=== PATIENT | female | born 1940 | race Caucasian/White ===

== ENCOUNTER 2016-04-25 13:53 | Observation (INO) | payer MEDICARE, MEDICAID ==
[~2016-04-25] VITALS: Ht 157.5 cm; Wt 108.6 kg
[~2016-04-25 13:53] MED LIST: ALPR.25T; BIOT1POW3 PO; CALC1CAP21 PO; CHOL20002 PO; CIPR500T4 PO; CYAN100021 PO; CYCL10TA9 PO; DIAZ5TAB49; DULO30CA; ESTROVEN; FLAX100011 PO; FRSM40T; HYDR-1231 PO; HYDR-3714 PO; HYDR-3720 PO; HYDR-3812 PO; HYDR25TA4 PO; HYDR50TA3; KCL10CCR; LIOT25TA3; LNS30CCR; LVT.1T; MAGN400C PO; MAGN500C15 PO; MIRA50TA PO; MULTIVITAMIN; NTR50C PO; OXC5T; OXYC-12 PO; OXYC-272; PANT40TA2 PO; POLY119P PO; POLY17PO6 PO; SLO FE; THYR180T2 PO; THYR65TA5 PO; TRAM50TA2 PO; TRIM100T PO; [UNRECOGNIZED DRUG - MIXTURE]
--- OUTSIDE RECORDS SUMMARY | 2016-04-25 13:59 | XMS REPORT | Continuity of Care Document ---
Author Author [facility] Organization [facility] Address Unknown Phone Unavailable Care Team Providers Care Bronzer Name Role Phone PCP Unavailable Source Comments Some departments are not documenting in the electronic medical record. If you do not see the information that you expected, contact Release of Information in the Health Information Management department at [phone] for further assistance in locating additional records.[facility] Active Allergies and Adverse Reactions Not on File Current Medications Not on file Active Problems Not on file Social History Tobacco Use Types Packs/Day Years Used Date Never Assessed Plan of Care Health Maintenance Due Date Last Done Comments Physical (Comprehensive) 12/21/1946 Exam Pertussis Vaccine 12/21/1950 Tetanus Vaccine 12/21/1956 Breast Cancer Screening 1979 Shingles Vaccine 1999 Osteoporosis Screening 12/21/2004 Prevnar/Pneumovax (#1) 12/21/2004 Influenza Vaccine 11/03/2014 Results from Last 3 Months Not on file
[2016-04-25] MEDS ORDERED: ASPIRIN 81 MG CHEW (CHILDREN'S ASA) PO ONE (14:30)
--- NOTE | 2016-04-25 14:30 | ED Cardiac General ---
History of Present Illness General Chief Complaint: Respiratory Problems Stated Complaint: CHEST PAIN/SOA Source: patient History of Present Illness Time seen by provider: 14:11 Initial Comments PT ARRIVES VIA POV FROM DR. PERSAUD OFFICE PT C/O CHEST HEAVINESS --RATES 10/12--SINCE SUNDAY C/O SHORTNESS OF BREATH SINCE SUNDAY, ESPECIALLY WITH ANY EXERTION HAS HAD SLIGHT COUGH--MOSTLY AT NIGHT AND MOSTLY FROM SINUS DRAINAGE--FOR THE LAST COUPLE OF WEEKS. STATES SALTINE CRACKERS ARE THE ONLY THING THAT HELPS. SO HAS BEEN EATING ALOT OF THOSE THE LAST COUPLE OF WEEKS NO FEVER/SWEATS/CHILLS C/O LEG SWELLING, AND HAS GAINED 7 LBS IN LAST 2 WEEKS NO ORTHOPNEA---PT STATES SHE HAS SLEPT IN A RECLINER FOR YEARS DUE TO CHRONIC BACK PAIN, BUT DOES NOT HAVE DIFFICULTY BREATHING WHEN RECLINING PCP: DR. PERSAUD Allergies and Home Medications Allergies Coded Allergies: NKANo Known Allergies (Verified Allergy, Unknown, 06/10/06) Home Medications Biotin 1 Gm Powder 3,000 MCG PO BID (Reported) Calcium Carbonate/Vitamin D3 1 Each Capsule 2 TAB PO DAILY (Reported) Cholecalciferol (Vitamin D3) 2,000 Unit Capsule 2,000 UNIT PO BID (Reported) Ciprofloxacin HCl 500 Mg Tablet #14 500 MG PO BID Prescribed by: RYLEE MORENO on 05/13/15 1821 Cyanocobalamin 1,000 Mcg/15 Ml Oral.susp 5,000 MCG PO BID (Reported) Cyclobenzaprine Hcl 10 Mg Tablet #10 0.5-1 EACH PO Q8H PRN PRN SPASMS Prescribed by: RYLEE MORENO on 08/01/13 1433 Flaxseed 1,000 Mg Capsule 2,000 MG PO BID (Reported) Hydrochlorothiazide 25 Mg Tablet #90 25 MG PO HS (Reported) Hydrocodone/Acetaminophen 1 Each Tablet #20 1-2 EACH PO Q6H PRN PRN PAIN Prescribed by: LUCY BARR on 06/09/15 2142 Magnesium Oxide 500 Mg Capsule 500 MG PO DAILY (Reported) Nitrofurantoin Macrocrystal 50 Mg Capsule #30 1 CAP PO HS (Reported) Oxycodone Hcl/Acetaminophen 1 Each Tablet #14 1 EACH PO Q4-6H PRN Prescribed by: RYLEE MORENO on 08/09/13 1410 Pantoprazole Sodium 40 Mg Tablet.dr #30 40 MG PO DAILY Prescribed by: NIKOLAI SAAVEDRA on 12/28/14 0834 Polyethylene Glycol 3350 17 Gm Powd.pack 17 GM PO HS (Reported) Thyroid,Pork 65 Mg Tablet 65 MG PO DAILY (Reported) Tramadol HCl 50 Mg Tablet #10 50 MG PO Q6H PRN PRN PAIN Prescribed by: RYLEE MORENO on 05/13/15 1821 Trimethoprim 100 Mg Tablet #30 100 MG PO DAILY (Reported) Review of Systems Constitutional: see HPI weight gain EENTM: See HPI Nose Congestion Respiratory: See HPI Cough Shortness of Air SOA With ExertionDenies Wheezing Cardiovascular: See HPI Chest Pain EdemaDenies Lightheadedness, Denies Palpitations, Denies Syncope Gastrointestinal: No Symptoms Reported Genitourinary: Incontinence (CHRONIC / STABLE) Musculoskeletal: see HPI Skin: no symptoms reported Psychiatric/Neurological: No Symptoms Reported Endocrine: No Symptoms Reported Hematologic/Lymphatic: No Symptoms Reported Past Fpsypxj-Vfidas-Rswelz Hx Patient Social History Alcohol Use: Rarely Uses Recreational Drug Use: No Smoking Status: Never a Smoker Former Smoker/When Quit: Recent Hopitalizations: No Immunizations Up To Date Date of Pneumonia Vaccine: Nov 22, 2014 Date of Influenza Vaccine: Jan 20, 2016 Surgeries HX Surgeries: Yes (STIMULATOR R HIP, CARPAL TUNNEL, TLKR, INTERSTIM R/L HIP FOR INCONTINENCE, ) Surgeries: Appendectomy, Section, Gallbladder, Hysterectomy, Orthopedic, Tonsillectomy Respiratory Hx Respiratory Disorders: No Cardiovascular Hx Cardiac Disorders: Yes Cardiac Disorders: Chronic Edema/Swelling Neurological Hx Neurological Disorders: No 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 System Hx 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 Disorders: No Sexually Transmitted Disease: No HIV/AIDS: No Female 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 Disorders: Denies KITCHEN AIDE History: Menopausal Genitourinary Hx Genitourinary Disorders: Yes (STATES "INTERSTEMS" IN PLACE FOR UTI'S AND INCONTINENCE, HX COLLAGEN IMPLANTS) Genitourinary Disorders: Kidney Stones, UTI-Chronic Gastrointestinal Hx Gastrointestinal Disorders: No Musculoskeletal Hx Musculoskeletal Disorders: Yes (CARPAL TUNNEL SURGERY RIGHT WRIST, FX L1, FX PELVIS, lumbar compression Fx; RIGHT SHOULDER DISLOCATION; HIP REPLACEMENT) Musculoskeletal Disorders: Osteoporosis, Arthritis, Chronic Back Pain, Fractures Endocrine Hx Endocrine Disorders: Yes Endocrine Disorders: Hypothyroidsim HEENT HX ENT Disorders: No Loss of Vision: Denies Hearing Impairment: Denies Cancer Hx Cancer: No Psychosocial Hx Psychiatric Problems: No Integumentary HX Skin/Integumentary Disorder: No Blood Transfusions Hx Blood Disorders: No Family Medical History Significant Family History: Diabetes Family Medial History: Diabetes mellitus 19 FATHER G8 SISTER Physical Exam Vital Signs Vital Sign - Last 12Hours 04/25/16 14:23 Temp 99.1 Pulse 79 Resp 18 B/P 172/65 Pulse Ox 94 Capillary Refill : General Appearance: Obese Other (MILDLY DYSPENIC ON WALKING BACK TO ROOM, BUT QUICKLY RESOLVES AT REST. ABLE TO TALK IN FULL SENTENCES) HEENT: PERRL/EOMI Neck: Full Range of Motion Normal Inspection Non Tender SuppleNo Carotid Bruit , No JVD Respiratory: Normal Breath Sounds No Accessory Muscle Use Cardiovascular: Regular Rate, Rhythm No JVD No Murmur Normal Peripheral Pulses Gastrointestinal: Normal Bowel Sounds No Organomegaly Non Tender Soft Extremity: Normal Capillary Refill Non Tender No Calf Tenderness Pedal Edema ( 2+ BILATERALLY) Neurologic/Psychiatric: Alert Oriented x3 No Motor/Sensory Deficits Normal Mood/Affect cylinder tester II-XII Norm as Tested Skin: Normal Color Warm/Dry Patient Education: Explained Benefits, Explained Risks, Pt. Ack. Understanding Breath Sounds per Auscultation: Clear Heart Sounds per Auscultation: Regular Airway Exam: Mouth opens >2 fingers, Neck Full Range of Motion, Visulation of Uvula Sedation Adminstration Time: 2014 Progress/Results/Core Measures Results/Orders Lab Results Laboratory Tests Test 04/25/16 15:05 Range/Units Activated Partial Thromboplast Time 26 24-35 SEC Alanine Aminotransferase (ALT/SGPT) 16 0-55 U/L Albumin 3.8 3.2-4.5 G/DL Alkaline Phosphatase 83 40-136 U/L Amylase Level 42 25-125 U/L Anion Gap 9 5-14 MMOL/L Aspartate Amino Transf (AST/SGOT) 25 5-34 U/L B-Type Natriuretic Peptide 16.8 <100.0 PG/ML BUN/Creatinine Ratio 22 Basophils # (Auto) 0.0 0.0-0.1 10^3/uL Basophils (%) (Auto) 0 0-10 % Blood Urea Nitrogen 22 H 7-18 MG/DL Calcium Level 9.2 8.5-10.1 MG/DL Carbon Dioxide Level 27 21-32 MMOL/L Chloride Level 103 98-107 MMOL/L Creatine Kinase MB 1.6 <6.6 NG/ML Creatinine 1.00 0.60-1.30 MG/DL Eosinophils # (Auto) 0.3 0.0-0.3 10^3/uL Eosinophils (%) (Auto) 3 0-10 % Estimat Glomerular Filtration Rate 54 Glucose Level 90 70-105 MG/DL Hematocrit 43 35-52 % Hemoglobin 13.9 11.5-16.0 G/DL INR Comment 1.0 0.8-1.4 Lipase 31 8-78 U/L Lymphocytes # (Auto) 2.3 1.0-4.0 X 10^3 Lymphocytes (%) (Auto) 23 12-44 % Magnesium Level 2.4 1.8-2.4 MG/DL Mean Corpuscular Hemoglobin 29 25-34 PG Mean Corpuscular Hemoglobin Concent 33 32-36 G/DL Mean Corpuscular Volume 88 80-99 FL Mean Platelet Volume 9.6 7.4-10.4 FL Monocytes # (Auto) 0.9 0.0-1.0 X 10^3 Monocytes (%) (Auto) 8 0-12 % Neutrophils # (Auto) 6.7 1.8-7.8 X 10^3 Neutrophils (%) (Auto) 66 42-75 % Platelet Count 248 130-400 10^3/uL Potassium Level 5.2 H 3.6-5.0 MMOL/L Prothrombin Time 12.6 12.2-14.7 SEC Red Blood Count 4.86 4.35-5.85 10^6/uL Red Cell Distribution Width 14.1 10.0-14.5 % Sodium Level 139 135-145 MMOL/L TSH [place] Testing 0.35 0.35-4.94 UIU/ML Total Bilirubin 0.4 0.1-1.0 MG/DL Total Creatine Kinase 47 29-168 U/L Total Protein 7.2 6.4-8.2 G/DL Troponin I < 0.30 <0.30 NG/ML White Blood Count 10.2 4.3-11.0 10^3/uL My Orders Orders-DAVID MORALES DO Amylase (04/25/16 14:26) Cbc With Automated Diff (04/25/16 14:26) Comprehensive Metabolic Panel (04/25/16 14:26) Creatine Kinase (04/25/16 14:26) Creatine Kinase Mb (04/25/16 14:26) Lipase (04/25/16 14:26) Partial Thromboplastin Time (04/25/16 14:26) Protime With Inr (04/25/16 14:26) Troponin I (04/25/16 14:26) Chest 1 View, Ap/Pa Only (04/25/16 14:26) O2 (04/25/16 14:26) Ekg Tracing (04/25/16 14:26) Aspirin Chewable Tablet (Baby Aspirin Ch (04/25/16 14:30) Rx-Nitroglycerin Sl Tabs (Rx-Nitrostat S (04/25/16 14:30) BNP (04/25/16 14:26) Monitor-Rhythm Ecg Trace Only (04/25/16 14:26) Magnesium (04/25/16 14:26) Thyroid Analyzer (04/25/16 14:26) Ct Angio Chest W (04/25/16 16:09) Iohexol Injection (Omnipaque 350 Mg/Ml 1 (04/25/16 16:15) Ns (Ivpb) (Sodium Chloride 0.9% Ivpb Bag (04/25/16 16:15) Medications Given in ED Current Medications Medications Dose Ordered Sig/Nancy Route Start Time Stop Time Status Last Admin Dose Admin Aspirin 324 mg ONCE ONCE PO 04/25/16 14:30 04/25/16 14:31 DC 04/25/16 15:47 324 MG Iohexol 150 ml ONCE ONCE IV 04/25/16 16:15 04/25/16 16:34 DC 04/25/16 16:29 145 ML Nitroglycerin 0.4 mg UD PRN SL 04/25/16 14:30 04/25/16 16:06 0.4 MG Sodium Chloride 100 ml ONCE ONCE IV 04/25/16 16:15 04/25/16 16:34 DC 04/25/16 16:29 100 ML Vital Signs/I&O Vital Sign - Last 12Hours 04/25/16 14:23 Temp 99.1 Pulse 79 Resp 18 B/P 172/65 Pulse Ox 94 Progress Note : Progress Note CHEST DISCOMFORT AND SHORTNESS OF BREATH RESOLVED WITH NTG X 2 ECG Initial ECG Impression Time: 14:20 Initial ECG Rate: 75 Initial ECG Rhythm: Normal Sinus Initial ECG Comparisson: Changed (AXIS CHANGE FROM 2009) Diagnostic Imaging Comments CXR--NO ACUTE PROCESS, ATELECTASIS OR SCARRING RIGHT BASE--PER RADIOLOGIST REPORT @ 1524 CT CHEST ANGIO--NO PE OR ACUTE PROCESS, PER RADIOLOGIST REPORT @ 1658 Reviewed: Reviewed by Me Departure Communication Progress Notes 1702--SPOKE WITH DR. EPPERSON, ACCEPTS PT FOR ADMIT. Impression Impression: Primary Impression: Chest pain Additional Impressions: Dyspnea Dyspnea on exertion Leg edema Disposition: ADMITTED INPATIENT Condition: Improved Decision to Admit Reason: Admit from ER (General) Decision to Admit/Date: Apr 25, 2016 Time/Decision to Admit Time: 17:00 Departure-Patient Inst. Referrals: ANDIE PERSAUD MD (PCP/Family) Primary Care Physician DAVID MORALES DO Apr 25, 2016 14:30
--- NOTE | 2016-04-25 15:02 | Diagnostic Imaging Report ---
INDICATION: Chest pain and dyspnea. Upright portable view of the chest is obtained. Comparison is made to study of 04/21/2014. FINDINGS: Overall heart size is at the upper limits of normal. Pulmonary vascularity is unremarkable. There is no evidence of pneumothorax or consolidation. There is probable linear atelectasis or scarring in left lung base. There is rather advanced degenerative change in the shoulder joints. IMPRESSION: Linear atelectasis or scarring in the left lung base. Otherwise, no acute abnormality or adverse change is seen. Dictated by: Dictated on workstation # [id number]
[2016-04-25 15:15] LABS: BASOPHILS % (AUTO) 0 % (0-10); EOSINOPHILS # (AUTO) 0.3 10^3/uL (0.0-0.3); EOSINOPHILS % (AUTO) 3 % (0-10); LYMPHOCYTES # (AUTO) 2.3 X 10^3 (1.0-4.0); LYMPHOCYTES % (AUTO) 23 % (12-44); MEAN CORPUSCULAR HEMOGLOBIN 29 PG (25-34); MEAN CORPUSCULAR HGB CONC 33 G/DL (32-36); MEAN CORPUSCULAR VOLUME 88 FL (80-99); MEAN PLATELET VOLUME 9.6 FL (7.4-10.4); MONOCYTES # (AUTO) 0.9 X 10^3 (0.0-1.0); MONOCYTES % (AUTO) 8 % (0-12); NEUTROPHILS # (AUTO) 6.7 X 10^3 (1.8-7.8); NEUTROPHILS % (AUTO) 66 % (42-75); PLATELET COUNT 248 10^3/uL (130-400); RED BLOOD COUNT 4.86 10^6/uL (4.35-5.85); RED CELL DISTRIBUTION WIDTH 14.1 % (10.0-14.5); WHITE BLOOD COUNT 10.2 10^3/uL (4.3-11.0)
[2016-04-25 15:26] LABS: PROTHROMBIN TIME PATIENT 12.6 SEC (12.2-14.7)
[2016-04-25 15:35] LABS: ALANINE AMINOTRANSFERASE 16 U/L (0-55); ALBUMIN 3.8 G/DL (3.2-4.5); AMYLASE 42 U/L (25-125); ANION GAP 9 MMOL/L (5-14); ASPARTATE AMINO TRANSFERASE 25 U/L (5-34); BILIRUBIN,TOTAL 0.4 MG/DL (0.1-1.0); BLOOD UREA NITROGEN 22 MG/DL (7-18); BUN/CREATININE RATIO 22; CALCIUM 9.2 MG/DL (8.5-10.1); CARBON DIOXIDE 27 MMOL/L (21-32); CHLORIDE 103 MMOL/L (98-107); CREATINE KINASE 47 U/L (29-168); GFR ESTIMATED 54; GLUCOSE 90 MG/DL (70-105); LIPASE 31 U/L (8-78); MAGNESIUM 2.4 MG/DL (1.8-2.4); POTASSIUM 5.2 MMOL/L (3.6-5.0); SODIUM 139 MMOL/L (135-145); TOTAL PROTEIN 7.2 G/DL (6.4-8.2)
[2016-04-25] MEDS: RX-NITROGLYCERIN 0.4 MG TAB BTL 25'S SL PRN ×2 (15:47→16:06)
[2016-04-25 16:02] LABS: TROPONIN I < 0.30 NG/ML (<0.30)
[2016-04-25] MEDS ORDERED: IOHEXOL 350 MG/ML 150 ML (OMNIPAQUE 350) VIAL IV ONE (16:15)
[2016-04-25] MEDS ORDERED: NS 100 ML (IVPB) BAG IV ONE (16:15)
--- NOTE | 2016-04-25 16:55 | Diagnostic Imaging Report ---
PROCEDURE: CT angiography of the chest with contrast. TECHNIQUE: Multiple contiguous axial images were obtained through the chest after uneventful bolus administration of intravenous contrast. Reconstructed CTA MIP acquisitions were also performed. INDICATION: Chest heaviness and shortness of air. COMPARISON: None available. FINDINGS: The contrast bolus timing is suboptimal to evaluate the distal pulmonary arteries. Allowing for this, there is no central pulmonary emboli to the level of the lobar pulmonary arteries. No CT findings of right ventricular strain or pulmonary hypertension. Thoracic aorta is well opacified without dissection and is normal in caliber. No evidence of mediastinal hematoma. Heart is mildly enlarged without pericardial effusion. No supraclavicular or axillary lymphadenopathy. No mediastinal, hilar or juxtaphrenic lymphadenopathy. No pleural effusion or pneumothorax. No endoluminal lesion of the trachea or central bronchi. No pulmonary mass, suspicious nodule or consolidation. There are parapelvic renal cysts in the superior aspect of the left kidney. Remainder of the upper abdomen is grossly normal allowing for the phase of imaging. No concerning osseous lesions. Age-related degenerative changes within the spine. IMPRESSION: 1. No evidence of central pulmonary emboli to level of the proximal segmental arteries. Suboptimal opacification of the pulmonary vessels limits evaluation of the smaller distal pulmonary arteries. 2. No aortic dissection or mediastinal hemorrhage. 3. No acute pulmonary pathology. Dictated by: Dictated on workstation # [id number]
[2016-04-25] MEDS ORDERED: meTOproloL SUCCINATE 50 MG (TOPROL XL) TAB PO SCH (17:15)
[2016-04-25 18:00] VITALS: BP 160/69
[2016-04-25 18:15] VITALS: BP 148/82
[2016-04-25] MEDS ORDERED: CATHETER FLUSH 10 ML SYR IV PRN (18:15)
[2016-04-25] MEDS ORDERED: morphine INJ 4 MG/ML 1 ML (VIAL/SYRINGE) IV PRN (18:15)
[2016-04-25] MEDS ORDERED: NITROGLYCERIN SUBLINGUAL 0.4 MG TAB (NITROSTAT) SL PRN (18:15)
[2016-04-25 18:30] VITALS: BP 143/104
[2016-04-25 19:00] VITALS: BP 168/82
[2016-04-25 19:18] LABS: BILIRUBIN,URINE NEGATIVE (NEGATIVE); KETONES,URINE NEGATIVE (NEGATIVE); LEUKOCYTE ESTERASE ,URINE 2+ (NEGATIVE); NITRITE,URINE NEGATIVE (NEGATIVE); PH,URINE 6 (5-9); PROTEIN,URINE 2+ (NEGATIVE); UROBILINOGEN,URINE NORMAL (NORMAL)
[2016-04-25 19:27] LABS: SQUAMOUS EPITHELIAL CELL,UR 0-2 /HPF
[2016-04-25 20:00] VITALS: BP 156/88
[2016-04-25] MEDS: CATHETER FLUSH 10 ML SYR IV SCH (20:40)
[2016-04-25] MEDS ORDERED: CATHETER FLUSH 10 ML SYR IV SCH (22:00)
[2016-04-26] VITALS: BP 133/78
[2016-04-26 04:00] VITALS: BP 147/74
[2016-04-26 04:14] LABS: BASOPHILS % (AUTO) 0 % (0-10); EOSINOPHILS # (AUTO) 0.4 10^3/uL (0.0-0.3); EOSINOPHILS % (AUTO) 4 % (0-10); LYMPHOCYTES # (AUTO) 2.3 X 10^3 (1.0-4.0); LYMPHOCYTES % (AUTO) 28 % (12-44); MEAN CORPUSCULAR HEMOGLOBIN 29 PG (25-34); MEAN CORPUSCULAR HGB CONC 32 G/DL (32-36); MEAN CORPUSCULAR VOLUME 89 FL (80-99); MEAN PLATELET VOLUME 9.9 FL (7.4-10.4); MONOCYTES # (AUTO) 0.9 X 10^3 (0.0-1.0); MONOCYTES % (AUTO) 11 % (0-12); NEUTROPHILS # (AUTO) 4.7 X 10^3 (1.8-7.8); NEUTROPHILS % (AUTO) 57 % (42-75); PLATELET COUNT 236 10^3/uL (130-400); RED BLOOD COUNT 4.46 10^6/uL (4.35-5.85); RED CELL DISTRIBUTION WIDTH 14.1 % (10.0-14.5); WHITE BLOOD COUNT 8.4 10^3/uL (4.3-11.0)
[2016-04-26 04:46] LABS: ALANINE AMINOTRANSFERASE 12 U/L (0-55); ALBUMIN 3.5 G/DL (3.2-4.5); ANION GAP 10 MMOL/L (5-14); ASPARTATE AMINO TRANSFERASE 14 U/L (5-34); BILIRUBIN,TOTAL 0.5 MG/DL (0.1-1.0); BLOOD UREA NITROGEN 24 MG/DL (7-18); BUN/CREATININE RATIO 28; CALCIUM 8.8 MG/DL (8.5-10.1); CARBON DIOXIDE 26 MMOL/L (21-32); CHLORIDE 103 MMOL/L (98-107); CHOLESTEROL 196 MG/DL (< 200); CREATININE SERUM 0.86 MG/DL (0.60-1.30); DIRECT LDL 138 MG/DL (1-129); GFR ESTIMATED > 60; GLUCOSE 97 MG/DL (70-105); POTASSIUM 4.2 MMOL/L (3.6-5.0); SODIUM 139 MMOL/L (135-145); TRIGLYCERIDES 112 MG/DL (<150); VLDL CHOLESTEROL 22 MG/DL (5-40)
[2016-04-26 04:53] LABS: MYOGLOBIN SERUM 79.1 NG/ML (10.0-92.0)
[2016-04-26] MEDS: CATHETER FLUSH 10 ML SYR IV SCH ×3 (08:17→23:45)
[2016-04-26 08:34] VITALS: BP 159/75
--- NOTE | 2016-04-26 09:27 | Consultation-Cardiology ---
HPI-Cardiology Cardiology Consultation: Date of Consultation 04/26/16 Date of Admission 04-25-16 Attending Physician Jarocho Mcdonald MD Admitting Physician Deuce Lopez MD Consulting Physician Philipp Saunders MD HPI: Chief Complaint: Chest discomfort Ms. Ochoa is a 75 year old female admitted to [facility] from the ED. She states she has had increasing dyspnea with chest heaviness since Sunday with an associated feeling of fullness in her throat. She states the dyspnea is worse with exertion and does improve with rest, but does not completely go away. She reports a low grade fever at home along with productive cough. She reports chronic bilat LE edema for which she takes PRN HCTZ. She feels her chest heaviness and dyspnea have improved, but not completely resolved. She does not report any chest pain, palpitations, syncope or near syncope. Review of Systems-Cardiology Review of Systems Constitutional: As described under HPI Eyes: No blurred vision, No drainage, No pain, No vision change Ears/Nose/Throat: No ear discharge, No ear pain, No nasal drainage, No ulcerations Respiratory: As described under HPI Cardiovascular: As described under HPI Gastrointestinal: No constipation, No diarrhea, No nausea, No vomiting, No stool coloration changes Genitourinary: No dysuria, No discharge, No frequency, No hematuria, No urgency Musculoskeletal: back pain (chronic) Skin: No rash, No skin related problems, No ulcerations Psychiatric/Neurological: No anxiety, No depression, No focal weakness, No seizure, No syncope Hematologic: No bleeding abnormalities OXD-Pbtasx-Gntrmu Hx Patient Social History Alcohol Use: Rarely Uses Recreational Drug Use: No Smoking Status: Never a Smoker Former smoker/When Quit: Recent Foreign Travel: No Recent Infectious Disease Expo: No Physical Abuse Screen: No Sexual Abuse: No Immunizations Up To Date Date of Pneumonia Vaccine: Nov 22, 2014 Date of Influenza Vaccine: Jan 20, 2016 Past Medical History PMH As described under Assessment. Family Medical History Family Medical History: She reports no family h/o CAD. Family History: 19 FATHER Diabetes mellitus G8 SISTER Diabetes mellitus Allergies and Home Medications Allergies Coded Allergies: NKANo Known Allergies (Verified Allergy, Unknown, 06/10/06) Home Medications Ascorbic Acid 1,000 Mg Tablet 1,000 MG PO DAILY (Reported) Biotin 2,500 Mcg Capsule 2,500 MCG PO DAILY (Reported) Calcitonin,[place],Synthetic 3.7 Ml Elizabeth.pump 1 SPRAY NA DAILY (Reported) LAST FILLED 12/09/15 / ALTERNATES NOSTRIL Cholecalciferol (Vitamin D3) 5,000 Unit Capsule 5,000 UNIT PO BID (Reported) Cyanocobalamin (Vitamin B-12) 1,000 Mcg/1 Ml Drops 5,000 MCG PO BID (Reported) Flaxseed Oil 1,000 Mg Capsule 1,000 MG PO BID (Reported) Magnesium Oxide 500 Mg Capsule 500 MG PO DAILY (Reported) Multivitamin 1 Each Tablet 1 TAB PO DAILY (Reported) Oxycodone HCl/Acetaminophen 1 Each Tablet 1 TAB PO Q4H PRN PRN PAIN (Reported) Polyethylene Glycol 3350 17 Gm Powd.pack 17 GM PO HS PRN PRN CONSTIPATION ( Reported) Thyroid,Pork 65 Mg Tablet 97.5 MG PO DAILY (Reported) TAKES 1 & 1/2 OF A (65 MG) TABLET Physical Exam-Cardiology Physical Exam Vital Signs/I&O Vital Sign - Last 12Hours 04/26/16 04/26/16 04/26/16 04/26/16 04:00 04:00 07:00 08:00 Temp 97.8 Pulse 74 50 Resp 18 B/P 147/74 Pulse Ox 97 94 96 O2 Delivery Room Air 04/26/16 04/26/16 04/26/16 04/26/16 08:34 08:38 11:00 11:20 Temp 96.2 Pulse 51 Resp 18 B/P 159/75 Pulse Ox 97 96 98 96 O2 Delivery Room Air O2 Flow Rate 2.00 2.00 04/26/16 04/26/16 04/26/16 11:52 13:00 15:14 Temp 97.8 Pulse 57 75 Resp 18 B/P 149/67 Pulse Ox 98 96 O2 Delivery Room Air O2 Flow Rate 2.00 Intake and Output 04/26/16 00:00 Intake Total 375 ml Output Total 450 ml Balance -75 ml Capillary Refill : Less Than 3 Seconds Constitutional: appears stated ageNo apparent distress, well-developed well- nourished HEENT: PERRLNo discharge, hearing is well preserved oral hygience is goodNo ulceration, No xanthelasmas are seen Neck: No carotid bruit, carotid pulses are 2 + bilaterally Gastrointestinal: No spleenomegaly Extremities: No clubbing, No cyanosis, No significant edema Neurologic/Psychiatric: alert oriented x 3 power is 5/5 both on sides Skin: No rash, No ulcerations Data Review Labs Laboratory Tests 04/25/16 19:10: Urine Bacteria LARGEH, Urine Bilirubin NEGATIVE, Urine Casts NONE, Urine Clarity SLIGHTLY CLOUDY, Urine Color YELLOW, Urine Crystals NONE, Urine Culture Indicated YES, Urine Glucose (UA) NEGATIVE, Urine Ketones NEGATIVE, Urine Leukocyte Esterase 2+H, Urine Mucus NEGATIVE, Urine Nitrite NEGATIVE, Urine Protein 2+H, Urine RBC NONE, Urine RBC (Auto) NEGATIVE, Urine Specific [place] 1.010L, Urine Squamous Epithelial Cells 0-2, Urine Urobilinogen NORMAL, Urine WBC 10-25H, Urine pH 6 04/25/16 21:08: Troponin I < 0.30 04/26/16 03:36: Alanine Aminotransferase (ALT/SGPT) 12, Albumin 3.5, Alkaline Phosphatase 74, Anion Gap 10, Aspartate Amino Transf (AST/SGOT) 14, BUN/Creatinine Ratio 28, Basophils # (Auto) 0.0, Basophils (%) (Auto) 0, Blood Urea Nitrogen 24H, Calcium Level 8.8, Carbon Dioxide Level 26, Chloride Level 103, Cholesterol Level 196, Creatinine 0.86, Eosinophils # (Auto) 0.4H, Eosinophils (%) (Auto) 4 , Estimat Glomerular Filtration Rate > 60, Glucose Level 97, HDL Cholesterol 40 , Hematocrit 40, Hemoglobin 12.8, LDL Cholesterol Direct 138H, Lymphocytes # ( Auto) 2.3, Lymphocytes (%) (Auto) 28, Mean Corpuscular Hemoglobin 29, Mean Corpuscular Hemoglobin Concent 32, Mean Corpuscular Volume 89, Mean Platelet Volume 9.9, Monocytes # (Auto) 0.9, Monocytes (%) (Auto) 11, Myoglobin 79.1, Neutrophils # (Auto) 4.7, Neutrophils (%) (Auto) 57, Platelet Count 236, Potassium Level 4.2, Red Blood Count 4.46, Red Cell Distribution Width 14.1, Sodium Level 139, Total Bilirubin 0.5, Total Protein 6.0L, Triglycerides Level 112, VLDL Cholesterol 22, White Blood Count 8.4 Microbiology 04/25/16 Urine Culture - Preliminary, Resulted Klebsiella Pneumoniae ECG Impression ECG Initial ECG Rhythm: Normal Sinus A/P-Cardiology Assessment/Admission Diagnosis Chest heaviness of undetermined etiology Dyspnea of undetermined etiology UTI - management per medical services Hypothyroidism - replacement tx Chronic back pain with surgeries Bladder stimulator implants Elevated BMI of 43.9 LDL 138 on lab from this admission No evidence of PE per CTA on 04-25-16 Discussion and Recomendations Chest heaviness with associated dyspnea of undetermined etiology. Based on her symptoms and risk factors as listed above we advise further cardiac work up. No evidence of ACS thus far. We advise echocardiogram to evaluate structures. We advise MPI to evaluate for coronary status. We will proceed tomorrow with MPI. Continue current medications. UTI management is per medical services. Further recommendations will be based on her hospital course. We would like to thank the Hospitalist service for this consult. This consult is being scribed by Marielena Elliott APRN on behalf of Dr. Saunders after discussion regarding plan of care. Clinical Quality Measures DVT/VTE Risk/Contraindication: Risk Factor Score Per Nursin RFS Level Per Nursing on Admit: 4+=Very High Physician Assessment Physician Assessment Lungs: good bilat air entry, but diminished at the bases Cor: reg A&R * As documented in our note above * Cardiac work up initiated * Risk factor modification reviewed with the patient * I spoke with her in detail and answered her questions JOCY ELLIOTT Apr 26, 2016 09:26 PHILIPP SAUNDERS MD FACP [facility] Apr 26, 2016 15:32
[2016-04-26] MEDS ORDERED: CYAN100081 PO (09:50)
[2016-04-26] MEDS ORDERED: ASCO10006 PO (09:50)
[2016-04-26] MEDS ORDERED: CHOL5000 PO (09:50)
[2016-04-26] MEDS ORDERED: MULT1TAB69 PO (09:50)
[2016-04-26] MEDS ORDERED: BIOT25007 PO (09:50)
[2016-04-26] MEDS ORDERED: CALC3.8S (09:50)
[2016-04-26] MEDS ORDERED: OXYC-471 PO (09:50)
[2016-04-26] MEDS ORDERED: FLAX100032 PO (09:50)
[2016-04-26] MEDS: ASPIRIN E.C. 325 MG (ECOTRIN) TABLET PO SCH (10:05)
[2016-04-26] MEDS: meTOproloL SUCCINATE 50 MG (TOPROL XL) TAB PO SCH (10:05)
[2016-04-26] MEDS ORDERED: oxyCODONE/APAP 5/325MG (PERCOCET 5) TABLET PO PRN (10:30)
[2016-04-26] MEDS ORDERED: POLYETHYLENE GLYCOL 17 GM (MIRALAX) PACK PO PRN (10:30)
[2016-04-26] MEDS: MULTIVIT W/MINERALS TAB (THERAGRAN M) PO SCH (10:44)
[2016-04-26] MEDS: CALCITONIN NASAL 200 INTLU/AC (FORTICAL) 3.7 ML BTL SCH (10:46)
[2016-04-26] MEDS: RT-ALBUTEROL SULF 2.5 MG/3 ML PRE-MIX VIAL INH SCH ×4 (11:00→22:33)
--- NOTE | 2016-04-26 11:09 | Short Stay Summary-Hospitalist ---
HPI History of Present Illness: HPI/Chief Complaint CC: Chest pain HPI: This is a 75yoWF that presented with chest pain and SOB of unknown source. Pt first noticed SOB last Sunday, and symptoms worsened over the weekend. 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 Pt unable to take Bactrim but has a UTI? I reviewed it and it does not appear to be severe so will await UCx Patient Interview: Pt states that PCP is Dr. Lopez and she sees him every two months. Pt states that she became very SOB on Sunday, and symptoms worsened over the weekend. Pt was having great difficulty breathing, and was sent to hospital by PCP. Pt states that she will be taking a stress test. Pt denies having asthma. Physical exam reveals wheezing. Pt denies smoking. Pt is retired from [employer]. Pt retired in 1995. Pt does not wear O2, but she previously did. Pt has not been receiving breathing treatments. Scribed by Siddharth Martell under the direct supervision of Dr. Rodriguez. 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) Alcohol Use: Rarely Uses Recreational Drug Use: No Smoking Status: Never a Smoker Former smoker/When Quit: Physical Abuse Screen: No Sexual Abuse: No Recent Foreign Travel: No Contact w/other who traveled: No Recent Hopitalizations: No Recent Infectious Disease Expo: No Immunizations Up To Date Date of Pneumonia Vaccine: Nov 22, 2014 Date of Influenza Vaccine: Jan 20, 2016 Seasonal Allergies Seasonal Allergies: No Surgeries HX Surgeries: Yes (STIMULATOR R HIP, CARPAL TUNNEL, TLKR, INTERSTIM R/L HIP FOR INCONTINENCE, ) Surgeries: Appendectomy, Section, Gallbladder, Hysterectomy, Orthopedic, Tonsillectomy Respiratory Hx Respiratory Disorders: Yes (required home O2 yrs ago) Cardiovascular Hx Cardiovascular Disorders: Yes Cardiac Disorders: Chronic Edema/Swelling Neurological Hx Neurological Disorders: No 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 System Hx 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 Disorders: No Sexually Transmitted Disease: No HIV/AIDS: No Female 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 Disorders: Denies Genitourinary Hx Genitourinary Disorders: Yes (STATES "INTERSTEMS" IN PLACE FOR UTI'S AND INCONTINENCE, HX COLLAGEN IMPLANTS) Genitourinary Disorders: Kidney Stones, UTI-Chronic Gastrointestinal Hx Gastrointestinal Disorders: No Musculoskeletal Hx Musculoskeletal Disorders: Yes (CARPAL TUNNEL SURGERY RIGHT WRIST, FX L1, FX PELVIS, lumbar compression Fx; RIGHT SHOULDER DISLOCATION; HIP REPLACEMENT) Musculoskeletal Disorders: Arthritis, Chronic Back Pain, Fractures Endocrine Hx Endocrine Disorders: Yes Endocrine Disorders: Hypothyroidsim HEENT HX ENT Disorders: No Loss of Vision: Denies Hearing Impairment: Denies Cancer Hx Cancer: No Psychosocial Hx Psychiatric Problems: No Integumentary HX Skin/Integumentary Disorder: No Blood Transfusions Hx Blood Disorders: No Family Medical History Significant Family History: Diabetes Family Hx: Diabetes mellitus 19 FATHER G8 SISTER Review of Systems Constitutional: see HPI EENTM: no symptoms reported Respiratory: cough short of breath Cardiovascular: chest pain Gastrointestinal: no symptoms reported Genitourinary: no symptoms reported Musculoskeletal: no symptoms reported Skin: no symptoms reported Psychiatric/Neurological: No Symptoms Reported All Other Systems Reviewed Negative Unless Noted: Yes Physical Exam Physical Exam Vital Signs Vital Sign - Last 12Hours 04/25/16 04/25/16 04/26/16 14:23 18:00 11:00 Temp 99.1 Pulse 79 Resp 18 B/P 172/65 Pulse Ox 94 O2 Delivery Room Air O2 Flow Rate 2.00 Capillary Refill : Less Than 3 Seconds General Appearance: No Apparent Distress WD/WN Eyes: Bilateral Eye Normal Inspection, Bilateral Eye PERRL HEENT: PERRL/EOMI Normal ENT Inspection Pharynx Normal Neck: Full Range of Motion Normal Inspection Non Tender Supple Carotid Bruit Respiratory: Chest Non Tender No Accessory Muscle Use No Respiratory Distress Decreased Breath Sounds Wheezing Cardiovascular: Regular Rate, Rhythm No Edema No Gallop No JVD No Murmur Normal Peripheral Pulses Gastrointestinal: Normal Bowel Sounds No Organomegaly No Pulsatile Mass Non Tender Soft Back: Normal Inspection No CVA Tenderness No Vertebral Tenderness Extremity: Normal Capillary Refill Normal Inspection Normal Range of Motion Non Tender No Calf Tenderness No Pedal Edema Neurologic/Psychiatric: Alert Oriented x3 No Motor/Sensory Deficits Normal Mood/Affect Skin: Normal Color Warm/Dry Lymphatic: No Adenopathy Results Results/Procedures Lab Laboratory Tests 04/25/16 15:05 2/22/17 03:36 Short Stay Diagnosis Discharge Diagnosis-Short Stay Admission Diagnosis Assessment: Chest pain of uncertain etiology Wheezing on exam with history of hypoxia requiring home oxygen several years ago Morbid obesity Hypothyroidism Final Discharge Diagnosis Assessment: Chest pain of uncertain etiology Wheezing on exam with history of hypoxia requiring home oxygen several years ago Morbid obesity Hypothyroidism Slightly abnormal UA Conclusion Plan Plan: Albuterol breathing treatments q4 Advair Home O2 eval Solumedrol EST w/cardiology consultation Awaiting urine culture [facility] Clinical Quality Measures DVT/VTE Risk/Contraindication: Risk Factor Score Per Nursin RFS Level Per Nursing on Admit: 4+=Very High KANDI RODRIGUEZ DO Apr 26, 2016 11:09
[2016-04-26] MEDS: methylPREDNISolone 40 MG/ML (Solu-MEDROL) VIAL IV SCH ×4 (11:14→23:45)
[2016-04-26 11:52] VITALS: BP 149/67
[2016-04-26] MEDS ORDERED: PATIENT MAY USE OWN MEDS, ALL MC SCH (14:30)
[2016-04-26 16:00] VITALS: BP 152/70
[2016-04-26] MEDS: RT-ADVAIR HFA 115/21 MCG PER PUFF IH SCH (18:38)
[2016-04-26 20:00] VITALS: BP 158/85
[2016-04-27] VITALS (8 sets, daily range): BP systolic 121–174; BP diastolic 68–87
[2016-04-27] MEDS: RT-ALBUTEROL SULF 2.5 MG/3 ML PRE-MIX VIAL INH SCH ×4 (02:35→10:45)
[2016-04-27] MEDS: MULTIVIT W/MINERALS TAB (THERAGRAN M) PO SCH (05:09)
[2016-04-27] MEDS: CATHETER FLUSH 10 ML SYR IV SCH ×2 (05:09→12:13)
[2016-04-27] MEDS: THYROID 1 GRAIN (60 - 65 MG) TABLET PO SCH ×2 (05:09→10:40)
[2016-04-27] MEDS: methylPREDNISolone 40 MG/ML (Solu-MEDROL) VIAL IV SCH ×2 (05:09→12:13)
[2016-04-27 05:11] LABS: POTASSIUM 4.3 MMOL/L (3.6-5.0)
[2016-04-27] MEDS ORDERED: THYROID 1 GRAIN (60 - 65 MG) TABLET PO SCH (06:30)
[2016-04-27] MEDS: RT-ADVAIR HFA 115/21 MCG PER PUFF IH SCH (06:54)
[2016-04-27] MEDS: meTOproloL SUCCINATE 50 MG (TOPROL XL) TAB PO SCH (08:00)
[2016-04-27] MEDS: ASPIRIN E.C. 325 MG (ECOTRIN) TABLET PO SCH (08:00)
[2016-04-27] MEDS: CALCITONIN NASAL 200 INTLU/AC (FORTICAL) 3.7 ML BTL SCH (08:20)
[2016-04-27] MEDS ORDERED: REGADENOSON 0.4 MG/5 ML SYR (LEXISCAN) IV ONE ×2 (08:44→09:30)
[2016-04-27] MEDS ORDERED: TRIM/SULFAMETH 160/800 (SEPTRA DS) TAB PO SCH (09:00)
--- NOTE | 2016-04-27 09:44 | ECHOCARDIOGRAPHY REPORT ---
PROCEDURE PHYSICIAN: KATELIN SAUNDERS DATE OF PROCEDURE: 04/26/2016 TWO DIMENSIONAL ECHOCARDIOGRAM REPORT PRIMARY PHYSICIAN: Dr. Lopez OTHER PHYSICIAN: Dr. Saunders REFERRING PHYSICIAN: ORDERING PHYSICIAN: Pratima Elliott APRN ATTENDING PHYSICIAN: Dr. Mcdonald INDICATION FOR THE PROCEDURE: Shortness of breath. MEASUREMENTS DERIVED VALUES LV DIAMETER (LAX) NORMALS NORMALS Diastolic 4.9 (3.6-5.2) Eject. Fract. (60%+/-6%) Systolic (2.3-3.9) Diastolic Vol. % Shortening (0.22-0.42) Systolic Vol. Aortic Root 3 IVS THICKNESS Diastolic 1.3 (0.6-1.1) LVPW THICKNESS Diastolic 1.4 (0.6-1.1) LA DIAMETER Systolic 4.7 (2.1-3.7) DESCRIPTION: Two-dimensional echocardiography shows normal global left ventricular systolic function with an ejection fraction of approximately 70 to 75%. Aortic, mitral and tricuspid valve leaflets show good leaflet excursion. There is moderate concentric left ventricular hypertrophy and mild left atrial enlargement. There is no significant pericardial effusion. Aortic valve appears to be trileaflet. There is mild aortic valve sclerosis. Doppler imaging did not show any significant valvular stenosis. There does not appear to be significant valvular regurgitation. Mitral inflow is consistent with grade 1 diastolic dysfunction of the left ventricle. Inferior vena cava does not appear to be dilated and seems to have normal inspiratory collapse. CONCLUSION: 1. Normal to hyperdynamic left ventricular systolic function with an ejection 70 to 75%. 2. Mild to moderate concentric left ventricular hypertrophy. 3. No significant valvular regurgitation or stenosis. 4. Mild aortic valve sclerosis. 5. Mild diastolic dysfunction of the left ventricle. Job ID: [id number] Dictated Date: 04/26/2016 17:44:35 Flake Cutter Operator Date: 04/27/2016 09:39:00 / ester
--- NOTE | 2016-04-27 10:26 | Progress Note-Cardiology ---
Cardiology SOAP Progress Note Subjective: States she is feeling better today. Feels breathing is better. No c/o CP today. C/O loose cough. Objective: I&O/Vital Signs Vital Sign - Last 12Hours 04/27/16 04/27/16 04/27/16 04/27/16 00:00 00:00 01:00 02:36 Temp 97.7 Pulse 79 68 Resp 18 B/P 121/68 Pulse Ox 97 97 97 O2 Delivery Nasal Cannula O2 Flow Rate 2.00 2.00 2.00 04/27/16 04/27/16 04/27/16 04/27/16 04:00 04:00 06:55 07:00 Temp 97.9 Pulse 80 68 Resp 20 B/P 139/74 Pulse Ox 96 96 94 O2 Delivery Nasal Cannula O2 Flow Rate 2.00 2.00 2.00 04/27/16 04/27/16 04/27/16 04/27/16 09:11 09:15 09:16 09:18 Pulse 78 93 103 92 B/P 174/72 150/79 172/87 Pulse Ox 97 98 96 98 04/27/16 10:45 Pulse Ox 96 Intake and Output 04/27/16 00:00 Intake Total 1250 ml Balance 1250 ml Weight (Pounds): 240 Weight (Ounces): 0.0 Weight (Calculated Kilograms): [id number] Constitutional: appears stated ageNo apparent distress, well-developed well- nourished Respiratory: No accessory muscle use, No respiratory distress, lungs clear to percussion lungs clear to auscultation other (loose cough) Cardiovascular: regular rate-rhythmNo JVD, S1 and S2 Gastrointestional: No tender, soft roundNo spleenomegaly Extremities: No clubbing, No cyanosis, No significant edema Neurologic/Psychiatric: alert oriented x 3 power is 5/5 both on sides Skin: No rash, No ulcerations Results/Procedures: Labs Laboratory Tests 04/27/16 04:26: Anion Gap 12, BUN/Creatinine Ratio 28, Blood Urea Nitrogen 28H, Calcium Level 9.0, Carbon Dioxide Level 23, Chloride Level 103, Creatinine 1.00, Estimat Glomerular Filtration Rate 54, Glucose Level 180H, Hemoglobin A1c 5.5, Potassium Level 4.3, Sodium Level 138 Microbiology 04/25/16 Urine Culture - Preliminary, Resulted Klebsiella Pneumoniae A/P: Assessment: Chest heaviness and exertional shortness of undetermined etiology. No evidence of acute cor syndrome Echo of 04/26/16: Mild to mod conc LVH, LVEF 70-75%, mild AoV sclerosis w/o stenosis, mild diastolic dysfunction of LV MPI of 04/27/16: No cor ischemia or infarction; LVEF 73% UTI - management per Medical Services Hypothyroidism - treated with thyroid replacement therapy Chronic back pain with surgeries Bladder stimulator implants Elevated BMI of approx 44 H/o ZENAIDA, but reports intolerance to CPAP LDL 138 on lab from this admission No evidence of PE per CTA on 04-25-16 Plan: Feeling better today MPI pending BP not well controlled and d/t LVH seen on echocardiogram we will increase her BB to Toprol XL 100mg daily Further recommendations pending aforementioned testing Physician Assessment Physician Assessment Lungs: good bilat air entry Cor: reg A&R * As documented in our note above that I updated at the time of this writing * I discussed with her in detail the results of card w/u * I discussed and advised risk factor modification * Beta-blockers have been added to the regimen to treat bp and she has tolerated it well thus far * Outpatient f/u is advised * I have advised compliance with sleep apnea treatments JOCY SOLORIO UNIONMELT OPERATOR Apr 27, 2016 10:26 KATELIN MCKENZIE MD FACP FAC CCDS Apr 27, 2016 11:30
[2016-04-27] MEDS ORDERED: meTOproloL SUCCINATE 50 MG (TOPROL XL) TAB PO NR (10:45)
[2016-04-27] MEDS ORDERED: METO-274 PO (10:58)
[2016-04-27] MEDS ORDERED: ASPI-586 PO (11:09)
[2016-04-27] MEDS ORDERED: METO-272 PO (11:09)
--- NOTE | 2016-04-27 11:34 | Discharge Summary-Hospitalist ---
Diagnosis/Chief Complaint Date of Admission Apr 25, 2016 at 17:26 Date of Discharge Admission Diagnosis Assessment: Chest pain of uncertain etiology Wheezing on exam with history of hypoxia requiring home oxygen several years ago Morbid obesity Hypothyroidism Discharge Diagnosis Assessment: Chest pain of uncertain etiology negative stress test Wheezing on exam with history of hypoxia requiring home oxygen several years ago consistent with asthma requiring home O2 temporarily Morbid obesity Hypothyroidism likely sleep apnea Plan: Albuterol breathing treatments q4 Advair Home O2 eval Solumedrol EST w/cardiology consultation Awaiting urine culture Home meds Reason Hospital Visit/Course CC: Chest pain HPI: This is a 75yoWF that presented with chest pain and SOB of unknown source. Pt first noticed SOB last Sunday, and symptoms worsened over the weekend. Chart Review: CT angio no evidence of PE clinic lead: Pt will get an echo. Pt unable to take Bactrim but has a UTI? I reviewed it and it does not appear to be severe so will await UCx Patient Interview: Pt states that PCP is Dr. Lopez and she sees him every two months. Pt states that she became very SOB on Sunday, and symptoms worsened over the weekend. Pt was having great difficulty breathing, and was sent to hospital by PCP. Pt states that she will be taking a stress test. Pt denies having asthma. Physical exam reveals wheezing. Pt denies smoking. Pt is retired from [employer]. Pt retired in 1995. Pt does not wear O2, but she previously did. Pt has not been receiving breathing treatments. Scribed by Siddharth Martell under the direct supervision of Dr. Rodriguez. Notes from 04/27/2016: Chart Review: No fever Vitals stable Ucx reveals Klebsiella, will place on antibiotic. Home O2 arranged at 2L and needs sleep study. Pt undergoing stress test today. clinic lead: RN states that pt did well overnight. RN states that pt will not take Bactrim because she believes that it does not work, but is unsure of what she would like instead. RN will contact [facility] to check pt's med hx. Patient Interview: Pt states that she had a stress test this morning, and feels good. Pt states that she has been off the O2 since this morning and has been breathing very well. Pt had a sleep study a number of years ago, and Dr. Rodriguez discusses possibility of repeating sleep test now. Pt states that she had asthmatic bronchitis when she was young. Physical exam reveals slight wheezing. no fever vital signs stable, pleasant, oriented 3 Regular rate and rhythm, wheezing noted in end expiratory phases all mcneil but much improved and good air movement today compared to yesterday No edema Plan: Needs sleep study will follow up with Dr. Giron and PCP Home O2 2L approved, but may not be needed now DC with Symbicort or Advair and Proair Antibiotic for UTI Klebsiella Scribed by Siddharth Martell under the direct supervision of Dr. Rodriguez. Discharge Summary Discharge Physical Examination Allergies: Coded Allergies: NKANo Known Allergies (Verified Allergy, Unknown, 06/10/06) Vitals & I&Os Vital Signs Date Time Temp Pulse Resp B/P Pulse Ox O2 Delivery O2 Flow Rate FiO2 04/27/16 10:45 96 04/27/16 09:18 92 04/27/16 09:16 172/87 04/27/16 06:55 2.00 04/27/16 04:00 97.9 20 Nasal Cannula Hospital Course Labs (last 24 hrs) Laboratory Tests 04/27/16 04:26: Anion Gap 12, BUN/Creatinine Ratio 28, Blood Urea Nitrogen 28H, Calcium Level 9.0, Carbon Dioxide Level 23, Chloride Level 103, Creatinine 1.00, Estimat Glomerular Filtration Rate 54, Glucose Level 180H, Hemoglobin A1c 5.5, Potassium Level 4.3, Sodium Level 138 Microbiology 04/25/16 Urine Culture - Final, Complete Klebsiella Pneumoniae Pending Labs Laboratory Tests 04/27/16 04:26: Anion Gap 12, BUN/Creatinine Ratio 28, Blood Urea Nitrogen 28, Calcium Level 9.0 , Carbon Dioxide Level 23, Chloride Level 103, Creatinine 1.00, Estimat Glomerular Filtration Rate 54, Glucose Level 180, Hemoglobin A1c 5.5, Potassium Level 4.3, Sodium Level 138 Discharge Home Medications: Active Scripts Active Ampicillin Trihydrate 500 Mg Capsule 500 Mg PO TID Proair Hfa (Albuterol Sulfate) 1 Puff Puff 2 Puff IH Q4H PRN 1 PUFF = 90 MCG Prednisone 10 Mg Tab.ds.pk 10 Mg PO DAILY Take 6 tabs(60mg)daily,decrease by 1 tab(10MG)daily. Aspir 81 (Aspirin) 81 Mg Tablet.dr 81 Mg PO DAILY Metoprolol Succinate 50 Mg Tab.er.24h 50 Mg PO 1045 Reported Vitamin C (Ascorbic Acid) 1,000 Mg Tablet 1,000 Mg PO DAILY Multivitamins (Multivitamin) 1 Each Tablet 1 Tab PO DAILY Oxycodone-Acetaminophen 5-325 (Oxycodone HCl/Acetaminophen) 1 Each Tablet 1 Tab PO Q4H PRN Calcitonin-[place] (Calcitonin,[place],Synthetic) 3.7 Ml [place].pump 1 [place] NA DAILY LAST FILLED 12/09/15 / ALTERNATES NOSTRIL Vitamin D3 (Cholecalciferol (Vitamin D3)) 5,000 Unit Capsule 5,000 Unit PO BID Biotin 2,500 Mcg Capsule 2,500 Mcg PO DAILY Vitamin B-12 (Cyanocobalamin (Vitamin B-12)) 1,000 Mcg/1 Ml Drops 5,000 Mcg PO BID Flaxseed (Flaxseed Oil) 1,000 Mg Capsule 1,000 Mg PO BID Miralax (Polyethylene Glycol 3350) 17 Gm Powd.pack 17 Gm PO HS PRN Magnesium (Magnesium Oxide) 500 Mg Capsule 500 Mg PO DAILY Nature-Throid (Thyroid,Pork) 65 Mg Tablet 97.5 Mg PO DAILY TAKES 1 & 1/2 OF A (65 MG) TABLET Instructions to patient/family Please see electonic discharge instructions given to patient. Clinical Quality Measures DVT/VTE Risk/Contraindication: Risk Factor Score Per Nursin RFS Level Per Nursing on Admit: 4+=Very High KANDI RODRIGUEZ DO Apr 27, 2016 11:34
[2016-04-27] MEDS ORDERED: RT-ALBUINH IH (11:54)
[2016-04-27] MEDS ORDERED: PRED10TA22 PO (11:54)
[2016-04-27] MEDS ORDERED: AMPI500C9 PO (11:54)
--- NOTE | 2016-04-27 11:56 | Discharge Instructions ---
Discharge Instructions Discharge Medications New, Converted or Re-Newed RX: Transmitted to Pharmacy Patient Instructions Goal/Follow Up Appt: xochitl close appointment with Dr. Jessica Giron is instructed to evaluate sleep apnea Wear oxygen until visit with Dr. Giron Activity & Diet Discharge Diet: No Restrictions Activity as Tolerated: Yes KANDI RODRIGUEZ DO Apr 27, 2016 11:56
[2016-04-27] MEDS ORDERED: BECL8.7A6 IH (12:18)
--- NOTE | 2016-04-28 07:59 | STRESS TEST ---
PROCEDURE PHYSICIAN: KATELIN SAUNDERS DATE OF PROCEDURE: 04/27/2016 RESTING AND POST REGADENOSON TECHNETIUM 99M TETROFOSMIN SPECT CT IMAGING: ORDERING PHYSICIAN: Pratima Elliott APRN. PRIMARY PHYSICIAN: Dr. Lopez ATTENDING PHYSICIAN: Dr. Mcdonald. OTHER PHYSICIAN: Dr. Saunders. CLINICAL DIAGNOSES: 1. Chest discomfort. 2. Shortness of breath. Baseline images were carried out after injection of 9.9 mCi of technetium 99m tetrofosmin. This was followed by 0.4 mg of regadenoson and 32 mCi of technetium 99m tetrofosmin for stress imaging. The electrocardiogram showed sinus rhythm at baseline and did not change significantly with the regadenoson infusion. She had some headache following regadenoson infusion, which resolved in minutes. Overall, she tolerated the procedure well. Review of images at rest and following stress, does not indicate any significant perfusion defects consistent with myocardial ischemia or infarction. Gated images show normal global left ventricular systolic function with normal regional wall motion. Left ventricular ejection fraction is calculated to be 73%. Left ventricular end-diastolic volume is 76 mL. TID is absent (1.01). CONCLUSIONS: 1. No evidence of any significant myocardial ischemia or infarction on this study. 2. Normal regional wall motion. 3. Normal global left ventricular systolic function with a calculated ejection fraction of 73%. 4. Normal left ventricular cavity size. Job ID: [id number] Dictated Date: 04/27/2016 10:40:34 Print Developer Date: 04/28/2016 07:56:34 / ester
[2016-04-28] MEDS ORDERED: meTOprolol SUCCINATE 100 MG (TOPROL XL) TAB PO SCH (09:00)
== END 2016-04-27 11:55 | disposition home or self-care (01) ==
LOC: EDUNIT# 13:53 → ER 13:54 → ICU 17:26 → UNDOADMOB 17:26 → ICU 18:00 → CSD 04-26 08:04 → ICU 04-27 03:29 → CSD 04-27 03:29 → ICU 04-27 04:45 → 4TH 04-27 04:45 → UNDODISOB 04-27 13:55
PROVIDERS: ADMIT Internal Medicine; ATTEND Internal Medicine
DX: R07.9 Chest pain, unspecified (principal); R06.2 Wheezing; E66.01 Morbid (severe) obesity due to excess calories; E03.9 Hypothyroidism, unspecified; N39.0 Urinary tract infection, site not specified; B96.1 Klebsiella pneumoniae [K. pneumoniae] as the cause of diseases classified elsewhere; Z68.41 Body mass index [BMI] 40.0-44.9, adult
CPT/HCPCS: 36415; 71010; 71275; 78452; 80048; 80053; 80061; 81000; 82150; 82550; 82553; 83036; 83690; 83735; 83874; 83880; 84443; 84484; 85025; 85610; 85730; 87077; 87088; 87186; 93005; 93017; 93041; 93306; 94640; 94760; 94761; 99211; G0378

== ENCOUNTER → 2016-05-17 | Outpatient (CLI) | payer MEDICARE, MEDICAID ==
[~2016-05-17] MED LIST changes: +AMLO5TAB2 PO; +AMPI500C9 PO; +ASCO10006 PO; +ASPI-586 PO; +ASPI-999 PO; +BECL8.7A6 IH; +BIOT25007 PO; +BIOTIN PO; +CALC3.8S; +CHOL5000 PO; +CYAN100081 PO; +CYCL1DRO OU; +DILT30TA PO; +FLAX100032 PO; +METO-272 PO; +METO-274 PO; +MULT1TAB69 PO; +OXYC-471 PO; +POLY255P PO; +PRED10TA22 PO; +RT-ALBUINH IH; +RT-ALBUTEROL SULF 2.5 MG/3 ML PRE-MIX VIAL INH ONE
--- OUTSIDE RECORDS SUMMARY | 2016-05-17 12:21 | XMS REPORT | Continuity of Care Document ---
Author Author [facility] Organization [facility] Address Unknown Phone Unavailable Care Team Providers Care Food General Manager Name Role Phone PCP Unavailable Source Comments Some departments are not documenting in the electronic medical record. If you do not see the information that you expected, contact Release of Information in the Health Information Management department at [phone] for further assistance in locating additional records.[facility] Active Allergies and Adverse Reactions Not on [...]
== END ==
LOC: RT 12:18
PROVIDERS: ATTEND Internal Medicine Critical Care Medicine
DX: R09.02 Hypoxemia (principal); E66.01 Morbid (severe) obesity due to excess calories; F41.9 Anxiety disorder, unspecified
CPT/HCPCS: 94060; 94640; 94726; 94729

== ENCOUNTER 2016-05-20 16:45 | Inpatient (IN) | payer MEDICARE, MEDICAID ==
[~2016-05-20] VITALS: Ht 157.5 cm; Wt 108.9 kg
[~2016-05-20 16:45] MED LIST changes: -AMLO5TAB2 PO; -ASPI-999 PO; -BIOTIN PO; -CYCL1DRO OU; -DILT30TA PO; -POLY255P PO; -RT-ALBUTEROL SULF 2.5 MG/3 ML PRE-MIX VIAL INH ONE
--- OUTSIDE RECORDS SUMMARY | 2016-05-20 16:50 | XMS REPORT | Continuity of Care Document ---
Author Author [facility] Address Unknown Phone Unavailable Care Team Providers Care Car Dealer Name Role Phone PCP Unavailable Source Comments Some departments are not documenting in the electronic medical record. If you do not see the information that you expected, contact Release of Information in the Health Information Management department at [phone] for further assistance in locating additional records.[facility] Active Allergies and Adverse Reactions Not [...]
--- NOTE | 2016-05-20 17:08 | ED General ---
General Stated Complaint: FALL, L LEG PAIN Source of Information: Patient Exam Limitations: No Limitations History of Present Illness Time Seen by Provider: 17:07 Initial Comments To ER via wheelchair with reports of left hip pain 2 days. She states that she fell while sitting at the dinner. Her head slid down the wall but there was no loss of consciousness, no headache, no neck pain, no vomiting or neurologic deficit. Her only anticoagulant is a baby aspirin daily. She denies any chest pain or shortness of breath. She was recently admitted to the hospital about a month ago for chest pain. Primary care is Dr. Persaud. Timing/Duration: 1-2 Days Severity: Moderate Allergies and Home Medications Allergies Coded Allergies: INGRIDANo Known Allergies (Verified Allergy, Unknown, 06/10/06) Home Medications Albuterol Sulfate 1 Puff Puff #1 2 PUFF IH Q4H PRN PRN WHEEZING 1 PUFF = 90 MCG Prescribed by: KANDI RODRIGUEZ on 04/27/16 1154 Ampicillin Trihydrate 500 Mg Capsule #21 500 MG PO TID Prescribed by: KANDI RODRIGUEZ on 04/27/16 1154 Ascorbic Acid 1,000 Mg Tablet 1,000 MG PO DAILY (Reported) Aspirin 81 Mg Tablet.dr #120 81 MG PO DAILY Prescribed by: JOCY SOLORIO on 04/27/16 1109 Beclomethasone Dipropionate 8.7 Gm Aer.w.adap #1 8.7 GM IH BID Prescribed by: KANDI RODRIGUEZ on 04/27/16 1218 Biotin 2,500 Mcg Capsule 2,500 MCG PO DAILY (Reported) Calcitonin,[place],Synthetic 3.7 Ml [place].pump 1 SPRAY NA DAILY (Reported) LAST FILLED 12/09/15 / [facility] Cholecalciferol (Vitamin D3) 5,000 Unit Capsule 5,000 UNIT PO BID (Reported) Cyanocobalamin (Vitamin B-12) 1,000 Mcg/1 Ml Drops 5,000 MCG PO BID (Reported) Flaxseed Oil 1,000 Mg Capsule 1,000 MG PO BID (Reported) Magnesium Oxide 500 Mg Capsule 500 MG PO DAILY (Reported) Metoprolol Succinate 50 Mg Tab.er.24h #30 50 MG PO 1045 Prescribed by: JOCY SOLORIO on 04/27/16 1109 Multivitamin 1 Each Tablet 1 TAB PO DAILY (Reported) Oxycodone HCl/Acetaminophen 1 Each Tablet 1 TAB PO Q4H PRN PRN PAIN (Reported) Polyethylene Glycol 3350 17 Gm Powd.pack 17 GM PO HS PRN PRN CONSTIPATION ( Reported) Prednisone 10 Mg Tab.ds.pk #21 10 MG PO DAILY Take 6 tabs(60mg)daily,decrease by 1 tab(10MG)daily. Prescribed by: KANDI RODRIGUEZ on 04/27/16 1154 Thyroid,Pork 65 Mg Tablet 97.5 MG PO DAILY (Reported) TAKES 1 & 1/2 OF A (65 MG) TABLET Constitutional: see HPI EENTM: see HPI Respiratory: no symptoms reported Cardiovascular: no symptoms reported Genitourinary: no symptoms reported Musculoskeletal: see HPINo back pain, joint painNo joint swelling Skin: no symptoms reported Psychiatric/Neurological: No Symptoms Reported Hematologic/Lymphatic: No Symptoms Reported Immunological/Allergic: no symptoms reported Past Svdrhta-Eqjrmr-Ruwchp Hx Patient Social History Former Smoker/When Quit: Recent Foreign Travel: No Contact w/Someone Who Travel: No Recent Hopitalizations: No Immunizations Up To Date PED Vaccines UTD: No Date of Pneumonia Vaccine: Nov 22, 2014 Date of Influenza Vaccine: Jan 20, 2016 Seasonal Allergies Seasonal Allergies: No Surgeries HX Surgeries: Yes (STIMULATOR R HIP, CARPAL TUNNEL, TLKR, INTERSTIM R/L HIP FOR INCONTINENCE, ) Surgeries: Appendectomy, Section, Gallbladder, Hysterectomy, Orthopedic, Tonsillectomy Respiratory Hx Respiratory Disorders: Yes (required home O2 yrs ago) Cardiovascular Hx Cardiac Disorders: Yes Cardiac Disorders: Chronic Edema/Swelling Neurological Hx Neurological Disorders: No 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 System Hx 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 Disorders: No Sexually Transmitted Disease: No HIV/AIDS: No Female 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 Disorders: 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 Genitourinary Hx Genitourinary Disorders: Yes Genitourinary Disorders: Kidney Stones, UTI-Chronic Gastrointestinal Hx Gastrointestinal Disorders: No Musculoskeletal Hx Musculoskeletal Disorders: Yes Musculoskeletal Disorders: Arthritis, Chronic Back Pain, Fractures Endocrine Hx Endocrine Disorders: Yes Endocrine Disorders: Hypothyroidsim HEENT HX ENT Disorders: No Loss of Vision: Denies Hearing Impairment: Denies Cancer Hx Cancer: No Psychosocial Hx Psychiatric Problems: No Integumentary HX Skin/Integumentary Disorder: No Blood Transfusions Hx Blood Disorders: No Family Medical History Significant Family History: Diabetes Family Medial History: Diabetes mellitus 19 FATHER G8 SISTER Physical Exam Vital Signs Vital Sign - Last 12Hours 05/20/16 16:50 Temp 97.3 Pulse 129 Resp 18 B/P 112/65 Pulse Ox 96 Capillary Refill : General Appearance: No Apparent Distress WD/WN Eyes: Bilateral Eye EOMI, Bilateral Eye Normal Inspection, Bilateral Eye PERRL HEENT: PERRL/EOMI TMs Normal Neck: Full Range of Motion Normal Inspection Respiratory: No Accessory Muscle Use No Respiratory Distress Cardiovascular: Normal Peripheral Pulses Irregularly Irregular Tachycardia (I rate with a low of 115 to a high of 145 atrial fibrillation.) Gastrointestinal: Normal Bowel Sounds Non Tender Soft Extremity: Normal Capillary Refill Other (normal sensation and motor function of the left foot. There is 3+ pitting edema to the lower extremity up to the knee on the left and 2+ to the mid tibia on the right. Family and patient reports that the left leg is chronically swollen more than the right. She was started on Norvasc fairly recently and this may be the cause of her swelling being worse than usual.) Neurologic/Psychiatric: Alert Oriented x3 No Motor/Sensory Deficits Skin: Normal Color Warm/Dry Focused Exam Lactic Acid Level Laboratory Tests Test 05/20/16 17:05 Alanine Aminotransferase (ALT/SGPT) 12U/L (0-55) Albumin 3.8G/DL (3.2-4.5) Alkaline Phosphatase 78U/L (40-136) Anion Gap 10MMOL/L (5-14) Aspartate Amino Transf (AST/SGOT) 18U/L (5-34) B-Type Natriuretic Peptide 13.2PG/ML (<100.0) BUN/Creatinine Ratio 29 Blood Urea Nitrogen 25MG/DL (7-18) H Calcium Level 9.3MG/DL (8.5-10.1) Carbon Dioxide Level 23MMOL/L (21-32) Chloride Level 106MMOL/L (98-107) Creatinine 0.85MG/DL (0.60-1.30) Estimat Glomerular Filtration Rate > 60 Glucose Level 105MG/DL (70-105) Potassium Level 3.7MMOL/L (3.6-5.0) Sodium Level 139MMOL/L (135-145) Total Bilirubin 0.4MG/DL (0.1-1.0) Total Protein 6.6G/DL (6.4-8.2) Troponin I < 0.30NG/ML (<0.30) Patient Education: Explained Benefits, Explained Risks, Pt. Ack. Understanding Breath Sounds per Auscultation: Clear Heart Sounds per Auscultation: Regular Airway Exam: Mouth opens >2 fingers, Neck Full Range of Motion, Visulation of Uvula Sedation Adminstration Time: 2014 Progress/Results/Core Measures Results/Orders Lab Results Laboratory Tests Test 05/20/16 17:05 Range/Units Alanine Aminotransferase (ALT/SGPT) 12 0-55 U/L Albumin 3.8 3.2-4.5 G/DL Alkaline Phosphatase 78 40-136 U/L Anion Gap 10 5-14 MMOL/L Aspartate Amino Transf (AST/SGOT) 18 5-34 U/L B-Type Natriuretic Peptide 13.2 <100.0 PG/ML BUN/Creatinine Ratio 29 Basophils # (Auto) 0.0 0.0-0.1 10^3/uL Basophils (%) (Auto) 0 0-10 % Blood Urea Nitrogen 25 H 7-18 MG/DL Calcium Level 9.3 8.5-10.1 MG/DL Carbon Dioxide Level 23 21-32 MMOL/L Chloride Level 106 98-107 MMOL/L Creatinine 0.85 0.60-1.30 MG/DL Eosinophils # (Auto) 0.4 H 0.0-0.3 10^3/uL Eosinophils (%) (Auto) 4 0-10 % Estimat Glomerular Filtration Rate > 60 Glucose Level 105 70-105 MG/DL Hematocrit 41 35-52 % Hemoglobin 13.5 11.5-16.0 G/DL Lymphocytes # (Auto) 1.6 1.0-4.0 X 10^3 Lymphocytes (%) (Auto) 18 12-44 % Mean Corpuscular Hemoglobin 29 25-34 PG Mean Corpuscular Hemoglobin Concent 33 32-36 G/DL Mean Corpuscular Volume 88 80-99 FL Mean Platelet Volume 10.0 7.4-10.4 FL Monocytes # (Auto) 0.7 0.0-1.0 X 10^3 Monocytes (%) (Auto) 8 0-12 % Neutrophils # (Auto) 6.1 1.8-7.8 X 10^3 Neutrophils (%) (Auto) 70 42-75 % Platelet Count 210 130-400 10^3/uL Potassium Level 3.7 3.6-5.0 MMOL/L Red Blood Count 4.67 4.35-5.85 10^6/uL Red Cell Distribution Width 14.7 H 10.0-14.5 % Sodium Level 139 135-145 MMOL/L Total Bilirubin 0.4 0.1-1.0 MG/DL Total Protein 6.6 6.4-8.2 G/DL Troponin I < 0.30 <0.30 NG/ML White Blood Count 8.7 4.3-11.0 10^3/uL My Orders Orders-VANCE AGUILAR APRN Cbc With Automated Diff (05/20/16 17:02) Comprehensive Metabolic Panel (05/20/16 17:02) Troponin I (05/20/16 17:02) BNP (05/20/16 17:02) Ua Culture If Indicated (05/20/16 17:02) Saline Lock/Iv-Start (05/20/16 17:02) Chest 1 View, Ap/Pa Only (05/20/16 17:02) Ct Extremity Lower Right Wo (05/20/16 17:02) Diltiazem Injection (Cardizem Injection) (05/20/16 17:15) Sodium Chloride (Ad... W/Diltiazem Drip (05/20/16 17:15) Ct Head Wo (05/20/16 17:08) Us Venous Lower Ext Lt (05/20/16 17:10) Hip, Left, 2 Views (05/20/16 18:04) Pelvis (05/20/16 18:04) Medications Given in ED Current Medications Medications Dose Ordered Sig/Nancy Route Start Time Stop Time Status Last Admin Dose Admin Diltiazem HCl 10 mg ONCE ONCE IVP 05/20/16 17:15 05/20/16 17:16 DC 05/20/16 17:35 10 MG Vital Signs/I&O Vital Sign - Last 12Hours 05/20/16 05/20/16 16:50 17:36 Temp 97.3 Pulse 129 124 Resp 18 18 B/P 112/65 135/52 Pulse Ox 96 97 Progress Note : Progress Note 1711-in regards to her previous visit, Dr. Persaud sent her to the emergency room about a month ago for chest pain. She was ultimately admitted and evaluated by Dr. Rodriguez and Dr. Saunders and found to have a negative stress test , there was no documented atrial fibrillation or other arrhythmia and echocardiogram showing: CONCLUSION: 1. Normal to hyperdynamic left ventricular systolic function with an ejection 70 to 75%. 2. Mild to moderate concentric left ventricular hypertrophy. 3. No significant valvular regurgitation or stenosis. 4. Mild aortic valve sclerosis. 5. Mild diastolic dysfunction of the left ventricle. Diagnostic Imaging Diagonstic Imaging: Xray, CT Comments NAME: BECKA ISAAC [facility] REC#: [id number] PT STATUS: REG ER : 1940 PHYSICIAN: VANCE AGUILAR APRN ADMIT DATE: 05/20/16/ER Signed Date of Exam:05/20/16 CT EXTREMITY LOWER RIGHT WO PROCEDURE: CT right lower extremity without contrast. TECHNIQUE: Axially acquired CT was obtained through the right lower extremity without intravenous contrast. Coronal and sagittal reformations were also performed. INDICATION: Left hip pain. Status post fall. COMPARISON: Previous CT abdomen and pelvis from July 17, 2015. FINDINGS: Sequela related to a previous pubic rami fracture are unchanged from the previous examination. There is a left-sided sacral stimulator device demonstrated. There is no diastases of the pubic symphysis or of the left SI joint. The left hip is located. There are moderate left hip osteoarthritic changes. There is a suggestion of some abnormal lucency demonstrated along the base of the femoral neck with findings suspect for a subcapital femoral neck fracture. There is no paraarticular hematoma or fluid collection. There are unchanged calcifications associated with the base of the bladder when compared to the previous exam. No acute intrapelvic abnormality demonstrated. Diverticulosis is noted IMPRESSION: 1. There is subtle lucency demonstrated through the base of the left femoral neck that is suspect for the possibility of a left-sided subcapital fracture. There is no displacement or significant impaction. If the patient is able, an MRI would be useful to confirm acuity. Otherwise, a bone scan may be helpful. 2. There are remote pubic rami fractures which are unchanged from the previous examination. 3. There are some nonspecific calcifications at the base of the urinary bladder, unchanged from previous study. Uncomplicated diverticulosis is noted. Dictated by: Dictated on workstation # [id number] Dict: 05/20/16 1729 Trans: 05/20/161750 [facility] [phone] Interpreted by: ALEISHA BLAIR MD Electronically signed by: ALEISHA BLAIR MD 05/20/161753 Departure Communication Time/Spoke to Admitting Phy: 18:32 Communication I discussed the case with Dr. Contreras. We will admit the patient, he will see and evaluate the patient. Time/Spoke to Consulting Physi: 18:32 Communication/Consulting Discussed the case with Dr. Godoy. She agrees to admit the patient. We will consult orthopedics and cardiology Family Conversation Discussed the case with Dr. Jain who is on-call for cardiology. Patient sees Dr. Saunders in the outpatient setting. We will do Lovenox 1 mg/kg twice a day and continue the Cardizem drip. Impression Impression: Primary Impression: Hip fracture, left Additional Impression: New onset atrial fibrillation Disposition: ADMITTED INPATIENT Condition: Stable Decision to Admit Reason: Admit from ER (General) Decision to Admit/Date: May 20, 2016 Time/Decision to Admit Time: 18:00 Departure-Patient Inst. Referrals: ANDIE PERSAUD MD (PCP/Family) Primary Care Physician VANCE AGUILAR APRN May 20, 2016 17:08
[2016-05-20 17:12] LABS: BASOPHILS % (AUTO) 0 % (0-10); EOSINOPHILS # (AUTO) 0.4 10^3/uL (0.0-0.3); EOSINOPHILS % (AUTO) 4 % (0-10); LYMPHOCYTES # (AUTO) 1.6 X 10^3 (1.0-4.0); LYMPHOCYTES % (AUTO) 18 % (12-44); MEAN CORPUSCULAR HEMOGLOBIN 29 PG (25-34); MEAN CORPUSCULAR HGB CONC 33 G/DL (32-36); MEAN CORPUSCULAR VOLUME 88 FL (80-99); MONOCYTES # (AUTO) 0.7 X 10^3 (0.0-1.0); MONOCYTES % (AUTO) 8 % (0-12); NEUTROPHILS # (AUTO) 6.1 X 10^3 (1.8-7.8); NEUTROPHILS % (AUTO) 70 % (42-75); PLATELET COUNT 210 10^3/uL (130-400); RED BLOOD COUNT 4.67 10^6/uL (4.35-5.85); RED CELL DISTRIBUTION WIDTH 14.7 % (10.0-14.5); WHITE BLOOD COUNT 8.7 10^3/uL (4.3-11.0)
[2016-05-20] MEDS ORDERED: DILTIAZEM DRIP 100 MG in SODIUM CHLORIDE (ADD-VANTAGE) 100 ML IV SCH ×2 (17:15→20:30)
[2016-05-20] MEDS ORDERED: DILTIAZEM 25 MG/5 ML INJ (CARDIZEM) VIAL IVP ONE (17:15)
[2016-05-20 17:31] LABS: ALANINE AMINOTRANSFERASE 12 U/L (0-55); ALBUMIN 3.8 G/DL (3.2-4.5); ANION GAP 10 MMOL/L (5-14); ASPARTATE AMINO TRANSFERASE 18 U/L (5-34); BILIRUBIN,TOTAL 0.4 MG/DL (0.1-1.0); BLOOD UREA NITROGEN 25 MG/DL (7-18); BUN/CREATININE RATIO 29; CALCIUM 9.3 MG/DL (8.5-10.1); CARBON DIOXIDE 23 MMOL/L (21-32); CHLORIDE 106 MMOL/L (98-107); CREATININE SERUM 0.85 MG/DL (0.60-1.30); GFR ESTIMATED > 60; GLUCOSE 105 MG/DL (70-105); POTASSIUM 3.7 MMOL/L (3.6-5.0); SODIUM 139 MMOL/L (135-145); TOTAL PROTEIN 6.6 G/DL (6.4-8.2)
--- NOTE | 2016-05-20 17:36 | Diagnostic Imaging Report ---
PROCEDURE: CT head without contrast. TECHNIQUE: Multiple contiguous axial images were obtained through the brain without the use of intravenous contrast. INDICATION: Fall two days prior. COMPARISON: Prior study from November 21, 2014. FINDINGS: There is advanced global volume loss but this is appropriate for age and not significantly changed from the previous exam. There is no CT demonstration of acute intracranial hemorrhage. There is no evidence of an abnormal extra-axial collection. There is no mass effect or shift. There is no hydrocephalus. The basilar cisterns appear patent. There is no evidence of territorial loss of wier-white differentiation. There appear to be some mild background microvascular changes in the white matter. There is no abnormal hypodensity within the basal ganglia or within the isabel. The mastoids appear clear. Visualized paranasal sinuses demonstrate some slight mucosal thickening in the right sphenoid sinus. No acute calvarial abnormality is demonstrated. IMPRESSION: Global volume loss with mild background microvascular changes. There is no CT evidence of an acute intracranial abnormality. Specifically, there is no evidence of hemorrhage. There is no evidence of a calvarial fracture. Dictated by: Dictated on workstation # [id number]
[2016-05-20 17:37] LABS: TROPONIN I < 0.30 NG/ML (<0.30)
--- NOTE | 2016-05-20 17:51 | Diagnostic Imaging Report ---
PROCEDURE: CT right lower extremity without contrast. TECHNIQUE: Axially acquired CT was obtained through the right lower extremity without intravenous contrast. Coronal and sagittal reformations were also performed. INDICATION: Left hip pain. Status post fall. COMPARISON: Previous CT abdomen and pelvis from July 17, 2015. FINDINGS: Sequela related to a previous pubic rami fracture are unchanged from the previous examination. There is a left-sided sacral stimulator device demonstrated. There is no diastases of the pubic symphysis or of the left SI joint. The left hip is located. There are moderate left hip osteoarthritic changes. There is a suggestion of some abnormal lucency demonstrated along the base of the femoral neck with findings suspect for a subcapital femoral neck fracture. There is no paraarticular hematoma or fluid collection. There are unchanged calcifications associated with the base of the bladder when compared to the previous exam. No acute intrapelvic abnormality demonstrated. Diverticulosis is noted IMPRESSION: 1. There is subtle lucency demonstrated through the base of the left femoral neck that is suspect for the possibility of a left-sided subcapital fracture. There is no displacement or significant impaction. If the patient is able, an MRI would be useful to confirm acuity. Otherwise, a bone scan may be helpful. 2. There are remote pubic rami fractures which are unchanged from the previous examination. 3. There are some nonspecific calcifications at the base of the urinary bladder, unchanged from previous study. Uncomplicated diverticulosis is noted. Dictated by: Dictated on workstation # [id number]
--- NOTE | 2016-05-20 17:57 | Diagnostic Imaging Report ---
EXAMINATION: Portable chest. INDICATION: Status post fall. COMPARISON: CT angiogram from CT angiogram from April 252016. FINDINGS: There appears to be some mild linear atelectasis at the left base. There is no focal consolidation or evidence of an effusion. There is no evidence of a pneumothorax. There is enlargement of the cardiac silhouette but no evidence of failure. There are degenerative features within the shoulders and spine but no acute osseous abnormality evident on this frontal view. IMPRESSION: 1. Minimal left base atelectasis. The lungs otherwise appear clear. No acute cardiopulmonary process evident. 2. Degenerative features within the shoulders and spine. No acute fracture evident. Dictated by: Dictated on workstation # [id number]
--- NOTE | 2016-05-20 18:39 | Diagnostic Imaging Report ---
PROCEDURE: US left lower extremity venous. TECHNIQUE: Multiple real-time grayscale images were obtained over the left lower extremity in various projections. Additional duplex Doppler and color Doppler images were also obtained. INDICATION: Left leg pain. FINDINGS: There is normal compression flow and augmentation from the common femoral vein to the popliteal vein. The visualized calf veins are patent. IMPRESSION: There is no sonographic evidence of left lower extremity deep venous thrombosis. Dictated by: Dictated on workstation # [id number]
--- NOTE | 2016-05-20 19:18 | Diagnostic Imaging Report ---
INDICATION: Fall, left hip pain. FINDINGS: These 2 views of the left hip demonstrate advanced left hip osteoarthritis. There is no dislocation. Prior chronic pelvic rami fractures are demonstrated. The suspected possible femoral neck fracture on previous CT examination is not radiographically apparent. IMPRESSION: 1. Remote pelvic rami fractures. There is no hip dislocation. There are left hip osteoarthritic changes. A lucency in the region of the left femoral neck on CT examination is not radiographically apparent. As before, further assessment could be performed with MRI or bone scan. Dictated by: Dictated on workstation # [id number]
[2016-05-20 19:19] LABS: BILIRUBIN,URINE NEGATIVE (NEGATIVE); KETONES,URINE 2+ (NEGATIVE); LEUKOCYTE ESTERASE ,URINE 3+ (NEGATIVE); NITRITE,URINE POSITIVE (NEGATIVE); PH,URINE 5 (5-9); PROTEIN,URINE 1+ (NEGATIVE); UROBILINOGEN,URINE NORMAL (NORMAL)
--- NOTE | 2016-05-20 19:22 | Diagnostic Imaging Report ---
EXAMINATION: AP pelvis INDICATION: Fall. Left hip pain FINDINGS: There are bilateral osteoarthritic changes demonstrated within the hips. There is no dislocation. There are chronic bilateral pubic rami fractures. There are bilateral sacral Interstim device is present. Previous CT examination demonstrated a questionable subtle lucency in the region of the left femoral neck. This is not radiographically apparent. IMPRESSION: 1. There is no hip dislocation. Bilateral hip osteoarthritic changes are demonstrated. A suspected possible lucency within the left femoral neck on CT examination is not radiographically apparent. There are remote bilateral pubic rami fractures. Dictated by: Dictated on workstation # [id number]
[2016-05-20 19:25] VITALS: BP 134/60
[2016-05-20 19:32] LABS: SQUAMOUS EPITHELIAL CELL,UR 0-2 /HPF; WBC,URINE 50-100 /HPF
[2016-05-20 20:00] VITALS: BP 124/86
[2016-05-20] MEDS ORDERED: HYDROcodone/APAP 5 MG/325 MG (LORTAB) TAB PO PRN ×2 (20:30)
[2016-05-20] MEDS ORDERED: NS IV 1000 ML 1,000 ML ONE (20:34)
[2016-05-20] MEDS: ENOXAPARIN 100 MG/1 ML (LOVENOX) SYR SC SCH (20:39)
[2016-05-20] MEDS: NS IV 1000 ML 1,000 ML IV SCH (20:39)
[2016-05-20] MEDS: DILTIAZEM DRIP 100 MG/NS 100 ML IV SCH ×4 (20:40→23:44)
[2016-05-20] MEDS ORDERED: CATHETER FLUSH 10 ML SYR IV PRN (20:45)
[2016-05-20 21:00] VITALS: BP 96/56
[2016-05-20] MEDS ORDERED: POLYETHYLENE GLYCOL 17 GM (MIRALAX) PACK PO SCH (21:00)
[2016-05-20 22:00] VITALS: BP 105/83
[2016-05-20] MEDS: CATHETER FLUSH 10 ML SYR IV SCH (22:00)
[2016-05-20] MEDS ORDERED: AMLO5TAB2 PO (22:41)
--- NOTE | 2016-05-20 22:43 | Consultation ---
History of Present Illness History of Present Illness Patient Consulted On(delfino/time) 05/20/16 22:37 Date of Admission Patient is a 75 year old female seen with chiefmcomplaint of left hip pain. Patient fell on 05/18/16 at the dining crain of the [facility] striking the wall with the left side of her head. No immediate hip pain. Began noting increased groin pain and started using a cane to ambulate. Woke up today with increrased pain and was transported to the ED by friends where a CT scan revealed a suspected incomplete left femoral neck fracture. Patient was also in atrial fibrillation with a RVR and patient was admitted to ICU where a Cardizem drip was initiated. History of Present Illness Patient seen and examined. Consult dictated Allergies and Home Medications Allergies Coded Allergies: NKANo Known Allergies (Verified Allergy, Unknown, 06/10/06) Home Medications Albuterol Sulfate 1 Puff Puff, 2 PUFF IH Q4H PRN for SHORTNESS OF BREATH, ( Reported) Ascorbic Acid 1,000 Mg Tablet, 1,000 MG PO BID, (Reported) Aspirin 81 Mg Tab.chew, 81 MG PO DAILY, (Reported) Cholecalciferol (Vitamin D3) 5,000 Unit Capsule, 5,000 UNIT PO BID, (Reported) Cyanocobalamin (Vitamin B-12) 1,000 Mcg/1 Ml Drops, 5,000 MCG PO BID, (Reported) Cyclosporine 1 Each Droperette, 1 DROP OU BID, (Reported) Diltiazem HCl 30 Mg Tablet, 30 MG PO TID for 30 Days Prescribed by: KANDI RODRIGUEZ on 05/26/16 1026 Flaxseed Oil 1,000 Mg Capsule, 1,200 MG PO BID, (Reported) Oxycodone HCl/Acetaminophen 1 Each Tablet, 1 TAB PO Q4H PRN for PAIN, (Reported) Polyethylene Glycol 3350 255 Gm Powder, 1 TBS PO DAILY PRN for CONSTIPATION, ( Reported) Thyroid,Pork 65 Mg Tablet, 97.5 MG PO DAILY, (Reported) TAKES 1 & 1/2 OF A (65 MG) TABLET [Biotin 500 IU] , 500 UNITS PO DAILY, (Reported) Past Iwcyanq-Wmmvil-Pszbzx Hx Patient Social History Alcohol Use: Denies Use Recreational Drug Use: No Smoking Status: Never a Smoker Former Smoker/When Quit: Recent Foreign Travel: No Contact w/Someone Who Travel: No Recent Infectious Disease Expo: No Recent Hopitalizations: Yes (CHEST PAIN 04/2016) Physical Abuse Screen: No Sexual Abuse: No Immunizations Up To Date PED Vaccines UTD: No Date of Pneumonia Vaccine: Nov 22, 2014 Date of Influenza Vaccine: Jan 20, 2016 Seasonal Allergies Seasonal Allergies: No Surgeries HX Surgeries: Yes (STIMULATOR R HIP, CARPAL TUNNEL, TLKR, INTERSTIM R/L HIP FOR INCONTINENCE, ) Surgeries: Appendectomy, Section, Gallbladder, Hysterectomy, Orthopedic, Tonsillectomy Respiratory Hx Respiratory Disorders: Yes (required home O2 yrs ago) Cardiovascular Hx Cardiac Disorders: Yes Cardiac Disorders: Chronic Edema/Swelling Neurological Hx Neurological Disorders: No 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 System Hx 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 Disorders: No Sexually Transmitted Disease: No HIV/AIDS: No Female 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 Disorders: 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 Genitourinary Hx Genitourinary Disorders: Yes Genitourinary Disorders: Kidney Stones, UTI-Chronic Gastrointestinal Hx Gastrointestinal Disorders: No Musculoskeletal Hx Musculoskeletal Disorders: Yes Musculoskeletal Disorders: Arthritis, Chronic Back Pain, Fractures Endocrine Hx Endocrine Disorders: Yes Endocrine Disorders: Hypothyroidsim HEENT HX ENT Disorders: No Loss of Vision: Denies Hearing Impairment: Denies Cancer Hx Cancer: No Psychosocial Hx Psychiatric Problems: No Integumentary HX Skin/Integumentary Disorder: No Blood Transfusions Hx Blood Disorders: No Adverse Reaction to a Blood Tr: No Family Medical History Significant Family History: Diabetes Family Medial History: Diabetes mellitus 19 FATHER G8 SISTER Physical Exam-General Problems Physical Exam Vital Signs Vital Sign - Last 12Hours 05/20/16 05/20/16 05/20/16 16:50 19:25 22:00 Temp 97.3 Pulse 129 Resp 18 B/P 112/65 Pulse Ox 96 O2 Delivery Room Air O2 Flow Rate 2.00 Capillary Refill : Less Than 3 SecondsLess Than 3 Seconds General Appearance: no apparent distress Peripheral Pulses: 2+ Dorsalis Pedis (R), 2+ Left Dors-Pedis (L) Extremities: normal range of motion (mild pain with internal and external rotation), normal inspection, no pedal edema, no calf tenderness Neurologic/Psychiatric: oriented x 3 (leg lengths symmetric, no shortening or external rotation of left hip) Assessment/Plan Assessment/Plan Admission Diagnosis/Plan A: left hip pain P: NM bone scan to rule out occult left femoral neck fracture, please see dictated report for full details of consult Clinical Quality Measures DVT/VTE Risk/Contraindication: Risk Factor Score Per Nursin RFS Level Per Nursing on Admit: 4+=Very High MYRA ESPITIA DO May 20, 2016 22:43
[2016-05-20 23:00] VITALS: BP 99/65
[2016-05-20 23:45] VITALS: BP 99/65
[2016-05-21] VITALS (15 sets, daily range): BP systolic 84–150; BP diastolic 45–69
--- NOTE | 2016-05-21 00:18 | CONSULTATION REPORT ---
DATE OF CONSULTATION: 05/20/2016 at 10:45 p.m. REFERRING PHYSICIAN: IMPRESSION: 1. Left hip pain. 2. Status post fall. RECOMMENDATIONS: Bone scan evaluation, left hip to rule out nondisplaced femoral neck fracture. INDICATIONS AND FINDINGS: The patient is a 75-year-old female who is member of the [employer] [facility]. She was in the dining crain, where she was taking decorations off a table when she was walking around a table and does not know whether she slipped or caught her foot on another walker but she fell to the left, striking her left side of her head on a wall and fell to the floor. Her primary concern was pain in her head. She did not notice any immediate hip pain at that time. She was able to walk and ambulate. She began having increased pain. The next day she was using a cane. She sleeps in a lift chair. She states that when she attempted to get out of the chair today and walk, she had a significant increase in pain primarily in the region of the groin of her left hip. She was Rodriguez transported by friends to the emergency room. A CT scan of her pelvis was obtained. There was a suspicious area for a femoral neck fracture. The patient was also noted to be in atrial fibrillation with a rapid ventricular response. She was admitted to the ICU and a Cardizem drip was initiated. Her heart rate has normalized as far as its rate. Orthopedic consultation was requested. On exam, the patient demonstrates no pain with internal/external rotation of the right hip. Her left hip demonstrates mild pain with extreme internal rotation. She is mild pain with hip flexion as well. Her leg lengths are symmetric. She has a well-healed scar over the anterior surface of her left knee from a status post left total knee arthroplasty. No palpable tenderness is noted over the greater trochanter. No palpable tenderness is noted over the groin with deep palpation. She is morbidly obese. The patient's plain film x-rays including an AP pelvic x-ray and a frog-leg lateral, demonstrate no fracture. Moderate degenerative changes of the hips are noted. The patient's CT scan demonstrates some very small incomplete radiolucency over at the base of the femoral neck on the left with no obvious evidence of fracture. She does have inter stimulators both on the right and left. The patient has pain in the region of the groin, this is following a fall. The patient has no obvious evidence of fracture on her plain film x-rays. She has a suspicious area for an incomplete femoral neck fracture on the left. She is not a candidate for an MRI evaluation based on the stimulators that she has in her pelvis. I have recommended the patient undergo a bone scan evaluation of the left hip. I discussed an additional alternative would be for the patient to maintain a touchdown weight-bearing status on crutches and then re-x-ray the hip in a week. She is very adamant that she is hoping to avoid any type of hip surgery. She is very awake and alert and oriented, very clear thinking. She has been nonweightbearing in the past for left ankle fracture although it has been a number of years. She does feel that she would be able to maintain this touchdown weight-bearing status. If she is stabilized and out of the ICU and bone scan is available, then I would prefer to have a bone scan to evaluate the status of the left femoral neck. She does have a history of low back problems. She had an L1 compression fracture. She has had a thoracic surgery performed by Dr. Baltazar Cedillo in [place] and she did improve significantly from that. Any additional testing will be dependent on her cardiac status. Her creatinine level is normal. Thank you for letting me participate in this patient's care. 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
[2016-05-21] MEDS: oxyCODONE/APAP 5/325MG (PERCOCET 5) TABLET PO PRN ×2 (00:21→13:06)
[2016-05-21 04:08] LABS: BASOPHILS % (AUTO) 0 % (0-10); EOSINOPHILS # (AUTO) 0.3 10^3/uL (0.0-0.3); EOSINOPHILS % (AUTO) 5 % (0-10); LYMPHOCYTES # (AUTO) 1.9 X 10^3 (1.0-4.0); LYMPHOCYTES % (AUTO) 28 % (12-44); MEAN CORPUSCULAR HEMOGLOBIN 29 PG (25-34); MEAN CORPUSCULAR HGB CONC 32 G/DL (32-36); MEAN CORPUSCULAR VOLUME 89 FL (80-99); MEAN PLATELET VOLUME 10.3 FL (7.4-10.4); MONOCYTES # (AUTO) 0.6 X 10^3 (0.0-1.0); MONOCYTES % (AUTO) 9 % (0-12); NEUTROPHILS # (AUTO) 3.9 X 10^3 (1.8-7.8); NEUTROPHILS % (AUTO) 58 % (42-75); PLATELET COUNT 208 10^3/uL (130-400); RED BLOOD COUNT 4.17 10^6/uL (4.35-5.85); RED CELL DISTRIBUTION WIDTH 14.7 % (10.0-14.5); WHITE BLOOD COUNT 6.7 10^3/uL (4.3-11.0)
[2016-05-21 04:51] LABS: ANION GAP 8 MMOL/L (5-14); BLOOD UREA NITROGEN 24 MG/DL (7-18); BUN/CREATININE RATIO 30; CALCIUM 8.5 MG/DL (8.5-10.1); CARBON DIOXIDE 24 MMOL/L (21-32); CHLORIDE 110 MMOL/L (98-107); CREATININE SERUM 0.79 MG/DL (0.60-1.30); GFR ESTIMATED > 60; GLUCOSE 93 MG/DL (70-105); MAGNESIUM 1.8 MG/DL (1.8-2.4); POTASSIUM 3.6 MMOL/L (3.6-5.0); SODIUM 142 MMOL/L (135-145)
[2016-05-21] MEDS: KCL 20 MEQ TAB (K-DUR) PO SCH (05:50)
[2016-05-21] MEDS: CATHETER FLUSH 10 ML SYR IV SCH ×3 (05:50→21:23)
[2016-05-21] MEDS ORDERED: MAGNESIUM 1 GM/100 ML IVPB 100 ML IV SCH (06:00)
[2016-05-21] MEDS ORDERED: POTASSIUM CL 10MEQ/50ML IVPB 50 ML IV SCH (06:00)
[2016-05-21] MEDS ORDERED: POLYETHYLENE GLYCOL 17 GM (MIRALAX) PACK PO SCH (09:00)
[2016-05-21] MEDS: ENOXAPARIN 100 MG/1 ML (LOVENOX) SYR SC SCH (09:22)
[2016-05-21] MEDS: NS IV 1000 ML 1,000 ML IV SCH (09:37)
--- NOTE | 2016-05-21 09:41 | Consultation-Cardiology ---
HPI-Cardiology Cardiology Consultation Date of Consultation 05/21/16 Date of Admission Indication: atrial fibrillation HPI 75-year-old lady with history of hypertension, was hospitalized last month for chest pain and shortness of breath, underwent stress test which was reported to be negative. Had some difficulties with her blood pressure, intolerant to beta blockers. Started on amlodipine and was feeling well. While she was helping with dinner, she sustained a fall and hit her head, noted that for the next few days continued to have significant pain in her left hip. Came into the emergency room and noted to be in atrial fibrillation, there is suspicion of having nondisplaced fracture, so further workup has been negative but she has significant pain in her left hip. She denied any chest pain, denied any syncope , no palpitation. No other symptoms. She was admitted and started on Lovenox and converted to sinus rhythm spontaneously overnight. Home Medications & Allergies Allergies: Coded Allergies: NKANo Known Allergies (Verified Allergy, Unknown, 06/10/06) Home Medication List Reviewed: Yes FMD-Txgihd-Zizxym Hx Patient Social History Alcohol Use: Denies Use Recreational Drug Use: No Smoking Status: Never a Smoker Former smoker/When Quit: Recent Foreign Travel: No Recent Infectious Disease Expo: No Recent Hopitalizations: Yes (CHEST PAIN 04/2016) Physical Abuse Screen: No Sexual Abuse: No Immunizations Up To Date Date of Pneumonia Vaccine: Nov 22, 2014 Date of Influenza Vaccine: Jan 20, 2016 Past Medical History past medical history as discussed below Family Medical History Significant Family History: Diabetes Family History: Diabetes mellitus 19 FATHER G8 SISTER Constitutional: no symptoms reported see HPI EENTM: no symptoms reported see HPI Respiratory: no symptoms reported see HPI Cardiovascular: see HPINo chest pain, No edema, No Hx of Intervention, No palpitations, No syncope, No vascular heart diseas, No other Gastrointestinal: no symptoms reported see HPI Genitourinary: see HPI decreased output Musculoskeletal: see HPI joint pain other (left hip pain) Skin: see HPI Psychiatric/Neurological: No Symptoms Reported See HPI Reviewed Test Results Reviewed Test Results Lab Laboratory Tests Test 05/20/16 17:05 05/20/16 19:03 05/21/16 03:25 Range/Units Alanine Aminotransferase (ALT/SGPT) 12 0-55 U/L Albumin 3.8 3.2-4.5 G/DL Alkaline Phosphatase 78 40-136 U/L Anion Gap 10 8 5-14 MMOL/L Aspartate Amino Transf (AST/SGOT) 18 5-34 U/L B-Type Natriuretic Peptide 13.2 <100.0 PG/ML BUN/Creatinine Ratio 29 30 Basophils # (Auto) 0.0 0.0 0.0-0.1 10^3/uL Basophils (%) (Auto) 0 0 0-10 % Blood Urea Nitrogen 25 H 24 H 7-18 MG/DL Calcium Level 9.3 8.5 8.5-10.1 MG/DL Carbon Dioxide Level 23 24 21-32 MMOL/L Chloride Level 106 110 H 98-107 MMOL/L Creatinine 0.85 0.79 0.60-1.30 MG/DL Eosinophils # (Auto) 0.4 H 0.3 0.0-0.3 10^3/uL Eosinophils (%) (Auto) 4 5 0-10 % Estimat Glomerular Filtration Rate > 60 > 60 Glucose Level 105 93 70-105 MG/DL Hematocrit 41 37 35-52 % Hemoglobin 13.5 12.0 11.5-16.0 G/DL Lymphocytes # (Auto) 1.6 1.9 1.0-4.0 X 10^3 Lymphocytes (%) (Auto) 18 28 12-44 % Mean Corpuscular Hemoglobin 29 29 25-34 PG Mean Corpuscular Hemoglobin Concent 33 32 32-36 G/DL Mean Corpuscular Volume 88 89 80-99 FL Mean Platelet Volume 10.0 10.3 7.4-10.4 FL Monocytes # (Auto) 0.7 0.6 0.0-1.0 X 10^3 Monocytes (%) (Auto) 8 9 0-12 % Neutrophils # (Auto) 6.1 3.9 1.8-7.8 X 10^3 Neutrophils (%) (Auto) 70 58 42-75 % Platelet Count 210 208 130-400 10^3/uL Potassium Level 3.7 3.6 3.6-5.0 MMOL/L Red Blood Count 4.67 4.17 L 4.35-5.85 10^6/uL Red Cell Distribution Width 14.7 H 14.7 H 10.0-14.5 % Sodium Level 139 142 135-145 MMOL/L Total Bilirubin 0.4 0.1-1.0 MG/DL Total Protein 6.6 6.4-8.2 G/DL Troponin I < 0.30 <0.30 NG/ML White Blood Count 8.7 6.7 4.3-11.0 10^3/uL Urine Bacteria MODERATE H /HPF Urine Bilirubin NEGATIVE NEGATIVE Urine Casts NONE /LPF Urine Clarity CLEAR Urine Color YELLOW Urine Crystals NONE /LPF Urine Culture Indicated YES Urine Glucose (UA) NEGATIVE NEGATIVE Urine Ketones 2+ H NEGATIVE Urine Leukocyte Esterase 3+ H NEGATIVE Urine Mucus NEGATIVE /LPF Urine Nitrite POSITIVE H NEGATIVE Urine Protein 1+ H NEGATIVE Urine RBC NONE /HPF Urine RBC (Auto) NEGATIVE NEGATIVE Urine Specific [place] 1.020 1.016-1.022 Urine Squamous Epithelial Cells 0-2 /HPF Urine Urobilinogen NORMAL NORMAL MG/DL Urine WBC 50-100 H /HPF Urine pH 5 5-9 Magnesium Level 1.8 1.8-2.4 MG/DL Phosphorus Level 3.0 2.3-4.7 MG/DL Physical Exam Vital Signs Vital Sign - Last 12Hours 05/20/16 05/20/16 05/20/16 16:50 19:25 22:00 Temp 97.3 Pulse 129 Resp 18 B/P 112/65 Pulse Ox 96 O2 Delivery Room Air O2 Flow Rate 2.00 Capillary Refill : Less Than 3 SecondsLess Than 3 Seconds General Appearance: No Apparent Distress WD/WN Mild Distress Eyes: Bilateral Eye EOMI, Bilateral Eye Normal Inspection, Bilateral Eye PERRL HEENT: PERRL/EOMI TMs Normal Normal ENT Inspection Pharynx Normal Neck: Full Range of Motion Normal Inspection Non Tender Supple Carotid Bruit Respiratory: Chest Non Tender Lungs Clear Normal Breath Sounds No Accessory Muscle Use No Respiratory Distress Cardiovascular: Regular Rate, Rhythm No Edema No Gallop No JVD Normal Peripheral Pulses Systolic Murmur Gastrointestinal: Normal Bowel Sounds No Organomegaly No Pulsatile Mass Non Tender Soft Back: Normal Inspection Extremity: Normal Capillary Refill Normal Inspection Non Tender No Calf Tenderness No Pedal Edema Other (left hip pain) Neurologic/Psychiatric: Alert Oriented x3 No Motor/Sensory Deficits Normal Mood/Affect Skin: Normal Color Warm/Dry Lymphatic: No Adenopathy A/P-Cardiology Admission Diagnosis Paroxysmal atrial fibrillation Hip pain Hypertension Hypothyroidism Assessment/Plan Paroxysmal atrial fibrillation noted incidentally on arrival to the emergency room for evaluation for her hip pain, converted spontaneously to sinus rhythm, probably secondary to the pain. I will continue monitoring at this time. No need to initiate any antiarrhythmic medication, has been intolerant to beta blockers previously. Has history of hypothyroidism, I will evaluate TSH level. Left sided hip pain, so far workup is negative, seen by Dr. Contreras and scheduled to have bone scan. Hypertension, intolerant to beta blockers, started on amlodipine 4 days ago and tolerated it well Echo of 04/26/16: Mild to mod conc LVH, LVEF 70-75%, mild AoV sclerosis w/o stenosis, mild diastolic dysfunction of LV MPI of 04/27/16: No cor ischemia or infarction; LVEF 73% Hypothyroidism, followed and managed by primary care physician Chronic back pain with surgeries Bladder stimulator implants Elevated BMI of approx 44 H/o ZENAIDA, but reports intolerance to CPAP Clinical Quality Measures DVT/VTE Risk/Contraindication: Risk Factor Score Per Nursin RFS Level Per Nursing on Admit: 4+=Very High BENJAMIN DELCID MD May 21, 2016 09:41
[2016-05-21] MEDS ORDERED: oxyCODONE/APAP 5/325MG (PERCOCET 5) TABLET PO PRN (09:45)
[2016-05-21] MEDS ORDERED: RT-ALBUTEROL HFA (VENTOLIN) PER PUFF IH PRN (09:45)
[2016-05-21] MEDS ORDERED: POLYETHYLENE GLYCOL 17 GM (MIRALAX) PACK PO PRN (09:45)
--- NOTE | 2016-05-21 09:48 | History & Physical-Hospitalist ---
HPI History of Present Illness: HPI/Chief Complaint this is a 75-year-old white female who resides at [facility]. She had tripped up proximally 2 days ago hitting her head and landing on the ground. She had some left hip discomfort in the groin but was able to get up and ambulate. She had no loss of consciousness. No head injury. The pain in the left groin has become worse and worse with ambulation and she presented to the emergency room with similar complaints. CT shows possible lucency in the femoral neck. Dr. Contreras has requested a bone scan for further evaluation since the diagnosis is in some doubt. an MRI was was considered but she has to enter stems placed for urinary incontinence and is unable to have an MRI. Only the patient has pain with any movement of the left hip. Upon presentation to the emergency room it was also found that she was in new onset atrial fibrillation which she has never had before. She was placed on a Cardizem drip and then this morning is in sinus rhythm and undergoing evaluation by Dr. Astorga. Source: patient Exam Limitations: no limitations Date Seen 05/21/16 Attending Physician Taina Godoy MD PCP Deuce Lopez MD Referring Physician Date of Admission May 20, 2016 at 18:05 Home Medications & Allergies Home Medications Reviewed patient Home Medication Reconciliation Form Allergies Coded Allergies: NKANo Known Allergies (Verified Allergy, Unknown, 06/10/06) Past Ojrptsn-Ikvedk-Dmdinp Hx Patient Social History Marrital Status: single, Alcohol Use: Denies Use Recreational Drug Use: No Smoking Status: Never a Smoker Former smoker/When Quit: Physical Abuse Screen: No Sexual Abuse: No Recent Foreign Travel: No Contact w/other who traveled: No Recent Hopitalizations: Yes (CHEST PAIN 04/2016) Recent Infectious Disease Expo: No Immunizations Up To Date Date of Pneumonia Vaccine: Nov 22, 2014 Date of Influenza Vaccine: Jan 20, 2016 Seasonal Allergies Seasonal Allergies: No Surgeries HX Surgeries: Yes (STIMULATOR R HIP, CARPAL TUNNEL, TLKR, INTERSTIM R/L HIP FOR INCONTINENCE, ) Surgeries: Appendectomy, Section, Gallbladder, Hysterectomy, Orthopedic, Tonsillectomy Respiratory Hx Respiratory Disorders: Yes (required home O2 yrs ago) Cardiovascular Hx Cardiovascular Disorders: Yes Cardiac Disorders: Chronic Edema/Swelling Neurological Hx Neurological Disorders: No 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 System Hx 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 Disorders: No Sexually Transmitted Disease: No HIV/AIDS: No Female 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 Disorders: Denies Genitourinary Hx Genitourinary Disorders: Yes Genitourinary Disorders: Kidney Stones, UTI-Chronic Gastrointestinal Hx Gastrointestinal Disorders: No Musculoskeletal Hx Musculoskeletal Disorders: Yes Musculoskeletal Disorders: Arthritis, Chronic Back Pain, Fractures Endocrine Hx Endocrine Disorders: Yes Endocrine Disorders: Hypothyroidsim HEENT HX ENT Disorders: No Loss of Vision: Denies Hearing Impairment: Denies Cancer Hx Cancer: No Psychosocial Hx Psychiatric Problems: No Integumentary HX Skin/Integumentary Disorder: No Blood Transfusions Hx Blood Disorders: No Adverse Reaction to a Blood Tr: No Family Medical History Significant Family History: Diabetes Family Hx: Diabetes mellitus 19 FATHER G8 SISTER Review of Systems Constitutional: see HPI EENTM: no symptoms reported Respiratory: no symptoms reported Cardiovascular: palpitations (just with the A. fib) Gastrointestinal: no symptoms reported Genitourinary: incontinence Musculoskeletal: joint pain (left groin) Skin: no symptoms reported Psychiatric/Neurological: No Symptoms Reported Physical Exam Physical Exam Vital Signs Vital Sign - Last 12Hours 05/20/16 05/20/16 05/20/16 16:50 19:25 22:00 Temp 97.3 Pulse 129 Resp 18 B/P 112/65 Pulse Ox 96 O2 Delivery Room Air O2 Flow Rate 2.00 Capillary Refill : Less Than 3 SecondsLess Than 3 Seconds General Appearance: WD/WN HEENT: Normal ENT Inspection Neck: Non Tender Supple Respiratory: Lungs Clear Normal Breath Sounds No Accessory Muscle Use No Respiratory Distress Cardiovascular: Regular Rate, Rhythm No Gallop No Murmur Normal Peripheral Pulses Gastrointestinal: Normal Bowel Sounds No Organomegaly Non Tender Soft Rectal: Deferred Extremity: No Calf Tenderness Other (pain with movement of the left leg) Neurologic/Psychiatric: Alert Oriented x3 Normal Mood/Affect Skin: Normal Color Lymphatic: No Adenopathy Results Results/Procedures Lab Laboratory Tests 05/20/16 17:05 05/21/16 03:25 Assessment/Plan Admission Diagnosis 1. new-onset A. fib with RVR 2. Possible left low femoral neck fracture 3. Osteoporosis 4. Chronic urinary incontinence with InterStim's placed 5. hypothyroidism 6. history of constipation 7. history of hypertension Patient currently is in sinus rhythm she'll be transferred to the floor on telemetry on by mouth Cardizem instead of amlodipine. bone scan has been ordered and will be obtained for further evaluation of the left hip. PT will be consult said to help train in just partial weightbearing as instructed by Dr. Contreras. Dr. Jain to follow the A. fib. Clinical Quality Measures DVT/VTE Risk/Contraindication: Risk Factor Score Per Nursin RFS Level Per Nursing on Admit: 4+=Very High TAINA GODOY MD May 21, 2016 09:48
--- NOTE | 2016-05-21 09:50 | Diagnostic Imaging Report ---
EXAM: Portable erect AP chest at 4:15. INDICATION: Dyspnea, shortness of breath. FINDINGS: The cardiomegaly noted on the prior exam of 05/20/2016 is again evident and no different. The prior study did note minimal left base atelectasis. This finding is essentially no different, as well. The left upper lung and right lung remain clear. The mediastinum is not widened. The osseous structures are intact. IMPRESSION: Stable chest. There has been no adverse change since the prior study. Dictated by: Dictated on workstation # [id number]
[2016-05-21] MEDS ORDERED: RT-ALBUTEROL SULF 2.5 MG/3 ML PRE-MIX VIAL INH PRN (10:00)
[2016-05-21] MEDS: cefTRIAXone INJECTION 1,000 MG in NS (IVPB) 50 ML IV SCH (10:36)
[2016-05-21] MEDS ORDERED: DILTIAZEM SR 90 MG (CARDIZEM LA) PO SCH (10:36)
[2016-05-21] MEDS ORDERED: DILTIAZEM 60 MG (CARDIZEM) TAB ONE (21:22)
[2016-05-21] MEDS ORDERED: DILTIAZEM 30 MG (CARDIZEM) TAB ONE (21:22)
[2016-05-21] MEDS: DILTIAZEM 60 MG (CARDIZEM) TAB PO SCH (22:28)
[2016-05-22] VITALS: BP 121/56
[2016-05-22] MEDS: NS IV 1000 ML 1,000 ML IV SCH ×2 (00:01→13:35)
[2016-05-22] MEDS: oxyCODONE/APAP 5/325MG (PERCOCET 5) TABLET PO PRN ×3 (00:26→16:45)
[2016-05-22 04:00] VITALS: BP 119/60
[2016-05-22 04:40] LABS: MEAN PLATELET VOLUME 10.1 FL (7.4-10.4); RED BLOOD COUNT 3.96 10^6/uL (4.35-5.85); RED CELL DISTRIBUTION WIDTH 14.8 % (10.0-14.5); WHITE BLOOD COUNT 6.8 10^3/uL (4.3-11.0)
[2016-05-22] MEDS: KCL 20 MEQ TAB (K-DUR) PO SCH (05:02)
[2016-05-22] MEDS: CATHETER FLUSH 10 ML SYR IV SCH ×3 (05:02→22:00)
[2016-05-22 05:06] LABS: ALANINE AMINOTRANSFERASE 8 U/L (0-55); ALBUMIN 2.9 G/DL (3.2-4.5); ANION GAP 7 MMOL/L (5-14); ASPARTATE AMINO TRANSFERASE 11 U/L (5-34); BILIRUBIN,TOTAL 0.3 MG/DL (0.1-1.0); BLOOD UREA NITROGEN 21 MG/DL (7-18); BUN/CREATININE RATIO 25; CARBON DIOXIDE 25 MMOL/L (21-32); CHLORIDE 110 MMOL/L (98-107); CREATININE SERUM 0.83 MG/DL (0.60-1.30); GFR ESTIMATED > 60; GLUCOSE 99 MG/DL (70-105); MAGNESIUM 1.6 MG/DL (1.8-2.4); POTASSIUM 4.2 MMOL/L (3.6-5.0); SODIUM 142 MMOL/L (135-145); TOTAL PROTEIN 5.1 G/DL (6.4-8.2)
[2016-05-22 05:26] LABS: THYROID STIMULATING HORMONE 0.54 UIU/ML (0.35-4.94)
[2016-05-22 08:00] VITALS: BP 112/96
[2016-05-22] MEDS: cefTRIAXone INJECTION 1,000 MG in NS (IVPB) 50 ML IV SCH (08:58)
[2016-05-22] MEDS ORDERED: CALCITONIN NASAL 200 INTLU/AC (FORTICAL) 3.7 ML BTL SCH (09:00)
--- NOTE | 2016-05-22 09:18 | Cardiology Progress Note ---
Subjective Subjective/Events-last exam Patient in bed. No new complaints. Continues to complain of hip pain. Denies any CP or dyspnea. Review of Systems General: No Night Sweats, No Fatigue, No Malaise HEENT: No Visual Changes, No Dysphasia Pulmonary: No Dyspnea, No Cough Cardiovascular: No: Chest Pain, Palpitations Gastrointestinal: No: Abdominal Pain, Nausea, Vomiting Genitourinary: No Dysuria, No Frequency Musculoskeletal: No: back pain, neck pain Neurological: No: Change in speech, Confusion, Numbness, Weakness Objective-Cardiology Exam Last Set of Vital Signs Vital Signs 05/22/16 08:00 Temp 96.0 Pulse 54 Resp 16 B/P 112/96 Pulse Ox 96 O2 Delivery Nasal Cannula O2 Flow Rate 2.00 Capillary Refill : Less Than 3 SecondsLess Than 3 Seconds I&O Intake and Output 05/22/16 00:00 Intake Total 3760 ml Output Total 1255 ml Balance 2505 ml Intake Oral 1710 ml IV Total 2050 ml Output Urine Total 1255 ml General: Alert, Oriented X3 HEENT: Atraumatic, PERRLA Neck: Supple, No JVD Lungs: Clear to Auscultation Heart: Regular Rate, Normal S1, Normal S2 Abdomen: Normal Bowel Sounds, Soft Skin: No Rashes, No Significant Lesion Neuro: Normal Speech, Cranial Nerves 3-12 NL Psych/Mental Status: Mental Status NL, Mood NL Results Lab Laboratory Tests 05/22/16 04:25 A/P-Cardiology Admission Diagnosis Paroxysmal atrial fibrillation Hip pain Hypertension Hypothyroidism Assessment/Plan Paroxysmal atrial fibrillation noted incidentally on arrival to the emergency room for evaluation for her hip pain, converted spontaneously to sinus rhythm, probably secondary to the pain. I will continue monitoring at this time. No need to initiate any antiarrhythmic medication, has been intolerant to beta blockers previously. TSH WNL. Continue PO Cardizem.\ Left sided hip pain, so far workup is negative, seen by Dr. Contreras and scheduled to have bone scan. Hypertension, intolerant to beta blockers, continue to monitor BP/HR. Echo of 04/26/16: Mild to mod conc LVH, LVEF 70-75%, mild AoV sclerosis w/o stenosis, mild diastolic dysfunction of LV MPI of 04/27/16: No cor ischemia or infarction; LVEF 73% Hypothyroidism, followed and managed by primary care physician Chronic back pain with surgeries Bladder stimulator implants Elevated BMI of approx 44 H/o ZENAIDA, but reports intolerance to CPAP Clinical Quality Measures DVT/VTE Risk/Contraindication: Risk Factor Score Per Nursin RFS Level Per Nursing on Admit: 4+=Very High CYNTHIA TAVAREZ May 22, 2016 09:18
[2016-05-22] MEDS: CALCITONIN NASAL 200 INTLU/AC (FORTICAL) 3.7 ML BTL SCH (09:31)
[2016-05-22] MEDS: DILTIAZEM 60 MG (CARDIZEM) TAB PO SCH (09:38)
[2016-05-22] MEDS: ENOXAPARIN 40 MG/0.4 ML (LOVENOX) SYR SQ SCH ×2 (10:31→16:45)
[2016-05-22] MEDS: ASPIRIN E.C. 81 MG (ECOTRIN) TAB PO SCH (10:31)
[2016-05-22] MEDS ORDERED: RT-ALBUINH IH (11:04)
[2016-05-22] MEDS ORDERED: POLY255P PO (11:04)
[2016-05-22] MEDS ORDERED: BIOTIN PO (11:04)
[2016-05-22] MEDS ORDERED: CYCL1DRO OU (11:04)
[2016-05-22] MEDS ORDERED: ASPI-999 PO (11:04)
--- NOTE | 2016-05-22 11:29 | Cardiology Progress Note ---
Subjective Subjective/Events-last exam patient is laying down in bed, feeling better, still having pain in her hip Review of Systems General: No Chills, No Night Sweats, No Fatigue, No Malaise, No Appetite, No Other HEENT: No Head Aches, No Visual Changes, No Eye Pain, No Ear Pain, No Dysphasia , No Sinus Congestion, No Post Nasal Drip, No Sore Throat, No Other Pulmonary: No Dyspnea, No Cough, No Pleuritic Chest Pain, No Other Cardiovascular: No: Chest Pain, Edema, Lt Headedness, Orthopnea, Other, Palpitations, Paroxysmal Noc. Dyspnea Objective-Cardiology Exam Last Set of Vital Signs Vital Signs 05/22/16 08:00 Temp 96.0 Pulse 54 Resp 16 B/P 112/96 Pulse Ox 96 O2 Delivery Nasal Cannula O2 Flow Rate 2.00 Capillary Refill : Less Than 3 SecondsLess Than 3 Seconds I&O Intake and Output 05/22/16 00:00 Intake Total 3760 ml Output Total 1255 ml Balance 2505 ml Intake Oral 1710 ml IV Total 2050 ml Output Urine Total 1255 ml General: Alert, Oriented X3 HEENT: Atraumatic, PERRLA Neck: Supple, No JVD Lungs: Clear to Auscultation Heart: Regular Rate, Normal S1, Normal S2 Abdomen: Normal Bowel Sounds, Soft Skin: No Rashes, No Significant Lesion Neuro: Normal Speech, Cranial Nerves 3-12 NL Psych/Mental Status: Mental Status NL, Mood NL Results Lab Laboratory Tests 05/22/16 04:25 A/P-Cardiology Admission Diagnosis Paroxysmal atrial fibrillation Hip pain Hypertension Hypothyroidism Assessment/Plan Paroxysmal atrial fibrillation noted incidentally on arrival to the emergency room for evaluation for her hip pain, converted spontaneously to sinus rhythm, probably secondary to the pain. No need to initiate any antiarrhythmic medication, has been intolerant to beta blockers previously. TSH WNL. change Cardizem from 60 mg twice a day into 30 mg 3 times a day and monitor heart rate Left sided hip pain, so far workup is negative, seen by Dr. Contreras and scheduled to have bone scan. Hypertension, intolerant to beta blockers, continue to monitor BP/HR. Echo of 04/26/16: Mild to mod conc LVH, LVEF 70-75%, mild AoV sclerosis w/o stenosis, mild diastolic dysfunction of LV MPI of 04/27/16: No cor ischemia or infarction; LVEF 73% Hypothyroidism, followed and managed by primary care physician Chronic back pain with surgeries Bladder stimulator implants Elevated BMI of approx 44 H/o ZENAIDA, but reports intolerance to CPAP Clinical Quality Measures DVT/VTE Risk/Contraindication: Risk Factor Score Per Nursin RFS Level Per Nursing on Admit: 4+=Very High BENJAMIN DELCID MD May 22, 2016 11:29
[2016-05-22 12:00] VITALS: BP 138/74
[2016-05-22] MEDS: DILTIAZEM 30 MG (CARDIZEM) TAB PO SCH ×2 (13:35→20:17)
--- NOTE | 2016-05-22 14:50 | Progress Note-Hospitalist ---
Standard Progress Note Progress Notes/Assess & Plan Date Seen 05/22/16 Diagnosis 1. new-onset A. fib with RVR 2. Possible left low femoral neck fracture 3. Osteoporosis 4. Chronic urinary incontinence with InterStim's placed 5. hypothyroidism 6. history of constipation 7. history of hypertension Patient currently is in sinus rhythm she'll be transferred to the floor on telemetry on by mouth Cardizem instead of amlodipine. bone scan has been ordered and will be obtained for further evaluation of the left hip. PT will be consult said to help train in just partial weightbearing as instructed by Dr. Contreras. Dr. Jain to follow the A. fib. Assess & Plan/Chief Complaint The patient is a 75-year-old white female who was admitted after having suffered a fall several days before presentation. She had had continued hip pain although walking and finally came to the emergency room. X-rays says suggested the possibility of a nondisplaced fracture. In addition she was noted to be in atrial fibrillation with a rapid movements particular response. This has been controlled. Dr. Contreras has been consulting in orthopedics and is not convinced that there is a fracture. She is undergoing a 3 states bone scan today which will be completed in the late afternoon. Physical exam: The patient is alert and charming. She is comfortable at rest. Lungs are clear to auscultation. CV is irregular. Abdomen is soft. Impression: Atrial fibrillation with RVR now controlled. 2 continued hip pain on the left post fall, rule out non-displaced fracture Labs Laboratory Tests 05/20/16 17:05 05/21/16 03:25 05/22/16 04:25 DARREN EPPERSON MD May 22, 2016 14:49
[2016-05-22 15:45] VITALS: BP 147/71
[2016-05-22] MEDS ORDERED: ENOXAPARIN 40 MG/0.4 ML (LOVENOX) SYR SC SCH (16:30)
--- NOTE | 2016-05-22 16:32 | Progress Note-Standard ---
Standard Progress Note Progress Notes/Assess & Plan Progress/Assessment & Plan was asked to follow up patient by Dr. Contreras, revuew of bone scan does not show any evidence of femoral neck fx, the xrays and CT also were negative for fracture. No indication for surgery at this time. Patient should continue walker with weight bearing as tolerated and follow up with Dr. Contreras as an OP as needed. EMILIA BECERRIL DO May 22, 2016 16:32
--- NOTE | 2016-05-22 16:48 | Diagnostic Imaging Report ---
EXAMINATION: Three-phase bone scan. INDICATION: Left hip and left knee pain. TECHNIQUE: After the intravenous administration of 27 mCi of technetium 99m MDP, imaging over the pelvis in the flow phase, blood pool, and delayed phases was obtained. FINDINGS: There is symmetric flow over the hip joints. The blood pool images demonstrate no significant asymmetry in the soft tissue uptake. The delayed phase images demonstrate no significant increased radiotracer uptake in the hip joints. In the right knee, particularly on the right side and specifically in the patellofemoral and medial compartments, moderate increased activity is seen. There is mild increased activity in the left knee with central areas of photopenia correlate with knee placement. The level of activity around the prosthesis is within normal limits. IMPRESSION: There are moderate areas of increased uptake around the right knee, particularly in the patellofemoral and medial compartments, likely secondary to osteoarthritis. Correlate with radiographs and clinical exam. Dictated by: Dictated on workstation # [id number]
[2016-05-22 19:55] VITALS: BP 153/69
[2016-05-23] MEDS: NS IV 1000 ML 1,000 ML IV SCH ×2 (02:05→03:29)
[2016-05-23 04:00] VITALS: BP 148/74
[2016-05-23] MEDS: oxyCODONE/APAP 5/325MG (PERCOCET 5) TABLET PO PRN ×2 (05:33→13:17)
[2016-05-23] MEDS: KCL 20 MEQ TAB (K-DUR) PO SCH (06:00)
[2016-05-23] MEDS: CATHETER FLUSH 10 ML SYR IV SCH ×3 (06:00→22:40)
[2016-05-23 08:00] VITALS: BP 124/70
[2016-05-23] MEDS: cefTRIAXone INJECTION 1,000 MG in NS (IVPB) 50 ML IV SCH (09:03)
[2016-05-23] MEDS: CALCITONIN NASAL 200 INTLU/AC (FORTICAL) 3.7 ML BTL SCH (09:03)
[2016-05-23] MEDS: DILTIAZEM 30 MG (CARDIZEM) TAB PO SCH ×3 (09:03→20:02)
[2016-05-23] MEDS: ASPIRIN E.C. 81 MG (ECOTRIN) TAB PO SCH (09:35)
--- NOTE | 2016-05-23 10:39 | Cardiology Progress Note ---
Subjective Subjective/Events-last exam Patient in bed. Continues to complain of hip pain. Denies any CP or dyspnea. Review of Systems General: No Night Sweats, No Fatigue, No Malaise HEENT: No Visual Changes, No Dysphasia, No Sore Throat Pulmonary: No Dyspnea, No Cough Cardiovascular: No: Chest Pain, Edema, Palpitations, Paroxysmal Noc. Dyspnea Gastrointestinal: No: Abdominal Pain, Nausea, Vomiting Genitourinary: No Dysuria, No Frequency Musculoskeletal: : leg painNo: back pain, neck pain Neurological: No: Change in speech, Confusion, Numbness, Weakness Objective-Cardiology Exam Last Set of Vital Signs Vital Signs 05/23/16 05/23/16 06:57 08:00 Temp 96.8 Pulse 61 Resp 20 B/P 124/70 Pulse Ox 96 O2 Delivery Room Air O2 Flow Rate 2.00 Capillary Refill : Less Than 3 SecondsLess Than 3 Seconds I&O Intake and Output 05/23/16 00:00 Intake Total 1550 ml Output Total 2975 ml Balance -1425 ml Intake Oral 1550 ml Output Urine Total 2975 ml # Bowel Movements 1 General: Alert, Oriented X3 HEENT: Atraumatic, PERRLA Neck: Supple, No JVD Lungs: Clear to Auscultation Heart: Regular Rate, Normal S1, Normal S2 Abdomen: Normal Bowel Sounds, Soft Skin: No Rashes, No Significant Lesion Neuro: Normal Speech, Cranial Nerves 3-12 NL Psych/Mental Status: Mental Status NL, Mood NL A/P-Cardiology Admission Diagnosis Paroxysmal atrial fibrillation Hip pain Hypertension Hypothyroidism Assessment/Plan Paroxysmal atrial fibrillation noted incidentally on arrival to the emergency room for evaluation for her hip pain, converted spontaneously to sinus rhythm, probably secondary to the pain. No need to initiate any antiarrhythmic medication, has been intolerant to beta blockers previously. TSH WNL. Maintained on PO Cardizem. Telemetry reveals SR. Continue to monitor. Left sided hip pain, so far workup including bone scan done yesterday is negative, seen by Dr. Contreras and scheduled to have bone scan. Hypertension, intolerant to beta blockers, continue to monitor BP/HR. Echo of 04/26/16: Mild to mod conc LVH, LVEF 70-75%, mild AoV sclerosis w/o stenosis, mild diastolic dysfunction of LV MPI of 04/27/16: No cor ischemia or infarction; LVEF 73% Hypothyroidism, followed and managed by primary care physician Chronic back pain with surgeries Bladder stimulator implants Elevated BMI of approx 44 H/o ZENAIDA, but reports intolerance to CPAP Clinical Quality Measures DVT/VTE Risk/Contraindication: Risk Factor Score Per Nursin RFS Level Per Nursing on Admit: 4+=Very High CYNTHIA TAVAREZ May 23, 2016 10:39
[2016-05-23 12:00] VITALS: BP 165/73
--- NOTE | 2016-05-23 13:13 | Progress Note-Hospitalist ---
Standard Progress Note Progress Notes/Assess & Plan Date Seen 05/23/16 Diagnosis 1. new-onset A. fib with RVR 2. Possible left low femoral neck fracture 3. Osteoporosis 4. Chronic urinary incontinence with InterStim's placed 5. hypothyroidism 6. history of constipation 7. history of hypertension Patient currently is in sinus rhythm she'll be transferred to the floor on telemetry on by mouth Cardizem instead of amlodipine. bone scan has been ordered and will be obtained for further evaluation of the left hip. PT will be consult said to help train in just partial weightbearing as instructed by Dr. Contreras. Dr. Jain to follow the A. fib. Assess & Plan/Chief Complaint The 3-phase bone scan yesterday was negative for fracture in the left hip. Accordingly we will proceed with the mobilization. She reports that the level of pain when standing or transferring is less but still significant. She has been able to use the commode. Presently she has a Cobos catheter in which will be discontinued. 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 She will be taken off her IV Rocephin and placed on Omnicef. Physical exam: Lungs are clear to auscultation. CV is slightly irregular. Abdomen is obese. Extremities showed no pedal edema. Impression: Deep bone bruise left hip Plan: Mobilization with PT and OT Labs Laboratory Tests 05/22/16 04:25 DARREN EPPERSON MD May 23, 2016 13:13
--- NOTE | 2016-05-23 13:44 | Physical Therapy Ortho Eval ---
PT Orthopedic Evaluation Type of Surgery Pt did not have surgery, but admitting post fall with complaints of left hip pain. Diagnostic imaging found no hip fracture. Prior Level of Function Current Living Status: Alone Locomotion (Upon Admit): Independent Subjective Subjective Pt reports she fell at home and has had left hip pain since then. Pt reports she has not been up (to speak of) since admisssion. report she feels weak and shakey with ambulation. Reports she would be fearful to be home alone tonight. Entry Into Home: Elevator Other Obstacles: Pt resides at [facility]. Motor Control Motor Control: Motor Control WNL ROM ROM: WFL Strength Strength: WFL Transfer Pt was able to get out of bed with light min assist to lift torso. Pt able to stand with SBA. Gait Gait Assistive Device: FWW Weight Bearing Restriction: Weight Bearing/Tolerated Summary/Comments Pt ambulated x 125 ft with fWW with SBA; slow gait and slight antalgia noted. No noted LOB and safe gait pattern. Assessment/Goals Goals are for patient to be mod indep with gait and transfers. Also instructed her goal is to ambulate to/from the bathroom the rest of the day instead of using the commode to promote functional mobility and strength. Plan Treatment Plan: Bed Mobility, Functional Activity Tolerated, Functional Strength, Gait Plan to see patient tomorrow and assess mobility and if moving well will plan dc from PT. Pt is safe with mobility, just apprehensive about it since she has not been up for a few days. Feel that after being up today and walking to from the bathroom the rest of the day, she will feel stronger and better tomorrow. Recommend [facility] PT to follow. Treatment Duration: 2-3 days Visits Per Week: 5 Time Time In: 1315 Time Out: 1344 Total Billed Treatment Time: 29 Billed Treatment Time visit EVL 15 gt 14 ANANTH PRINGLE PT May 23, 2016 13:44
--- NOTE | 2016-05-23 14:37 | Occupational Therapy Eval ---
OT Evaluation-General/PLF Medical Diagnosis Admission Date May 20, 2016 at 18:05 Medical Diagnosis: possible L fem neck fx, a fib Onset Date: May 20, 2016 Therapy Diagnosis Therapy Diagnosis: decreased self care, weakness Height/Weight Height (Feet): 5 Height (Inches): 2.00 Weight (Pounds): 240 Weight (Ounces): 1.0 Precautions Precautions/Isolations: Standard Precautions Safety Interventions: None Weight Bear Status Weight Bearing Restriction: Weight Bearing/Tolerated Medical History Pertinent Medical History: Atrial Fib, Arthritis, Hypothroidism Additional Medical History Stimulator R hip, bladder stimulator, carpal tunnel surgery, L TKR, home O2 use , kidney stones, chronic UTI, chronic back pain, chronic edema, osteoporosis Current History Pt fell at apt at [facility] and was thought to have L femoral neck fx. She did not have a fx and is able to be up walking with WBAT in her room. She is concerned about going home and being safe. Reviewed History: Yes Social History Home: Apartment ([facility]) Current Living Status: Alone Entry Into Home: Elevator Other Obstacles: Pt resides at [facility]. ADL-Prior Level of Function ADL PLOF Comments Pt reported she is able to manage all of her basic ADLs and still drives. 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 She still drives. DME/Equipment: Tub/Shower Drive Self: Yes OT Current Status Subjective Pt seen in room, up on toilet, agreeable to OT. Pt reported she was just given pain meds Appearance Alert, cooperative Mental Status/Objective Attachments: Saline Lock (covered) Current Glasses/Contacts: Yes Hearing Aids: No Dentures/Partials: No Hand Dominance: Right Upper Extremity ROM Grossly WFL bilat Upper Extremity Strength Grossly WFL bilat ADL-Treatment Functional [place] Measure 0=Not Assessed/NA 4=Minimal Assistance 1=Total Assistance 5=Supervision or Setup 2=Maximal Assistance 6=Modified [place] 3=Moderate Assistance 7=Complete IndependenceIRFPAI Quality Coding Scale 6 Independent with activity with or without an assistive device 5 Patient requires set up or clean up by helper. Patient completes activity by themselves 4 Supervision or touching assist (CGA). [place] provide cues , steadying assist 3 The helper provides less than half the effort to complete the activity 2 The helper provides more than half the effort to complete the activity 1 Dependent. The helper does all the effort to complete an activity 7 Patient refused to complete or attempt activity 9 The patient did not perform the activity before the current illness or injury 88 Not attempted due to Medical conditions or safety concerns Grooming (FIM): 6 (Stood at sink with FWW to brush teeth. Washed face and hands in shower. Pt education to keep walker in front of her rather that putting it off to the side) Bathing (FIM): 5 (Setup with towels. pt washed and dried all parts, turned water off and retrieved towel from bar. Shower bench, grab bars, hand held shower) Upper Body Dressing (FIM): 5 (setup) Lower Body Dressing (FIM): 5 (setup for gown and underwear, slipper socks. Dressed on toilet. Stood with FWW, grab bar) Toileting (FIM): 6 (Mod I, managing hygiene and clothing. grab bar, FWW) Transfers (B, C, W/C) (FIM): 6 (FWW) Toilet/Commode Transfer (FIM): 6 (Mod I, tall toilet, FWW, grab bar) Shower Transfer (FIM): 6 (Shower bench, grab bars, FWW) After ADLs, pt was much more confident in her abilities to manage her own care tomorrow. Information shared with SW. 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 2=Patient will verbalize/demonstrate understanding of assistive devices/ modifications for ADL. 3=Patient will improve strength/tolerance for activity to enable patient to perform ADL's. OT Education/Plan Problem List/Assessment Assessment: Decreased Safety Aware, Dependent Transfers, Impaired Funct Balance , Impaired Self-Care Skills Pt would benefit from skilled OT to increase her independence in basic self care to allow her to safely return to her home. Discharge Recommendations Plan/Recommendations: Continue POC Therapy D/C Recommendations: Occupational Therapy Home Care Barriers to Progress confidence Target Placement home Treatment Plan/Plan of Care Treatment,Training & Education: Yes Patient would benefit from OT for education, treatment and training to promote independence in ADL's, mobility, safety and/or upper extremity function for ADL' s. Plan of Care: ADL Retraining, Functional Mobility Treatment Duration: May 24, 2016 # of days/week 2 Visits Per Week: 2 Agreement: Yes Rehab Potential: Good Time/GCodes Start Time: 14:15 Stop Time: 15:00 Total Time Billed (hr/min): 45 Billed Treatment Time visit, eval moderate intensity 15 minutes, ADL 30 minutes JACOB SOTO OT May 23, 2016 14:37
[2016-05-23] MEDS ORDERED: PATIENT MAY USE OWN MED,SINGLE MED PO SCH (14:45)
[2016-05-23 15:50] VITALS: BP 162/73
--- NOTE | 2016-05-23 17:25 | Cardiology Progress Note ---
Subjective Subjective/Events-last exam patient is sitting up in a chair, feeling better, denied any chest pain. No palpitation. Groin is feeling better. Review of Systems General: No Chills, No Night Sweats, No Fatigue, No Malaise, No Appetite, No Other HEENT: No Head Aches, No Visual Changes, No Eye Pain, No Ear Pain, No Dysphasia , No Sinus Congestion, No Post Nasal Drip, No Sore Throat, No Other Pulmonary: No Dyspnea, No Cough, No Pleuritic Chest Pain, No Other Cardiovascular: No: Chest Pain, Edema, Lt Headedness, Orthopnea, Other, Palpitations, Paroxysmal Noc. Dyspnea Objective-Cardiology Exam Last Set of Vital Signs Vital Signs 05/23/16 05/23/16 06:57 12:00 Temp 96.6 Pulse 59 Resp 20 B/P 165/73 Pulse Ox 97 O2 Delivery Room Air O2 Flow Rate 2.00 Capillary Refill : Less Than 3 SecondsLess Than 3 Seconds I&O Intake and Output 05/22/16 23:59 Intake Total 2550 ml Output Total 2975 ml Balance -425 ml Intake Oral 1550 ml IV Total 1000 ml Output Urine Total 2975 ml # Bowel Movements 1 General: Alert, Oriented X3 HEENT: Atraumatic, PERRLA Neck: Supple, No JVD Lungs: Clear to Auscultation Heart: Regular Rate, Normal S1, Normal S2 Abdomen: Normal Bowel Sounds, Soft Skin: No Rashes, No Significant Lesion Neuro: Normal Speech, Cranial Nerves 3-12 NL Psych/Mental Status: Mental Status NL, Mood NL A/P-Cardiology Admission Diagnosis Paroxysmal atrial fibrillation Hip pain Hypertension Hypothyroidism Assessment/Plan Paroxysmal atrial fibrillation noted incidentally on arrival to the emergency room for evaluation for her hip pain, converted spontaneously to sinus rhythm, probably secondary to the pain. No need to initiate any antiarrhythmic medication, has been intolerant to beta blockers previously. TSH WNL. Maintained on PO Cardizem. Telemetry reveals SR. no changes are recommended, I will sign off at this time. Please reconsult if needed. Left sided hip pain, so far workup including bone scan done yesterday is negative, seen by Dr. Contreras and scheduled to have bone scan. Hypertension, intolerant to beta blockers, continue to monitor BP/HR. Echo of 04/26/16: Mild to mod conc LVH, LVEF 70-75%, mild AoV sclerosis w/o stenosis, mild diastolic dysfunction of LV MPI of 04/27/16: No cor ischemia or infarction; LVEF 73% Hypothyroidism, followed and managed by primary care physician Chronic back pain with surgeries Bladder stimulator implants Elevated BMI of approx 44 H/o ZENAIDA, but reports intolerance to CPAP Clinical Quality Measures DVT/VTE Risk/Contraindication: Risk Factor Score Per Nursin RFS Level Per Nursing on Admit: 4+=Very High BENJAMIN DELCID MD May 23, 2016 17:25
[2016-05-23 19:45] VITALS: BP 140/69
[2016-05-23] MEDS: CEFDINIR 300 MG (OMNICEF) CAP PO SCH (20:02)
[2016-05-24] VITALS: BP 115/73
[2016-05-24] MEDS: oxyCODONE/APAP 5/325MG (PERCOCET 5) TABLET PO PRN (02:50)
[2016-05-24] MEDS: KCL 20 MEQ TAB (K-DUR) PO SCH (06:00)
[2016-05-24] MEDS: CATHETER FLUSH 10 ML SYR IV SCH (06:34)
[2016-05-24 08:00] VITALS: BP 170/79
[2016-05-24] MEDS: CEFDINIR 300 MG (OMNICEF) CAP PO SCH (08:39)
[2016-05-24] MEDS: ASPIRIN E.C. 81 MG (ECOTRIN) TAB PO SCH (08:39)
[2016-05-24] MEDS: DILTIAZEM 30 MG (CARDIZEM) TAB PO SCH (08:39)
[2016-05-24] MEDS: CALCITONIN NASAL 200 INTLU/AC (FORTICAL) 3.7 ML BTL SCH (08:40)
[2016-05-24] MEDS: ENOXAPARIN 40 MG/0.4 ML (LOVENOX) SYR SQ SCH (08:40)
[2016-05-24] MEDS ORDERED: NATURE THROID 65 MG PO SCH (09:00)
--- NOTE | 2016-05-24 09:16 | Physical Therapy Daily Note ---
PT Daily Note-Current Subjective Agreeable to PT. Reports she is trying not to take pain meds. Reports she gets up every 2 hours at night and is concerned about doing that at home safely. Pain Numeric Pain Scale: 5-Moderate Pain (3/10 at start of treatment; increased with activity) Location: Left Location Body Site: Hip (/groin) Comment: "pulling"; aching with activity; increases with gait Mental Status Patient Orientation: Person, Place, Time, Situation Transfers Functional [place] Measure 0=Not Assessed/NA 4=Minimal Assistance 1=Total Assistance 5=Supervision or Setup 2=Maximal Assistance 6=Modified [place] 3=Moderate Assistance 7=Complete IndependenceIRFPAI Quality Coding Scale 6 Independent with activity with or without an assistive device 5 Patient requires set up or clean up by helper. Patient completes activity by themselves 4 Supervision or touching assist (CGA). [place] provide cues , steadying assist 3 The helper provides less than half the effort to complete the activity 2 The helper provides more than half the effort to complete the activity 1 Dependent. The helper does all the effort to complete an activity 7 Patient refused to complete or attempt activity 9 The patient did not perform the activity before the current illness or injury 88 Not attempted due to Medical conditions or safety concerns Transfers (B, C, W/C) (FIM): 5 Sit to/from Stand: 5 Pt able to transfer sit to from stand with SBA using arms to push up from the chair. Transfer is slow and slightly antalgic initially. Weight Bearing Weight Bearing Restriction: Weight Bearing/Tolerated Location Restriction: L LE Gait Training Gait (FIM): 5 Distance (FIM): 3=150 ft Gait Assistive Device: FWW Gait x 150 ft with FWW with SBA; antalgic initially but decreases some; however , increased pain with activity and pt relying heavily on UE's to put weight through the walker. Gait is difficult for her due to increased pain with activity. Pt with heavy reliance on FWW. Assessment Current Status: Good Progress Pt mobilizing with SBA; pt did walk last night with staff and family. Primary concern is being home alone and being able to manage without assist due to the fact that pain increases with activity. Pt also notes she gets up every 2 hours at night to urinate and this is of concern for safety of ambulating to/ from the restroom at night alone. Fall risk noted due to pain increase with activity paired with increased risk of falling at night. Pt would benefit from continued short term therapy to work on functional mobility and strength to improve safety at home and decrease risk of falling. Also recommend [facility] PT upon discharge from hospital. PT Plan Problem List Problem List: Activity Tolerance, Functional Strength Treatment/Plan Treatment Plan: Continue Plan of Care Treatment Plan: Functional Activity Rohan, Functional Strength, Gait, Safety, Therapeutic Exercise, Transfers Treatment Duration: May 27, 2016 # of days/week 5-6 Visits Per Week: 5 Pt/Family Agrees w/Plan: Yes Safety Risks/Education Patient Education: Transfer Techniques, Safety Issues Teaching Recipient: Patient Teaching Methods: Demonstration, Discussion Response to Teaching: Verbalize Understanding discussed safety with transfers and safety at home. Time/GCodes Time In: 815 Time Out: 840 Total Billed Treatment Time: 25 Total Billed Treatment visit GT 25 ANANTH PRINGLE PT May 24, 2016 09:16
--- NOTE | 2016-05-24 11:16 | Discharge Summary-Hospitalist ---
Diagnosis/Chief Complaint Date of Admission May 20, 2016 at 18:05 Date of Discharge Admission Diagnosis 1. new-onset A. fib with RVR 2. Possible left low femoral neck fracture 3. Osteoporosis 4. Chronic urinary incontinence with InterStim's placed 5. hypothyroidism 6. history of constipation 7. history of hypertension Patient currently is in sinus rhythm she'll be transferred to the floor on telemetry on by mouth Cardizem instead of amlodipine. bone scan has been ordered and will be obtained for further evaluation of the left hip. PT will be consult said to help train in just partial weightbearing as instructed by Dr. Contreras. Dr. Jain to follow the A. fib. Discharge Diagnosis 1. new-onset A. fib with RVR 2. Possible left low femoral neck fracture now disproved only joint bruising 3. Osteoporosis 4. Chronic urinary incontinence with InterStim's placed 5. hypothyroidism 6. history of constipation 7. history of hypertension Reason Hospital Visit/Course this is a 75-year-old white female who resides at [facility]. She had tripped up proximally 2 days ago hitting her head and landing on the ground. She had some left hip discomfort in the groin but was able to get up and ambulate. She had no loss of consciousness. No head injury. The pain in the left groin has become worse and worse with ambulation and she presented to the emergency room with similar complaints. CT shows possible lucency in the femoral neck. Dr. Contreras has requested a bone scan for further evaluation since the diagnosis is in some doubt. an MRI was was considered but she has to enter stems placed for urinary incontinence and is unable to have an MRI. Only the patient has pain with any movement of the left hip. Upon presentation to the emergency room it was also found that she was in new onset atrial fibrillation which she has never had before. She was placed on a Cardizem drip and then this morning is in sinus rhythm and undergoing evaluation by Dr. Astorga. 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 Pt lives alone at home. Pt a candidate for rehab or swingbed, but pt also stable for DC. Patient Interview: Pt states that she remembers Dr. Rodriguez from previous hospitalization 2 months ago. Physical exam stable. Pt states that she has incontinence and has difficulty getting to the bathroom. Pt states that she has been taking Miralax and prune juice and had a BM this morning. Pt feels that her legs are swollen. No fever, vital signs stable, pleasant, chronically ill Regular rate and rhythm, clear to auscultation bilaterally No edema Plan: Swingbed Scribed by Siddharth Martell under the direct supervision of Dr. Rodriguez. Hospital course: Patient was admitted after a fall with presumed hip fracture but upon further workup and imaging studies that was disproved and she was started on physical therapy. Due to the overall debility and slow recovery she was placed on swing bed for further recovery of pain management and physical therapy and will plan on discharge back to her nights of [facility] on Sunday. Discharge Summary Discharge Physical Examination Allergies: Coded Allergies: NKANo Known Allergies (Verified Allergy, Unknown, 06/10/06) Vitals & I&Os Vital Signs Date Time Temp Pulse Resp B/P (MAP) Pulse Ox O2 Delivery O2 Flow Rate FiO2 05/24/16 08:00 96.8 65 20 170/79 98 Room Air 05/23/16 06:57 2.00 Hospital Course Labs (last 24 hrs) Microbiology 05/20/16 MRSA Screen - Final, Complete MRSA not isolated 05/20/16 Urine Culture - Final, Complete Discharge Home Medications: Active Scripts Active Reported Proair Hfa (Albuterol Sulfate) 1 Puff Puff 2 Puff IH Q4H PRN Restasis (Cyclosporine) 1 Each Droperette 1 Drop OU BID Aspirin 81 Mg Tab.chew 81 Mg PO DAILY Polyethylene Glycol 3350 255 Gm Powder 1 Tbs PO DAILY PRN [Biotin 500 IU] 500 Units PO DAILY Amlodipine Besylate 5 Mg Tablet 5 Mg PO DAILY Vitamin C (Ascorbic Acid) 1,000 Mg Tablet 1,000 Mg PO BID Oxycodone-Acetaminophen 5-325 (Oxycodone HCl/Acetaminophen) 1 Each Tablet 1 Tab PO Q4H PRN Vitamin D3 (Cholecalciferol (Vitamin D3)) 5,000 Unit Capsule 5,000 Unit PO BID Vitamin B-12 (Cyanocobalamin (Vitamin B-12)) 1,000 Mcg/1 Ml Drops 5,000 Mcg PO BID Flaxseed (Flaxseed Oil) 1,000 Mg Capsule 1,200 Mg PO BID Nature-Throid (Thyroid,Pork) 65 Mg Tablet 97.5 Mg PO DAILY TAKES 1 & 1/2 OF A (65 MG) TABLET Instructions to patient/family Please see electonic discharge instructions given to patient. Clinical Quality Measures DVT/VTE Risk/Contraindication: Risk Factor Score Per Nursin RFS Level Per Nursing on Admit: 4+=Very High KANDI RODRIGUEZ DO May 24, 2016 11:16
--- NOTE | 2016-05-24 13:34 | Occupational Ther Daily Note ---
OT Current Status-Daily Note Subjective Pt sitting in chair, agrees to treatment. Pt reports 3/10 pain in left hip Mental Status/Objective Functional [place] Measure 0=Not Assessed/NA 4=Minimal Assistance 1=Total Assistance 5=Supervision or Setup 2=Maximal Assistance 6=Modified [place] 3=Moderate Assistance 7=Complete [place] ADL-Treatment Pt requests shower this morning. Pt sit to stand from chair with modified independence. Gait to restroom with FWW, no LOB noted. Toilet transfer completed with modified independence using grab bar. Pt able to complete toileting hygiene and manage clothing with modified independence. [place]off clothing without assistance. Transfer to walk in shower with modified independence using grab bar for balance. Pt able to turn water on/off, bathe/dry all areas, and retrieve towel with modified independence. Pt stood with good balance while washing buttocks and prem area. Pt donned pullover gowns with modified independence. Don underwear and slip on shoes with modified independence. Pt stood at sink to comb hair with modified independence. Transfer to chair with modified independence using FWW. Pt does not have any LOB during session. Pt states she has a SKIL worker at home who assists with laundry and cleaning. Pt sitting in chair with needs met after session. Grooming (FIM): 6 Bathing (FIM): 6 Upper Body (FIM): 6 Lower Body Dressing (FIM): 6 Toileting (FIM): 6 Toilet/Commode Transfer (FIM): 6 Shower Transfer(FIM): 6 OT Short Term Goals Short Term Goals 1=Demonstrate adherence to instructed precautions during ADL tasks. 2=Patient will verbalize/demonstrate understanding of assistive devices/ modifications for ADL. 3=Patient will improve strength/tolerance for activity to enable patient to perform ADL's. OT Trail Maintenance Worker Goals [facility] Goals Time Frame: May 24, 2016 Bathing(FIM): 6 Upper Body Dressing(FIM): 6 Lower Body Dressing(FIM): 6 1=Demonstrate adherence to instructed precautions during ADL tasks. 2=Patient will verbalize/demonstrate understanding of assistive devices/ modifications for ADL. 3=Patient will improve strength/tolerance for activity to enable patient to perform ADL's. OT Education/Plan Problem List/Assessment Pt would benefit from skilled OT to increase her independence in basic self care to allow her to safely return to her home. Discharge Recommendations Plan/Recommendations: Continue POC Treatment Plan/Plan of Care Patient would benefit from OT for education, treatment and training to promote independence in ADL's, mobility, safety and/or upper extremity function for ADL' s. Plan of Care: ADL Retraining, Functional Mobility Treatment Duration: May 24, 2016 Visits Per Week: 2 Agreement: Yes Rehab Potential: Good Time/GCodes Start Time: 10:45 Stop Time: 11:25 Total Time Billed (hr/min): 40 Billed Treatment Time 1 visit, ADLx3(40minutes) SKINNY JACOBS OT May 24, 2016 13:34
== END 2016-05-24 12:00 | disposition swing bed (61) | DRG 605 ==
LOC: DELPENDDIS → EDUNIT# 16:45 → ER 16:46 → ICU 18:05 → 4TH 05-21 13:45
PROVIDERS: ADMIT Internal Medicine; ATTEND Internal Medicine
DX: S70.02XA Contusion of left hip, initial encounter (principal); I48.0 Paroxysmal atrial fibrillation; M81.0 Age-related osteoporosis without current pathological fracture; N39.0 Urinary tract infection, site not specified; B96.89 Other specified bacterial agents as the cause of diseases classified elsewhere; R32 Unspecified urinary incontinence; I10 Essential (primary) hypertension; E03.9 Hypothyroidism, unspecified; G47.33 Obstructive sleep apnea (adult) (pediatric); M54.9 Dorsalgia, unspecified; M19.91 Primary osteoarthritis, unspecified site; Z96.652 Presence of left artificial knee joint; W01.190A Fall on same level from slipping, tripping and stumbling with subsequent striking against furniture, initial encounter; Y92.29 Other specified public building as the place of occurrence of the external cause
CPT/HCPCS: 36415; 51702; 70450; 71010; 72170; 73502; 73700; 78315; 80048; 80053; 81000; 83735; 83880; 84100; 84443; 84484; 85025; 85027; 87081; 87088; 93005; 94060; 94640; 94726; 94729; 94760; 96365

== ENCOUNTER 2016-05-24 11:27 | Inpatient (IN) | payer MEDICARE, MEDICAID ==
[~2016-05-24] VITALS: Ht 157.5 cm; Wt 108.9 kg
[~2016-05-24 11:27] MED LIST changes: +AMLO5TAB2 PO; +ASPI-999 PO; +BIOTIN PO; +CYCL1DRO OU; +POLY255P PO
[2016-05-24] MEDS ORDERED: RT-ALBUTEROL SULF 2.5 MG/3 ML PRE-MIX VIAL INH PRN (12:15)
[2016-05-24] MEDS ORDERED: CATHETER FLUSH 10 ML SYR IV PRN (12:15)
[2016-05-24] MEDS ORDERED: POLYETHYLENE GLYCOL 17 GM (MIRALAX) PACK PO PRN (12:15)
[2016-05-24] MEDS ORDERED: PATIENT MAY USE OWN MED,SINGLE MED PO SCH (12:15)
[2016-05-24] MEDS: oxyCODONE/APAP 5/325MG (PERCOCET 5) TABLET PO PRN ×2 (13:07→22:52)
[2016-05-24] MEDS: DILTIAZEM 30 MG (CARDIZEM) TAB PO SCH ×2 (13:07→20:19)
[2016-05-24] MEDS: CATHETER FLUSH 10 ML SYR IV SCH ×2 (13:07→20:21)
--- NOTE | 2016-05-24 14:27 | Physical Therapy Evaluation ---
PT Evaluation-General Medical Diagnosis Admission Date May 24, 2016 at 12:08 Medical Diagnosis: fall; rib fx Onset Date: May 20, 2016 Therapy Diagnosis Therapy Diagnosis: weakness; abn gait Height/Weight Height (Feet): 5 Height (Inches): 2.00 Weight (Pounds): 240 Weight (Ounces): 1.0 Precautions Precautions/Isolations: Standard Precautions Weight Bear Status Weight Bearing Restriction: Weight Bearing/Tolerated Location Restriction: L LE Referral Physician: Tamara Reason for Referral: Evaluation/Treatment Medical History Pertinent Medical History: Atrial Fib, Arthritis, HTN, Hypothroidism Current History Pt fell at home on 05/20/16 and has had left hip pain and sustained left rib fx; left hip not fractured. Reviewed History: Yes Social History Home: Apartment Current Living Status: Alone Entry Into Home: Elevator Prior/Core FIM Prior Level of Function Functional [place] Measure 0=Not Assessed/NA 4=Minimal Assistance 1=Total Assistance 5=Supervision or Setup 2=Maximal Assistance 6=Modified [place] 3=Moderate Assistance 7=Complete [place] Bed Mobility: 7 Transfers (B,C,W/C) (FIM): 7 Gait: 7 Pt was indep in her apartment and even assisted her neighbor with meals. PT Evaluation-Current Subjective Reports she feels better but still has concerns about safety with ambulation. Happy to stay a few more days to get stronger and be safer in her apartment. Pain Numeric Pain Scale: 6 Location: Left Location Body Site: Hip Pain Description: Ache Pt/Family Goals Her goals are to return home and be mod indep with mobility and feel safe with functional transfers--especially at night. Objective Patient Orientation: Person, Place, Time, Situation Problem Solving: Good ROM/Strength ROM Lower Extremities WFL Strenght Lower Extremities Right LE grossly 4/5; left LE grossly 4-/5--mainly due to pain with resisted movement Integumentary/Posture Integumentary intact Bowel Incontinence: No Bladder Incontinence: Yes (stress) Posture normal and symmetrical Neuromuscular (Tone, Coordination, Reflexes) no noted functional deficit Sensory Vision: Functional Hearing: Functional Hand Dominance: Right Sensation Right Lower Extremit: Intact Sensation Left Lower Extremity: Intact Transfers Functional [place] Measure 0=Not Assessed/NA 4=Minimal Assistance 1=Total Assistance 5=Supervision or Setup 2=Maximal Assistance 6=Modified [place] 3=Moderate Assistance 7=Complete [place] Transfers (B, C, W/C) (FIM): 4 Supine to/from Sit: 4 (assist to lift left leg into bed. ) Sit to/from Stand: 5 Sit to Lying (QC): 4 Lying to Sitting/Side of Bed(Q: 5 Sit to Stand (QC): 5 Chair/Hxa-pb-Xkdmh Xfer(QC): 5 Gait Does the Patient Walk?: Yes Mode of Locomotion: Walk Anticipated Mode of Locomotion: Walk Gait (FIM): 5 (SBa for safety and due to leg pain ) Distance (FIM): 3=150 ft Walk 50 ft with 2 Turns(QC): 5 Walk 150 ft (QC): 5 Gait Assistive Device: FWW Comments/Gait Description Slow gait but steady; skilled cues for posture and how to protect her left hip when painful Balance Sitting Static: Normal Sitting Dynamic: Normal Standing Static: Good Standing Dynamic: Good Treatment Functional transfers in/out of bed; toilet transfer and functional gait training. Assessment/Needs Post fall at home with residual left hip pain that causes safety concerns with functional gait and balance. Specificaly, concern regarding up frequently at night to urinate. Pt will sig benefit from skilled PT services to work on functional strength and safety with mobiltiy to enhance her safety and success at home with caring for herself. Rehab Potential: Good PT Short Term Goals Short Term Goals Time Frame: May 26, 2016 Transfers (B,C,W/C) (FIM): 5 PT Fdc Goals Hose Builder Goals PT Fdc Goals Time Frame: May 31, 2016 Transfers (B,C,W/C) (FIM): 6 Sit to Lying (QC): 6 Lying-Sitting on Side/Bed(QC): 6 Sit to Stand (QC): 6 Chair/Ldf-ag-Lqhjs Xfer(QC): 6 Does the Patient Walk: Yes Gait (FIM): 6 Gait distance (FIM): 3=150 ft Walk 50ft with 2 Turns (QC): 6 Walk 150 ft (QC): 6 Gait Level of Assist: 6 Gait Assistive Device: FWW Does the Pt use WC or Scooter?: No PT Plan Problem List Problem List: Activity Tolerance, Functional Strength, Safety, Gait, Transfer, Bed Mobility Treatment/Plan Treatment Plan: Continue Plan of Care Treatment Plan: Bed Mobility, Education, Functional Activity Rohan, Functional Strength, Gait, Safety, Therapeutic Exercise, Transfers Treatment Duration: May 31, 2016 # of days/week 5-6 Visits Per Week: 5-6 Pt/Family Agrees w/Plan: Yes Safety Risks/Education Patient Education: Transfer Techniques, Safety Issues Teaching Recipient: Patient Teaching Methods: Demonstration, Discussion Response to Teaching: Return Demonstration Time/GCodes Time In: 1356 Time Out: 1425 Total Billed Treatment Time: 29 Total Billed Treatment visit EVL 14 FA 15 ANANTH PRINGLE PT May 24, 2016 14:27
--- NOTE | 2016-05-24 14:44 | Occupational Therapy Eval ---
OT Evaluation-General/PLF Medical Diagnosis Admission Date May 24, 2016 at 12:08 Medical Diagnosis: fall; rib fx Onset Date: May 20, 2016 Therapy Diagnosis Therapy Diagnosis: decreased self care skills Height/Weight Height (Feet): 5 Height (Inches): 2.00 Weight (Pounds): 240 Weight (Ounces): 1.0 Precautions Precautions/Isolations: Standard Precautions Weight Bear Status Weight Bearing Restriction: Weight Bearing/Tolerated Location Restriction: L LE Referral Physician: Tamara Medical History Pertinent Medical History: Atrial Fib, Arthritis, HTN, Hypothroidism Additional Medical History bladder stimulator, carpal tunnel surgery, left TKR, kidney stones, chronic UTI , chronic back pain, chronic edema, osteoporosis, Social History Home: Apartment ([facility]) Current Living Status: Alone Entry Into Home: Elevator ADL-Prior Level of Function ADL PLOF Comments Pt reports being independent with basic self care and mobility. Has SKIL worker who does laundry and cleaning. DME/Equipment: Bath Chair, Grab Bars, Tub/Shower, Toilet/[address] Self: Yes OT Current Status Subjective Pt sitting in chair, agrees to evaluation. Pt reports 3/10 hip pain Mental Status/Objective Patient Orientation: Person, Place, Time, Situation Current Glasses/Contacts: Yes Hearing Aids: No Dentures/Partials: No Hand Dominance: Right Upper Extremity ROM Grossly WFL Upper Extremity Coordination Intact Upper Extremity Strength Grossly WFL ADL-Treatment ADL-Current Pt completed shower, dressing, grooming, toileting, and toilet transfer this morning while on acute care. Pt was able to complete all tasks with modified independence. Pt donned socks without assistance while seated in chair. Pt sit to stand with modified independence. Functional [place] Measure 0=Not Assessed/NA 4=Minimal Assistance 1=Total Assistance 5=Supervision or Setup 2=Maximal Assistance 6=Modified [place] 3=Moderate Assistance 7=Complete IndependenceIRFPAI Quality Coding Scale 6 Independent with activity with or without an assistive device 5 Patient requires set up or clean up by helper. Patient completes activity by themselves 4 Supervision or touching assist (CGA). [place] provide cues , steadying assist 3 The helper provides less than half the effort to complete the activity 2 The helper provides more than half the effort to complete the activity 1 Dependent. The helper does all the effort to complete an activity 7 Patient refused to complete or attempt activity 9 The patient did not perform the activity before the current illness or injury 88 Not attempted due to Medical conditions or safety concerns Eating (FIM): 6 ( per pt report no assist with feeding) Eating (QC): 6 Grooming (FIM): 6 Oral Hygiene (QC): 6 Bathing (FIM): 6 Upper Body Dressing (FIM): 6 Lower Body Dressing (FIM): 6 Toileting (FIM): 6 Toilet/Commode Transfer (FIM): 6 Shower Transfer (FIM): 6 Education OT Patient Education: Rehab process Teaching Recipient: Patient Teaching Methods: Discussion Response to Teaching: Verbalize Understanding OT Short Term Goals Short Term Goals Transfers (B,C,W/C) (FIM): 5 1=Demonstrate adherence to instructed precautions during ADL tasks. 2=Patient will verbalize/demonstrate understanding of assistive devices/ modifications for ADL. 3=Patient will improve strength/tolerance for activity to enable patient to perform ADL's. OT Operator Prefinish Goals Custodial Goals Time Frame: May 31, 2016 Eating (QC): 6 (MET) Oral Hygiene (QC): 6 (MET) Toileting Hygiene (QC): 6 (MET) Toilet/Commode Transfer (QC): 6 (MET) Pt will complete simple kitchen task with modified independence. 1=Demonstrate adherence to instructed precautions during ADL tasks. 2=Patient will verbalize/demonstrate understanding of assistive devices/ modifications for ADL. 3=Patient will improve strength/tolerance for activity to enable patient to perform ADL's. OT Education/Plan Problem List/Assessment Assessment: Impaired Self-Care Skills Pt is currently able to complete basic self care with modified independence. Pt has assist with laundry and cleaning at home. Pt to benefit from skilled OT intervention to ensure ability to safely perform simple kitchen task for safe discharge to home. Discharge Recommendations Plan/Recommendations: Continue POC Treatment Plan/Plan of Care Treatment,Training & Education: Yes Patient would benefit from OT for education, treatment and training to promote independence in ADL's, mobility, safety and/or upper extremity function for ADL' s. Plan of Care: ADL Retraining Treatment Duration: May 31, 2016 # of days/week 5 Visits Per Week: 5 Agreement: Yes Rehab Potential: Good Time/GCodes Start Time: 14:25 Stop Time: 14:40 Total Time Billed (hr/min): 15 Billed Treatment Time 1 visit, EVM(15minutes) SKINNY JACOBS OT May 24, 2016 14:44
[2016-05-24 18:10] VITALS: BP 117/70
[2016-05-24 19:35] VITALS: BP 146/62
[2016-05-24] MEDS: CEFDINIR 300 MG (OMNICEF) CAP PO SCH (20:20)
[2016-05-24 23:27] VITALS: BP 113/62
[2016-05-25] MEDS: CATHETER FLUSH 10 ML SYR IV SCH ×3 (05:35→19:48)
[2016-05-25] MEDS: NATURE THROID 65 MG PO SCH (05:35)
[2016-05-25] MEDS: oxyCODONE/APAP 5/325MG (PERCOCET 5) TABLET PO PRN ×2 (05:35→22:36)
[2016-05-25 08:00] VITALS: BP 169/79
[2016-05-25] MEDS: ENOXAPARIN 40 MG/0.4 ML (LOVENOX) SYR SQ SCH (09:12)
[2016-05-25] MEDS: CEFDINIR 300 MG (OMNICEF) CAP PO SCH ×2 (09:13→19:48)
[2016-05-25] MEDS: DILTIAZEM 30 MG (CARDIZEM) TAB PO SCH ×3 (09:13→19:48)
[2016-05-25] MEDS: CALCITONIN NASAL 200 INTLU/AC (FORTICAL) 3.7 ML BTL SCH (09:13)
[2016-05-25] MEDS: ASPIRIN E.C. 81 MG (ECOTRIN) TAB PO SCH (09:13)
--- NOTE | 2016-05-25 10:38 | Progress Note-Hospitalist ---
Progress Note Progress Notes/Assess & Plan Date Seen 05/25/16 Diagonsis/Assessment & Plan Chart Review: No fever Vitals stable BP slightly elevated Patient Interview: Pt states that she worked with PT and feels better. Pt states that she is having BMs regularly. Physical exam stable. Pt states that she would like to DC tomorrow. No fever, vital signs stable, pleasant, oriented 3, sitting in chair Regular rate and rhythm, clear to auscultation bilaterally Subtle edema in lower extremities Assessment: Left hip pain after fall but fracture ruled out Overall debility with slow recovery Status post constipation now resolved after MiraLAX Plan: PT Likely DC tomorrow Scribed by Siddharth Martell under the direct supervision of Dr. Kee. KANDI KEE DO May 25, 2016 10:38
--- NOTE | 2016-05-25 10:48 | Physical Therapy Daily Note ---
PT Daily Note-Current Subjective Pain rated 3/10 (L) hip upon arrival. Pt agreeable. Pt denies pain during nu- step exercise stating "It doesn't hurt at all." Transfers Functional [place] Measure 0=Not Assessed/NA 4=Minimal Assistance 1=Total Assistance 5=Supervision or Setup 2=Maximal Assistance 6=Modified [place] 3=Moderate Assistance 7=Complete IndependenceIRFPAI Quality Coding Scale 6 Independent with activity with or without an assistive device 5 Patient requires set up or clean up by helper. Patient completes activity by themselves 4 Supervision or touching assist (CGA). [place] provide cues , steadying assist 3 The helper provides less than half the effort to complete the activity 2 The helper provides more than half the effort to complete the activity 1 Dependent. The helper does all the effort to complete an activity 7 Patient refused to complete or attempt activity 9 The patient did not perform the activity before the current illness or injury 88 Not attempted due to Medical conditions or safety concerns Gait Training Gait Assistive Device: FWW Pt amb with FWW x 225ft from room to elevator to the 2nd floor gym, CGA. Pt taken back to her room via w/c. Exercises NuStep Minutes: 10 NuStep Workload: 1 Assessment Current Status: Good Progress Pt nohemy very well. Pt reporting decreased pain today and reports she feels she is doing better functionally. PT Short Term Goals Short Term Goals Time Frame: May 26, 2016 Transfers (B,C,W/C) (FIM): 5 PT Manager Web Application Goals Manager Web Application Goals PT Manager Web Application Goals Time Frame: May 31, 2016 Transfers (B,C,W/C) (FIM): 6 Sit to Lying (QC): 6 Lying-Sitting on Side/Bed(QC): 6 Sit to Stand (QC): 6 Chair/Kbt-pe-Fokzr Xfer(QC): 6 Does the Patient Walk: Yes Gait (FIM): 6 Gait distance (FIM): 3=150 ft Walk 50ft with 2 Turns (QC): 6 Walk 150 ft (QC): 6 Gait Level of Assist: 6 Gait Assistive Device: FWW Does the Pt use WC or Scooter?: No PT Plan Treatment/Plan Treatment Plan: Continue Plan of Care Treatment Plan: Bed Mobility, Education, Functional Activity Rohan, Functional Strength, Gait, Safety, Therapeutic Exercise, Transfers Treatment Duration: May 31, 2016 Visits Per Week: 5-6 Time/GCodes Time In: 830 Time Out: 915 Total Billed Treatment Time: 45 Total Billed Treatment 1, gait x 30min, Ther ex x 15min GABRIELLA OCASIO CPTA May 25, 2016 10:48
--- NOTE | 2016-05-25 11:39 | Discharge Inst-Home Health ---
Discharge Inst-to Home Health Patient Instructions Patient Instructions/FollowUp: Dr Lopez in 2 weeks Patient Problems: Hip pain due to fall Goal: return to independent activities [place] DISCHARGE ORDERS Allergies: Coded Allergies: NKANo Known Allergies (Verified Allergy, Unknown, 06/10/06) Height (Feet): 5 Height (Inches): 2.00 Weight (Pounds): 240 Weight (Ounces): 1.0 Home Health Need/Face to Face Reason Pt Homebound severe hip pain limiting ambulation I Have Seen Pt [id number]: Yes Date of Face to Face: May 26, 2016 Discharged To: Home Diagnosis/Conditions HH Order: med administration Physical therapy Consult/Follow Up/New Order *I certify that based on my findings, the following services are medically necessary Home Health Services: Services: Nursing Services, Manager Diabetes-Evaluate & Treat, Physical Therapy-Evaluate & Treat My clinical findings support the need for the above services; see Diagnosis. Dicharge Diet: No Restrictions Daily Activity as Tolerated: Yes Discharge Medications: New, Converted, or Re-newed RX: Other I certify that this patient is under my care and that I, a nurse practitioner or a physician; a physician office assistant working with me, had a face to face encounter that - meets the physician face to face encounter requirements with this patient as dated. KANDI RODRIGUEZ DO May 25, 2016 11:39
--- NOTE | 2016-05-25 14:07 | Occupational Ther Daily Note ---
OT Current Status-Daily Note Subjective Pt sitting in chair, agrees to treatment. Pt states she has less pain today, but does not rate. Mental Status/Objective Functional [place] Measure 0=Not Assessed/NA 4=Minimal Assistance 1=Total Assistance 5=Supervision or Setup 2=Maximal Assistance 6=Modified [place] 3=Moderate Assistance 7=Complete [place] ADL-Treatment Pt sit to stand with modified independence. Pt performed gait to OT kitchen with FWW, no LOB noted. Seated rest break once she reached the kitchen. Pt retrieved feldman and spatula from cabinet using FWW for balance. Pt stood at counter to prepare grilled cheese sandwich. Pt able to manage stove controls and safely cook sandwich. Pt stood with good balance and did not require any seated rest breaks during activity. Pt demonstrated ability to safely prepare and cook sandwich, including turning stove top off. Pt stopped at restroom on way back to room. Able to complete toilet transfer and toileting with modified independence. Stood at sink to wash hands without assistance. Pt returned to room, transferred to chair with modified independence. Sitting in chair with needs met after session. Pt states plan is to d/c home tomorrow. Pt states her SKIL worker will be there to assist tomorrow if needed. Will follow up tomorrow as needed for any questions/concerns. Functional [place] Measure 0=Not Assessed/NA 4=Minimal Assistance 1=Total Assistance 5=Supervision or Setup 2=Maximal Assistance 6=Modified [place] 3=Moderate Assistance 7=Complete IndependenceIRFPAI Quality Coding Scale 6 Independent with activity with or without an assistive device 5 Patient requires set up or clean up by helper. Patient completes activity by themselves 4 Supervision or touching assist (CGA). [place] provide cues , steadying assist 3 The helper provides less than half the effort to complete the activity 2 The helper provides more than half the effort to complete the activity 1 Dependent. The helper does all the effort to complete an activity 7 Patient refused to complete or attempt activity 9 The patient did not perform the activity before the current illness or injury 88 Not attempted due to Medical conditions or safety concerns Toileting (FIM): 6 Toileting Hygiene (QC): 6 Toilet/Commode Transfer (FIM): 6 Toilet Transfer (QC): 6 OT Short Term Goals Short Term Goals Transfers (B,C,W/C) (FIM): 5 1=Demonstrate adherence to instructed precautions during ADL tasks. 2=Patient will verbalize/demonstrate understanding of assistive devices/ modifications for ADL. 3=Patient will improve strength/tolerance for activity to enable patient to perform ADL's. OT Non Garment Sewing Machine Operator Goals Non Garment Sewing Machine Operator Goals Time Frame: May 31, 2016 Eating (QC): 6 (MET) Oral Hygiene (QC): 6 (MET) Toileting Hygiene (QC): 6 (MET) Toilet/Commode Transfer (QC): 6 (MET) Pt will complete simple kitchen task with modified independence. 1=Demonstrate adherence to instructed precautions during ADL tasks. 2=Patient will verbalize/demonstrate understanding of assistive devices/ modifications for ADL. 3=Patient will improve strength/tolerance for activity to enable patient to perform ADL's. OT Education/Plan Problem List/Assessment Pt is currently able to complete basic self care with modified independence. Pt has assist with laundry and cleaning at home. Pt to benefit from skilled OT intervention to ensure ability to safely perform simple kitchen task for safe discharge to home. Discharge Recommendations Plan/Recommendations: Continue POC Treatment Plan/Plan of Care Patient would benefit from OT for education, treatment and training to promote independence in ADL's, mobility, safety and/or upper extremity function for ADL' s. Plan of Care: ADL Retraining Treatment Duration: May 31, 2016 Visits Per Week: 5 Agreement: Yes Rehab Potential: Good Time/GCodes Start Time: 11:25 Stop Time: 12:00 Total Time Billed (hr/min): 35 Billed Treatment Time 1 visit, ADLx2(35minutes) SKINNY JACOBS OT May 25, 2016 14:07
[2016-05-25 20:00] VITALS: BP 159/68
[2016-05-26] MEDS: CATHETER FLUSH 10 ML SYR IV SCH ×2 (05:45→14:00)
[2016-05-26] MEDS: NATURE THROID 65 MG PO SCH (05:45)
[2016-05-26 08:00] VITALS: BP 173/84
[2016-05-26] MEDS: CALCITONIN NASAL 200 INTLU/AC (FORTICAL) 3.7 ML BTL SCH (08:27)
[2016-05-26] MEDS: DILTIAZEM 30 MG (CARDIZEM) TAB PO SCH ×2 (08:27→13:09)
[2016-05-26] MEDS: ENOXAPARIN 40 MG/0.4 ML (LOVENOX) SYR SQ SCH (08:27)
[2016-05-26] MEDS: ASPIRIN E.C. 81 MG (ECOTRIN) TAB PO SCH (08:27)
[2016-05-26] MEDS: oxyCODONE/APAP 5/325MG (PERCOCET 5) TABLET PO PRN (08:31)
--- NOTE | 2016-05-26 10:23 | Discharge Summary-Hospitalist ---
Diagnosis/Chief Complaint Date of Admission May 24, 2016 at 12:08 Date of Discharge Discharge Diagnosis Assessment: Left hip pain after fall but fracture ruled out Overall debility with slow recovery Status post constipation now resolved after MiraLAX HTN Chart Review: No fever Vitals stable BP slightly elevated Patient Interview: Pt states that she worked with PT and feels better. Pt states that she is having BMs regularly. Physical exam stable. Pt states that she would like to DC tomorrow. No fever, vital signs stable, pleasant, oriented 3, sitting in chair Regular rate and rhythm, clear to auscultation bilaterally Subtle edema in lower extremities Assessment: Left hip pain after fall but fracture ruled out Overall debility with slow recovery Status post constipation now resolved after MiraLAX Plan: PT Likely DC tomorrow Scribed by Siddharth Martell under the direct supervision of Dr. Kee. Reason Hospital Visit/Course Notes from 05/26/2016: Patient Interview: Pt states that she is doing well and feels ready for DC. Pt states that she has a supply of pain medicine at home. Physical exam stable. Pt asks about BP meds. Pt uses [facility]. No fever, vital signs stable, pleasant Regular rate and rhythm, clear to auscultation bilaterally No edema noted Plan: Pt stable for DC Review BP meds Scribed by Siddharth Martell under the direct supervision of Dr. Kee. Hospital course: Patient had an uneventful hospital course she progressed with physical therapy and the pain of her hip was much improved and she felt good enough to go home. Home health then walker orders were placed and she had plenty of pain medication from Dr. Lopez so she was discharged in improved condition. Discharge Summary Discharge Physical Examination Allergies: Coded Allergies: NKANo Known Allergies (Verified Allergy, Unknown, 06/10/06) Vitals & I&Os Vital Signs Date Time Temp Pulse Resp B/P (MAP) Pulse Ox O2 Delivery O2 Flow Rate FiO2 05/26/16 08:00 96.2 62 20 173/84 97 Room Air Discharge Home Medications: Active Scripts Active Diltiazem HCl 30 Mg Tablet 30 Mg PO TID 30 Days Reported Proair Hfa (Albuterol Sulfate) 1 Puff Puff 2 Puff IH Q4H PRN Restasis (Cyclosporine) 1 Each Droperette 1 Drop OU BID Aspirin 81 Mg Tab.chew 81 Mg PO DAILY Polyethylene Glycol 3350 255 Gm Powder 1 Tbs PO DAILY PRN [Biotin 500 IU] 500 Units PO DAILY Amlodipine Besylate 5 Mg Tablet 5 Mg PO DAILY Vitamin C (Ascorbic Acid) 1,000 Mg Tablet 1,000 Mg PO BID Oxycodone-Acetaminophen 5-325 (Oxycodone HCl/Acetaminophen) 1 Each Tablet 1 Tab PO Q4H PRN Vitamin D3 (Cholecalciferol (Vitamin D3)) 5,000 Unit Capsule 5,000 Unit PO BID Vitamin B-12 (Cyanocobalamin (Vitamin B-12)) 1,000 Mcg/1 Ml Drops 5,000 Mcg PO BID Flaxseed (Flaxseed Oil) 1,000 Mg Capsule 1,200 Mg PO BID Nature-Throid (Thyroid,Pork) 65 Mg Tablet 97.5 Mg PO DAILY TAKES 1 & 1/2 OF A (65 MG) TABLET Instructions to patient/family Please see electonic discharge instructions given to patient. KANDI KEE DO May 26, 2016 10:23
[2016-05-26] MEDS ORDERED: DILT30TA PO (10:26)
--- NOTE | 2016-05-26 10:54 | Therapy Team Discharge Summary ---
Therapy Discharge Summary Discharge Recommendations Date of Discharge Occupational Therapy Pt admitted to [facility] following acute hospitalization for fall and left hip pain. On admission pt was able to complete basic ADLs with modified independence. Skilled OT intervention focused on safe IADL completion. Pt demonstrated ability to complete simple kitchen task with modified independence. Pt has assist for cleaning and laundry. Pt met OT LTG. Plan is for pt to d/c home today. D/C [facility] OT at this time. PT Mcfp Goals Mcfp Goals PT Mcfp Goals Time Frame: May 31, 2016 Transfers (B,C,W/C) (FIM): 6 Sit to Lying (QC): 6 Lying-Sitting on Side/Bed(QC): 6 Sit to Stand (QC): 6 Chair/Roo-au-Ozxyt Xfer(QC): 6 Does the Patient Walk: Yes Gait (FIM): 6 Gait distance (FIM): 3=150 ft Walk 50ft with 2 Turns (QC): 6 Walk 150 ft (QC): 6 Gait Level of Assist: 6 Gait Assistive Device: FWW Does the Pt use WC or Scooter?: No OT Delivery Driver/Customer Service Goals Mcfp Goals Time Frame: May 31, 2016 Eating (QC): 6 (MET) Oral Hygiene (QC): 6 (MET) Toileting Hygiene (QC): 6 (MET) Toilet/Commode Transfer (QC): 6 (MET) Pt will complete simple kitchen task with modified independence. (MET) 1=Demonstrate adherence to instructed precautions during ADL tasks. 2=Patient will verbalize/demonstrate understanding of assistive devices/ modifications for ADL. 3=Patient will improve strength/tolerance for activity to enable patient to perform ADL's. SKINNY JACOBS OT May 26, 2016 10:54
--- OUTSIDE RECORDS SUMMARY | 2016-05-28 05:00 | XMS REPORT | Continuity of Care Document ---
Author Author [facility] Organization [facility] Address Unknown Phone Unavailable Care Team Providers Care Paleologist Name Role Phone PCP Unavailable Source Comments Some departments are not documenting in the electronic medical record. If you do not see the information that you expected, contact Release of Information in the Health Information Management department at [phone] for further assistance in locating additional records.[facility] Active Allergies and Adverse Reactions Not on File Current Medications Not on file Active Problems Not on file Social History Tobacco Use Types Packs/Day Years Used Date Never Assessed Plan of Care Health Maintenance Due Date Last Done Comments Physical (Comprehensive) 12/21/1947 Exam Pertussis Vaccine 12/21/1950 Tetanus Vaccine 12/21/1956 Shingles Vaccine 1999 Osteoporosis Screening 12/21/2004 Prevnar/Pneumovax (#1) 12/21/2004 Influenza Vaccine 11/03/2016 Results from Last 3 Months Not on file
--- OUTSIDE RECORDS SUMMARY | 2016-05-28 05:01 | XMS REPORT | Continuity of Care Document ---
Author Author [facility] Address Unknown Phone Unavailable Allergies Active Description Code Type Severity Reaction Onset Reported/Identified Relationship to Patient Clinical Status Yes NKANo Known Allergies NKA Miscellaneous Allergy Unknown N/ A 06/10/2006 Medications Problems Date Dx Coded Attending Type Code Diagnosis Diagnosed By 10/29/2012 ANDIE PERSAUD MD Ot 327.23 OBSTRUCTIVE SLEEP APNEA (ADULT) ( PEDIATR 10/29/2012 ANDIE PERSAUD MD Ot 327.51 PERIODIC LIMB MOVEMENT DISORDER 07/01/2013 VJ CRENSHAW MD Ot 723.1 CERVICALGIA 07/01/2013 VJ CRENSHAW MD Ot 924.01 CONTUSION OF HIP 07/01/2013 VJ CRENSHAW MD Ot 959.01 HEAD INJURY, NOS 07/01/2013 VJ CRENSHAW MD Ot E000.8 OTHER EXTERNAL CAUSE STATUS 07/01/2013 VJ CRENSHAW MD Ot E849.0 ACCIDENT IN HOME 07/01/2013 VJ CRENSHAW MD Ot E885.9 FALL FROM SLIPPING, TRIPPING, OR STUMBLI 08/01/2013 RYLEE AMOS Ot 244.9 HYPOTHYROIDISM NOS 08/01/2013 RYLEE AMOS Ot 338.29 OTHER CHRONIC PAIN 08/01/2013 RYLEE AMOS Ot 716.90 ARTHROPATHY NOS-UNSPEC 08/01/2013 RYLEE AMOS Ot 724.5 BACKACHE NOS 08/01/2013 RYLEE AMOS Ot 848.8 SPRAIN NEC 08/01/2013 RYLEE AMOS Ot 848.9 SPRAIN NOS 08/01/2013 RYLEE AMOS Ot 922.32 BUTTOCK CONTUSION 08/01/2013 RYLEE AMOS Ot E888.9 FALL NOS 08/01/2013 RYLEE AMOS Ot V45.82 PERCUTANEOUS TRANSLUM CORON ANGIOPLASTY 08/09/2013 RYLEE AMOS Ot 244.9 HYPOTHYROIDISM NOS 08/09/2013 RYLEE AMOS Ot 338.29 OTHER CHRONIC PAIN 08/09/2013 RYLEE AMOS Ot 564.00 UNSPEC CONSTIPATION 08/09/2013 RYLEE AMOS Ot 716.90 ARTHROPATHY NOS-UNSPEC 08/09/2013 RYLEE AMOS Ot 724.5 BACKACHE NOS 08/09/2013 RYLEE AMOS Ot E937.9 ADV EFF SEDAT/HYPNOT NOS 08/09/2013 RYLEE AMOS Ot V15.88 HISTORY OF FALL 08/09/2013 RYLEE AMOS Ot V45.82 PERCUTANEOUS TRANSLUM CORON ANGIOPLASTY 02/17/2014 NOEMY SINGH, DONNA Riggs Ot 733.13 04/21/2014 REY SINGH, JOSE Varghese Ot 807.01 FRACTURE ONE RIB-CLOSED 04/21/2014 REY SINGH, JOSE Varghese Ot 959.11 OTH INJURY OF CHEST WALL 04/21/2014 REY SINGH, JOSE Varghese Ot E000.8 OTHER EXTERNAL CAUSE STATUS 04/21/2014 JOSE LE MD Ot E849.0 ACCIDENT IN HOME 04/21/2014 JOSE LE MD Ot E888.1 FALL STRIKING OBJECT NEC 09/02/2014 HUNG SINGH, ANDIE R Ot 724.5 09/02/2014 HUNG SINGH, ANDIE R Ot 780.79 09/02/2014 HUNG SINGH, ANDIE R Ot V15.88 09/02/2014 HUNG SINGH, ANDIE R Ot V57.1 09/02/2014 HUNG SINGH, ANDIE R Ot 724.5 09/02/2014 HUNG SINGH, ANDIE R Ot 780.79 09/02/2014 HUNG SINGH, ANDIE R Ot V15.88 09/02/2014 HUNG SINGH, ANDIE R Ot V57.1 09/02/2014 HUNG SINGH, ANDIE R Ot 724.5 09/02/2014 HUNG SINGH, ANDIE R Ot 780.79 09/02/2014 HUNG SINGH, ANDIE R Ot V15.88 09/02/2014 HUNG SINGH, ANDIE R Ot V57.1 09/10/2014 HUNG SINGH, ANDIE R Ot 724.5 09/10/2014 HUNG SINGH, ANDIE R Ot 780.79 09/10/2014 HUNG SINGH, ANDIE R Ot V15.88 09/10/2014 HUNG SINGH, ANDIE R Ot V57.1 09/25/2014 HUNG SINGH, ANDIE R Ot 724.5 09/25/2014 HUNG SINGH, ANDIE R Ot 780.79 09/25/2014 HUNG SINGH, ANDIE R Ot V15.88 09/25/2014 HUNG SINGH, ANDIE R Ot V57.1 10/02/2014 HUNG SINGH, ANDIE R Ot 724.5 10/02/2014 HUNG SINGH, ANDIE R Ot 780.79 10/02/2014 HUNG SINGH, ANDIE R Ot V15.88 10/02/2014 HUNG SINGH, ANDIE R Ot V57.1 10/05/2014 HUNG SINGH, ANDIE R Ot 724.5 10/05/2014 HUNG SINGH, ANDIE R Ot 780.79 10/05/2014 HUNG SINGH, ANDIE R Ot V15.88 10/05/2014 HUNG SINGH, ANDIE R Ot V57.1 10/05/2014 HUNG SINGH, ANDIE R Ot 724.5 10/05/2014 HUNG SINGH, ANDIE R Ot 780.79 10/05/2014 HUNG SINGH, ANDIE R Ot V15.88 10/05/2014 HUNG SINGH, ANDIE R Ot V57.1 10/05/2014 HUNG SINGH, ANDIE R Ot 724.5 10/05/2014 HUNG SINGH, ANDIE R Ot 780.79 10/05/2014 HUNG SINGH, ANDIE R Ot V15.88 10/05/2014 HUNG SINGH, ANDIE R Ot V57.1 10/12/2014 HUNG SINGH, ANDIE R Ot 724.5 BACKACHE NOS 10/12/2014 HUNG SINGH, ANDIE R Ot 780.79 OTH MALAISE FATIGUE 10/12/2014 HUNG SINGH, ANDIE R Ot V15.88 HISTORY OF FALL 10/12/2014 HUNG SINGH, ANDIE R Ot V57.1 PHYSICAL THERAPY NEC 11/12/2014 HUNG SINGH, ANDIE R Ot V76.12 11/12/2014 HUNG SINGH, ANDIE Velasquez Ot V76.12 11/22/2014 KALEN ISNGH, MYRA Hoang Ot 244.9 HYPOTHYROIDISM NOS 11/22/2014 KALEN SINGH, MYRA Hoang Ot 721.2 THORACIC SPONDYLOSIS 11/22/2014 KALEN SINGH, MYRA Hoang Ot 721.3 LUMBOSACRAL SPONDYLOSIS 11/22/2014 KALEN SINGH, MYRA Hoang Ot 920 CONTUSION FACE/SCALP/NCK 11/22/2014 KALEN SINGH, MYRA Hoang Ot 923.00 CONTUSION SHOULDER REG 11/22/2014 MYRA HIGUERA MD Ot E000.8 OTHER EXTERNAL CAUSE STATUS 11/22/2014 KALEN SINGH, MYRA Hoang Ot E015.2 ACTIVITIES INVOLVING COOKING AND BAKING 11/22/2014 MYRA HIGUERA MD Ot E849.0 ACCIDENT IN HOME 11/22/2014 MYRA HIGUERA MD Ot E885.9 FALL FROM SLIPPING, TRIPPING, OR STUMBLI 11/22/2014 MYRA HIGUERA MD Ot V03.82 PROPHYLACTIC VACC AGAINST STREPTOCOCCUS 11/22/2014 MYRA HIGUERA MD Ot V04.81 ND FOR PROPHYLACTIC VACCIN AND INOCULATI 12/02/2014 HUNG SINGH, ANDIE Velasquez Ot V76.12 12/18/2014 ANDIE PERSAUD MD Ot V76.12 12/18/2014 NOEMY SINGH, DONNA Riggs Ot 733.13 12/18/2014 ANDIE PERSAUD MD Ot V76.12 12/18/2014 ANDIE PERSAUD MD Ot V76.12 12/28/2014 QUENTIN SINGH, NIKOLAI Garcia Ot E03.9 HYPOTHYROIDISM, UNSPECIFIED 12/28/2014 QUENTIN SINGH, NIKOLAI Garcia Ot R13.19 OTHER DYSPHAGIA 01/07/2015 ANDIE PERSAUD MD Ot M54.9 01/12/2015 ANDIE PERSAUD MD Ot M54.9 05/13/2015 RYLEE AMOS Ot K57.90 DVRTCLOS OF INTEST, PART UNSP, W/O PERF 05/13/2015 RYLEE AMOS Ot M54.5 LOW BACK PAIN 05/13/2015 RYLEE AMOS Ot N28.1 CYST OF KIDNEY, ACQUIRED 05/13/2015 TIFFANIE PA, RYLEE L Ot R35.0 FREQUENCY OF MICTURITION 05/13/2015 TIFFANIE WILSON, RYLEE Jasso Ot Z87.440 PERSONAL HISTORY OF URINARY (TRACT) INFE 05/14/2015 TIFFANIE WILSON, RYLEE Jasso Ot K57.90 05/14/2015 TIFFANIE WILSON, RYLEE Jasso Ot M54.5 05/14/2015 TIFFANIE WILSON, RYLEE Jasso Ot N28.1 05/14/2015 TIFFANIE WILSON, RYLEE Jasso Ot R35.0 05/14/2015 TIFFANIE WILSON, RYLEE Jasso Ot Z87.440 06/09/2015 HUNG SINGH, ANDIE Velasquez Ot V76.12 06/09/2015 NOEMY SINGH, DONNA Riggs Ot 733.13 06/09/2015 HUNG SINGH, ANDIE Velasquez Ot V76.12 06/09/2015 HUNG SINGH, ANDIE Velasquez Ot V76.12 06/09/2015 HUNG SINGH, ANDIE R Ot M54.9 06/09/2015 QUENTIN SINGH, NIKOLAI Garcia Ot Z01.818 06/09/2015 CORTNEY SINGH, LUCY Rgigs Ot S43.011A ANTERIOR SUBLUXATION OF RIGHT HUMERUS, I 06/09/2015 CORTNEY SINGH, LUCY Riggs Ot S80.211A ABRASION, RIGHT KNEE, INITIAL ENCOUNTER 06/09/2015 CORTNEY SINGH, LUCY Riggs Ot W01.0XXA FALL SAME LEV FROM SLIP/TRIP W/O STRIKE 06/09/2015 LUCY BARR MD Ot Y92.[address] [facility] [address] IN [facility] NON-INST[facility] ( PRIVATE 06/09/2015 LUCY BARR MD Ot Y99.8 OTHER EXTERNAL CAUSE STATUS 07/15/2015 MYRA ESPITIA DO Ot S43.011D ANTERIOR SUBLUXATION OF RIGHT HUMERUS , S 07/15/2015 MYRA ESPITIA DO Ot W01.0XXD FALL SAME LEV FROM SLIP/TRIP W/O STRIKE 07/15/2015 MYRA ESPITIA DO Ot Y99.8 OTHER EXTERNAL CAUSE STATUS 07/17/2015 ILEANA SINGH, NELLY Hoang Ot M54.5 LOW BACK PAIN 07/17/2015 ILEANA SINGH, NELLY Hoang Ot N20.0 CALCULUS OF KIDNEY 07/29/2015 MYRA ESPITIA DO Ot S43.011D ANTERIOR SUBLUXATION OF RIGHT HUMERUS , S 07/29/2015 NUPUR DO, MYRA F Ot W01.0XXD FALL SAME LEV FROM SLIP/TRIP W/O STRIKE 07/29/2015 NUPUR DO, MYRA F Ot Y99.8 OTHER EXTERNAL CAUSE STATUS 08/13/2015 ILEANA SINGH, NELLY S Ot M54.5 LOW BACK PAIN 08/13/2015 ILEANA SINGH, NELLY S Ot N20.0 CALCULUS OF KIDNEY 08/14/2015 ILEANA SINGH, NELLY S Ot M54.5 LOW BACK PAIN 08/14/2015 ILEANA SINGH, NELLY S Ot N20.0 CALCULUS OF KIDNEY 08/26/2015 NUPUR DO, MYRA F Ot S43.011D ANTERIOR SUBLUXATION OF RIGHT HUMERUS , S 08/26/2015 NUPUR DO, MYRA F Ot W01.0XXD FALL SAME LEV FROM SLIP/TRIP W/O STRIKE 08/26/2015 NUPUR DO, MYRA F Ot Y99.8 OTHER EXTERNAL CAUSE STATUS 08/31/2015 NUPUR DO, MYRA F Ot S43.011D ANTERIOR SUBLUXATION OF RIGHT HUMERUS , S 08/31/2015 NUPUR DO, MYRA F Ot W01.0XXD FALL SAME LEV FROM SLIP/TRIP W/O STRIKE 08/31/2015 NUPUR DO, MYRA F Ot Y99.8 OTHER EXTERNAL CAUSE STATUS 08/31/2015 NUPUR DO, MYRA F Ot S43.011D ANTERIOR SUBLUXATION OF RIGHT HUMERUS , S 08/31/2015 NUPUR DO, MYRA F Ot W01.0XXD FALL SAME LEV FROM SLIP/TRIP W/O STRIKE 08/31/2015 NUPUR DO, MYRA F Ot Y99.8 OTHER EXTERNAL CAUSE STATUS 09/02/2015 NUPUR DO, MYRA F Ot S43.011D ANTERIOR SUBLUXATION OF RIGHT HUMERUS , S 09/02/2015 NUPUR DO, MYRA F Ot W01.0XXD FALL SAME LEV FROM SLIP/TRIP W/O STRIKE 09/02/2015 NUPUR DO, MYRA F Ot Y99.8 OTHER EXTERNAL CAUSE STATUS 09/24/2015 HUNG SINGH, ANDIE Velasquez Ot M85.89 OT DISRD OF BONE DENSITY AND STRUCTURE , 09/24/2015 HUNG SINGH, ANDIE Velasquez Ot Z13.820 ENCOUNTER FOR SCREENING FOR OSTEOPOROSIS 10/22/2015 ANDIE PERSAUD MD, Ot M85.89 OT DISRD OF BONE DENSITY AND STRUCTURE , 10/22/2015 ANDIE PERSAUD MD Ot Z13.820 ENCOUNTER FOR SCREENING FOR OSTEOPOROSIS 04/27/2016 DARREN EPPERSON MD Ot B96.1 KLEBSIELLA PNEUMONIAE THE CAUSE OF DI 04/27/2016 DARREN EPPERSON MD Ot E03.9 HYPOTHYROIDISM, UNSPECIFIED 04/27/2016 DARREN EPPERSON MD Ot E66.01 MORBID (SEVERE) OBESITY DUE TO EXCESS CA 04/27/2016 DARREN EPPERSON MD Ot N39.0 URINARY TRACT INFECTION, SITE NOT SPECIF 04/27/2016 DARREN EPPERSON MD Ot R06.2 WHEEZING 04/27/2016 DARREN EPPERSON MD Ot R07.9 CHEST PAIN, UNSPECIFIED 04/27/2016 DARREN EPPERSON MD Ot Z68.41 BODY MASS INDEX (BMI) 40.0-44.9, ADULT 04/27/2016 ANDIE PERSAUD MD Ot V76.12 OTH SCREEN MAMMO-MALIGN NEOPLASM OF JUSTIN 04/27/2016 DONNA SALGUERO MD Ot 733.13 PATHOLOGIC FRACTURE, VERTEBRAE 04/27/2016 ANDIE PERSAUD MD Ot V76.12 OTH SCREEN MAMMO-MALIGN NEOPLASM OF JUSTIN 04/27/2016 ANDIE PERSAUD MD Ot V76.12 OTH SCREEN MAMMO-MALIGN NEOPLASM OF JUSTIN 04/27/2016 ANDIE PERSAUD MD Ot M54.9 DORSALGIA, UNSPECIFIED 04/27/2016 QUENTIN SINGH, NIKOLAI Garcia Ot Z01.818 ENCOUNTER FOR OTHER PREPROCEDURAL EXAMIN 04/27/2016 ANDIE PERSAUD MD Ot M85.89 OT DISRD OF BONE DENSITY AND STRUCTURE , 04/27/2016 ANDIE PERSAUD MD Ot Z13.820 ENCOUNTER FOR SCREENING FOR OSTEOPOROSIS 05/02/2016 ANDIE PERSAUD MD Ot V76.12 OTH SCREEN MAMMO-MALIGN NEOPLASM OF JUSTIN 05/02/2016 DONNA SALGUERO MD Ot 733.13 PATHOLOGIC FRACTURE, VERTEBRAE 05/02/2016 ANDIE PERSAUD MD Ot V76.12 OTH SCREEN MAMMO-MALIGN NEOPLASM OF JUSTIN 05/02/2016 ANDIE PERSAUD MD Ot V76.12 OTH SCREEN MAMMO-MALIGN NEOPLASM OF JUSTIN 05/02/2016 ANDIE PERSAUD MD Ot M54.9 DORSALGIA, UNSPECIFIED 05/02/2016 QUENTIN SINGH, NIKOLAI Garcia Ot Z01.818 ENCOUNTER FOR OTHER PREPROCEDURAL EXAMIN 05/02/2016 ANDIE PERSAUD MD Ot M85.89 OTH DISRD OF BONE DENSITY AND STRUCTURE , 05/02/2016 ANDIE PERSAUD MD, Ot Z13.820 ENCOUNTER FOR SCREENING FOR OSTEOPOROSIS 05/18/2016 DONALDO GALEANO DO, Ot E66.01 MORBID (SEVERE) OBESITY DUE TO EXCESS CA 05/18/2016 DONALDO GALEANO DO, Ot F41.9 ANXIETY DISORDER, UNSPECIFIED 05/18/2016 DONALDO GALEANO DO, Ot R09.02 HYPOXEMIA Procedures Results Test Result Range Complete blood count (CBC) with automated white blood cell (WBC) differential - 04/25/16 15:05 Blood leukocytes automated count (number/volume) 10.2 10*3/ uL 4.3-11.0 Blood erythrocytes automated count (number/volume) 4.86 10*6 /uL 4.35-5.85 Venous blood hemoglobin measurement (mass/volume) 13.9 g/dL 11.5-16.0 Blood hematocrit (volume fraction) 43 % 35-52 Automated erythrocyte mean corpuscular volume 88 [foz_us] 80-99 Automated erythrocyte mean corpuscular hemoglobin (mass per erythrocyte) 29 pg 25-34 Automated erythrocyte mean corpuscular hemoglobin concentration measurement ( mass/volume) 33 g/dL 32-36 Automated erythrocyte distribution width ratio 14.1 % 10.0-14.5 Automated blood platelet count (count/volume) 248 10*3/uL 130-400 Automated blood platelet mean volume measurement 9.6 [foz_us ] 7.4-10.4 Automated blood neutrophils/100 leukocytes 66 % 42-75 Automated blood lymphocytes/100 leukocytes 23 % 12-44 Blood monocytes/100 leukocytes 8 % 0-12 Automated blood eosinophils/100 leukocytes 3 % 0-10 Automated blood basophils/100 leukocytes 0 % 0-10 Blood neutrophils automated count (number/volume) 6.7 10*3 1.8-7.8 Blood lymphocytes automated count (number/volume) 2.3 10*3 1.0-4.0 Blood monocytes automated count (number/volume) 0.9 10*3 0.0-1.0 Automated eosinophil count 0.3 10*3/uL 0.0-0.3 Automated blood basophil count (count/volume) 0.0 10*3/uL 0.0-0.1 PT panel in platelet poor plasma by coagulation assay - 04/25/16 15:05 Prothrombin time (PT) in platelet poor plasma by coagulation assay 12.6 s 12.2-14.7 INR in platelet poor plasma or blood by coagulation assay 1.0 0.8-1.4 Activated partial thromboplastin time (aPTT) in platelet poor plasma bycoagulation assay - 04/25/16 15:05 Activated partial thromboplastin time (aPTT) in platelet poor plasma bycoagulation assay 26 s 24-35 Comprehensive metabolic panel - 04/25/16 15:05 Serum or plasma sodium measurement (moles/volume) 139 mmol/ L 135-145 Serum or plasma potassium measurement (moles/volume) 5.2 mmol/L 3.6-5.0 Serum or plasma chloride measurement (moles/volume) 103 mmol /L 98-107 Carbon dioxide 27 mmol/L 21-32 Serum or plasma anion gap determination (moles/volume) 9 mmol/L 5-14 Serum or plasma urea nitrogen measurement (mass/volume) 22 mg/dL 7-18 Serum or plasma creatinine measurement (mass/volume) 1.00 mg /dL 0.60-1.30 Serum or plasma urea nitrogen/creatinine mass ratio 22 NRG Serum or plasma creatinine measurement with calculation of estimated glomerular filtration rate 54 NRG Serum or plasma glucose measurement (mass/volume) 90 mg/dL 70-105 Serum or plasma calcium measurement (mass/volume) 9.2 mg/dL 8.5-10.1 Serum or plasma total bilirubin measurement (mass/volume) 0.4 mg/dL 0.1-1.0 Serum or plasma alkaline phosphatase measurement (enzymatic activity/volume) 83 U/L 40-136 Serum or plasma aspartate aminotransferase measurement (enzymatic activity/ volume) 25 U/L 5-34 Serum or plasma alanine aminotransferase measurement (enzymatic activity/volume ) 16 U/L 0-55 Serum or plasma protein measurement (mass/volume) 7.2 g/dL 6.4-8.2 Serum or plasma albumin measurement (mass/volume) 3.8 g/dL 3.2-4.5 Magnesium - 04/25/16 15:05 Magnesium 2.4 mg/dL 1.8-2.4 Serum or plasma creatine kinase measurement (enzymatic activity/volume) - 04/25 15:05 Serum or plasma creatine kinase measurement (enzymatic activity/volume) 47 U/L 29-168 Serum or plasma creatine kinase MB measurement (enzymatic activity/volume) - 15:05 Serum or plasma creatine kinase MB measurement (enzymatic activity/volume) 1.6 ng/mL <6.6 Serum or plasma troponin i.cardiac measurement (mass/volume) - 04/25/16 15:05 Serum or plasma troponin i.cardiac measurement (mass/volume) < ng/mL <0.30 Serum or plasma lithium measurement (moles/volume) - 04/25/16 15:05 BNP level 16.8 pg/mL <100.0 Serum or plasma amylase measurement (enzymatic activity/volume) - 04/25/16 15: 05 Serum or plasma amylase measurement (enzymatic activity/volume) 42 U/L 25-125 Lipase - 04/25/16 15:05 Lipase 31 U/L 8-78 Serum or plasma thyrotropin measurement by detection limit <=0.05 miu/l (units/ volume) - 04/25/16 15:05 Serum or plasma thyrotropin measurement by detection limit <=0.05 miu/l (units/ volume) 0.35 u[iU]/mL 0.35-4.94 Complete urinalysis with reflex to culture - 04/25/16 19:10 Urine color determination YELLOW NRG Urine clarity determination SLIGHTLY CLOUDY NRG Urine pH measurement by test strip 6 5- 9 Specific gravity of urine by test strip 1.010 1.016-1.022 Urine protein assay by test strip, semi-quantitative 2+ NEGATIVE Urine glucose detection by automated test strip NEGATIVE NEGATIVE Erythrocytes detection in urine sediment by light microscopy NEGATIVE NEGATIVE Urine ketones detection by automated test strip NEGATIVE NEGATIVE Urine nitrite detection by test strip NEGATIVE NEGATIVE Urine total bilirubin detection by test strip NEGATIVE NEGATIVE Urine urobilinogen measurement by automated test strip (mass/volume) NORMAL NORMAL Urine leukocyte esterase detection by dipstick 2+ NEGATIVE Automated urine sediment erythrocyte count by microscopy (number/high power field) NONE NRG Automated urine sediment leukocyte count by microscopy (number/high power field ) [HPF] NRG Bacteria detection in urine sediment by light microscopy LARGE NRG Squamous epithelial cells detection in urine sediment by light microscopy 0-2 NRG Crystals detection in urine sediment by light microscopy NONE NRG Casts detection in urine sediment by light microscopy NONE NRG Mucus detection in urine sediment by light microscopy NEGATIVE NRG Complete urinalysis with reflex to culture YES NRG Bacterial urine culture - 04/25/16 19:10 Bacterial urine culture [id number] NRG COLONY COUNT >100,000/ML NRG FTX;REPORTABLE SENSITIVITY REPORTED 04/26/16 15:50 NRG URINE CULTURE RESULTS PLUS NRG Bacterial susceptibility panel - 04/25/16 19:10 Gentamicin susceptibility test by minimum inhibitory concentration <= NRG Trimethoprim/sulfamethoxazole susceptibility test by minimum inhibitoryconcentration <= NRG Ampicillin susceptibility test by minimum inhibitory concentration >= NRG Tobramycin susceptibility test by minimum inhibitory concentration <= NRG Cefazolin susceptibility test by minimum inhibitory concentration <= NRG Ceftriaxone susceptibility test by minimum inhibitory concentration <= NRG Ampicillin/sulbactam susceptibility test by minimum inhibitory concentration 4 NRG Piperacillin/tazobactam susceptibility test by minimum inhibitory concentration 8 NRG Ciprofloxacin susceptibility test by minimum inhibitory concentration <= NRG Meropenem susceptibility test by minimum inhibitory concentration <= NRG Nitrofurantoin susceptibility test by minimum inhibitory concentration <= NRG Aztreonam susceptibility test by minimum inhibitory concentration <= NRG Extended spectrum beta lactamase (ESBL) producing bacteria susceptibility test by minimum inhibitory concentration - NRG Serum or plasma troponin i.cardiac measurement (mass/volume) - 04/25/16 21:08 Serum or plasma troponin i.cardiac measurement (mass/volume) < ng/mL <0.30 Complete blood count (CBC) with automated white blood cell (WBC) differential - 04/26/16 03:36 Blood leukocytes automated count (number/volume) 8.4 10*3/ uL 4.3-11.0 Blood erythrocytes automated count (number/volume) 4.46 10*6 /uL 4.35-5.85 Venous blood hemoglobin measurement (mass/volume) 12.8 g/dL 11.5-16.0 Blood hematocrit (volume fraction) 40 % 35-52 Automated erythrocyte mean corpuscular volume 89 [foz_us] 80-99 Automated erythrocyte mean corpuscular hemoglobin (mass per erythrocyte) 29 pg 25-34 Automated erythrocyte mean corpuscular hemoglobin concentration measurement ( mass/volume) 32 g/dL 32-36 Automated erythrocyte distribution width ratio 14.1 % 10.0-14.5 Automated blood platelet count (count/volume) 236 10*3/uL 130-400 Automated blood platelet mean volume measurement 9.9 [foz_us ] 7.4-10.4 Automated blood neutrophils/100 leukocytes 57 % 42-75 Automated blood lymphocytes/100 leukocytes 28 % 12-44 Blood monocytes/100 leukocytes 11 % 0-12 Automated blood eosinophils/100 leukocytes 4 % 0-10 Automated blood basophils/100 leukocytes 0 % 0-10 Blood neutrophils automated count (number/volume) 4.7 10*3 1.8-7.8 Blood lymphocytes automated count (number/volume) 2.3 10*3 1.0-4.0 Blood monocytes automated count (number/volume) 0.9 10*3 0.0-1.0 Automated eosinophil count 0.4 10*3/uL 0.0-0.3 Automated blood basophil count (count/volume) 0.0 10*3/uL 0.0-0.1 Comprehensive metabolic panel - 04/26/16 03:36 Serum or plasma sodium measurement (moles/volume) 139 mmol/ L 135-145 Serum or plasma potassium measurement (moles/volume) 4.2 mmol/L 3.6-5.0 Serum or plasma chloride measurement (moles/volume) 103 mmol /L 98-107 Carbon dioxide 26 mmol/L 21-32 Serum or plasma anion gap determination (moles/volume) 10 mmol/L 5-14 Serum or plasma urea nitrogen measurement (mass/volume) 24 mg/dL 7-18 Serum or plasma creatinine measurement (mass/volume) 0.86 mg /dL 0.60-1.30 Serum or plasma urea nitrogen/creatinine mass ratio 28 NRG Serum or plasma creatinine measurement with calculation of estimated glomerular filtration rate > NRG Serum or plasma glucose measurement (mass/volume) 97 mg/dL 70-105 Serum or plasma calcium measurement (mass/volume) 8.8 mg/dL 8.5-10.1 Serum or plasma total bilirubin measurement (mass/volume) 0.5 mg/dL 0.1-1.0 Serum or plasma alkaline phosphatase measurement (enzymatic activity/volume) 74 U/L 40-136 Serum or plasma aspartate aminotransferase measurement (enzymatic activity/ volume) 14 U/L 5-34 Serum or plasma alanine aminotransferase measurement (enzymatic activity/volume ) 12 U/L 0-55 Serum or plasma protein measurement (mass/volume) 6.0 g/dL 6.4-8.2 Serum or plasma albumin measurement (mass/volume) 3.5 g/dL 3.2-4.5 Myoglobin, serum - 04/26/16 03:36 Myoglobin, serum 79.1 ng/mL 10.0-92.0 Lipid 1996 panel - 04/26/16 03:36 Serum or plasma triglyceride measurement (mass/volume) 112 mg/dL <150 Serum or plasma cholesterol measurement (mass/volume) 196 mg /dL < 200 Serum or plasma cholesterol in HDL measurement (mass/volume) 40 mg/dL 40-60 Cholesterol in LDL [mass/volume] in serum or plasma by direct assay 138 mg/dL 1-129 Serum or plasma cholesterol in VLDL measurement (mass/volume) 22 mg/dL 5-40 Whole blood basic metabolic panel - 04/27/16 04:26 Serum or plasma sodium measurement (moles/volume) 138 mmol/ L 135-145 Serum or plasma potassium measurement (moles/volume) 4.3 mmol/L 3.6-5.0 Serum or plasma chloride measurement (moles/volume) 103 mmol /L 98-107 Carbon dioxide 23 mmol/L 21-32 Serum or plasma anion gap determination (moles/volume) 12 mmol/L 5-14 Serum or plasma urea nitrogen measurement (mass/volume) 28 mg/dL 7-18 Serum or plasma creatinine measurement (mass/volume) 1.00 mg /dL 0.60-1.30 Serum or plasma urea nitrogen/creatinine mass ratio 28 NRG Serum or plasma creatinine measurement with calculation of estimated glomerular filtration rate 54 NRG Serum or plasma glucose measurement (mass/volume) 180 mg/dL 70-105 Serum or plasma calcium measurement (mass/volume) 9.0 mg/dL 8.5-10.1 Hemoglobin A1c - 04/27/16 04:26 Hemoglobin A1c 5.5 % 4.5-6.2 Complete blood count (CBC) with automated white blood cell (WBC) differential - 05/20/16 17:05 Blood leukocytes automated count (number/volume) 8.7 10*3/ uL 4.3-11.0 Blood erythrocytes automated count (number/volume) 4.67 10*6 /uL 4.35-5.85 Venous blood hemoglobin measurement (mass/volume) 13.5 g/dL 11.5-16.0 Blood hematocrit (volume fraction) 41 % 35-52 Automated erythrocyte mean corpuscular volume 88 [foz_us] 80-99 Automated erythrocyte mean corpuscular hemoglobin (mass per erythrocyte) 29 pg 25-34 Automated erythrocyte mean corpuscular hemoglobin concentration measurement ( mass/volume) 33 g/dL 32-36 Automated erythrocyte distribution width ratio 14.7 % 10.0-14.5 Automated blood platelet count (count/volume) 210 10*3/uL 130-400 Automated blood platelet mean volume measurement 10.0 [foz_ us] 7.4-10.4 Automated blood neutrophils/100 leukocytes 70 % 42-75 Automated blood lymphocytes/100 leukocytes 18 % 12-44 Blood monocytes/100 leukocytes 8 % 0-12 Automated blood eosinophils/100 leukocytes 4 % 0-10 Automated blood basophils/100 leukocytes 0 % 0-10 Blood neutrophils automated count (number/volume) 6.1 10*3 1.8-7.8 Blood lymphocytes automated count (number/volume) 1.6 10*3 1.0-4.0 Blood monocytes automated count (number/volume) 0.7 10*3 0.0-1.0 Automated eosinophil count 0.4 10*3/uL 0.0-0.3 Automated blood basophil count (count/volume) 0.0 10*3/uL 0.0-0.1 Comprehensive metabolic panel - 05/20/16 17:05 Serum or plasma sodium measurement (moles/volume) 139 mmol/ L 135-145 Serum or plasma potassium measurement (moles/volume) 3.7 mmol/L 3.6-5.0 Serum or plasma chloride measurement (moles/volume) 106 mmol /L 98-107 Carbon dioxide 23 mmol/L 21-32 Serum or plasma anion gap determination (moles/volume) 10 mmol/L 5-14 Serum or plasma urea nitrogen measurement (mass/volume) 25 mg/dL 7-18 Serum or plasma creatinine measurement (mass/volume) 0.85 mg /dL 0.60-1.30 Serum or plasma urea nitrogen/creatinine mass ratio 29 NRG Serum or plasma creatinine measurement with calculation of estimated glomerular filtration rate > NRG Serum or plasma glucose measurement (mass/volume) 105 mg/dL 70-105 Serum or plasma calcium measurement (mass/volume) 9.3 mg/dL 8.5-10.1 Serum or plasma total bilirubin measurement (mass/volume) 0.4 mg/dL 0.1-1.0 Serum or plasma alkaline phosphatase measurement (enzymatic activity/volume) 78 U/L 40-136 Serum or plasma aspartate aminotransferase measurement (enzymatic activity/ volume) 18 U/L 5-34 Serum or plasma alanine aminotransferase measurement (enzymatic activity/volume ) 12 U/L 0-55 Serum or plasma protein measurement (mass/volume) 6.6 g/dL 6.4-8.2 Serum or plasma albumin measurement (mass/volume) 3.8 g/dL 3.2-4.5 Serum or plasma troponin i.cardiac measurement (mass/volume) - 05/20/16 17:05 Serum or plasma troponin i.cardiac measurement (mass/volume) < ng/mL <0.30 Serum or plasma lithium measurement (moles/volume) - 05/20/16 17:05 BNP level 13.2 pg/mL <100.0 Complete urinalysis with reflex to culture - 05/20/16 19:03 Urine color determination YELLOW NRG Urine clarity determination CLEAR NRG Urine pH measurement by test strip 5 5- 9 Specific gravity of urine by test strip 1.020 1.016-1.022 Urine protein assay by test strip, semi-quantitative 1+ NEGATIVE Urine glucose detection by automated test strip NEGATIVE NEGATIVE Erythrocytes detection in urine sediment by light microscopy NEGATIVE NEGATIVE Urine ketones detection by automated test strip 2+ NEGATIVE Urine nitrite detection by test strip POSITIVE NEGATIVE Urine total bilirubin detection by test strip NEGATIVE NEGATIVE Urine urobilinogen measurement by automated test strip (mass/volume) NORMAL NORMAL Urine leukocyte esterase detection by dipstick 3+ NEGATIVE Automated urine sediment erythrocyte count by microscopy (number/high power field) NONE NRG Automated urine sediment leukocyte count by microscopy (number/high power field ) [HPF] NRG Bacteria detection in urine sediment by light microscopy MODERATE NRG Squamous epithelial cells detection in urine sediment by light microscopy 0-2 NRG Crystals detection in urine sediment by light microscopy NONE NRG Casts detection in urine sediment by light microscopy NONE NRG Mucus detection in urine sediment by light microscopy NEGATIVE NRG Complete urinalysis with reflex to culture YES NRG Bacterial urine culture - 05/20/16 19:03 Bacterial urine culture FOOTNOTE NRG Methicillin resistant Staphylococcus aureus (MRSA) screening culture - 19:59 Methicillin resistant Staphylococcus aureus (MRSA) screening culture NEG [facility] Complete blood count (CBC) with automated white blood cell (WBC) differential - 05/21/16 03:25 Blood leukocytes automated count (number/volume) 6.7 10*3/ uL 4.3-11.0 Blood erythrocytes automated count (number/volume) 4.17 10*6 /uL 4.35-5.85 Venous blood hemoglobin measurement (mass/volume) 12.0 g/dL 11.5-16.0 Blood hematocrit (volume fraction) 37 % 35-52 Automated erythrocyte mean corpuscular volume 89 [foz_us] 80-99 Automated erythrocyte mean corpuscular hemoglobin (mass per erythrocyte) 29 pg 25-34 Automated erythrocyte mean corpuscular hemoglobin concentration measurement ( mass/volume) 32 g/dL 32-36 Automated erythrocyte distribution width ratio 14.7 % 10.0-14.5 Automated blood platelet count (count/volume) 208 10*3/uL 130-400 Automated blood platelet mean volume measurement 10.3 [foz_ us] 7.4-10.4 Automated blood neutrophils/100 leukocytes 58 % 42-75 Automated blood lymphocytes/100 leukocytes 28 % 12-44 Blood monocytes/100 leukocytes 9 % 0-12 Automated blood eosinophils/100 leukocytes 5 % 0-10 Automated blood basophils/100 leukocytes 0 % 0-10 Blood neutrophils automated count (number/volume) 3.9 10*3 1.8-7.8 Blood lymphocytes automated count (number/volume) 1.9 10*3 1.0-4.0 Blood monocytes automated count (number/volume) 0.6 10*3 0.0-1.0 Automated eosinophil count 0.3 10*3/uL 0.0-0.3 Automated blood basophil count (count/volume) 0.0 10*3/uL 0.0-0.1 Whole blood basic metabolic panel - 05/21/16 03:25 Serum or plasma sodium measurement (moles/volume) 142 mmol/ L 135-145 Serum or plasma potassium measurement (moles/volume) 3.6 mmol/L 3.6-5.0 Serum or plasma chloride measurement (moles/volume) 110 mmol /L 98-107 Carbon dioxide 24 mmol/L 21-32 Serum or plasma anion gap determination (moles/volume) 8 mmol/L 5-14 Serum or plasma urea nitrogen measurement (mass/volume) 24 mg/dL 7-18 Serum or plasma creatinine measurement (mass/volume) 0.79 mg /dL 0.60-1.30 Serum or plasma urea nitrogen/creatinine mass ratio 30 NRG Serum or plasma creatinine measurement with calculation of estimated glomerular filtration rate > NRG Serum or plasma glucose measurement (mass/volume) 93 mg/dL 70-105 Serum or plasma calcium measurement (mass/volume) 8.5 mg/dL 8.5-10.1 Serum or plasma phosphate measurement (mass/volume) - 05/21/16 03:25 Serum or plasma phosphate measurement (mass/volume) 3.0 mg/ dL 2.3-4.7 Magnesium - 05/21/16 03:25 Magnesium 1.8 mg/dL 1.8-2.4 Automated blood complete blood count (hemogram) panel - 05/22/16 04:25 Blood leukocytes automated count (number/volume) 6.8 10*3/ uL 4.3-11.0 Blood erythrocytes automated count (number/volume) 3.96 10*6 /uL 4.35-5.85 Venous blood hemoglobin measurement (mass/volume) 11.3 g/dL 11.5-16.0 Blood hematocrit (volume fraction) 36 % 35-52 Automated erythrocyte mean corpuscular volume 91 [foz_us] 80-99 Automated erythrocyte mean corpuscular hemoglobin (mass per erythrocyte) 29 pg 25-34 Automated erythrocyte mean corpuscular hemoglobin concentration measurement ( mass/volume) 31 g/dL 32-36 Automated erythrocyte distribution width ratio 14.8 % 10.0-14.5 Automated blood platelet count (count/volume) 208 10*3/uL 130-400 Automated blood platelet mean volume measurement 10.1 [foz_ us] 7.4-10.4 Comprehensive metabolic panel - 05/22/16 04:25 Serum or plasma sodium measurement (moles/volume) 142 mmol/ L 135-145 Serum or plasma potassium measurement (moles/volume) 4.2 mmol/L 3.6-5.0 Serum or plasma chloride measurement (moles/volume) 110 mmol /L 98-107 Carbon dioxide 25 mmol/L 21-32 Serum or plasma anion gap determination (moles/volume) 7 mmol/L 5-14 Serum or plasma urea nitrogen measurement (mass/volume) 21 mg/dL 7-18 Serum or plasma creatinine measurement (mass/volume) 0.83 mg /dL 0.60-1.30 Serum or plasma urea nitrogen/creatinine mass ratio 25 NRG Serum or plasma creatinine measurement with calculation of estimated glomerular filtration rate > NRG Serum or plasma glucose measurement (mass/volume) 99 mg/dL 70-105 Serum or plasma calcium measurement (mass/volume) 8.0 mg/dL 8.5-10.1 Serum or plasma total bilirubin measurement (mass/volume) 0.3 mg/dL 0.1-1.0 Serum or plasma alkaline phosphatase measurement (enzymatic activity/volume) 52 U/L 40-136 Serum or plasma aspartate aminotransferase measurement (enzymatic activity/ volume) 11 U/L 5-34 Serum or plasma alanine aminotransferase measurement (enzymatic activity/volume ) 8 U/L 0-55 Serum or plasma protein measurement (mass/volume) 5.1 g/dL 6.4-8.2 Serum or plasma albumin measurement (mass/volume) 2.9 g/dL 3.2-4.5 Magnesium - 05/22/16 04:25 Magnesium 1.6 mg/dL 1.8-2.4 THYROID STIMULATING HORMONE - 05/22/16 04:25 THYROID STIMULATING HORMONE 0.54 u[iU]/mL 0.35-4.94 Encounters ACCT No. Visit Date/Time Discharge Status Pt. Type Provider Facility Loc./Unit Complaint [id number] 01/12/2011 12:51:00 01/12/2011 23: 59:59 [facility] Outpatient BELLA LLAMAS DDS
== END 2016-05-26 14:20 | disposition home health service (06) | DRG 556 ==
LOC: DELPENDDIS → 4TH 12:08
PROVIDERS: ADMIT Internal Medicine; ATTEND Internal Medicine
DX: M25.552 Pain in left hip (principal); I48.0 Paroxysmal atrial fibrillation; M81.0 Age-related osteoporosis without current pathological fracture; I10 Essential (primary) hypertension; K59.00 Constipation, unspecified; E03.9 Hypothyroidism, unspecified; G47.33 Obstructive sleep apnea (adult) (pediatric); Z96.652 Presence of left artificial knee joint
CPT/HCPCS: 94760

== ENCOUNTER → 2016-10-02 | Outpatient (CLI) | payer MEDICARE, MEDICAID ==
[~2016-10-02] MED LIST changes: +DILT30TA PO; -METO-272 PO; -METO-274 PO; +METO-370 PO; +METO-395 PO
--- NOTE | 2016-10-02 14:17 | Diagnostic Imaging Report ---
EXAMINATION: Right lower extremity nonvascular ultrasound. INDICATION: Right medial knee pain. FINDINGS: At the area of pain, there is a 5 x 1.9 x 4.8 cm fluid collection which appears to be in the subcutaneous fat. Its internal characteristics are in favor of a hematoma. No internal vascularity with color Doppler is seen. IMPRESSION: Complex collection in the medial aspect of the right breast measuring 5 cm in size is favored to be a hematoma. Dictated by: Dictated on workstation # [id number]
== END ==
LOC: RAD 13:33
DX: S80.01XA Contusion of right knee, initial encounter (principal); X58.XXXA Exposure to other specified factors, initial encounter; Y99.8 Other external cause status
CPT/HCPCS: 76881

== ENCOUNTER 2016-10-23 19:33 | Emergency (ER) | payer MEDICARE, MEDICAID ==
[~2016-10-23] VITALS: Ht 157.5 cm; Wt 103.9 kg
[~2016-10-23 19:33] MED LIST changes: +METO-272 PO; +METO-274 PO; -METO-370 PO; -METO-395 PO
--- OUTSIDE RECORDS SUMMARY | 2016-10-23 19:39 | XMS REPORT | Clinical Summary ---
Author Author [facility] Organization [facility] Address Unknown Phone Unavailable Care Team Providers Care Recreation Coordinator Name Role Phone PCP Unavailable Source Comments Some departments are not documenting in the electronic medical record. If you do not see the information that you expected, contact Release of Information in the Health Information Management department at [phone] for further assistance in locating additional records.[facility] Allergies Not on File Current Medications Not on file Active Problems Not on file Social History Tobacco Use Types Packs/Day Years Used Date Never Assessed Sex Assigned at Date Recorded Not on file Last Filed Vital Signs Not on file Plan of Treatment Health Maintenance Due Date Last Done Comments PHYSICAL (COMPREHENSIVE) 12/21/1947 EXAM PERTUSSIS VACCINE 12/21/1950 TETANUS VACCINE 12/21/1956 SHINGLES VACCINE 1999 OSTEOPOROSIS SCREENING 12/21/2004 PREVNAR/PNEUMOVAX (#1) 12/21/2004 INFLUENZA VACCINE 11/03/2016 Results Not on filefrom Last 3 Months
[2016-10-23] MEDS ORDERED: LIDOCAINE 2% 20 ML (XYLOCAINE) VIAL INJ ONE (20:00)
--- NOTE | 2016-10-23 20:00 | ED Fall/Injury ---
General Chief Complaint: Trauma-Non Activation Stated Complaint: FALL/HEAD LAC Source: patient Exam Limitations: no limitations History of Present Illness Time seen by provider: 19:58 Initial Comments To ER with reports of a fall. Patient was going to sit on her recliner when she fell landing on the right side. She did strike the right side of her head on a bookcase. No loss consciousness or headache but she did have a laceration to the right yarsani which bled profusely before stopping after application of pressure and ice. Uncertain about tetanus vaccination. Also complains of pain to the right knee. There is no neck pain. Only anticoagulant is a daily baby aspirin. She states Dr. Saunders wants her to take anticoagulation but she refuses Occurred: just prior to arrival Severity: moderate Allergies and Home Medications Allergies Coded Allergies: NKANo Known Allergies (Verified Allergy, Unknown, 06/10/06) Home Medications Albuterol Sulfate 1 Puff Puff, 2 PUFF IH Q4H PRN for SHORTNESS OF BREATH, ( Reported) Ascorbic Acid 1,000 Mg Tablet, 1,000 MG PO BID, (Reported) Aspirin 81 Mg Tab.chew, 81 MG PO DAILY, (Reported) Cholecalciferol (Vitamin D3) 5,000 Unit Capsule, 5,000 UNIT PO BID, (Reported) Cyanocobalamin (Vitamin B-12) 1,000 Mcg/1 Ml Drops, 5,000 MCG PO BID, (Reported) Cyclosporine 1 Each Droperette, 1 DROP OU BID, (Reported) Diltiazem HCl 30 Mg Tablet, 30 MG PO TID for 30 Days Prescribed by: KANDI RODRIGUEZ on 05/26/16 1026 Flaxseed Oil 1,000 Mg Capsule, 1,200 MG PO BID, (Reported) Oxycodone HCl/Acetaminophen 1 Each Tablet, 1 TAB PO Q4H PRN for PAIN, (Reported) Polyethylene Glycol 3350 255 Gm Powder, 1 TBS PO DAILY PRN for CONSTIPATION, ( Reported) Thyroid,Pork 65 Mg Tablet, 97.5 MG PO DAILY, (Reported) TAKES 1 & 1/2 OF A (65 MG) TABLET [Biotin 500 IU] , 500 UNITS PO DAILY, (Reported) Constitutional: see HPI Eyes: No Symptoms Reported Ears, Nose, Mouth, Throat: no symptoms reported Respiratory: no symptoms reported Cardiovascular: no symptoms reported Genitourinary: no symptoms reported Musculoskeletal: no symptoms reported Skin: see HPI Psychiatric/Neurological: No Symptoms Reported Past [id number] Hx Patient Social History Recent Foreign Travel: No Contact w/Someone Who Travel: No Recent Hopitalizations: Yes (CHEST PAIN 04/2016) Immunizations Up To Date PED Vaccines UTD: No Date of Pneumonia Vaccine: Nov 22, 2014 Date of Influenza Vaccine: Jan 20, 2016 Seasonal Allergies Seasonal Allergies: No Surgeries History of Surgeries: Yes (STIMULATOR R HIP, CARPAL TUNNEL, TLKR, INTERSTIM R/ L HIP FOR INCONTINENCE, ) Surgeries: Appendectomy, Section, Gallbladder, Hysterectomy, Orthopedic, Tonsillectomy Respiratory History of Respiratory Disorde: Yes (Home o2 @ HS) Currently Using CPAP: No Currently Using BIPAP: No Cardiovascular History of Cardiac Disorders: Yes Cardiac Disorders: Chronic Edema/Swelling Neurological History of Neurological Disord: No 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 System Hx 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 Disorders: No Sexually Transmitted Disease: No HIV/AIDS: No Female 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 Disorders: Denies 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 Genitourinary History of Genitourinary Disor: Yes (INNER STEMS PLACED FOR INCONTINENCE) Genitourinary Disorders: Kidney Stones, UTI-Chronic Gastrointestinal History of Gastrointestinal Di: No Musculoskeletal History of Musculoskeletal Dis: Yes (OSTERPENIA) Musculoskeletal Disorders: Arthritis, Chronic Back Pain, Fractures Endocrine History of Endocrine Disorders: Yes ("THYROID PROBLEMS") Endocrine Disorders: Hypothyroidsim HEENT History of HEENT Disorders: No Loss of Vision: Denies Hearing Impairment: Denies Cancer History of Cancer: No Psychosocial History of Psychiatric Problem: No Integumentary History of Skin or Integumenta: No Blood Transfusions History of Blood Disorders: No Adverse Reaction to a Blood Tr: No Family Medical History Significant Family History: Diabetes Family Medial History: Diabetes mellitus 19 FATHER G8 SISTER Physical Exam Vital Signs Vital Sign - Last 12Hours 10/23/16 10/23/16 19:51 20:03 Temp 98.0 Pulse 75 Resp 22 B/P (MAP) 168/72 (104) Pulse Ox 100 O2 Delivery Room Air Capillary Refill : General Appearance: WD/WN, no apparent distress HEENT: PERRL/EOMI, normal ENT inspection, other (1 cm laceration over the right yarsani not actively bleeding.) Neck: non-tender, full range of motion, No tender lateral, No tender midline Respiratory: normal breath sounds, no respiratory distress, no accessory muscle use Gastrointestinal: normal bowel sounds, non tender, soft Extremities: normal range of motion, non-tender, normal inspection Neurologic/Psychiatric: alert, normal mood/affect, oriented x 3 Skin: normal color, warm/dry, other (she does have a 3-4 cm area of erythema with petechiae and vesicle to the right anterior lower leg. She states this began after she smacked the area to killing mosquito that he landed on her period 3 days ago. She states that it itches but does not hurt.) [place] Coma Score Best Eye Response: (4) Open Spontaneously Best Verbal Response: (5) Oriented Best Motor Response: (6) Obeys Commands Kg Total: 15 Patient Education: Explained Benefits, Explained Risks, Pt. Ack. Understanding Breath Sounds per Auscultation: Clear Heart Sounds per Auscultation: Regular Airway Exam: Mouth opens >2 fingers, Neck Full Range of Motion, Visulation of Uvula Sedation Adminstration Time: 2014 Laceration Repair : Wound Location: Face Wound Length (cm): 1 Wound's Depth, Shape: sub Q Wound Explored: clean Suture: Prolene Suture Size: 5-0 Number of Sutures: 4 Layer Closure?: 1 Progress sutures placed by Bharath Trammell MD physician in training. Progress/Results/Core Measures Results/Orders My Orders Orders - VANCE AGUILAR APRN Ct Head/Cervical Spine Wo (10/23/16 19:54) Knee, Right, 3 Views (10/23/16 19:54) Lidocaine 2% Injection 20 Ml (Xylocaine (10/23/16 20:00) Dipht,Pertuss(Acell),Tet Adult (Boostrix (10/23/16 20:15) Mupirocin Ointment (Bactroban Ointment (10/23/16 21:00) Hydrocortisone 1% Cream (Hydrocortisone (10/23/16 21:00) Medications Given in ED Current Medications Medications Dose Ordered Sig/Nancy Route Start Time Stop Time Status Last Admin Dose Admin Diphtheria/ Tetanus/Acell Pertussis 0.5 ml ONCE ONCE IM 10/23/16 20:15 10/23/16 20:16 DC 10/23/16 20:36 0.5 ML Lidocaine HCl 2 ml ONCE ONCE INJ 10/23/16 20:00 10/23/16 20:01 DC 10/23/16 20:35 2 ML Vital Signs/I&O Vital Sign - Last 12Hours 10/23/16 10/23/16 10/23/16 19:51 20:03 20:36 Temp 98.0 98.0 98.0 Pulse 75 75 Resp 22 22 B/P (MAP) 168/72 (104) Pulse Ox 100 100 O2 Delivery Room Air Room Air Departure Impression Impression: Primary Impression: Scalp laceration Additional Impressions: Fall at home Insect bite of leg Disposition: HOME, SELF-CARE Condition: Stable Departure-Patient Inst. Decision time for Depature: 20:04 Referrals: ANDIE PERSAUD MD (PCP/Family) Primary Care Physician Patient Instructions: Laceration Repair With Stitches (DC) Add. Discharge Instructions: 1. Return to ER for any concerns 2. See your doctor next week 3. Return to the emergency room in 5 days to have the stitches removed 4. Apply the antibiotic and steroid cream to the right leg twice daily for 3 days. Return to ER for any increased redness or fevers All discharge instructions reviewed with patient and/or family. Voiced understanding. VANCE AGUILAR APRN Oct 23, 2016 20:00
[2016-10-23] MEDS ORDERED: TETANUS,DIPTH,PERTUSS P/F (BOOSTRIX) 0.5 ML VIAL IM ONE (20:15)
--- NOTE | 2016-10-23 20:32 | Diagnostic Imaging Report ---
PROCEDURE: CT head and CT cervical spine without contrast. TECHNIQUE: Multiple contiguous axial images were obtained through the brain and cervical spine without the use of intravenous contrast. Sagittal and coronal reformations through the cervical spine were then performed. INDICATION: Head trauma CT HEAD: The ventricles are normal in size, shape and position. There are no masses or hemorrhages. There are no extra-axial fluid collections. There are no skull fracture seen. IMPRESSION: Negative CT of the head. CT CERVICAL SPINE: There are degenerative changes of the atlantoaxial joint and at the basicervical joints. Cervical vertebral alignment is normal. There are diffuse degenerative changes with a large osteophyte formation. Alignment is normal. There is no prevertebral soft tissue swelling. IMPRESSION: Degenerative changes throughout the cervical spine but no fracture or acute abnormality is seen. Dictated by: Dictated on workstation # [id number]
--- NOTE | 2016-10-23 20:42 | Diagnostic Imaging Report ---
INDICATION: Right knee pain. FINDINGS: Three views of the right knee show tricompartmental degenerative changes with osteophyte formation. There is no fracture or dislocation. IMPRESSION: Degenerative changes of the knee but no acute abnormality is seen. Dictated by: Dictated on workstation # [id number]
[2016-10-23] MEDS ORDERED: HYDROCORTISONE 1% CREAM 30 GM TUBE TOP SCH (21:00)
[2016-10-23] MEDS ORDERED: MUPIROCIN 2% OINT 22 GM (BACTROBAN) TUBE TOP SCH (21:00)
[2016-10-23 21:18] VITALS: BP 155/58
== END 2016-10-23 21:18 | disposition home or self-care (01) ==
LOC: EDUNIT# 19:33 → ER 19:34
DX: S01.01XA Laceration without foreign body of scalp, initial encounter (principal); S80.861A Insect bite (nonvenomous), right lower leg, initial encounter; E03.9 Hypothyroidism, unspecified; R60.9 Edema, unspecified; Z87.442 Personal history of urinary calculi; Z87.81 Personal history of (healed) traumatic fracture; Z87.59 Personal history of other complications of pregnancy, childbirth and the puerperium; Z90.49 Acquired absence of other specified parts of digestive tract; Z90.710 Acquired absence of both cervix and uterus; Z90.89 Acquired absence of other organs; Z79.82 Long term (current) use of aspirin; W08.XXXA Fall from other furniture, initial encounter; W22.03XA Walked into furniture, initial encounter; W57.XXXA Bitten or stung by nonvenomous insect and other nonvenomous arthropods, initial encounter; Y92.009 Unspecified place in unspecified non-institutional (private) residence as the place of occurrence of the external cause
CPT/HCPCS: 12011; 70450; 72125; 73562; 90471; 90715

== ENCOUNTER 2016-10-28 14:28 | Emergency (ER) | payer MEDICARE, MEDICAID ==
[~2016-10-28] VITALS: Ht 157.5 cm; Wt 103.9 kg
[2016-10-28 14:35] VITALS: BP 144/79
== END 2016-10-28 14:43 | disposition home or self-care (01) ==
LOC: EDUNIT# 14:28 → ER 14:30
DX: S01.81XD Laceration without foreign body of other part of head, subsequent encounter (principal); X58.XXXD Exposure to other specified factors, subsequent encounter

== ENCOUNTER → 2016-12-26 | Outpatient (CLI) | payer MEDICARE, MEDICAID | LOC: WOUNDCARE 08:57 | PROVIDERS: ATTEND Nurse Practitioner | DX: L97.212 Non-pressure chronic ulcer of right calf with fat layer exposed (principal); I87.311 Chronic venous hypertension (idiopathic) with ulcer of right lower extremity | CPT/HCPCS: 11042 ==

== ENCOUNTER 2017-02-23 13:04 | Emergency (ER) | payer MEDICARE, MEDICAID ==
[~2017-02-23] VITALS: Ht 157.5 cm; Wt 102.5 kg
[~2017-02-23 13:04] MED LIST changes: -METO-272 PO; -METO-274 PO; +METO-370 PO; +METO-395 PO
--- OUTSIDE RECORDS SUMMARY | 2017-02-23 13:10 | XMS REPORT | Clinical Summary ---
Author Author [facility] Organization [facility] Address Unknown Phone Unavailable Care Team Providers Care Commercial Loan Analyst Name Role Phone PCP Unavailable Source Comments Some departments are not documenting in the electronic medical record. If you do not see the information that you expected, contact Release of Information in the Health Information Management department at [phone] for further assistance in locating additional records.[facility] Allergies Not on File Current Medications Not [...] SCREENING 12/21/2004 PREVNAR/PNEUMOVAX (#1) 12/21/2004 INFLUENZA VACCINE 10/03/2016 Results Not on filefrom Last 3 Months
--- OUTSIDE RECORDS SUMMARY | 2017-02-23 13:12 | XMS REPORT | Continuity of Care Document ---
Author Author [facility] Address Unknown Phone Unavailable Allergies Active Description Code Type Severity Reaction Onset Reported/Identified Relationship to Patient Clinical Status Yes NKANo Known Allergies NKA Miscellaneous Allergy Unknown N/A 06/10/2006 Medications There is no data. Problems Date Dx Coded Attending Type Code Diagnosis Diagnosed By 10/29/2012 ANDIE PERSAUD MD Ot 327.23 OBSTRUCTIVE SLEEP APNEA (ADULT) (PEDIATR 10/29/2012 ANDIE PERSAUD MD Ot 327.51 PERIODIC [...] Ot E000.8 OTHER EXTERNAL CAUSE STATUS 04/21/2014 REY SINGH, JOSE Varghese Ot E849.0 ACCIDENT IN HOME 04/21/2014 REY SINGH, JOSE Varghese Ot E888.1 FALL STRIKING OBJECT NEC 09/02/2014 [...] SINGH, ANDIE Velasquez Ot V76.12 11/22/2014 KALEN SINGH, MYRA Hoang Ot 244.9 HYPOTHYROIDISM NOS 11/22/2014 KALEN SINGH, MYRA Hoang Ot 721.2 THORACIC SPONDYLOSIS 11/22/2014 KALEN SINGH, MYRA Hoang Ot 721.3 LUMBOSACRAL SPONDYLOSIS 11/22/2014 KALEN SINGH, MYRA Hoang Ot 920 CONTUSION FACE/SCALP/NCK 11/22/2014 KALEN SINGH, MYRA Hoang Ot 923.00 CONTUSION SHOULDER REG 11/22/2014 KALEN SINGH, MYRA Hoang Ot E000.8 OTHER EXTERNAL CAUSE STATUS 11/22/2014 KALEN SINGH, MYRA Hoang Ot E015.2 ACTIVITIES INVOLVING COOKING AND BAKING 11/22/2014 MYRA HIGUERA MD Ot E849.0 ACCIDENT IN HOME 11/22/2014 MYRA HIGUERA MD Ot E885.9 FALL FROM SLIPPING, TRIPPING, OR STUMBLI 11/22/2014 KALEN SINGH, MYRA Hoang Ot V03.82 PROPHYLACTIC VACC AGAINST STREPTOCOCCUS 11/22/2014 MYRA HIGUERA MD Ot V04.81 ND FOR PROPHYLACTIC VACCIN AND INOCULATI 12/02/2014 HUNG SINGH, ANDIE Velasquez Ot V76.12 12/18/2014 HUNG SINGH, ANDIE Velasquez Ot V76.12 12/18/2014 NOEMY SINGH, DONNA Riggs Ot 733.13 12/18/2014 ANDIE PERSAUD MD Ot V76.12 12/18/2014 ANDIE PERSAUD MD Ot V76.12 12/28/2014 QUENTIN SINGH, NIKOLAI Garcia Ot E03.9 HYPOTHYROIDISM, UNSPECIFIED 12/28/2014 QUENTIN SINGH, NIKOLAI Garcia Ot R13.19 OTHER DYSPHAGIA 01/07/2015 HUNG SINGH, ANDIE Velasquez Ot M54.9 01/12/2015 ANDIE PERSAUD MD Ot M54.9 05/13/2015 RYLEE AMOS Ot K57.90 DVRTCLOS OF INTEST, PART UNSP, W/O PERF 05/13/2015 RYLEE AMOS Ot M54.5 LOW BACK PAIN 05/13/2015 RYLEE AMOS Ot N28.1 CYST OF KIDNEY, ACQUIRED 05/13/2015 TIFFANIE PA, RYLEE L Ot R35.0 FREQUENCY OF MICTURITION 05/13/2015 TIFFANIE WILSON, RYLEE Jasso Ot Z87.440 PERSONAL HISTORY OF URINARY (TRACT) INFE 05/14/2015 TIFFANIE WILSONRYLEE Ot K57.90 05/14/2015 TIFFANIE WILSON, RYLEE Jasso Ot M54.5 05/14/2015 TIFFANIE WILSONRYLEE Ot N28.1 05/14/2015 TIFFANIE WILSONRYLEE Ot R35.0 05/14/2015 TIFFANIE WILSONRYLEE Ot Z87.440 06/09/2015 HUNG SINGH, ANDIE Velasquez Ot V76.12 06/09/2015 NOEMY SINGH, DONNA Riggs Ot 733.13 06/09/2015 HUNG SINGH, ANDIE R Ot V76.12 06/09/2015 HUNG SINGH, ANDIE R Ot V76.12 06/09/2015 HUNG SINGH, ANDIE R Ot M54.9 06/09/2015 QUENTIN SINGH, NIKOLAI Garcia Ot Z01.818 06/09/2015 LUCY BARR MD Ot S43.011A ANTERIOR SUBLUXATION OF RIGHT HUMERUS, I 06/09/2015 LUCY BARR MD Ot S80.211A ABRASION, RIGHT KNEE, INITIAL ENCOUNTER 06/09/2015 CORTNEY SINGH, LUCY Riggs Ot W01.0XXA FALL SAME LEV FROM SLIP/TRIP W/O STRIKE 06/09/2015 LUCY BARR MD Ot Y92.[address] [facility] [address] IN [facility] NON-[facility] (PRIVATE 06/09/2015 LUCY BARR MD Ot Y99.8 OTHER EXTERNAL CAUSE STATUS 07/15/2015 MYRA ESPITIA DO Ot S43.011D ANTERIOR SUBLUXATION OF RIGHT HUMERUS, S 07/15/2015 MYRA ESPITIA DO Ot W01.0XXD FALL SAME LEV FROM SLIP/TRIP W/O STRIKE 07/15/2015 MYRA ESPITIA DO Ot Y99.8 OTHER EXTERNAL CAUSE STATUS 07/17/2015 ILEANA SINGH, NELLY Hoang Ot M54.5 LOW BACK PAIN 07/17/2015 ILEANA SINGH, NELLY Hoang Ot N20.0 CALCULUS OF KIDNEY 07/29/2015 MYRA ESPITIA DO Ot S43.011D ANTERIOR SUBLUXATION OF RIGHT HUMERUS, S 07/29/2015 NUPUR DO, MYRA F Ot [...] F Ot S43.011D ANTERIOR SUBLUXATION OF RIGHT HUMERUS, S 08/26/2015 NUPUR DO, MYRA F Ot W01.0XXD FALL SAME LEV FROM SLIP/TRIP W/O STRIKE 08/26/2015 NUPUR DO, MYRA F Ot Y99.8 OTHER EXTERNAL CAUSE STATUS 08/31/2015 NUPUR DO, MYRA F Ot S43.011D ANTERIOR SUBLUXATION OF RIGHT HUMERUS, S 08/31/2015 NUPUR DO, MYRA F Ot W01.0XXD FALL SAME LEV FROM SLIP/TRIP W/O STRIKE 08/31/2015 NUPUR DO, MYRA F Ot Y99.8 OTHER EXTERNAL CAUSE STATUS 08/31/2015 NUPUR DO, MYRA F Ot S43.011D ANTERIOR SUBLUXATION OF RIGHT HUMERUS, S 08/31/2015 NUPUR DO, MYRA F Ot W01.0XXD FALL SAME LEV FROM SLIP/TRIP W/O STRIKE 08/31/2015 NUPUR DO, MYRA F Ot Y99.8 OTHER EXTERNAL CAUSE STATUS 09/02/2015 NUPUR DO, MYRA F Ot S43.011D ANTERIOR SUBLUXATION OF RIGHT HUMERUS, S 09/02/2015 NUPUR DO, MYRA F Ot W01.0XXD FALL SAME LEV FROM SLIP/TRIP W/O STRIKE 09/02/2015 NUPUR DO, MYRA F Ot Y99.8 OTHER EXTERNAL CAUSE STATUS 09/24/2015 HUNG SINGH, ANDIE Velasquez Ot M85.89 OTH DISRD OF BONE DENSITY AND STRUCTURE, 09/24/2015 HUNG SINGH, ANDIE Velasquez Ot Z13.820 ENCOUNTER FOR SCREENING FOR OSTEOPOROSIS 10/22/2015 ANDIE PERSAUD MD Ot M85.89 OTH DISRD OF BONE DENSITY AND STRUCTURE, 10/22/2015 ANDIE PERSAUD MD Ot Z13.820 ENCOUNTER FOR SCREENING FOR OSTEOPOROSIS 04/27/2016 DARREN EPPERSON MD Ot B96.1 KLEBSIELLA PNEUMONIAE THE CAUSE OF DI 04/27/2016 DARREN PEPERSON MD Ot E03.9 HYPOTHYROIDISM, UNSPECIFIED 04/27/2016 DARREN [...] EXAMIN 04/27/2016 ANDIE PERSAUD MD Ot M85.89 OTH DISRD OF BONE DENSITY AND STRUCTURE, 04/27/2016 ANDIE PERSAUD MD Ot Z13.820 ENCOUNTER FOR SCREENING FOR OSTEOPOROSIS 05/02/2016 ANDIE PERSAUD MD Ot V76.12 OTH SCREEN MAMMO-MALIGN NEOPLASM OF JUSTIN 05/02/2016 DONNA SALGUERO MD Ot 733.13 PATHOLOGIC FRACTURE, VERTEBRAE 05/02/2016 ANDIE PERSAUD MD Ot V76.12 OTH SCREEN MAMMO-MALIGN NEOPLASM OF JUSTIN 05/02/2016 ANDIE PERSAUD MD Ot V76.12 OTH SCREEN MAMMO-MALIGN NEOPLASM OF JUSTIN 05/02/2016 ANDIE PERSAUD MD, Ot M54.9 DORSALGIA, UNSPECIFIED 05/02/2016 NIKOLAI SAAVEDRA MD Ot Z01.818 ENCOUNTER FOR OTHER PREPROCEDURAL EXAMIN 05/02/2016 ANDIE PERSAUD MD Ot M85.89 OTH DISRD OF BONE DENSITY AND STRUCTURE, 05/02/2016 ANDIE PERSAUD MD, Ot Z13.820 ENCOUNTER FOR SCREENING FOR OSTEOPOROSIS 05/18/2016 DONALDO GALEANO DO Ot E66.01 MORBID (SEVERE) OBESITY DUE TO EXCESS CA 05/18/2016 DONALDO GALEANO DO Ot F41.9 ANXIETY DISORDER, UNSPECIFIED 05/18/2016 DONALDO GALEANO DO Ot R09.02 HYPOXEMIA 05/24/2016 DANTE BURTON MD, Ot B96.89 OTH BACTERIAL AGENTS THE CAUSE OF DIS 05/24/2016 DANTE BURTON MD Ot E03.9 HYPOTHYROIDISM, UNSPECIFIED 05/24/2016 DANTE BURTON MD Ot G47.33 OBSTRUCTIVE SLEEP APNEA (ADULT) (PEDIATR 05/24/2016 DANTE BURTON MD Ot I10 ESSENTIAL (PRIMARY) HYPERTENSION 05/24/2016 DANTE BURTON MD Ot I48.0 PAROXYSMAL ATRIAL FIBRILLATION 05/24/2016 DANTE BURTON MD Ot M19.91 PRIMARY OSTEOARTHRITIS, UNSPECIFIED SITE 05/24/2016 DANTE BURTON MD, Ot M54.9 DORSALGIA, UNSPECIFIED 05/24/2016 DANTE BURTON MD Ot M81.0 AGE-RELATED OSTEOPOROSIS W/O CURRENT PAT 05/24/2016 DANTE BURTON MD, Ot N39.0 URINARY TRACT INFECTION, SITE NOT SPECIF 05/24/2016 DANTE BURTON MD Ot R32 UNSPECIFIED URINARY INCONTINENCE 05/24/2016 DANTE BURTON MD Ot S70.02XA CONTUSION OF LEFT HIP, INITIAL ENCOUNTER 05/24/2016 DANTE BURTON MD Ot W01.190A FALL SAME LEV FROM SLIP/TRIP W STRIKE AG 05/24/2016 DANTE BURTON MD Ot Y92.[address] 05/24/2016 MICHEAL SINGH DANTE Jose Ot Z96.652 PRESENCE OF LEFT ARTIFICIAL KNEE JOINT 05/26/2016 JENNIFER LARSEN KANDI Ot E03.9 HYPOTHYROIDISM, UNSPECIFIED 05/26/2016 JENNIFER LARSEN KANDI Ot G47.33 OBSTRUCTIVE SLEEP APNEA (ADULT) (PEDIATR 05/26/2016 RODRIGUEZCHRISTINA LARSEN KANDI Ot I10 ESSENTIAL (PRIMARY) HYPERTENSION 05/26/2016 JENNIFER LARSEN KANDI Ot I48.0 PAROXYSMAL ATRIAL FIBRILLATION 05/26/2016 VANCE RODRIGUEZ DOI Ot K59.00 CONSTIPATION, UNSPECIFIED 05/26/2016 JENNIFER LARSEN KANDI Ot M25.552 PAIN IN LEFT HIP 05/26/2016 KANDI RODRIGUEZ DO Ot M81.0 AGE-RELATED OSTEOPOROSIS W/O CURRENT PAT 05/26/2016 KANDI RODRIGUEZ DO Ot Z96.652 PRESENCE OF LEFT ARTIFICIAL KNEE JOINT 06/08/2016 DONALDO GALEANO DO Ot E66.01 MORBID (SEVERE) OBESITY DUE TO EXCESS CA 06/08/2016 DONALDO GALEANO DO Ot F41.9 ANXIETY DISORDER, UNSPECIFIED 06/08/2016 DONALDO GALEANO DO Ot R09.02 HYPOXEMIA 06/14/2016 DONALDO GALEANO DO Ot E66.01 MORBID (SEVERE) OBESITY DUE TO EXCESS CA 06/14/2016 DONALDO GALEANO DO Ot F41.9 ANXIETY DISORDER, UNSPECIFIED 06/14/2016 DONALDO GALEANO DO Ot R09.02 HYPOXEMIA 06/17/2016 DONALDO GALEANO DO Ot E66.01 MORBID (SEVERE) OBESITY DUE TO EXCESS CA 06/17/2016 DONALDO GAELANO DO Ot F41.9 ANXIETY DISORDER, UNSPECIFIED 06/17/2016 DONALDO GALEANO DO Ot R09.02 HYPOXEMIA 10/08/2016 HUNG SINGH, ANDIE Velasquez Ot S80.01XA CONTUSION OF RIGHT KNEE, INITIAL ENCOUNT 10/08/2016 HUNG SINGH, ANDIE Velasquez Ot X58.XXXA EXPOSURE TO OTHER SPECIFIED FACTORS, INI 10/08/2016 HUNG SINGH, ANDIE Velasquez Ot Y99.8 OTHER EXTERNAL CAUSE STATUS 10/23/2016 VANCE AGUILAR APRN Ot E03.9 HYPOTHYROIDISM, UNSPECIFIED 10/23/2016 VANCE AGUILAR FABRIZIO Ot R60.9 EDEMA, UNSPECIFIED 10/23/2016 VANCE AGUILAR APRN Ot S01.01XA LACERATION WITHOUT FOREIGN BODY OF SCALP 10/23/2016 VANCE AGUILAR APRN Ot S01.81XA LACERATION W/O FOREIGN BODY OF OTH PART 10/23/2016 VANCE AGUILAR APRN Ot S80.861A INSECT BITE (NONVENOMOUS), RIGHT LOWER L 10/23/2016 VANCE AGUILAR APRN Ot W08.XXXA FALL FROM OTHER FURNITURE, INITIAL ENCOU 10/23/2016 VANCE AGUILAR APRN Ot W22.03XA WALKED INTO FURNITURE, INITIAL ENCOUNTER 10/23/2016 VANCE AGUILAR APRN Ot W57.XXXA BIT/STUNG BY NONVENOM INSECT OTH NONVE 10/23/2016 VANCE AGUILAR APRN Ot Y92.[address] IN [facility] NON-[facility] (PRIVATE 10/23/2016 VANCE AGUILAR APRN Ot Z79.82 QUALITY IMPROVEMENT COORDINATOR (CURRENT) USE OF ASPIRIN 10/23/2016 VANCE AGUILAR APRN Ot Z87.442 PERSONAL HISTORY OF URINARY CALCULI 10/23/2016 VANCE AGUILAR APRN Ot Z87.59 PERSONAL HISTORY OF COMP OF PREG, CHLDBR 10/23/2016 VANCE AGUILAR APRN Ot Z87.81 PERSONAL HISTORY OF (HEALED) TRAUMATIC F 10/23/2016 VANCE AGUILAR APRN Ot Z90.49 ACQUIRED ABSENCE OF OTHER SPECIFIED PART 10/23/2016 VANCE AGUILAR APRN Ot Z90.710 ACQUIRED ABSENCE OF BOTH CERVIX AND UTER 10/23/2016 VANCE AGUILAR APRN Ot Z90.89 ACQUIRED ABSENCE OF OTHER ORGANS 10/25/2016 VANCE AGUILAR APRN Ot E03.9 HYPOTHYROIDISM, UNSPECIFIED 10/25/2016 VANCE AGUILAR APRN Ot R60.9 EDEMA, UNSPECIFIED 10/25/2016 VANCE AGUILAR APRN Ot S01.01XA LACERATION WITHOUT FOREIGN BODY OF SCALP 10/25/2016 VANCE AGUILAR APRN Ot S01.81XA LACERATION W/O FOREIGN BODY OF OTH PART 10/25/2016 VANCE AGUILAR APRN Ot S80.861A INSECT BITE (NONVENOMOUS), RIGHT LOWER L 10/25/2016 VANCE AGUILAR APRN Ot W08.XXXA FALL FROM OTHER FURNITURE, INITIAL ENCOU 10/25/2016 VANCE AGUILAR APRN Ot W22.03XA WALKED INTO FURNITURE, INITIAL ENCOUNTER 10/25/2016 VANCE AGUILAR APRN Ot W57.XXXA BIT/STUNG BY NONVENOM INSECT OTH NONVE 10/25/2016 VANCE AGUILAR APRN Ot Y92.009 [facility] 10/25/2016 VANCE AGUILAR APRN Ot Z79.82 GROUP HOME (CURRENT) USE OF ASPIRIN 10/25/2016 VANCE AGUILAR APRN Ot Z87.442 PERSONAL HISTORY OF URINARY CALCULI 10/25/2016 VANCE AGUILAR APRN Ot Z87.59 PERSONAL HISTORY OF COMP OF PREG, CHLDBR 10/25/2016 VANCE AGUILAR APRN Ot Z87.81 PERSONAL HISTORY OF (HEALED) TRAUMATIC F 10/25/2016 VANCE AGUILAR APRN Ot Z90.49 ACQUIRED ABSENCE OF OTHER SPECIFIED PART 10/25/2016 VANCE AGUILAR APRN Ot Z90.710 ACQUIRED ABSENCE OF BOTH CERVIX AND UTER 10/25/2016 VANCE AGUILAR APRN Ot Z90.89 ACQUIRED ABSENCE OF OTHER ORGANS 10/28/2016 ILEANA SINGH, NELLY Hoang Ot S01.81XD LACERATION W/O FOREIGN BODY OF OTH PART 10/28/2016 ILEANA SINGH, NELLY Hoang Ot X58.XXXD EXPOSURE TO OTHER SPECIFIED FACTORS, SUB 10/29/2016 VANCE AGUILAR APRN Ot E03.9 HYPOTHYROIDISM, UNSPECIFIED 10/29/2016 VANCE AGUILAR APRN Ot R60.9 EDEMA, UNSPECIFIED 10/29/2016 VANCE AGUILAR APRN Ot S01.01XA LACERATION WITHOUT FOREIGN BODY OF SCALP 10/29/2016 VANCE AGUILAR APRN Ot S01.81XA LACERATION W/O FOREIGN BODY OF OTH PART 10/29/2016 VANCE AGUILAR APRN Ot S80.861A INSECT BITE (NONVENOMOUS), RIGHT LOWER L 10/29/2016 VANCE AGUILAR APRN Ot W08.XXXA FALL FROM OTHER FURNITURE, INITIAL ENCOU 10/29/2016 VANCE AGUILAR APRN Ot W22.03XA WALKED INTO FURNITURE, INITIAL ENCOUNTER 10/29/2016 VANCE AGUILAR APRN Ot W57.XXXA BIT/STUNG BY NONVENOM INSECT OTH NONVE 10/29/2016 VANCE AGUILAR APRN Ot Y92.009 [facility] [address] IN [facility] NON-[facility] (PRIVATE 10/29/2016 VANCE AGUILAR APRN Ot Z79.82 QUALITY IMPROVEMENT COORDINATOR (CURRENT) USE OF ASPIRIN 10/29/2016 VANCE AGUILAR APRN Ot Z87.442 PERSONAL HISTORY OF URINARY CALCULI 10/29/2016 VANCE AGUILAR APRN Ot Z87.59 PERSONAL HISTORY OF COMP OF PREG, CHLDBR 10/29/2016 VANCE AGUILAR APRN Ot Z87.81 PERSONAL HISTORY OF (HEALED) TRAUMATIC F 10/29/2016 VANCE AGUILAR APRN Ot Z90.49 ACQUIRED ABSENCE OF OTHER SPECIFIED PART 10/29/2016 VANCE AGUILAR APRN Ot Z90.710 ACQUIRED ABSENCE OF BOTH CERVIX AND UTER 10/29/2016 VANCE AGUILAR APRN Ot Z90.89 ACQUIRED ABSENCE OF OTHER ORGANS 10/30/2016 ANDIE PERSAUD MD Ot S80.01XA CONTUSION OF RIGHT KNEE, INITIAL ENCOUNT 10/30/2016 ANDIE PERSAUD MD Ot X58.XXXA EXPOSURE TO OTHER SPECIFIED FACTORS, INI 10/30/2016 NADIE PERSAUD MD, Ot Y99.8 OTHER EXTERNAL CAUSE STATUS 10/31/2016 ANDIE PERSAUD MD, Ot S80.01XA CONTUSION OF RIGHT KNEE, INITIAL ENCOUNT 10/31/2016 ANDIE PERSAUD MD, Ot X58.XXXA EXPOSURE TO OTHER SPECIFIED FACTORS, INI 10/31/2016 ANDIE PERSAUD MD, Ot Y99.8 OTHER EXTERNAL CAUSE STATUS 01/01/2017 CARMELO BHATT APRN Ot 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 01/01/2017 CARMELO BHATT APRN Ot L97.212 NON-PRESSURE CHRONIC ULCER OF RIGHT CALF 01/03/2017 CARMELO BHATT APRN Ot 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 Results Test Result Range Complete blood count (CBC) with automated white blood cell (WBC) differential - 04/25/16 15:05 Blood leukocytes automated count (number/volume) 10.2 10*3/uL 4.3-11.0 Blood erythrocytes automated count (number/volume) 4.86 10*6/uL 4.35-5.85 Venous blood hemoglobin measurement (mass/volume) 13.9 [...] Automated blood platelet mean volume measurement 9.6 [foz_us] 7.4-10.4 Automated blood neutrophils/100 leukocytes 66 % [...] Serum or plasma sodium measurement (moles/volume) 139 mmol/L 135-145 Serum or plasma potassium measurement (moles/volume) 5.2 mmol/L 3.6-5.0 Serum or plasma chloride measurement (moles/volume) 103 mmol/L 98-107 Carbon dioxide 27 mmol/L 21-32 Serum or plasma anion gap determination (moles/volume) 9 mmol/L 5-14 Serum or plasma urea nitrogen measurement (mass/volume) 22 mg/dL 7-18 Serum or plasma creatinine measurement (mass/volume) 1.00 mg/dL 0.60-1.30 Serum or plasma urea nitrogen/creatinine mass [...] or plasma troponin i.cardiac measurement (mass/volume) < ng/ mL <0.30 Serum or plasma lithium measurement (moles/volume) - 04/25/16 15:05 BNP level 16.8 pg/mL <100.0 Serum or plasma amylase measurement (enzymatic activity/volume) - 04/25/16 15: 05 Serum or plasma amylase measurement (enzymatic activity/volume) 42 U /L 25-125 Lipase - 04/25/16 15:05 Lipase 31 [...] Urine pH measurement by test strip 6 5-9 Specific gravity of urine by test strip 1.010 1.016- 1.022 Urine protein assay by test strip, semi-quantitative [...] culture - 04/25/16 19:10 Bacterial urine culture [id number] NRG COLONY COUNT >100,000/ML NRG FTX;REPORTABLE SENSITIVITY REPORTED 04/26/16 15:50 NRG URINE CULTURE RESULTS PLUS NRG Bacterial susceptibility panel - 04/25/16 19:10 Gentamicin susceptibility test by minimum inhibitory concentration < = NRG Trimethoprim/sulfamethoxazole susceptibility test by minimum inhibitoryconcentration <= NRG Ampicillin susceptibility test by minimum inhibitory concentration > = NRG Tobramycin susceptibility test by minimum inhibitory concentration < = NRG Cefazolin susceptibility test by minimum inhibitory concentration < = NRG Ceftriaxone susceptibility test by minimum inhibitory concentration <= NRG Ampicillin/sulbactam susceptibility test by minimum inhibitory concentration 4 NRG Piperacillin/tazobactam susceptibility test by minimum inhibitory concentration 8 NRG Ciprofloxacin susceptibility test by minimum inhibitory concentration <= NRG Meropenem susceptibility test by minimum inhibitory concentration < = NRG Nitrofurantoin susceptibility test by minimum inhibitory concentration <= NRG Aztreonam susceptibility test by minimum inhibitory concentration < = NRG Extended spectrum beta lactamase (ESBL) producing bacteria susceptibility test by minimum inhibitory concentration - NRG Serum or plasma troponin i.cardiac measurement (mass/volume) - 04/25/16 21:08 Serum or plasma troponin i.cardiac measurement (mass/volume) < ng/ mL <0.30 Complete blood count (CBC) with automated white blood cell (WBC) differential - 04/26/16 03:36 Blood leukocytes automated count (number/volume) 8.4 10*3/uL 4.3-11.0 Blood erythrocytes automated count (number/volume) 4.46 10*6/uL 4.35-5.85 Venous blood hemoglobin measurement (mass/volume) 12.8 [...] Automated blood platelet mean volume measurement 9.9 [foz_us] 7.4-10.4 Automated blood neutrophils/100 leukocytes 57 % [...] Serum or plasma sodium measurement (moles/volume) 139 mmol/L 135-145 Serum or plasma potassium measurement (moles/volume) 4.2 mmol/L 3.6-5.0 Serum or plasma chloride measurement (moles/volume) 103 mmol/L 98-107 Carbon dioxide 26 mmol/L 21-32 Serum or plasma anion gap determination (moles/volume) 10 mmol/L 5-14 Serum or plasma urea nitrogen measurement (mass/volume) 24 mg/dL 7-18 Serum or plasma creatinine measurement (mass/volume) 0.86 mg/dL 0.60-1.30 Serum or plasma urea nitrogen/creatinine mass [...] (mass/volume) 3.5 g/dL 3.2-4.5 Myoglobin, serum - 02/22/17 03:36 Myoglobin, serum 79.1 ng/mL 10.0-92.0 Lipid 1996 panel - 04/26/16 03:36 Serum or plasma triglyceride measurement (mass/volume) 112 mg/dL <150 Serum or plasma cholesterol measurement (mass/volume) 196 mg/dL < 200 Serum or plasma cholesterol in HDL measurement (mass/volume) 40 mg/ dL 40-60 Cholesterol in LDL [mass/volume] in serum or plasma by direct assay 138 mg/dL 1-129 Serum or plasma cholesterol in VLDL measurement (mass/volume) 22 mg/ dL 5-40 Whole blood basic metabolic panel - 04/27/16 04:26 Serum or plasma sodium measurement (moles/volume) 138 mmol/L 135-145 Serum or plasma potassium measurement (moles/volume) 4.3 mmol/L 3.6-5.0 Serum or plasma chloride measurement (moles/volume) 103 mmol/L 98-107 Carbon dioxide 23 mmol/L 21-32 Serum or plasma anion gap determination (moles/volume) 12 mmol/L 5-14 Serum or plasma urea nitrogen measurement (mass/volume) 28 mg/dL 7-18 Serum or plasma creatinine measurement (mass/volume) 1.00 mg/dL 0.60-1.30 Serum or plasma urea nitrogen/creatinine mass [...] 17:05 Blood leukocytes automated count (number/volume) 8.7 10*3/uL 4.3-11.0 Blood erythrocytes automated count (number/volume) 4.67 10*6/uL 4.35-5.85 Venous blood hemoglobin measurement (mass/volume) 13.5 [...] Automated blood platelet mean volume measurement 10.0 [foz_us] 7.4-10.4 Automated blood neutrophils/100 leukocytes 70 % [...] Serum or plasma sodium measurement (moles/volume) 139 mmol/L 135-145 Serum or plasma potassium measurement (moles/volume) 3.7 mmol/L 3.6-5.0 Serum or plasma chloride measurement (moles/volume) 106 mmol/L 98-107 Carbon dioxide 23 mmol/L 21-32 Serum or plasma anion gap determination (moles/volume) 10 mmol/L 5-14 Serum or plasma urea nitrogen measurement (mass/volume) 25 mg/dL 7-18 Serum or plasma creatinine measurement (mass/volume) 0.85 mg/dL 0.60-1.30 Serum or plasma urea nitrogen/creatinine mass [...] or plasma troponin i.cardiac measurement (mass/volume) < ng/ mL <0.30 Serum or plasma lithium measurement (moles/volume) - 05/20/16 17:05 BNP level 13.2 pg/mL <100.0 Complete urinalysis with reflex to culture - 05/20/16 19:03 Urine color determination YELLOW NRG Urine clarity determination CLEAR NRG Urine pH measurement by test strip 5 5-9 Specific gravity of urine by test strip 1.020 1.016- 1.022 Urine protein assay by test strip, semi-quantitative [...] resistant Staphylococcus aureus (MRSA) screening culture NEG NRG Complete blood count (CBC) with automated white blood cell (WBC) differential - 05/21/16 03:25 Blood leukocytes automated count (number/volume) 6.7 10*3/uL 4.3-11.0 Blood erythrocytes automated count (number/volume) 4.17 10*6/uL 4.35-5.85 Venous blood hemoglobin measurement (mass/volume) 12.0 [...] Automated blood platelet mean volume measurement 10.3 [foz_us] 7.4-10.4 Automated blood neutrophils/100 leukocytes 58 % [...] Serum or plasma sodium measurement (moles/volume) 142 mmol/L 135-145 Serum or plasma potassium measurement (moles/volume) 3.6 mmol/L 3.6-5.0 Serum or plasma chloride measurement (moles/volume) 110 mmol/L 98-107 Carbon dioxide 24 mmol/L 21-32 Serum or plasma anion gap determination (moles/volume) 8 mmol/L 5-14 Serum or plasma urea nitrogen measurement (mass/volume) 24 mg/dL 7-18 Serum or plasma creatinine measurement (mass/volume) 0.79 mg/dL 0.60-1.30 Serum or plasma urea nitrogen/creatinine mass ratio 30 NRG Serum or plasma creatinine measurement with calculation of estimated glomerular filtration rate > NRG Serum or plasma glucose measurement (mass/volume) 93 mg/dL 70-105 Serum or plasma calcium measurement (mass/volume) 8.5 mg/dL 8.5-10.1 Serum or plasma phosphate measurement (mass/volume) - 05/21/16 03:25 Serum or plasma phosphate measurement (mass/volume) 3.0 mg/dL 2.3-4.7 Magnesium - 05/21/16 03:25 Magnesium 1.8 mg/dL 1.8-2.4 Automated blood complete blood count (hemogram) panel - 05/22/16 04:25 Blood leukocytes automated count (number/volume) 6.8 10*3/uL 4.3-11.0 Blood erythrocytes automated count (number/volume) 3.96 10*6/uL 4.35-5.85 Venous blood hemoglobin measurement (mass/volume) 11.3 [...] Automated blood platelet mean volume measurement 10.1 [foz_us] 7.4-10.4 Comprehensive metabolic panel - 05/22/16 04:25 Serum or plasma sodium measurement (moles/volume) 142 mmol/L 135-145 Serum or plasma potassium measurement (moles/volume) 4.2 mmol/L 3.6-5.0 Serum or plasma chloride measurement (moles/volume) 110 mmol/L 98-107 Carbon dioxide 25 mmol/L 21-32 Serum or plasma anion gap determination (moles/volume) 7 mmol/L 5-14 Serum or plasma urea nitrogen measurement (mass/volume) 21 mg/dL 7-18 Serum or plasma creatinine measurement (mass/volume) 0.83 mg/dL 0.60-1.30 Serum or plasma urea nitrogen/creatinine mass [...] Status Pt. Type Provider Facility Loc./Unit Complaint [id number] 01/12/2011 12:51:00 01/12/2011 23:59:59 CLS Outpatient BELLA LLAMAS DDS [id number] 01/02/2017 09:24:00 01/02/2017 23:59:59 CLS Outpatient CARMELO BHATT APRN [facility] WOUND[facility] [id number] 12/26/2016 08:57:00 12/26/2016 23:59:59 CLS Outpatient CARMELO BHATT APRN [facility] [id number] 10/28/2016 14:30:00 10/28/2016 14:43:00 DIS Emergency ILEANA SINGH, NELLY Hoang [facility] ER STITCH REMOVAL [id number] 10/23/2016 19:34:00 10/23/2016 21:18:00 DIS Emergency VANCE AGUILAR APRN [facility] ER FALL/HEAD LAC [id number] 10/02/2016 13:33:00 10/02/2016 23:59:59 CLS Outpatient HUNG SINGH, ANDIE Velasquez [facility] RAD M25.569 [id number] 05/24/2016 12:08:00 05/26/2016 14:20:00 DIS Inpatient KANDI RODRIGUEZ DO [facility] 4TH SWB,DISABLING LT HIP PAIN [id number] 05/20/2016 18:05:00 05/24/2016 12:00:00 DIS Inpatient MICHEAL SINGH, DANTE M [facility] 4TH L HIP FRACTURE,NEW ONSET AFIB W/ RVR [id number] 05/17/2016 12:18:00 05/17/2016 23:59:59 CLS Outpatient DONALDO GALEANO DO M [facility] RT HYPOXIA,MORBID OBESITY, ANXIETY [id number] 04/25/2016 17:26:00 04/27/2016 13:55:00 DIS Outpatient ZEENAT SINGH, DARREN Sim [facility] 4TH CHEST PAIN,DYSPNEA,REESE [id number] 09/23/2015 09:42:00 09/23/2015 23:59:59 CLS Outpatient HUNG SINGH, ANDIE Velasquez [facility] RAD OSTEOPOROSIS,KNEE PAIN,BACK PAIN [id number] 09/02/2015 13:45:00 09/02/2015 14:27:00 DIS Outpatient MYRA ESPITIA DO [facility] REHAB S/P RT SHOULDER DISLOCATION [id number] 07/17/2015 15:33:00 07/17/2015 18:56:00 DIS Emergency ILEANA SINGH, NELLY Hoang [facility] ER RIB/BACK PAIN, POSSIBLE KIDNEY STONE [id number] 06/09/2015 18:16:00 06/09/2015 22:15:00 DIS Emergency CORTNEY SINGH, LUCY Riggs [facility] ER FALL [id number] 05/13/2015 15:31:00 05/13/2015 18:28:00 DIS Emergency RYLEE AMOS [facility] ER HIP PAIN [id number] 12/28/2014 07:05:00 12/28/2014 10:07:00 DIS Outpatient QUENTIN SINGH, NIKOLAI Garcia [facility] SDC DYSPHASIA [id number] 12/24/2014 05:51:00 12/24/2014 23:59:59 CLS Outpatient QUENTIN SINGH, NIKOLAI Jose [facility] PREOP DYSPHASIA [id number] 12/18/2014 11:53:00 12/18/2014 23:59:59 CLS Outpatient ANDIE PERSAUD MD [facility] CARD PERSISTANT BACK PAIN [id number] 11/21/2014 17:52:00 11/22/2014 19:00:00 DIS Inpatient KALEN SINGH, MYRA Hoang [facility] SURGICAL FALL/NECK BACK STRAIN - CHI [id number] 11/11/2014 10:32:00 11/11/2014 23:59:59 CLS Outpatient ANDIE PERSAUD MD [facility] RAD SCREENING [id number] 10/12/2014 15:13:00 10/12/2014 16:53:00 DIS Outpatient ANDIE PERSAUD MD [facility] REHAB WEAKNESS AND BACK PAIN [id number] 04/21/2014 11:13:00 04/21/2014 13:18:00 DIS Emergency REY SINGH, JOSE Varghese [facility] ER FALL/LEFT RIB PAIN [id number] 11/05/2013 14:20:00 11/05/2013 23:59:59 CLS Outpatient ANDIE PERSAUD MD [facility] RAD SCREENING [id number] 08/21/2013 10:31:00 08/21/2013 23:59:59 CLS Outpatient NOEMY SINGH, DONNA Riggs [facility] CARD L1 COMPRESSION FX [id number] 08/09/2013 11:59:00 08/09/2013 14:34:00 DIS Emergency RYLEE AMOS [facility] ER BACK PAIN [id number] 08/01/2013 13:01:00 08/01/2013 14:43:00 DIS Emergency RYLEE AMOS [facility] ER FALL/LEFT HIP PAIN [id number] 07/01/2013 19:12:00 07/01/2013 20:47:00 DIS Emergency VJ CRENSHAW MD [facility] ER HEAD,L SHOULDER, L HIP PAIN/FALL [id number] 10/28/2012 20:03:00 10/29/2012 06:20:00 DIS Outpatient HUNG SINGH, ANDIE Fernando [facility] SLEEP SOB [id number] 10/04/2012 10:04:00 10/04/2012 23:59:59 CLS Outpatient ANDIE PERSAUD MD [facility] RAD SCREENING [id number] 12/18/2014 11:53:00 Document Registration [id number] 12/18/2014 11:53:00 Document Registration [id number] 12/18/2014 11:53:00 Document Registration
--- NOTE | 2017-02-23 13:47 | Diagnostic Imaging Report ---
INDICATION: Bradycardia. COMPARISON: 05/21/2016. FINDINGS: Frontal and lateral views of the chest demonstrate mild cardiomegaly. Pulmonary vasculature, however, is within normal limits. The lungs are clear. There are no signs of infiltrate, pleural effusions or pneumothoraces. The visualized osseous structures show no acute abnormalities. IMPRESSION: 1. Mild cardiomegaly, but no evidence of failure or focal infiltrate. Dictated by: Dictated on workstation # [id number]
[2017-02-23 14:10] LABS: BASOPHILS % (AUTO) 0 % (0-10); EOSINOPHILS # (AUTO) 0.2 10^3/uL (0.0-0.3); EOSINOPHILS % (AUTO) 2 % (0-10); LYMPHOCYTES # (AUTO) 1.9 X 10^3 (1.0-4.0); LYMPHOCYTES % (AUTO) 23 % (12-44); MEAN CORPUSCULAR HEMOGLOBIN 29 PG (25-34); MEAN CORPUSCULAR HGB CONC 33 G/DL (32-36); MEAN CORPUSCULAR VOLUME 88 FL (80-99); MONOCYTES # (AUTO) 0.6 X 10^3 (0.0-1.0); MONOCYTES % (AUTO) 7 % (0-12); NEUTROPHILS # (AUTO) 5.5 X 10^3 (1.8-7.8); NEUTROPHILS % (AUTO) 67 % (42-75); PLATELET COUNT 223 10^3/uL (130-400); RED BLOOD COUNT 4.48 10^6/uL (4.35-5.85); RED CELL DISTRIBUTION WIDTH 14.7 % (10.0-14.5); WHITE BLOOD COUNT 8.2 10^3/uL (4.3-11.0)
[2017-02-23 14:26] LABS: ALANINE AMINOTRANSFERASE 15 U/L (0-55); ALBUMIN 3.7 GM/DL (3.2-4.5); ANION GAP 10 MMOL/L (5-14); ASPARTATE AMINO TRANSFERASE 13 U/L (5-34); BILIRUBIN,TOTAL 0.5 MG/DL (0.1-1.0); BLOOD UREA NITROGEN 22 MG/DL (7-18); BUN/CREATININE RATIO 23; CALCIUM 9.1 MG/DL (8.5-10.1); CARBON DIOXIDE 28 MMOL/L (21-32); CHLORIDE 104 MMOL/L (98-107); CREATININE SERUM 0.94 MG/DL (0.60-1.30); GFR ESTIMATED 58; GLUCOSE 91 MG/DL (70-105); POTASSIUM 3.5 MMOL/L (3.6-5.0); SODIUM 142 MMOL/L (135-145); TOTAL PROTEIN 6.4 GM/DL (6.4-8.2)
[2017-02-23 14:33] LABS: TROPONIN I < 0.30 NG/ML (<0.30)
--- NOTE | 2017-02-23 14:49 | ED Cardiac General ---
History of Present Illness General Chief Complaint: Cardiac/General Problems Stated Complaint: LOW PULSE RATE Nursing Triage Note: PT SENT TO ED FROM DR PERSAUD OFFICE, PT STATES HAD LOW HR. PT CO OF BEING TIRED AND HAVING SOME WEAKNESS Source: patient Exam Limitations: no limitations History of Present Illness Time seen by provider: 14:44 Initial Comments The patient is a 76-year-old white female who presented to Dr. Deuce Persaud office today. He then called and sent her out here because of a low pulse rate and low blood pressure. She reports that she has had problems with high blood pressure and irregular heartbeat for at least a year. She was placed on medication. It is my understanding she saw first KATELIN Cespedes from our cardiology service and then later when he was out of town saw Dr. Jain. She states that recently she has stopped her medications as she is been consistently hypotensive and bradycardic. She has been told that she had atrial fibrillation. Apparently this is not been documented as being consistent. It was recommended at one point in time that she take anticoagulants but she became fearful of bleeding and did not follow through. She denies chest pain. Timing/Duration: other Severity: moderate Allergies and Home Medications Allergies Coded Allergies: NKANo Known Allergies (Verified Allergy, Unknown, 06/10/06) Home Medications Albuterol Sulfate 1 Puff Puff, 2 PUFF IH Q4H PRN for SHORTNESS OF BREATH, ( Reported) Ascorbic Acid 1,000 Mg Tablet, 1,000 MG PO BID, (Reported) Aspirin 81 Mg Tab.chew, 81 MG PO DAILY, (Reported) Cholecalciferol (Vitamin D3) 5,000 Unit Capsule, 5,000 UNIT PO BID, (Reported) Cyanocobalamin (Vitamin B-12) 1,000 Mcg/1 Ml Drops, 5,000 MCG PO BID, (Reported) Cyclosporine 1 Each Droperette, 1 DROP OU BID, (Reported) Diltiazem HCl 30 Mg Tablet, 30 MG PO TID for 30 Days Prescribed by: KANDI RODRIGUEZ on 05/26/16 1026 Flaxseed Oil 1,000 Mg Capsule, 1,200 MG PO BID, (Reported) Oxycodone HCl/Acetaminophen 1 Each Tablet, 1 TAB PO Q4H PRN for PAIN, (Reported) Polyethylene Glycol 3350 255 Gm Powder, 1 TBS PO DAILY PRN for CONSTIPATION, ( Reported) Thyroid,Pork 65 Mg Tablet, 97.5 MG PO DAILY, (Reported) TAKES 1 & 1/2 OF A (65 MG) TABLET [Biotin 500 IU] , 500 UNITS PO DAILY, (Reported) Review of Systems Constitutional: see HPI EENTM: No Symptoms Reported Respiratory: No Symptoms Reported Cardiovascular: Irregular Heart Rate, Lightheadedness Gastrointestinal: No Symptoms Reported Genitourinary: No Symptoms Reported Musculoskeletal: other (generalized weakness) Skin: no symptoms reported Psychiatric/Neurological: No Symptoms Reported Past Ivkxdos-Uektby-Atqhko Hx Patient Social History Alcohol Use: Denies Use Recreational Drug Use: No Smoking Status: Never a Smoker 2nd Hand Smoke Exposure: No Recent Foreign Travel: No Contact w/Someone Who Travel: No Recent Infectious Disease Expo: No Recent Hopitalizations: No Immunizations Up To Date PED Vaccines UTD: No Date of Pneumonia Vaccine: Nov 22, 2014 Date of Influenza Vaccine: Jan 20, 2016 Seasonal Allergies Seasonal Allergies: No Surgeries History of Surgeries: Yes (STIMULATOR R HIP, CARPAL TUNNEL, TLKR, INTERSTIM R/ L HIP FOR INCONTINENCE, ) Surgeries: Appendectomy, Section, Gallbladder, Hysterectomy, Orthopedic, Tonsillectomy Respiratory History of Respiratory Disorde: Yes (Home o2 @ HS) Currently Using CPAP: No Currently Using BIPAP: No Cardiovascular History of Cardiac Disorders: Yes Cardiac Disorders: Chronic Edema/Swelling Neurological History of Neurological Disord: No 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 System Hx 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 Disorders: No Sexually Transmitted Disease: No HIV/AIDS: No Female 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 Disorders: Denies 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 Genitourinary History of Genitourinary Disor: Yes (INNER STEMS PLACED FOR INCONTINENCE) Genitourinary Disorders: Kidney Stones, UTI-Chronic Gastrointestinal History of Gastrointestinal Di: No Musculoskeletal History of Musculoskeletal Dis: Yes (OSTERPENIA) Musculoskeletal Disorders: Arthritis, Chronic Back Pain, Fractures Endocrine History of Endocrine Disorders: Yes ("THYROID PROBLEMS") Endocrine Disorders: Hypothyroidsim HEENT History of HEENT Disorders: No Loss of Vision: Denies Hearing Impairment: Denies Cancer History of Cancer: No Psychosocial History of Psychiatric Problem: No Integumentary History of Skin or Integumenta: No Blood Transfusions History of Blood Disorders: No Adverse Reaction to a Blood Tr: No Family Medical History Significant Family History: Diabetes Family Medial History: Diabetes mellitus 19 FATHER G8 SISTER Physical Exam Vital Signs Vital Sign - Last 12Hours 02/23/17 13:15 Temp 98.1 Pulse 66 Resp 13 B/P (MAP) 152/70 (97) Pulse Ox 96 Capillary Refill : Less Than 3 Seconds General Appearance: Mild Distress HEENT: Normal ENT Inspection Neck: Normal Inspection Respiratory: Chest Non Tender, Lungs Clear, Normal Breath Sounds, No Accessory Muscle Use, No Respiratory Distress Cardiovascular: Systolic Murmur (Grade 2 systolic murmur right and left intercostals second space.), Irregularly Irregular Gastrointestinal: Normal Bowel Sounds Extremity: Pedal Edema (bilateral 2+ foot to mid larios) Neurologic/Psychiatric: Alert, Oriented x3, No Motor/Sensory Deficits, Normal 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 Ack. Understanding Breath Sounds per Auscultation: Clear Heart Sounds per Auscultation: Regular Airway Exam: Mouth opens >2 fingers, Neck Full Range of Motion, Visulation of Uvula Sedation Adminstration Time: 2014 Laceration Repair : Suture Size: 5-0 Progress/Results/Core Measures Results/Orders Lab Results Laboratory Tests Test 02/23/17 13:47 Range/Units White Blood Count 8.2 4.3-11.0 10^3/uL Red Blood Count 4.48 4.35-5.85 10^6/uL Hemoglobin 12.8 11.5-16.0 G/DL Hematocrit 39 35-52 % Mean Corpuscular Volume 88 80-99 FL Mean Corpuscular Hemoglobin 29 25-34 PG Mean Corpuscular Hemoglobin Concent 33 32-36 G/DL Red Cell Distribution Width 14.7 H 10.0-14.5 % Platelet Count 223 130-400 10^3/uL Mean Platelet Volume 11.0 H 7.4-10.4 FL Neutrophils (%) (Auto) 67 42-75 % Lymphocytes (%) (Auto) 23 12-44 % Monocytes (%) (Auto) 7 0-12 % Eosinophils (%) (Auto) 2 0-10 % Basophils (%) (Auto) 0 0-10 % Neutrophils # (Auto) 5.5 1.8-7.8 X 10^3 Lymphocytes # (Auto) 1.9 1.0-4.0 X 10^3 Monocytes # (Auto) 0.6 0.0-1.0 X 10^3 Eosinophils # (Auto) 0.2 0.0-0.3 10^3/uL Basophils # (Auto) 0.0 0.0-0.1 10^3/uL Sodium Level 142 135-145 MMOL/L Potassium Level 3.5 L 3.6-5.0 MMOL/L Chloride Level 104 98-107 MMOL/L Carbon Dioxide Level 28 21-32 MMOL/L Anion Gap 10 5-14 MMOL/L Blood Urea Nitrogen 22 H 7-18 MG/DL Creatinine 0.94 0.60-1.30 MG/DL Estimat Glomerular Filtration Rate 58 BUN/Creatinine Ratio 23 Glucose Level 91 70-105 MG/DL Calcium Level 9.1 8.5-10.1 MG/DL Total Bilirubin 0.5 0.1-1.0 MG/DL Aspartate Amino Transf (AST/SGOT) 13 5-34 U/L Alanine Aminotransferase (ALT/SGPT) 15 0-55 U/L Alkaline Phosphatase 87 40-136 U/L Troponin I < 0.30 <0.30 NG/ML Total Protein 6.4 6.4-8.2 GM/DL Albumin 3.7 3.2-4.5 GM/DL My Orders Orders - DARREN EPPERSON MD Cbc With Automated Diff (02/23/17 13:19) Comprehensive Metabolic Panel (02/23/17 13:19) Troponin I (02/23/17 13:19) Chest 1 View, Ap/Pa Only (02/23/17 13:19) Ekg Tracing (02/23/17 13:19) Vital Signs/I&O Vital Sign - Last 12Hours 02/23/17 13:15 Temp 98.1 Pulse 66 Resp 13 B/P (MAP) 152/70 (97) Pulse Ox 96 Blood Pressure Mean: 97 Departure Impression Impression: Primary Impression: atrial fibrillation Disposition: 01 HOME, SELF-CARE Condition: Stable/Unchanged Departure-Patient Inst. Decision time for Depature: 14:50 Referrals: DEUCE PERSAUD MD (PCP) Primary Care Physician Patient Instructions: Atrial Fibrillation (DC) Add. Discharge Instructions: All discharge instructions reviewed with patient and/or family. Voiced understanding. Call KATELIN Cespedes's office on Sunday for an appointment and likely Holter monitor. [place] phone number is [phone]. Leave here medications as they are today. If problems return to emergency room. DARREN EPPERSON MD Feb 23, 2017 14:49
[2017-02-23 15:20] VITALS: BP 142/68
== END 2017-02-23 15:22 | disposition home or self-care (01) ==
LOC: EDUNIT# 13:04 → ER 13:05
DX: I48.91 Unspecified atrial fibrillation (principal); E03.9 Hypothyroidism, unspecified; Z79.82 Long term (current) use of aspirin; Z90.49 Acquired absence of other specified parts of digestive tract; Z90.710 Acquired absence of both cervix and uterus; Z90.89 Acquired absence of other organs; Z87.19 Personal history of other diseases of the digestive system
CPT/HCPCS: 36415; 71010; 80053; 84484; 85025; 93005

== ENCOUNTER 2018-03-19 06:44 | Outpatient (CLI) | payer MEDICARE, MEDICAID ==
[~2018-03-19] VITALS: Ht 154.9 cm; Wt 79.4 kg
[~2018-03-19 06:44] MED LIST changes: +ACHD5005 PO; -AMLO5TAB2 PO; +AMLO5TAB7 PO; -HYDR-3812 PO; -POLY255P PO; +POLY255P16 PO
[2018-03-19] MEDS ORDERED: FURO20TA4 PO (14:52)
[2018-03-19] MEDS ORDERED: POTA-51 PO (14:52)
[2018-03-19] MEDS ORDERED: CALC3.8S NS (14:52)
[2018-03-19] MEDS ORDERED: MAGN400C PO (14:52)
[2018-03-19] MEDS ORDERED: FISH1CAP15 PO (14:52)
== END 2018-03-19 14:58 | disposition home or self-care (01) ==
LOC: PREOP 06:44
PROVIDERS: ATTEND Specialist
DX: Z01.818 Encounter for other preprocedural examination (principal)

== ENCOUNTER 2018-03-22 11:04 | Day surgery (SDC) | payer MEDICARE, MEDICAID ==
[~2018-03-22] VITALS: Ht 154.9 cm; Wt 79.4 kg
[~2018-03-22 11:04] MED LIST changes: -AMLO5TAB7 PO; +AMLO5TAB9 PO; +CALC3.8S NS; +FISH1CAP15 PO; +FURO20TA4 PO; +POTA-51 PO
[2018-03-22 11:11] VITALS: BP 149/82
--- OUTSIDE RECORDS SUMMARY | 2018-03-22 11:12 | XMS REPORT | Clinical Summary ---
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 If you do not see the information that you expected, contact Release of Information in the Health Information Management department at [phone] for further assistance in locating additional records.[facility] Allergies Not on File Medications Not on file Active Problems Not on file Social History Date Tobacco Use Types Packs/Day Years Used Never Assessed Sex Assigned at Date Recorded Not on file Industry Job Start Date Occupation Not on file Not on file Not on file Travel End Travel History Travel Start No recent travel history available. Last Filed Vital Signs Not on file Plan of Treatment Health Maintenance Due Date Last Done Comments PHYSICAL (COMPREHENSIVE) 12/21/1947 EXAM DTAP/TDAP VACCINES (1 - 12/21/1957 Tdap) SHINGLES RECOMBINANT 12/21/1989 VACCINE (1 of 2) OSTEOPOROSIS 12/21/2004 SCREENING/MONITORING PNEUMONIA (PCV13/PPSV23) 12/21/2004 VACCINES (1 of 2 - PCV13) INFLUENZA VACCINE 10/03/2017 Results Not on filefrom Last 3 Months
[2018-03-22] MEDS ORDERED: MOXIFLOXACIN OPHTH SOLN 5 MG/ML 0.3 ML SYRINGE OP ONE (11:15)
[2018-03-22] MEDS ORDERED: TIMOLOL MALEATE 0.5% 5 ML (TIMOPTIC) BTL OU PRN (11:15)
[2018-03-22] MEDS ORDERED: LIDOCAINE PF 1% 2 ML AMP IR PRN (11:15)
[2018-03-22] MEDS ORDERED: POVIDONE (BETADINE) OPHTH SOLN 5% 30 ML OP ONE (11:15)
--- OUTSIDE RECORDS SUMMARY | 2018-03-22 11:15 | XMS REPORT | Continuity of Care Document ---
Author Author [facility] Address Unknown Phone Unavailable Allergies Active Description Code Type Severity Reaction Onset Reported/Identified Relationship to Patient Clinical Status Yes NKANo Known Allergies NKA Miscellaneous Allergy Unknown N/A 06/10/2006 Yes No Known Drug Allergies [id number] Drug Allergy Unknown N/A 03/19/2018 Medications There is no data. Problems Date [...] RYLEE AMOS Ot E888.9 FALL NOS 08/01/2013 TIFFANIE PA, RYLEE L Ot V45.82 PERCUTANEOUS TRANSLUM CORON ANGIOPLASTY 08/09/2013 [...] HUNG SINGH, ANDIE R Ot V57.1 09/25/2014 HNUG SINGH, ANDIE R Ot 724.5 09/25/2014 HUNG [...] PHYSICAL THERAPY NEC 11/12/2014 HUNG SINGH, ANDIE Velasquez Ot V76.12 11/12/2014 ANDIE PERSAUD MD Ot V76.12 11/22/2014 KALEN SINGH, MYRA Hoang Ot 244.9 HYPOTHYROIDISM NOS 11/22/2014 KALEN SINGH, MYRA Hoang Ot 721.2 THORACIC SPONDYLOSIS 11/22/2014 MYRA HIGUERA MD Ot 721.3 LUMBOSACRAL SPONDYLOSIS 11/22/2014 KALEN SINGH, MYRA Hoang Ot 920 CONTUSION FACE/SCALP/NCK 11/22/2014 MYRA HIGUERA MD Ot 923.00 CONTUSION SHOULDER REG 11/22/2014 MYRA HIGUERA MD Ot E000.8 OTHER EXTERNAL CAUSE STATUS 11/22/2014 MYRA HIGUERA MD Ot E015.2 ACTIVITIES INVOLVING COOKING AND BAKING 11/22/2014 MYRA HIGUERA MD Ot E849.0 ACCIDENT IN HOME 11/22/2014 MYRA HIGUERA MD Ot E885.9 FALL FROM SLIPPING, TRIPPING, OR STUMBLI 11/22/2014 MYRA HIGUERA MD S Ot V03.82 PROPHYLACTIC VACC AGAINST STREPTOCOCCUS 11/22/2014 [...] PERSAUD MD Ot M54.9 01/12/2015 ANDIE PERSAUD MD, Ot M54.9 05/13/2015 RYLEE AMOS Ot K57.90 DVRTCLOS OF INTEST, PART UNSP, W/O PERF 05/13/2015 RYLEE AMOS Ot M54.5 LOW BACK PAIN 05/13/2015 TIFFANIE PA, RYLEE L Ot N28.1 CYST OF KIDNEY, ACQUIRED 05/13/2015 TIFFANIE WILSON, RYLEE Jasso Ot R35.0 FREQUENCY OF MICTURITION 05/13/2015 TIFFANIE [...] Garcia Ot Z01.818 06/09/2015 CORTNEY SINGH, LUCY Riggs Ot S43.011A ANTERIOR SUBLUXATION OF RIGHT HUMERUS, I 06/09/2015 LUCY BARR MD Ot S80.211A ABRASION, RIGHT KNEE, INITIAL ENCOUNTER 06/09/2015 LUCY BARR MD Ot W01.0XXA FALL SAME LEV FROM SLIP/TRIP W/O STRIKE 06/09/2015 LUCY BARR MD Ot Y92.009 [facility] PL[facility] IN [facility] NON-[facility] (PRIVATE 06/09/2015 LUCY BARR MD Ot Y99.8 OTHER EXTERNAL CAUSE STATUS 07/15/2015 NUPUR DO, MYRA Dong Ot S43.011D ANTERIOR SUBLUXATION OF RIGHT HUMERUS, S 07/15/2015 NUPUR MYRA LARSEN Ot W01.0XXD FALL SAME LEV FROM SLIP/TRIP W/O STRIKE 07/15/2015 MYRA ESPITIA DO Ot Y99.8 OTHER EXTERNAL CAUSE STATUS 07/17/2015 ILEANA SINGH, NELLY Hoang Ot M54.5 LOW BACK PAIN 07/17/2015 ILEANA SINGH, NELLY Hoang Ot N20.0 CALCULUS OF KIDNEY 07/29/2015 NUPUR DO, MYRA F Ot S43.011D ANTERIOR [...] M85.89 OT DISRD OF BONE DENSITY AND STRUCTURE, 09/24/2015 ANDIE PERSAUD MD Ot Z13.820 ENCOUNTER FOR SCREENING FOR OSTEOPOROSIS 10/22/2015 ANDIE PERSAUD MD Ot M85.89 OTH DISRD OF BONE DENSITY AND STRUCTURE, 10/22/2015 ANDIE PERSAUD MD, Ot Z13.820 ENCOUNTER FOR [...] OTH SCREEN MAMMO-MALIGN NEOPLASM OF JUSTIN 05/02/2016 NOEMY SINGH, DONNA Riggs Ot 733.13 PATHOLOGIC FRACTURE, VERTEBRAE 05/02/2016 ANDIE [...] BONE DENSITY AND STRUCTURE, 05/02/2016 ANDIE PERSAUD MD Ot Z13.820 ENCOUNTER FOR SCREENING FOR OSTEOPOROSIS 05/18/2016 ODNALDO GALEANO DO Ot E66.01 MORBID (SEVERE) OBESITY DUE TO EXCESS CA 05/18/2016 DONALDO GALEANO DO Ot F41.9 ANXIETY DISORDER, UNSPECIFIED 05/18/2016 DONALDO GALEANO DO Ot R09.02 HYPOXEMIA 05/24/2016 DANTE BURTON MD, Ot B96.89 OTH BACTERIAL AGENTS THE CAUSE OF DIS 05/24/2016 DANTE BURTON MD Ot E03.9 HYPOTHYROIDISM, UNSPECIFIED 05/24/2016 DANTE BURTON MD, Ot G47.33 OBSTRUCTIVE SLEEP APNEA (ADULT) (PEDIATR 05/24/2016 DANTE BURTON MD Ot I10 ESSENTIAL (PRIMARY) HYPERTENSION 05/24/2016 DANTE BURTON MD Ot I48.0 PAROXYSMAL ATRIAL FIBRILLATION 05/24/2016 DANTE BURTON MD Ot M19.91 PRIMARY OSTEOARTHRITIS, UNSPECIFIED SITE 05/24/2016 DANTE BURTON MD, Ot M54.9 DORSALGIA, UNSPECIFIED 05/24/2016 DANTE BURTON MD Ot M81.0 AGE-RELATED OSTEOPOROSIS W/O CURRENT PAT 05/24/2016 DANTE BURTON MD Ot N39.0 URINARY TRACT INFECTION, SITE NOT SPECIF 05/24/2016 DANTE BURTON MD Ot R32 UNSPECIFIED URINARY INCONTINENCE 05/24/2016 DANTE BURTON MD, Ot S70.02XA CONTUSION OF LEFT HIP, INITIAL ENCOUNTER 05/24/2016 DANTE BURTON MD Ot W01.190A FALL SAME LEV FROM SLIP/TRIP W STRIKE AG 05/24/2016 DANTE BURTON MD M Ot Y92.29 [facility] 05/24/2016 DANTE BURTON MD Ot Z96.652 PRESENCE OF LEFT ARTIFICIAL KNEE JOINT 05/26/2016 RODRIGUEZCHRISTINA LARSEN KANDI Ot E03.9 HYPOTHYROIDISM, UNSPECIFIED 05/26/2016 RODRIGUEZ DO KANDI Ot G47.33 OBSTRUCTIVE SLEEP APNEA (ADULT) (PEDIATR 05/26/2016 RODRIGUEZ DO KANDI Ot I10 ESSENTIAL (PRIMARY) HYPERTENSION 05/26/2016 RODRIGUEZ DO KANDI Ot I48.0 PAROXYSMAL ATRIAL FIBRILLATION 05/26/2016 RODRIGUEZ DO KANDI Ot K59.00 CONSTIPATION, UNSPECIFIED 05/26/2016 RODRIGUEZ DO KANDI Ot M25.552 PAIN IN LEFT HIP 05/26/2016 JENNIFER LARSEN KANDI Ot M81.0 AGE-RELATED OSTEOPOROSIS W/O CURRENT PAT 05/26/2016 JENNIFER LARSEN KANDI Ot Z96.652 PRESENCE OF LEFT ARTIFICIAL KNEE [...] OBESITY DUE TO EXCESS CA 06/17/2016 DONALDO GALEANO DO, Ot F41.9 ANXIETY DISORDER, UNSPECIFIED 06/17/2016 DONALDO GALEANO DO Ot R09.02 HYPOXEMIA 10/08/2016 HUNG SINGH, ANDIE Velasquez Ot S80.01XA CONTUSION OF RIGHT KNEE, INITIAL ENCOUNT 10/08/2016 ANDIE PERSAUD MD Ot X58.XXXA EXPOSURE TO OTHER SPECIFIED FACTORS, INI 10/08/2016 ANDIE PERSAUD MD Ot Y99.8 OTHER EXTERNAL CAUSE STATUS 10/23/2016 VANCE AGUILAR APRN Ot E03.9 HYPOTHYROIDISM, UNSPECIFIED 10/23/2016 VANCE AGUILAR APRN Ot R60.9 EDEMA, UNSPECIFIED 10/23/2016 VANCE AGUILAR [...] NONVE 10/23/2016 VANCE AGUILAR APRN Ot Y92.[address] [facility] IN [facility] NON-[facility] (PRIVATE 10/23/2016 VANCE AGUILAR APRN Ot Z79.82 RESIDENTIAL (CURRENT) USE OF ASPIRIN 10/23/2016 VANCE AGUILAR [...] NONVE 10/25/2016 VANCE AGUILAR APRN Ot Y92.[address] [facility] IN [facility] NON-[facility] (PRIVATE 10/25/2016 VANCE AGUILAR APRN Ot Z79.82 RESIDENTIAL (CURRENT) USE OF ASPIRIN 10/25/2016 VANCE AGUILAR [...] NONVE 10/29/2016 VANCE AGUILAR APRN Ot Y92.[address] IN [facility] NON-[facility] 10/29/2016 VANCE AGUILAR APRN Ot 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9 HYPOTHYROIDISM, UNSPECIFIED 02/23/2017 DARREN EPPERSON MD Ot I48.91 UNSPECIFIED ATRIAL FIBRILLATION 02/23/2017 DARREN EPPERSON MD Ot R00.1 BRADYCARDIA, UNSPECIFIED 02/23/2017 DARREN EPPERSON MD, Ot 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 02/23/2017 DARREN EPPERSON MD, Ot Z87.19 PERSONAL HISTORY OF OTHER DISEASES OF TH 02/23/2017 DARREN EPPERSON MD, Ot Z90.49 ACQUIRED ABSENCE OF OTHER SPECIFIED PART 02/23/2017 DARREN EPPERSON MD, Ot Z90.710 ACQUIRED ABSENCE OF BOTH CERVIX AND UTER 02/23/2017 DARREN EPPERSON MD, Ot Z90.89 ACQUIRED ABSENCE OF OTHER ORGANS 02/23/2017 ANDIE PERSAUD MD Ot V76.12 OTH SCREEN MAMMO-MALIGN NEOPLASM OF JUSTIN 02/23/2017 NOEMY SINGH, DONNA Riggs Ot 733.13 PATHOLOGIC FRACTURE, VERTEBRAE 02/23/2017 ANDIE PERSAUD MD Ot V76.12 OTH SCREEN MAMMO-MALIGN NEOPLASM OF JUSTIN 02/23/2017 ANDIE PERSAUD MD, Ot V76.12 OTH SCREEN MAMMO-MALIGN NEOPLASM OF JUSTIN 02/23/2017 ANDIE PERSAUD MD Ot M54.9 DORSALGIA, UNSPECIFIED 02/23/2017 QUENTIN SINGH, NIKOLAI Garcia Ot Z01.818 ENCOUNTER FOR OTHER PREPROCEDURAL EXAMIN 02/23/2017 ANDIE PERSAUD MD, Ot M85.89 OTH DISRD OF BONE DENSITY AND STRUCTURE, 02/23/2017 ANDIE PERSAUD MD, Ot Z13.820 ENCOUNTER FOR SCREENING FOR OSTEOPOROSIS 02/23/2017 DONALDO GALEANO DO, Ot E66.01 MORBID (SEVERE) OBESITY DUE TO EXCESS CA 02/23/2017 DONALDO GALEANO DO, Ot F41.9 ANXIETY DISORDER, UNSPECIFIED 02/23/2017 DONALDO GALEANO DO Ot R09.02 HYPOXEMIA 02/23/2017 ANDIE PERSAUD MD Ot S80.01XA CONTUSION OF RIGHT KNEE, INITIAL ENCOUNT 02/23/2017 ANDIE PERSAUD MD Ot X58.XXXA EXPOSURE TO OTHER SPECIFIED FACTORS, INI 02/23/2017 ANDIE PERSAUD MD Ot Y99.8 OTHER EXTERNAL CAUSE STATUS 02/23/2017 CARMELO BHATT APRN Ot 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 02/23/2017 CARMELO BHATT TEACHER MUSIC Ot L97.212 NON-PRESSURE CHRONIC ULCER OF RIGHT CALF 02/23/2017 CARMELO BHATT TEACHER MUSIC Ot 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 02/23/2017 CARMELO BHATT TEACHER MUSIC Ot L97.212 NON-PRESSURE CHRONIC ULCER OF RIGHT CALF 03/19/2018 CHAPIS SINGH, UMANG Jasso Ot Z01.818 ENCOUNTER FOR OTHER PREPROCEDURAL EXAMIN 03/21/2018 ANDIE PERSAUD MD Ot V76.12 OTH SCREEN MAMMO-MALIGN NEOPLASM OF JUSTIN 03/21/2018 NOEMY SINGH, DONNA Riggs Ot 733.13 PATHOLOGIC FRACTURE, VERTEBRAE 03/21/2018 ANDIE PESRAUD MD Ot V76.12 OTH SCREEN MAMMO-MALIGN NEOPLASM OF JUSTIN 03/21/2018 ANDIE PERSAUD MD Ot V76.12 OTH SCREEN MAMMO-MALIGN NEOPLASM OF JUSTIN 03/21/2018 ANDIE PERSAUD MD Ot M54.9 DORSALGIA, UNSPECIFIED 03/21/2018 QUENTIN SINGH, NIKOLAI Garcia Ot Z01.818 ENCOUNTER FOR OTHER PREPROCEDURAL EXAMIN 03/21/2018 ANDIE PERSAUD MD Ot M85.89 OTH DISRD OF BONE DENSITY AND STRUCTURE, 03/21/2018 ANDIE PERSAUD MD Ot Z13.820 ENCOUNTER FOR SCREENING FOR OSTEOPOROSIS 03/21/2018 DONALDO GALEANO DO Ot E66.01 MORBID (SEVERE) OBESITY DUE TO EXCESS CA 03/21/2018 DONALDO GALEANO DO, Ot F41.9 ANXIETY DISORDER, UNSPECIFIED 03/21/2018 DONALDO GALEANO DO Ot R09.02 HYPOXEMIA 03/21/2018 ANDIE PERSAUD MD, Ot S80.01XA CONTUSION OF RIGHT KNEE, INITIAL ENCOUNT 03/21/2018 ANDIE PERSAUD MD, Ot X58.XXXA EXPOSURE TO OTHER SPECIFIED FACTORS, INI 03/21/2018 ANDIE PERSAUD MD, Ot Y99.8 OTHER EXTERNAL CAUSE STATUS 03/21/2018 CARMELO BHATT APRN Ot 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 03/21/2018 CARMELO BHATT APRN Ot L97.212 NON-PRESSURE CHRONIC ULCER OF RIGHT CALF 03/21/2018 CARMELO BHATT APRN Ot 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 03/21/2018 CARMELO BHATT APRN Ot L97.212 NON-PRESSURE CHRONIC [...] culture - 04/25/16 19:10 Bacterial urine culture [id number] NRG COLONY COUNT >100,000/ML NRG FTX;REPORTABLE SENSITIVITY [...] 04:25 THYROID STIMULATING HORMONE 0.54 u[iU]/mL 0.35-4.94 Complete blood count (CBC) with automated white blood cell (WBC) differential - 02/23/17 13:47 Blood leukocytes automated count (number/volume) 8.2 10*3/uL 4.3-11.0 Blood erythrocytes automated count (number/volume) 4.48 10*6/uL 4.35-5.85 Venous blood hemoglobin measurement (mass/volume) 12.8 g/dL 11.5-16.0 Blood hematocrit (volume fraction) 39 % 35-52 Automated erythrocyte mean corpuscular volume 88 [foz_us] 80-99 Automated erythrocyte mean corpuscular hemoglobin (mass per erythrocyte) 29 pg 25-34 Automated erythrocyte mean corpuscular hemoglobin concentration measurement ( mass/volume) 33 g/dL 32-36 Automated erythrocyte distribution width ratio 14.7 % 10.0-14.5 Automated blood platelet count (count/volume) 223 10*3/uL 130-400 Automated blood platelet mean volume measurement 11.0 [foz_us] 7.4-10.4 Automated blood neutrophils/100 leukocytes 67 % 42-75 Automated blood lymphocytes/100 leukocytes 23 % 12-44 Blood monocytes/100 leukocytes 7 % 0-12 Automated blood eosinophils/100 leukocytes 2 % 0-10 Automated blood basophils/100 leukocytes 0 % 0-10 Blood neutrophils automated count (number/volume) 5.5 10*3 1.8-7.8 Blood lymphocytes automated count (number/volume) 1.9 10*3 1.0-4.0 Blood monocytes automated count (number/volume) 0.6 10*3 0.0-1.0 Automated eosinophil count 0.2 10*3/uL 0.0-0.3 Automated blood basophil count (count/volume) 0.0 10*3/uL 0.0-0.1 Comprehensive metabolic panel - 02/23/17 13:47 Serum or plasma sodium measurement (moles/volume) 142 mmol/L 135-145 Serum or plasma potassium measurement (moles/volume) 3.5 mmol/L 3.6-5.0 Serum or plasma chloride measurement (moles/volume) 104 mmol/L 98-107 Carbon dioxide 28 mmol/L 21-32 Serum or plasma anion gap determination (moles/volume) 10 mmol/L 5-14 Serum or plasma urea nitrogen measurement (mass/volume) 22 mg/dL 7-18 Serum or plasma creatinine measurement (mass/volume) 0.94 mg/dL 0.60-1.30 Serum or plasma urea nitrogen/creatinine mass ratio 23 NRG Serum or plasma creatinine measurement with calculation of estimated glomerular filtration rate 58 NRG Serum or plasma glucose measurement (mass/volume) 91 mg/dL 70-105 Serum or plasma calcium measurement (mass/volume) 9.1 mg/dL 8.5-10.1 Serum or plasma total bilirubin measurement (mass/volume) 0.5 mg/dL 0.1-1.0 Serum or plasma alkaline phosphatase measurement (enzymatic activity/volume) 87 U/L 40-136 Serum or plasma aspartate aminotransferase measurement (enzymatic activity/ volume) 13 U/L 5-34 Serum or plasma alanine aminotransferase measurement (enzymatic activity/volume ) 15 U/L 0-55 Serum or plasma protein measurement (mass/volume) 6.4 g/dL 6.4-8.2 Serum or plasma albumin measurement (mass/volume) 3.7 g/dL 3.2-4.5 Serum or plasma troponin i.cardiac measurement (mass/volume) - 02/23/17 13:47 Serum or plasma troponin i.cardiac measurement (mass/volume) < ng/ mL <0.30 Encounters ACCT No. Visit Date/Time Discharge Status Pt. Type Provider Facility Loc./Unit Complaint [id number] 01/12/2011 12:51:00 01/12/2011 23:59:59 CLS Outpatient BELLA LLAMAS DDS N [id number] 03/19/2018 06:44:00 03/19/2018 14:58:00 DIS Outpatient UMANG NATION MD [facility] PREOP CATARACT RIGHT EYE [id number] 02/23/2017 13:05:00 02/23/2017 15:22:00 DIS Emergency ZEENAT SINGH, DARREN Sim [facility] ER LOW PULSE RATE [id number] 01/02/2017 09:24:00 01/02/2017 23:59:59 CLS Outpatient CARMELO BHATT TEACHER MUSIC [facility] WOUNDCARE [id number] 12/26/2016 08:57:00 12/26/2016 23:59:59 CLS Outpatient CARMELO BHATT TEACHER MUSIC [facility] WOUNDCARE [id number] 10/28/2016 14:30:00 10/28/2016 14:43:00 DIS Emergency ILEANA SINGH, NELLY Hoang [facility] ER STITCH REMOVAL [id number] 10/23/2016 19:34:00 10/23/2016 21:18:00 DIS Emergency VANCE AGUILAR APRN [facility] ER FALL/HEAD LAC [id number] 10/02/2016 13:33:00 10/02/2016 23:59:59 CLS Outpatient HUNG SINGH, ANDIE Velasquez [facility] RAD M25.569 [id number] 05/24/2016 12:08:00 05/26/2016 14:20:00 DIS Inpatient KANDI RODRIGUEZ DO [facility] 4TH SWB,DISABLING LT HIP PAIN [id number] 05/20/2016 18:05:00 05/24/2016 12:00:00 DIS Inpatient MICHEAL SINGH, DANTE Garcia [facility] 4TH L HIP FRACTURE,NEW ONSET AFIB W/ RVR [id number] 05/17/2016 12:18:00 05/17/2016 23:59:59 CLS Outpatient DONALDO GALEANO DO M [facility] RT HYPOXIA,MORBID OBESITY, ANXIETY [id number] 04/25/2016 17:26:00 04/27/2016 13:55:00 DIS Inpatient ZEENAT SINGH, DARREN Sim [facility] 4TH CHEST PAIN,DYSPNEA,REESE [id number] 09/23/2015 09:42:00 09/23/2015 23:59:59 CLS Outpatient ANDIE PERSAUD MD [facility] RAD OSTEOPOROSIS,KNEE PAIN,BACK PAIN [id number] 09/02/2015 13:45:00 09/02/2015 14:27:00 DIS Outpatient MYRA ESPITIA DO [facility] REHAB S/P RT SHOULDER DISLOCATION [id number] 07/17/2015 15:33:00 07/17/2015 18:56:00 DIS Emergency ILEANA SINGH, NELLY Hoang [facility] ER RIB/BACK PAIN, POSSIBLE KIDNEY STONE [id number] 06/09/2015 18:16:00 06/09/2015 22:15:00 DIS Emergency LUCY BARR MD [facility] ER FALL [id number] 05/13/2015 15:31:00 05/13/2015 18:28:00 DIS Emergency RYLEE AMOS [facility] ER HIP PAIN [id number] 12/28/2014 07:05:00 12/28/2014 10:07:00 DIS Outpatient NIKOLAI SAAVEDRA MD [facility] SDC DYSPHASIA [id number] 12/24/2014 05:51:00 12/24/2014 23:59:59 CLS Outpatient NIKOLAI SAAVEDRA MD [facility] PREOP DYSPHASIA [id number] 12/18/2014 11:53:00 12/18/2014 23:59:59 CLS Outpatient ANDIE PERSAUD MD [facility] CARD PERSISTANT BACK PAIN [id number] 11/21/2014 17:52:00 11/22/2014 19:00:00 DIS Inpatient KALEN SINGH, MYRA Hoang [facility] SURGICAL FALL/NECK BACK STRAIN - CHI [id number] 11/11/2014 10:32:00 11/11/2014 23:59:59 CLS Outpatient ANDIE PERSAUD MD [facility] RAD SCREENING [id number] 10/12/2014 15:13:00 10/12/2014 16:53:00 DIS Outpatient ANDIE PERSAUD MD [facility] REHAB WEAKNESS AND BACK PAIN [id number] 04/21/2014 11:13:00 04/21/2014 13:18:00 DIS Emergency JOSE LE MD [facility] ER FALL/LEFT RIB PAIN [id number] 11/05/2013 14:20:00 11/05/2013 23:59:59 CLS Outpatient ANDIE PERSAUD MD [facility] RAD SCREENING [id number] 08/21/2013 10:31:00 08/21/2013 23:59:59 CLS Outpatient DONNA SALGUERO MD [facility] CARD L1 COMPRESSION FX [id number] 08/09/2013 11:59:00 08/09/2013 14:34:00 DIS Emergency RYLEE AMOS [facility] ER BACK PAIN [id number] 08/01/2013 13:01:00 08/01/2013 14:43:00 DIS Emergency RYLEE AMOS [facility] ER FALL/LEFT HIP PAIN [id number] 07/01/2013 19:12:00 07/01/2013 20:47:00 DIS Emergency VJ CRENSHAW MD [facility] ER HEAD,L SHOULDER, L HIP PAIN/FALL [id number] 10/28/2012 20:03:00 10/29/2012 06:20:00 DIS Outpatient ANDIE PERSAUD MD [facility] SLEEP SOB [id number] 10/04/2012 10:04:00 10/04/2012 23:59:59 CLS Outpatient ANDIE PERSAUD MD [facility] RAD SCREENING [id number] 03/22/2018 12:30:00 PEN Kimberly NATION MD, UMANG Jasso [facility] SDC RIGHT EYE CATARACT [id number] 12/18/2014 11:53:00 Document Registration [id number] 12/18/2014 11:53:00 Document Registration [id number] 12/18/2014 11:53:00 Document Registration
[2018-03-22] MEDS: TETRACAINE 0.5% OPHTH SOLN 4 ML BTL (SINGLE DOSE ONLY) OU PRN ×4 (11:22→11:39)
[2018-03-22] MEDS: PHENYLEPHRINE 10% OPHTH (NEO-SYN) 5 ML BTL OU SCH ×3 (11:27→11:39)
[2018-03-22] MEDS: CYCLOPENTOLATE 1% (CYCLOGYL) 2 ML DROPS OP SCH ×3 (11:27→11:39)
[2018-03-22] MEDS ORDERED: MIDAZOLAM 2 MG/2 ML (VERSED) VIAL ONE (11:31)
--- NOTE | 2018-03-22 11:42 | Ophthalmologist Pre-Op Note ---
Pre-Operative Progress Note H&P Reviewed The H&P was reviewed, patient examined and no changes noted. Date H&P Reviewed: Mar 22, 2018 Time H&P Reviewed: 11:42 Pre-Op Dx Cataract, Right Eye UMANG NATION MD Mar 22, 2018 11:42
--- NOTE | 2018-03-22 12:06 | Ophthalmology Operative Report ---
Cataract removal/placement IOL PREOPERATIVE DIAGNOSIS: Cataract Right Eye POSTOPERATIVE DIAGNOSIS: Cataract Right Eye PROCEDURE: Cataract removal and placement of posterior chamber implant, right eye SURGEON: Marcus Nation ANESTHESIA: Topical with sedation COMPLICATIONS: None ESTIMATED BLOOD LOSS: Minimal DESCRIPTION OF PROCEDURE: After proper informed consent was obtained, the patient, a 77 female, was taken to the Operating Room and the right eye was anesthetized with tetracaine. The right eye was then prepped and draped in the usual manner. A wire lid speculum was placed. A paracentesis was made at the left hand position. Preservative free lidocaine was injected into the anterior chamber followed by viscoelastic. A clear corneal incision was made in the temporal position. A capsulorrhexis was preformed and the central nuclear and cortical material were removed. The posterior capsule was polished and Fidencio [id number] 21.0 IOL was placed into the capsular bag. The residual viscoelastic was aspirated and balanced saline solution was injected into the anterior chamber. Moxifloxacin was injected into the anterior chamber. The wound was checked and found to be water tight. The patient tolerated the procedure well without complications. MARCUS NATION MD Mar 22, 2018 12:06
[2018-03-22 12:18] VITALS: BP 146/68
[2018-03-22] MEDS ORDERED: acetaZOLAMIDE ER 500 MG CAP (DIAMOX SEQUELS) PO ONE (12:30)
--- NOTE | 2018-03-22 12:46 | Anesthesia-General Post-Op ---
MAC Patient Condition Mental Status/LOC: Same as Preop Cardiovascular: Satisfactory Nausea/Vomiting: Absent Respiratory: Satisfactory Pain: Controlled Complications: Absent Post Op Complications Complications None Follow Up Care/Instructions Patient Instructions None needed. Anesthesiology Discharge Order Discharge Order Patient is doing well, no complaints, stable vital signs, no apparent adverse anesthesia problems. No complications reported per nursing. TAMIKA BISHOP CRNA Mar 22, 2018 12:46
== END 2018-03-22 12:18 | disposition home or self-care (01) ==
LOC: SDC 11:04
PROVIDERS: ATTEND Specialist
DX: H25.11 Age-related nuclear cataract, right eye (principal); E66.9 Obesity, unspecified; Z68.33 Body mass index [BMI] 33.0-33.9, adult; Z79.82 Long term (current) use of aspirin; Z79.899 Other long term (current) drug therapy

== ENCOUNTER 2018-04-02 05:57 | Outpatient (CLI) | payer MEDICARE, MEDICAID ==
[~2018-04-02] VITALS: Ht 154.9 cm; Wt 79.4 kg
== END 2018-04-02 13:59 | disposition home or self-care (01) ==
LOC: PREOP 05:57
PROVIDERS: ATTEND Specialist
DX: Z01.818 Encounter for other preprocedural examination (principal)

== ENCOUNTER 2018-04-05 06:09 | Day surgery (SDC) | payer MEDICARE, MEDICAID ==
[~2018-04-05] VITALS: Ht 154.9 cm; Wt 79.4 kg
--- OUTSIDE RECORDS SUMMARY | 2018-04-05 06:12 | XMS REPORT | Clinical Summary ---
Author Author [facility] Organization [facility] Address Unknown Phone Unavailable Care Team Providers Care Semi Conductor Assembler Name Role Phone PCP Unavailable Source Comments Some departments are not documenting in the electronic medical record. If you do not see the information that you expected, contact Release of Information in the Health Information Management department at [phone] for further assistance in locating additional records.[facility] Allergies Not on File Medications Not on [...]
[2018-04-05] MEDS ORDERED: POVIDONE (BETADINE) OPHTH SOLN 5% 30 ML OP ONE (06:15)
[2018-04-05] MEDS ORDERED: TIMOLOL MALEATE 0.5% 5 ML (TIMOPTIC) BTL OU PRN (06:15)
[2018-04-05] MEDS ORDERED: LIDOCAINE PF 1% 2 ML AMP IR PRN (06:15)
[2018-04-05] MEDS ORDERED: MOXIFLOXACIN OPHTH SOLN 5 MG/ML 0.3 ML SYRINGE OP ONE (06:15)
--- OUTSIDE RECORDS SUMMARY | 2018-04-05 06:15 | XMS REPORT | Continuity of Care Document ---
Author Author [facility] [place] [facility] Address Unknown Phone Unavailable Allergies Active Description Code Type Severity Reaction Onset Reported/Identified Relationship to Patient Clinical Status Yes NKANo Known Allergies NKA Miscellaneous Allergy Unknown N/A 06/10/2006 Yes No Known Drug Allergies [id number] Drug Allergy Unknown N/A 03/19/2018 Medications There [...] E000.8 OTHER EXTERNAL CAUSE STATUS 07/01/2013 VJ CRENSAHW MD Ot E849.0 ACCIDENT IN HOME 07/01/2013 [...] AMOS Ot 922.32 BUTTOCK CONTUSION 08/01/2013 RYLEE AMSO Ot E888.9 FALL NOS 08/01/2013 TIFFANIE PA, [...] HUNG SINGH, ANDIE R Ot 780.79 09/25/2014 HNUG SINGH, ANDIE R Ot V15.88 09/25/2014 HUNG [...] STRIKE 06/09/2015 LUCY BARR MD Ot Y92.[address] [facility] [address] IN [facility] NON-[facility] (PRIVATE 06/09/2015 LUCY BARR MD Ot Y99.8 [...] 05/24/2016 DANTE BURTON MD M Ot Y92.29 [facility] 05/24/2016 DATNE BURTON MD Ot Z96.652 PRESENCE OF LEFT [...] NONVE 10/23/2016 VANCE AGUILAR APRN Ot Y92.[address] [facility] [address] IN [facility] NON-[facility] (PRIVATE 10/23/2016 VANCE AGUILAR APRN Ot Z79.82 JAIL (CURRENT) USE OF ASPIRIN 10/23/2016 VANCE AGUILAR [...] NONVE 10/25/2016 VANCE AGUILAR APRN Ot Y92.[address] [facility] [address] IN [facility] NON-[facility] (PRIVATE 10/25/2016 VANCE AGUILAR APRN Ot Z79.82 JAIL (CURRENT) USE OF ASPIRIN 10/25/2016 VANCE AGUILAR [...] AGUILAR APRN Ot Y92.[address] IN [facility] NON-[facility] 10/29/2016 VANCE AGUILAR APRN Ot Z79.82 ENGINEERING TECHNICIAN PARKING (CURRENT) USE OF ASPIRIN 10/29/2016 VANCE AGUILAR [...] ULCER OF R 01/19/2017 NOVA CARMELO Velasquez SEA SHELL GATHERER Ot L97.212 NON-PRESSURE CHRONIC ULCER OF RIGHT [...] UNSPECIFIED 02/23/2017 DARREN EPPERSON MD, Ot Z79.82 ENGINEERING TECHNICIAN PARKING (CURRENT) USE OF ASPIRIN 02/23/2017 DARREN EPPERSON [...] OTH SCREEN MAMMO-MALIGN NEOPLASM OF JUSTIN 02/23/2017 NADIE PERSAUD MD Ot M54.9 DORSALGIA, UNSPECIFIED 02/23/2017 [...] W ULCER OF R 02/23/2017 CARMELO BHATT SEA SHELL GATHERER Ot L97.212 NON-PRESSURE CHRONIC ULCER OF RIGHT CALF 02/23/2017 CARMELO BHATT SEA SHELL GATHERER Ot 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 02/23/2017 CARMELO BHATT SEA SHELL GATHERER Ot L97.212 NON-PRESSURE CHRONIC ULCER OF RIGHT CALF 03/19/2018 CHAPIS SINGH, UMANG Jasso Ot Z01.818 ENCOUNTER FOR OTHER PREPROCEDURAL EXAMIN 03/21/2018 ANDIE PERSAUD MD Ot V76.12 OTH SCREEN MAMMO-MALIGN NEOPLASM OF JUSTIN 03/21/2018 NOEMY SINGH, DONNA Riggs Ot 733.13 PATHOLOGIC FRACTURE, VERTEBRAE 03/21/2018 ANDIE PERSAUD MD Ot V76.12 OTH [...] (SEVERE) OBESITY DUE TO EXCESS CA 03/21/2018 FROYLAN DO, DONALDO M Ot F41.9 ANXIETY DISORDER, UNSPECIFIED 03/21/2018 DONALDO GALEANO DO Ot R09.02 HYPOXEMIA 03/21/2018 ANDIE PERSAUD MD, Ot S80.01XA CONTUSION OF RIGHT KNEE, INITIAL ENCOUNT 03/21/2018 ANDIE PERSAUD MD Ot X58.XXXA EXPOSURE TO OTHER SPECIFIED FACTORS, INI 03/21/2018 ANDIE PERSAUD MD Ot Y99.8 OTHER EXTERNAL CAUSE STATUS 03/21/2018 CARMELO BHATT SEA SHELL GATHERER Ot 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899 OTHER ENGINEERING TECHNICIAN PARKING (CURRENT) DRUG THERAPY 03/27/2018 UMANG NATION MD, Ot E66.9 OBESITY, UNSPECIFIED 03/27/2018 UMANG NATION MD Ot H25.11 AGE-RELATED NUCLEAR CATARACT, RIGHT EYE 03/27/2018 UMANG NATION MD, Ot Z68.33 BODY MASS INDEX (BMI) 33.0-33.9, ADULT 03/27/2018 UMANG NATION MD, Ot Z79.82 JAIL (CURRENT) USE OF ASPIRIN 03/27/2018 UMANG NATION MD Ot Z79.899 OTHER ENGINEERING TECHNICIAN PARKING (CURRENT) DRUG THERAPY 04/02/2018 UMANG NATION MD Ot Z01.818 ENCOUNTER FOR OTHER PREPROCEDURAL EXAMIN Procedures There is no data. Results Test [...] culture - 04/25/16 19:10 Bacterial urine culture [id number] NRG COLONY COUNT >100,000/ML NRG FTX;REPORTABLE SENSITIVITY [...] Status Pt. Type Provider Facility Loc./Unit Complaint [id number] 01/12/2011 12:51:00 01/12/2011 23:59:59 CLS Outpatient BELLA LLAMAS DDS [id number] 04/02/2018 05:57:00 04/02/2018 13:59:00 DIS Outpatient UMANG NATION MD [facility] PREOP LEFT CATARACT [id number] 03/22/2018 11:04:00 03/22/2018 12:18:00 DIS Outpatient UMANG NATION MD [facility] SDC RIGHT EYE CATARACT [id number] 03/19/2018 06:44:00 03/19/2018 14:58:00 DIS Outpatient UMANG NATION MD [facility] PREOP CATARACT RIGHT EYE [id number] 02/23/2017 13:05:00 02/23/2017 15:22:00 DIS Emergency ZEENAT SINGH, DARREN Sim [facility] ER LOW PULSE RATE [id number] 01/02/2017 09:24:00 01/02/2017 23:59:59 CLS Outpatient CARMELO BHATT SEA SHELL GATHERER [facility] WOUNDCARE [id number] 12/26/2016 08:57:00 12/26/2016 23:59:59 CLS Outpatient CARMELO BHATT SEA SHELL GATHERER [facility] WOUNDCARE [id number] 10/28/2016 14:30:00 10/28/2016 14:43:00 DIS Emergency ILEANA SINGH, NELLY Hoang [facility] ER STITCH REMOVAL [id number] 10/23/2016 19:34:00 10/23/2016 21:18:00 DIS Emergency VANCE AGUILAR APRN [facility] ER FALL/HEAD LAC [id number] 10/02/2016 13:33:00 10/02/2016 23:59:59 CLS Outpatient HUNG SINGH, ANDIE Velasquez [facility] RAD M25.569 [id number] 05/24/2016 12:08:00 05/26/2016 14:20:00 DIS Inpatient KANDI RODRIGUEZ DO [facility] 4TH SWB,DISABLING LT HIP PAIN [id number] 05/20/2016 18:05:00 05/24/2016 12:00:00 DIS Inpatient MICHEAL SINGH, DANTE Garcia [facility] 4TH L HIP FRACTURE,NEW ONSET AFIB W/ RVR [id number] 05/17/2016 12:18:00 05/17/2016 23:59:59 CLS Outpatient DONALDO GALEANO DO [facility] RT HYPOXIA,MORBID OBESITY, ANXIETY [id number] 04/25/2016 17:26:00 04/27/2016 13:55:00 DIS Inpatient ZEENAT SINGH, DARREN Sim [facility] 4TH CHEST PAIN,DYSPNEA,REESE [id number] 09/23/2015 09:42:00 09/23/2015 23:59:59 CLS Outpatient ANDIE PERSAUD MD [facility] RAD OSTEOPOROSIS,KNEE PAIN,BACK PAIN [id number] 09/02/2015 13:45:00 09/02/2015 14:27:00 DIS Outpatient MYRA ESPITIA DO [facility] REHAB S/P RT SHOULDER DISLOCATION [id number] 07/17/2015 15:33:00 07/17/2015 18:56:00 DIS Emergency ILEANA SINGH, NELLY Hoang [facility] ER RIB/BACK PAIN, POSSIBLE KIDNEY STONE [id number] 06/09/2015 18:16:00 06/09/2015 22:15:00 DIS Emergency LUCY BARR MD [facility] ER FALL [id number] 05/13/2015 15:31:00 05/13/2015 18:28:00 DIS Emergency RYLEE AMOS [facility] ER HIP PAIN [id number] 12/28/2014 07:05:00 12/28/2014 10:07:00 DIS Outpatient NIKOLAI SAAVEDRA MD [facility] SDC DYSPHASIA [id number] 12/24/2014 05:51:00 12/24/2014 23:59:59 CLS Outpatient NIKOLAI SAAVEDRA MD [facility] PREOP DYSPHASIA [id number] 12/18/2014 11:53:00 12/18/2014 23:59:59 CLS Outpatient ANDIE PERSAUD MD [facility] CARD PERSISTANT BACK PAIN [id number] 11/21/2014 17:52:00 11/22/2014 19:00:00 DIS Inpatient MYRA HIGUERA MD [facility] SURGICAL FALL/NECK BACK STRAIN - CHI [id number] 11/11/2014 10:32:00 11/11/2014 23:59:59 CLS Outpatient ANDIE PERSAUD MD [facility] RAD SCREENING [id number] 10/12/2014 15:13:00 10/12/2014 16:53:00 DIS Outpatient ANDIE PERSAUD MD [facility] REHAB WEAKNESS AND BACK PAIN [id number] 04/21/2014 11:13:00 04/21/2014 13:18:00 DIS Emergency REY SINGH, JOSE Varghese [facility] ER FALL/LEFT RIB PAIN [id number] 11/05/2013 14:20:00 11/05/2013 23:59:59 CLS Outpatient ANDIE PERSAUD MD [facility] RAD SCREENING [id number] 08/21/2013 10:31:00 08/21/2013 23:59:59 CLS Outpatient DONNA SALGUERO MD [facility] CARD L1 COMPRESSION FX [id number] 08/09/2013 11:59:00 08/09/2013 14:34:00 DIS Emergency RYLEE AMOS [facility] ER BACK PAIN [id number] 08/01/2013 13:01:00 08/01/2013 14:43:00 DIS Emergency RYLEE AMOS [facility] ER FALL/LEFT HIP PAIN [id number] 07/01/2013 19:12:00 07/01/2013 20:47:00 DIS Emergency VJ CRENSHAW MD [facility] ER HEAD,L SHOULDER, L HIP PAIN/FALL [id number] 10/28/2012 20:03:00 10/29/2012 06:20:00 DIS Outpatient ANDIE PERSAUD MD [facility] SLEEP SOB [id number] 10/04/2012 10:04:00 10/04/2012 23:59:59 CLS Outpatient ANDIE PERSAUD MD [facility] RAD SCREENING [id number] 04/05/2018 06:09:00 ACT Outpatient UMANG NATION MD [facility] SDC LEFT CATARACT [id number] 12/18/2014 11:53:00 Document Registration [id number] 12/18/2014 11:53:00 Document Registration [id number] 12/18/2014 11:53:00 Document Registration [id number] 04/02/2018 14:00:00 ACT Outpatient [facility]
[2018-04-05] MEDS: TETRACAINE 0.5% OPHTH SOLN 4 ML BTL (SINGLE DOSE ONLY) OU PRN ×4 (06:29→06:38)
[2018-04-05] MEDS: CYCLOPENTOLATE 1% (CYCLOGYL) 2 ML DROPS OP SCH ×3 (06:32→06:38)
[2018-04-05] MEDS: PHENYLEPHRINE 10% OPHTH (NEO-SYN) 5 ML BTL OU SCH ×3 (06:32→06:38)
[2018-04-05 06:44] VITALS: BP 139/66
[2018-04-05] MEDS ORDERED: MIDAZOLAM 2 MG/2 ML (VERSED) VIAL ONE (06:57)
--- NOTE | 2018-04-05 07:00 | Ophthalmologist Pre-Op Note ---
Pre-Operative Progress Note H&P Reviewed The H&P was reviewed, patient examined and no changes noted. Date H&P Reviewed: Apr 05, 2018 Time H&P Reviewed: 07:00 Pre-Op Dx Cataract, Left Eye UMANG NATION MD Apr 05, 2018 07:00
--- NOTE | 2018-04-05 07:20 | Ophthalmology Operative Report ---
Cataract removal/placement IOL PREOPERATIVE DIAGNOSIS: Cataract Left Eye POSTOPERATIVE DIAGNOSIS: Cataract Left Eye PROCEDURE: Cataract removal and placement of posterior chamber implant, left eye SURGEON: Marcus Nation ANESTHESIA: Topical with sedation COMPLICATIONS: None ESTIMATED BLOOD LOSS: Minimal DESCRIPTION OF PROCEDURE: After proper informed consent was obtained, the patient, a 77 female, was taken to the Operating Room and the left eye was anesthetized with tetracaine. The left eye was then prepped and draped in the usual manner. A wire lid speculum was placed. A paracentesis was made at the left hand position. Preservative free lidocaine was injected into the anterior chamber followed by viscoelastic. A clear corneal incision was made in the temporal position. A capsulorrhexis was preformed and the central nuclear and cortical material were removed. The posterior capsule was polished and an Fidencio 21.0 [id number] was placed into the capsular bag. The residual viscoelastic was aspirated and balanced saline solution was injected into the anterior chamber. Moxifloxacin was injected into the anterior chamber. The wound was checked and found to be water tight. The patient tolerated the procedure well without complications. MARCUS NATION MD Apr 05, 2018 07:20
[2018-04-05 07:37] VITALS: BP 132/59
[2018-04-05] MEDS ORDERED: acetaZOLAMIDE ER 500 MG CAP (DIAMOX SEQUELS) PO ONE (08:00)
--- NOTE | 2018-04-05 12:48 | Anesthesia-General Post-Op ---
MAC Patient Condition Mental Status/LOC: Same as Preop Cardiovascular: Satisfactory Nausea/Vomiting: Absent Respiratory: Satisfactory Pain: Controlled Complications: Absent Post Op Complications Complications None Follow Up Care/Instructions Patient Instructions None needed. Anesthesiology Discharge Order Discharge Order Patient is doing well, no complaints, stable vital signs, no apparent adverse anesthesia problems. No complications reported per nursing. DION DRAKE CRNA Apr 05, 2018 12:48
== END 2018-04-05 07:37 | disposition home or self-care (01) ==
LOC: SDC 06:09
PROVIDERS: ATTEND Specialist
DX: H25.12 Age-related nuclear cataract, left eye (principal); E66.9 Obesity, unspecified; Z68.33 Body mass index [BMI] 33.0-33.9, adult; Z79.82 Long term (current) use of aspirin; Z79.899 Other long term (current) drug therapy

== ENCOUNTER → 2018-10-21 | Outpatient (CLI) | payer MEDICARE, MEDICAID ==
--- NOTE | 2018-10-22 19:20 | Diagnostic Imaging Report ---
INDICATION: Routine screening. Comparison is made with prior mammograms from 11/11/2014 and 11/05/2013. 2-D and 3-D bilateral screening mammography was performed. The current study was also evaluated with a Computer Aided Detection (CAD) system. 3-D tomosynthesis was also performed and reviewed. FINDINGS: Scattered fibronodular parenchymal pattern is noted and similar to prior study. Scattered benign-appearing parenchymal and vascular calcifications are seen bilaterally. No dominant mass or malignant-appearing microcalcifications are seen. The axillae are unremarkable. IMPRESSION: No mammographic features suspicious for malignancy are identified. ACR BI-RADS Category 2: Benign findings. Result letter will be mailed to the patient. Note: At least 10% of breast cancer is not imaged by mammography. Dictated by: Dictated on workstation # [id number]
== END ==
LOC: RAD 15:11
PROVIDERS: ATTEND Family Medicine
DX: Z12.31 Encounter for screening mammogram for malignant neoplasm of breast (principal)
CPT/HCPCS: 77067

== ENCOUNTER → 2019-04-22 | Outpatient (CLI) | payer MEDICARE, MEDICAID ==
[~2019-04-22] MED LIST changes: -METO-370 PO; -METO-395 PO; +METO50TA7 PO; +MTP100TCR PO; -TRAM50TA2 PO; +TRM50T PO
--- NOTE | 2019-04-22 10:23 | Diagnostic Imaging Report ---
INDICATION: Back pain after fall. 3 views were obtained. FINDINGS: There is grade 1 spondylolisthesis of L5 on S1. There is slight anterolisthesis of L4 on L5. There is an age-indeterminate compression fracture of the L1 vertebral body. The remaining lumbar vertebral body heights are well-maintained. There is multilevel degenerative disease in lower lumbar hypertrophic degenerative facet disease. There are postsurgical changes at L3-L4. IMPRESSION: Diffuse lumbar spondylosis and multilevel degenerative disease as described. Age indeterminate L1 compression fracture. This is likely chronic. If however there is high clinical concern, this may be acute further evaluation with either MRI or bone scan should be considered Dictated by: Dictated on workstation # [id number]
--- NOTE | 2019-04-22 10:55 | Diagnostic Imaging Report ---
INDICATION: Pain after fall. 3 views of the right ribs were obtained. FINDINGS: There are moderate degenerative changes in the right shoulder and AC joint. No definite displaced rib fractures are appreciated. Right lung is clear. IMPRESSION: No definitive displaced rib fractures. Marked degenerative changes in the right shoulder. Dictated by: Dictated on workstation # [id number]
== END ==
LOC: RAD 08:45
PROVIDERS: ATTEND Family Medicine
DX: M48.56XA Collapsed vertebra, not elsewhere classified, lumbar region, initial encounter for fracture (principal); M47.816 Spondylosis without myelopathy or radiculopathy, lumbar region; M51.36 Other intervertebral disc degeneration, lumbar region; M19.011 Primary osteoarthritis, right shoulder; R07.81 Pleurodynia; W19.XXXA Unspecified fall, initial encounter; Y92.019 Unspecified place in single-family (private) house as the place of occurrence of the external cause
CPT/HCPCS: 71100; 72100

== ENCOUNTER 2021-03-14 11:19 | Observation (INO) | payer MEDICARE, MEDICAID ==
[~2021-03-14] VITALS: Ht 154 cm; Wt 105.0 kg
[~2021-03-14 11:19] MED LIST changes: +AMLO-250 PO; -AMLO5TAB9 PO; +ASCO100024 PO; -ASCO10006 PO; -CIPR500T4 PO; +CIPR500T5 PO; +MULT-567 PO; -MULT1TAB69 PO; -OXYC-471 PO; +OXYC1TAB11 PO
[2021-03-14] MEDS ORDERED: VANCOMYCIN INJECTION 1,000 MG in NS (IVPB) 250 ML IV SCH (11:30)
[2021-03-14] MEDS ORDERED: CEFEPIME INJECTION 1,000 MG in NS (IVPB) 50 ML IV ONE (11:30)
[2021-03-14] MEDS ORDERED: ACETAMINOPHEN 500 MG TAB (TYLENOL) PO ONE (11:30)
[2021-03-14] MEDS ORDERED: NS IV 1000 ML 1,000 ML IV SCH ×2 (11:30)
--- NOTE | 2021-03-14 11:33 | ED General ---
General Stated Complaint: WEAKNESS Source of Information: Patient Exam Limitations: No Limitations History of Present Illness Date Seen by Provider: Mar 14, 2021 Time Seen by Provider: 11:12 Initial Comments Patient to the ER by EMS from [facility] with chief complaint that she usually has someone come and work with her every day but because they've not been coming for the past several days she has just been sitting in her chair and urinating on herself. She now has a fever of 103.9 according to EMS. She has no shortness of breath or cough. She did not get a COVID-19 vaccination but she did get an influenza vaccine. No COPD. She has diabetes and obesity hypertension. No pain anywhere. Not requiring supplemental oxygen. Caregiver relates that the patient was in [facility] for cellulitis of the left wrist she also has some fractures and has a follow-up appointment on the with Dr. Aguayo for her left wrist. Patient states she feels her wrist looks way better and the swelling is down. Allergies and Home Medications Allergies Coded Allergies: No Known Drug Allergies (Unverified , 03/19/18) Patient Home Medication List Home Medication List Reviewed: Yes Ascorbic Acid (Vitamin C) 1,000 Mg Tablet, 1,000 MG PO BID, (Reported) Entered as Reported by: BEAN GASTNO on 04/26/16 0950 Last Action: Reviewed Aspirin (Aspirin) 81 Mg Tab.chew, 81 MG PO DAILY, (Reported) Entered as Reported by: BEAN GASTON on 05/22/16 1104 Last Action: Reviewed Cholecalciferol (Vitamin D3) (Vitamin D3) 25 Mcg Capsule, 25 MCG PO DAILY, (Reported) Entered as Reported by: ENEDELIA WATKINS on 03/15/211205 Last Action: Reviewed Cyclosporine (Restasis) 1 Each Droperette, 1 DROP OU BID PRN for DRY EYES, (Reported) Entered as Reported by: ENEDELIA WATKINS on 03/15/211205 Last Action: Reviewed Dicyclomine HCl (Dicyclomine HCl) 10 Mg Capsule, 10 MG PO BID PRN for GI SPASMS, (Reported) Entered as Reported by: ENEDELIA WATKINS on 03/15/211205 Last Action: Reviewed Levothyroxine Sodium (Levothyroxine Sodium) 150 Mcg Tablet, 150 MCG PO DAILY, (Reported) Entered as Reported by: ENEDELIA WATKINS on 03/15/21 1206 Last Action: Reviewed Losartan Potassium (Losartan Potassium) 50 Mg Tablet, 50 MG PO DAILY, (Reported) Entered as Reported by: ENEDELIA WATKINS on 03/15/21 120 Last Action: Reviewed Discontinued Medications Benzonatate (Tessalon Perles) 100 Mg Capsule, 100 MG PO Q6H PRN for COUGH Discontinued Reason: No Longer Taking Prescribed by: MARYJO FRANCO on 03/14/21 145 Last Action: Discontinued Calcitonin,[place],Synthetic (Calcitonin-[place]) 3.7 Ml Elmer.pump, 3.7 ML NS DAILY, (Reported) Discontinued Reason: No Longer Taking Entered as Reported by: WENDY CASAREZ on 03/19/181451 Last Action: Discontinued Cholecalciferol (Vitamin D3) (Vitamin D3) 5,000 Unit Capsule, 5,000 UNIT PO BID, (Reported) Discontinued Reason: No Longer Taking Entered as Reported by: BEAN GASTON on 04/26/16 0950 Last Action: Discontinued Cyanocobalamin (Vitamin B-12) (Vitamin B-12) 1,000 Mcg/1 Ml Drops, 5,000 MCG PO BID, (Reported) Discontinued Reason: No Longer Taking Entered as Reported by: BEAN GASTON on 04/26/16 0950 Last Action: Discontinued Fish Oil/Dha/Epa (Fish Oil 1,200 mg Fish Oil) 1 Each Capsule, 1 EACH PO DAILY, (Reported) Discontinued Reason: No Longer Taking Entered as Reported by: WENDY CASAREZ on 03/19/181451 Last Action: Discontinued Flaxseed Oil (Flaxseed) 1,000 Mg Capsule, 1,200 MG PO BID, (Reported) Discontinued Reason: No Longer Taking Entered as Reported by: BEAN GASTON on 04/26/16 0950 Last Action: Discontinued Furosemide (Furosemide) 20 Mg Tablet, 20 MG PO DAILY PRN for SWELLING, (Reported) Discontinued Reason: No Longer Taking Entered as Reported by: WENDY CASAREZ on 03/19/181451 Last Action: Discontinued Magnesium Oxide (Magnesium) 400 Mg Capsule, 400 MG PO DAILY, (Reported) Discontinued Reason: No Longer Taking Entered as Reported by: WENDY CASAREZ on 03/19/181451 Last Action: Discontinued Ondansetron (Ondansetron Odt) 4 Mg Tab.rapdis, 4-8 MG PO Q6H PRN for NAUSEA/VOMITING Discontinued Reason: No Longer Taking Prescribed by: MARYJO FRANCO on 03/14/21 1456 Last Action: Discontinued Oxycodone HCl/Acetaminophen (Oxycodone-Acetaminophen 5-325) 1 Each Tablet, 1 TAB PO Q4H PRN for PAIN, (Reported) Discontinued Reason: No Longer Taking Entered as Reported by: BEAN GASTON on 04/26/16 0950 Last Action: Discontinued Potassium Chloride (Potassium Chloride) 20 Meq Tablet.er, 20 MEQ PO DAILY, (Reported) Discontinued Reason: No Longer Taking Entered as Reported by: WENDY CASAREZ on 03/19/18 1452 Last Action: Discontinued Thyroid,Pork (Nature-Throid) 65 Mg Tablet, 97.5 MG PO DAILY, (Reported) Discontinued Reason: No Longer Taking Entered as Reported by: HEIDE PACK on 11/21/14 2385 Last Action: Discontinued Review of Systems Review of Systems Constitutional: No chills, No diaphoresis EENTM: No hearing loss, No ear pain Respiratory: cough, phlegm, short of breath; No wheezing Cardiovascular: No edema, No Hx of Intervention Gastrointestinal: No abdominal pain, No constipation, No diarrhea, No dysphagia Genitourinary: No discharge, No dysuria Musculoskeletal: No back pain, No joint pain All Other Systems Reviewed Negative Unless Noted: Yes Past Gzxtgnv-Mjivse-Sejhlt Hx Patient Social History Tobacco Use?: No Use of E-Cig and/or Vaping dev: No Immunizations Up To Date PED Vaccines UTD: No Seasonal Allergies Seasonal Allergies: No Past Medical History Surgeries: Yes (STIMULATOR R HIP, CARPAL TUNNEL, TLKR, INTERSTIM R/L HIP FOR INCONTINENCE, ) Appendectomy, Section, Gallbladder, Hysterectomy, Orthopedic, Tonsillectomy Respiratory: Yes (Home o2 @ HS) Currently Using CPAP: No Currently Using BIPAP: No Cardiac: Yes Chronic Edema/Swelling Neurological: No 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 Disorders: No Female 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 Disorders: Denies 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 Sexually Transmitted Disease: No HIV/AIDS: No Genitourinary: Yes (INNER STEMS PLACED FOR INCONTINENCE) Kidney Stones, UTI-Chronic Gastrointestinal: No Musculoskeletal: Yes (OSTERPENIA) Arthritis, Chronic Back Pain, Fractures Endocrine: Yes ("THYROID PROBLEMS") Hypothyroidsim HEENT: No Loss of Vision: Denies Hearing Impairment: Denies Cancer: No Psychosocial: No Integumentary: No Blood Disorders: No Adverse Reaction/Blood Tranf: No Family Medical History Diabetes mellitus 19 FATHER G8 SISTER Diabetes Physical Exam-Suspected Sepsis Physical Exam Vital Signs Vital Signs - First Documented 03/14/21 03/14/21 03/14/21 11:19 20:33 20:45 Temp 37.5 Pulse 112 Resp 22 B/P (MAP) 148/71 (96) Pulse Ox 96 O2 Delivery Room Air FiO2 21 Capillary Refill : Height, Weight, BMI Height: 5'1.00" Weight: 175lbs. 1.0oz. [id number]; 35.15 BMI Method:Stated General Appearance: Mild Distress, Obese Eyes: Bilateral Eye Normal Inspection, Bilateral Eye PERRL, Bilateral Eye EOMI HEENT: PERRL/EOMI, TMs Normal, Pharynx Normal; No Moist Mucous Membranes Neck: Full Range of Motion, Normal Inspection, Non Tender Respiratory: Lungs Clear, Normal Breath Sounds, No Accessory Muscle Use, No Respiratory Distress (98% on room air. 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 COVID-19 positive Lactate Level 03/14/21 11:24: Lactic Acid Level 1.57 Lactic Acid Level Procedures/Interventions Patient Education: Explained Benefits, Explained Risks, Pt. Ack. Understanding Breath Sounds per Auscultation: Clear Heart Sounds per Auscultation: Regular Airway Exam: Mouth opens >2 fingers, Neck Full Range of Motion, Visulation of Uvula Sedation Adminstration Time: 2014 Suture Size: 5-0 Progress/Results/Core Measures Suspected Sepsis SIRS Temperature: Pulse: Respiratory Rate: Laboratory Tests 03/14/21 11:24: White Blood Count 16.2H 03/15/21 05:42: White Blood Count 13.4H 03/16/21 05:34: White Blood Count 11.1H Blood Pressure / Mean: 03/14/21 11:24: Lactic Acid Level 1.57 Laboratory Tests 03/14/21 11:24: Creatinine 1.31H, INR Comment 1.2, Platelet Count 252, Total Bilirubin 0.9 03/15/21 05:42: Creatinine 1.04, Platelet Count 231 03/16/21 05:34: Creatinine 0.95, Platelet Count 214 Results/Orders Lab Results Laboratory Tests Test 03/15/21 05:42 03/16/21 05:34 Range/Units White Blood Count 13.4 H 11.1 H 4.3-11.0 10^3/uL Red Blood Count 3.91 3.73 L 3.80-5.11 10^6/uL Hemoglobin 10.8 L 10.4 L 11.5-16.0 g/dL Hematocrit 35 34 L 35-52 % Mean Corpuscular Volume 89 90 80-99 fL Mean Corpuscular Hemoglobin 28 28 25-34 pg Mean Corpuscular Hemoglobin Concent 31 L 31 L 32-36 g/dL Red Cell Distribution Width 14.6 H 14.9 H 10.0-14.5 % Platelet Count 231 214 130-400 10^3/uL Mean Platelet Volume 10.3 10.7 9.0-12.2 fL Immature Granulocyte % (Auto) 1 1 % Neutrophils (%) (Auto) 82 H 76 H 42-75 % Lymphocytes (%) (Auto) 9 L 14 12-44 % Monocytes (%) (Auto) 6 6 0-12 % Eosinophils (%) (Auto) 2 3 0-10 % Basophils (%) (Auto) 0 1 0-10 % Neutrophils # (Auto) 11.0 H 8.5 H 1.8-7.8 10^3/uL Lymphocytes # (Auto) 1.2 1.6 1.0-4.0 10^3/uL Monocytes # (Auto) 0.9 0.7 0.0-1.0 10^3/uL Eosinophils # (Auto) 0.2 0.3 0.0-0.3 10^3/uL Basophils # (Auto) 0.1 0.1 0.0-0.1 10^3/uL Immature Granulocyte # (Auto) 0.1 0.1 0.0-0.1 10^3/uL Sodium Level 142 139 135-145 MMOL/L Potassium Level 3.8 4.2 3.6-5.0 MMOL/L Chloride Level 111 H 111 H 98-107 MMOL/L Carbon Dioxide Level 20 L 19 L 21-32 MMOL/L Anion Gap 11 9 5-14 MMOL/L Blood Urea Nitrogen 24 H 24 H 7-18 MG/DL Creatinine 1.04 0.95 0.60-1.30 MG/DL Estimat Glomerular Filtration Rate 51 56 BUN/Creatinine Ratio 23 25 Glucose Level 110 H 102 70-105 MG/DL Calcium Level 7.9 L 7.6 L 8.5-10.1 MG/DL My Orders Medications Given in ED Vital Signs/I&O 03/16/21 03/16/21 03/16/21 12:06 16:02 19:59 Temp 36.6 37.0 37.2 Pulse 100 81 83 Resp 22 24 22 B/P (MAP) 150/84 (106) 155/85 (108) 118/77 (91) Pulse Ox 99 99 96 O2 Delivery Room Air Room Air Room Air Capillary Refill : Progress Note #1: Time: 11:31 Progress Note Septic work-up with a adjusted ideal body weight 2 L would be greater than 20 mL/kg. We'll get a CPK put a Cobos catheter in her and give her cefepime and vancomycin. Chest x-ray, COVID-19 and influenza swab. Progress Note #2: Time: 14:38 Progress Note Patient's urinalysis is okay. Her sepsis is likely due to her COVID. Gave her some fluids. Patient states she wants to go home. She certainly does not need to stay in the hospital for her COVID as her oxygen sats are 97 to 98% on room air nonlabored breathing. We are getting a hold of somebody at the night to [place] to see if they are willing to transport her. She would be a good candidate for sotrovimab. We did discuss that it is authorized for use under an use authorization and the risks and benefits and after discussing it the patient is okay with pursuing it. Progress Note #3: Time: 16:44 Progress Note Patient does not recall that we told her she was COVID-positive. She is having some delirium symptoms. Spoke to her son who is also the power of civil litigation attorney and he would like her admitted for placement. Put a call into Dr. Kee. Progress Note #4: Time: 19:05 Progress Note At this time the wrist has some mild swelling little warmth but no erythema and I do not feel that it is osteomyelitis or cellulitic changes seen on x-ray or clinical exam. Discussed the findings with Dr. Ng and will hold the antibiotics tonight and see how the patient's wrist looks in the morning. Patient does not want a thing for her discomfort. ECG Initial ECG Impression Date: Mar 14, 2021 Initial ECG Impression Time: 11:50 Initial ECG Rate: 109 Initial ECG Rhythm: S.Tach Initial ECG Intervals: Normal Initial ECG Impression: Normal Comment LVH. Sinus tachycardia no clinically relevant ST elevation or depression. Diagnostic Imaging Diagonstic Imaging: Xray Plain Films/CT/US/NM/MRI: chest [facility] [place] [place] NAME: BECKA ISAAC MED REC#: [id number] PT STATUS: REG ER : 1940 PHYSICIAN: MARYJO FRANCO MD ADMIT DATE: 03/14/21/ER Draft Date of Exam:03/14/21 CHEST 1 VIEW, AP/PA ONLY INDICATION: Increasing incontinence and generalized weakness and malaise. TIME OF EXAM: 12:22 PM Correlation is made with prior chest radiograph from 02/23/2017. Heart size is stable. Lungs are clear. No infiltrates are seen. There is no effusion or pneumothorax. IMPRESSION: No acute cardiopulmonary process is detected. Dictated on workstation # [id number] Dict: 03/14/21 1235 Trans: 03/14/21 1238 [facility] [id number] Interpreted by: JESSE MCCORMACK MD Electronically signed by: Reviewed: Reviewed by Me Diagonstic Imaging: Xray Plain Films/CT/US/NM/MRI: forearm (Left wrist) Comments [facility] [place] [place] NAME: BECKA ISAAC MED REC#: [id number] PT STATUS: ADM [place] : 1940 PHYSICIAN: MARYJO FRANCO MD ADMIT DATE: 03/14/21/[facility] Signed Date of Exam:03/14/21 WRIST, LEFT, 3 VIEWS OR MORE INDICATION: Wrist pain COMPARISON: None available TECHNIQUE: 3 radiographs of the left wrist dated 03/14/2021. FINDINGS: No acute fracture. 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 Dense calcifications adjacent to this location may relate to osteophyte formation or hydroxyapatite deposition. Ulna minus configuration of the wrist with mild degenerative changes of the distal radioulnar joint. Widening of the scapholunate interval measuring over 5 mm with proximal migration of the capitate. No acute fracture. No dislocation. Soft tissue swelling about the wrist. No suspicious radiopaque foreign body. IMPRESSION: Widening of the scapholunate interval with SLAC configuration of the wrist, scapholunate advanced collapse. 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 Soft tissue swelling about the wrist. Additional scattered degenerative changes as above. Dictated by: Dictated on workstation # [id number] Dict: 03/14/211837 Trans: 03/14/211848 [facility] [id number] Interpreted by: CARY REID MD Electronically signed by: CARY REID MD 03/14/211848 Reviewed: Reviewed by Me Departure Communication (Admissions) Time/Spoke to Admitting Phy: 17:10 Discussed the case with Dr. Ng who agrees to accept the patient for an observation. We discussed the x-ray of the wrist and it does not appear to be a cellulitis or osteomyelitis. Impression Primary Impression: COVID-19 Additional Impressions: Delirium Failure to thrive Qualified Codes: R62.7 - Adult failure to thrive Disposition: ADMITTED INPATIENT Condition: Stable Admissions Decision to Admit Reason: Admit from ER (General) Decision to Admit/Date: Mar 14, 2021 Time/Decision to Admit Time: 17:00 Departure-Patient Inst. Referrals: SKINNY CANALES MD (PCP/Family) Primary Care Physician Patient Instructions: COVID-19 (DC), Sotrovimab FDA Fact Sheet Add. Discharge Instructions: Someone from scheduling will call you if we have any doses of sotrovimab available. They will help get you an appointment to get an infusion to help you get over the COVID faster. Return to the ER promptly if you are having oxygen saturations below 90% while at rest. Zofran 1 to 2 tablets every 6 hours as needed for nausea and/or vomiting. Tessalon Perles 1 capsule every 6 hours as necessary for cough. Humidifiers and vapor rubs. Drink lots of fluids. MARYJO FRANCO Mar 14, 2021 11:33
[2021-03-14 11:46] LABS: BASOPHILS % (AUTO) 0 % (0-10); EOSINOPHILS % (AUTO) 0 % (0-10); HEMATOCRIT 39 % (35-52); HEMOGLOBIN 12.4 g/dL (11.5-16.0); LYMPHOCYTES % (AUTO) 6 % (12-44); MEAN CORPUSCULAR HEMOGLOBIN 28 pg (25-34); MEAN CORPUSCULAR HGB CONC 32 g/dL (32-36); MEAN CORPUSCULAR VOLUME 88 fL (80-99); MEAN PLATELET VOLUME 10.1 fL (9.0-12.2); MONOCYTES # (AUTO) 1.4 10^3/uL (0.0-1.0); MONOCYTES % (AUTO) 8 % (0-12); NEUTROPHILS # (AUTO) 13.7 10^3/uL (1.8-7.8); NEUTROPHILS % (AUTO) 85 % (42-75); PLATELET COUNT 252 10^3/uL (130-400); WHITE BLOOD COUNT 16.2 10^3/uL (4.3-11.0)
[2021-03-14 11:52] LABS: ALBUMIN 3.4 GM/DL (3.2-4.5)
[2021-03-14 11:53] LABS: CHLORIDE 102 MMOL/L (98-107); SODIUM 137 MMOL/L (135-145)
[2021-03-14 11:54] LABS: CALCIUM 8.9 MG/DL (8.5-10.1)
[2021-03-14 11:55] LABS: GLUCOSE 155 MG/DL (70-105); INR 1.2 (0.8-1.4); PROTHROMBIN TIME PATIENT 15.7 SEC (12.2-14.7); TOTAL PROTEIN 7.5 GM/DL (6.4-8.2)
[2021-03-14 11:56] LABS: CARBON DIOXIDE 23 MMOL/L (21-32)
[2021-03-14 11:57] LABS: BILIRUBIN,TOTAL 0.9 MG/DL (0.1-1.0)
[2021-03-14 11:58] LABS: ALKALINE PHOSPHATASE 112 U/L (40-136)
[2021-03-14 11:59] LABS: CREATININE SERUM 1.31 MG/DL (0.60-1.30); GFR ESTIMATED 39
[2021-03-14 12:00] LABS: BUN/CREATININE RATIO 20
[2021-03-14 12:01] LABS: ALANINE AMINOTRANSFERASE 30 U/L (0-55)
[2021-03-14 12:32] LABS: BAND NEUTROPHILS 3 %; LYMPHOCYTES % (MANUAL) 6 %; MONOCYTES % (MANUAL) 6 %; NEUTROPHILS % (MANUAL) 85 %; RBC MORPH NORMAL
--- NOTE | 2021-03-14 12:39 | Diagnostic Imaging Report ---
INDICATION: Increasing incontinence and generalized weakness and malaise. TIME OF EXAM: 12:22 PM Correlation is made with prior chest radiograph from 02/23/2017. Heart size is stable. Lungs are clear. No infiltrates are seen. There is no effusion or pneumothorax. IMPRESSION: No acute cardiopulmonary process is detected. Dictated by: Dictated on workstation # [id number]
[2021-03-14 14:05] LABS: BILIRUBIN,URINE NEGATIVE (NEGATIVE); CLARITY,URINE CLEAR; COLOR,URINE YELLOW; GLUCOSE, URINE (UA) NEGATIVE (NEGATIVE); KETONES,URINE NEGATIVE (NEGATIVE); LEUKOCYTE ESTERASE ,URINE TRACE (NEGATIVE); NITRITE,URINE NEGATIVE (NEGATIVE); PH,URINE 5.5 (5-9); PROTEIN,URINE TRACE (NEGATIVE)
[2021-03-14 14:13] LABS: BACTERIA,URINE TRACE /HPF; SQUAMOUS EPITHELIAL CELL,UR RARE /HPF; WBC,URINE 0-2 /HPF; YEAST,URINE LARGE /HPF
[2021-03-14] MEDS ORDERED: ONDA4TAB11 PO ×2 (14:42→14:56)
[2021-03-14] MEDS ORDERED: BENZ100C18 PO ×2 (14:42→14:56)
[2021-03-14] MEDS ORDERED: VANCOMYCIN INJECTION 2,000 MG in NS IV 500 ML 500 ML IV NR (15:00)
[2021-03-14] MEDS ORDERED: NS IV 1000 ML 1,000 ML ONE ×2 (15:17→20:33)
--- NOTE | 2021-03-14 18:48 | Diagnostic Imaging Report ---
INDICATION: Wrist pain COMPARISON: None available TECHNIQUE: 3 radiographs of the left wrist dated 03/14/2021. FINDINGS: No acute fracture. 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 Dense calcifications adjacent to this location may relate to osteophyte formation or hydroxyapatite deposition. Ulna minus configuration of the wrist with mild degenerative changes of the distal radioulnar joint. Widening of the scapholunate interval measuring over 5 mm with proximal migration of the capitate. No acute fracture. No dislocation. Soft tissue swelling about the wrist. No suspicious radiopaque foreign body. IMPRESSION: Widening of the scapholunate interval with SLAC configuration of the wrist, scapholunate advanced collapse. 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 Soft tissue swelling about the wrist. Additional scattered degenerative changes as above. Dictated by: Dictated on workstation # [id number]
[2021-03-14 20:33] VITALS: BP 136/76
[2021-03-14 20:45] VITALS: BP 148/71
[2021-03-14] MEDS ORDERED: RT-ALBUTEROL HFA 8.5 GM INHALER IH PRN (21:00)
[2021-03-14] MEDS ORDERED: ONDANSETRON 4 MG/2 ML (SDV) Z0FRAN IV PRN (22:00)
[2021-03-15 00:45] VITALS: BP 138/72
[2021-03-15] MEDS: NS IV 1000 ML 1,000 ML IV SCH ×4 (04:04→17:51)
[2021-03-15 04:45] VITALS: BP 110/71
[2021-03-15 06:05] LABS: BASOPHILS # (AUTO) 0.1 10^3/uL (0.0-0.1); BASOPHILS % (AUTO) 0 % (0-10); EOSINOPHILS # (AUTO) 0.2 10^3/uL (0.0-0.3); EOSINOPHILS % (AUTO) 2 % (0-10); HEMATOCRIT 35 % (35-52); HEMOGLOBIN 10.8 g/dL (11.5-16.0); LYMPHOCYTES # (AUTO) 1.2 10^3/uL (1.0-4.0); LYMPHOCYTES % (AUTO) 9 % (12-44); MEAN CORPUSCULAR HEMOGLOBIN 28 pg (25-34); MEAN CORPUSCULAR HGB CONC 31 g/dL (32-36); MEAN CORPUSCULAR VOLUME 89 fL (80-99); MEAN PLATELET VOLUME 10.3 fL (9.0-12.2); MONOCYTES # (AUTO) 0.9 10^3/uL (0.0-1.0); MONOCYTES % (AUTO) 6 % (0-12); NEUTROPHILS % (AUTO) 82 % (42-75); PLATELET COUNT 231 10^3/uL (130-400); WHITE BLOOD COUNT 13.4 10^3/uL (4.3-11.0)
[2021-03-15 06:18] LABS: POTASSIUM 3.8 MMOL/L (3.6-5.0)
[2021-03-15 06:19] LABS: CALCIUM 7.9 MG/DL (8.5-10.1)
[2021-03-15 06:23] LABS: CREATININE SERUM 1.04 MG/DL (0.60-1.30)
[2021-03-15 08:11] VITALS: BP 110/75
[2021-03-15 11:43] VITALS: BP 125/78
--- NOTE | 2021-03-15 11:51 | History & Physical ---
HPI History of Present Illness: 80 yo F that presented to ER after she was unable to get out of her chair. States that she generally has a home weatherizing worker that comes and assists her but that they have not been by for several days. She has been getting weaker and she was unable to get out of her chair and was forced to urinate on herself. She [facility]. States that for the past week she has been getting weak. Denies any falls but she did have a fall 2 weeks ago that she was hospitalized for after she broke her wrist and was being treated for cellulitis. Source: patient Exam Limitations: no limitations Date seen by provider: Mar 15, 2021 Time Seen by Provider: 10:05 Attending Physician Alesha Ng MD PCP No,Local Physician Consult Date of Admission Mar 14, 2021 at 17:10 Home Medications Home Medications Reviewed patient Home Medication Reconciliation performed by pharmacy medication reconciliations electrical technician and/or nursing. Patients Allergies have been reviewed. Allergies Coded Allergies: No Known Drug Allergies (Unverified , 03/19/18) QLG-Ncvydv-Kmiflr Hx Patient Social History Living Status: [facility] by self Smoking Status: Never a Smoker 2nd Hand Smoke Exposure: No Recent Hopitalizations: No Alcohol Use?: No Have you traveled recently?: No Immunizations Up To Date Influenza Vaccine Up-to-Date: Yes; Up-to-Date Family Medical History Significant Family History: Diabetes Family History: Diabetes mellitus 19 FATHER G8 SISTER Review of Systems (CHC) Constitutional: No fever; malaise, weakness EENTM: no symptoms reported; No nose congestion, No throat pain, No throat swelling Respiratory: no symptoms reported; No cough, No dyspnea on exertion, No short of breath Cardiovascular: no symptoms reported; No chest pain, No edema, No palpitations Gastrointestinal: no symptoms reported; No abdominal pain, No constipation, No diarrhea, No nausea, No vomiting Genitourinary: frequency, incontinence : No Musculoskeletal: no symptoms reported, joint pain Skin: pruritus, rash Psychiatric/Neurological: No Symptoms Reported Reviewed Test Results Reviewed Test Results Lab Laboratory Tests Test 03/15/21 05:42 Range/Units White Blood Count 13.4 H 4.3-11.0 10^3/uL Red Blood Count 3.91 3.80-5.11 10^6/uL Hemoglobin 10.8 L 11.5-16.0 g/dL Hematocrit 35 35-52 % Mean Corpuscular Volume 89 80-99 fL Mean Corpuscular Hemoglobin 28 25-34 pg Mean Corpuscular Hemoglobin Concent 31 L 32-36 g/dL Red Cell Distribution Width 14.6 H 10.0-14.5 % Platelet Count 231 130-400 10^3/uL Mean Platelet Volume 10.3 9.0-12.2 fL Immature Granulocyte % (Auto) 1 % Neutrophils (%) (Auto) 82 H 42-75 % Lymphocytes (%) (Auto) 9 L 12-44 % Monocytes (%) (Auto) 6 0-12 % Eosinophils (%) (Auto) 2 0-10 % Basophils (%) (Auto) 0 0-10 % Neutrophils # (Auto) 11.0 H 1.8-7.8 10^3/uL Lymphocytes # (Auto) 1.2 1.0-4.0 10^3/uL Monocytes # (Auto) 0.9 0.0-1.0 10^3/uL Eosinophils # (Auto) 0.2 0.0-0.3 10^3/uL Basophils # (Auto) 0.1 0.0-0.1 10^3/uL Immature Granulocyte # (Auto) 0.1 0.0-0.1 10^3/uL Sodium Level 142 135-145 MMOL/L Potassium Level 3.8 3.6-5.0 MMOL/L Chloride Level 111 H 98-107 MMOL/L Carbon Dioxide Level 20 L 21-32 MMOL/L Anion Gap 11 5-14 MMOL/L Blood Urea Nitrogen 24 H 7-18 MG/DL Creatinine 1.04 0.60-1.30 MG/DL Estimat Glomerular Filtration Rate 51 BUN/Creatinine Ratio 23 Glucose Level 110 H 70-105 MG/DL Calcium Level 7.9 L 8.5-10.1 MG/DL Physical Exam-([facility]) Physical Exam Vital Signs VS - Last 72 Hours, by Label 03/14/21 03/14/21 03/14/21 03/14/21 11:19 20:10 20:33 20:45 Temp 37.5 37.5 36.9 37.5 Pulse 112 109 110 112 Resp 22 22 18 B/P (MAP) 148/71 (96) 131/91 136/76 (96) Pulse Ox 96 96 95 96 O2 Delivery Room Air FiO2 21 03/15/21 03/15/21 03/15/21 03/15/21 00:45 02:07 04:45 07:51 Temp 36.8 36.8 Pulse 99 97 Resp 22 24 B/P (MAP) 138/72 (94) 110/71 (84) Pulse Ox 96 96 97 95 O2 Delivery Room Air Room Air Room Air Room Air 03/15/21 03/15/21 03/15/21 03/15/21 08:00 08:11 11:43 16:00 Temp 36.7 36.8 36.9 Pulse 102 103 100 Resp 22 20 24 B/P (MAP) 110/75 (87) 125/78 (94) 122/80 (94) Pulse Ox 97 97 98 O2 Delivery Room Air Room Air Room Air Room Air 03/15/21 03/15/21 19:16 20:00 Temp 36.8 Pulse 86 Resp 24 B/P (MAP) 114/74 (87) Pulse Ox 96 O2 Delivery Room Air Room Air Capillary Refill : Less Than 3 Seconds General Appearance: WD/WN, no apparent distress, obese Neck: full range of motion Respiratory: chest non-tender, lungs clear, normal breath sounds, no respiratory distress, no accessory muscle use Cardiovascular: normal peripheral pulses, regular rate, rhythm, no edema, no murmur Gastrointestinal: non tender, soft, no organomegaly; No guarding, No rebound, No tenderness Back: no CVA tenderness, no vertebral tenderness Extremities: no pedal edema, no calf tenderness, normal capillary refill Neurologic/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: 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 as tested, alert, oriented x 3 Skin: rash (gaulded skin on perinium and buttock) Assessment/Plan Assessment/Plan Admission Status: Observation (1) COVID-19 Status: Acute Assessment & Plan: - Incidental covid +, doing well on RA (2) Failure to thrive Status: Acute Assessment & Plan: - Patient lives alone in home, recent fall with wrist fracture Qualifiers: Qualified Codes: R62.7 - Adult failure to thrive (3) Acute renal failure Status: Acute Assessment & Plan: - Gentle hydration, continue to monitor BMP (4) HTN (hypertension) Status: Acute Assessment & Plan: - Restart home meds (5) Skin rash Status: Acute Assessment & Plan: - Kayley-care, nystatin powder ALESHA NG MD Mar 15, 2021 11:51
[2021-03-15] MEDS ORDERED: CHOL10007 PO (12:06)
[2021-03-15] MEDS ORDERED: LOSA50TA63 PO (12:06)
[2021-03-15] MEDS ORDERED: DICY10CA12 PO (12:06)
[2021-03-15] MEDS ORDERED: LEVO150T6 PO (12:06)
[2021-03-15] MEDS ORDERED: CYCL1DRO OU (12:06)
[2021-03-15 16:00] VITALS: BP 122/80
[2021-03-15] MEDS: NYSTATIN CREAM (MYCOSTATIN) 30 GM TUBE TP SCH (17:51)
[2021-03-15 20:00] VITALS: BP 114/74
[2021-03-16] VITALS (7 sets, daily range): BP systolic 117–155; BP diastolic 77–91
[2021-03-16] MEDS: NS IV 1000 ML 1,000 ML IV SCH ×2 (00:40→09:16)
[2021-03-16 06:26] LABS: BASOPHILS # (AUTO) 0.1 10^3/uL (0.0-0.1); BASOPHILS % (AUTO) 1 % (0-10); EOSINOPHILS # (AUTO) 0.3 10^3/uL (0.0-0.3); EOSINOPHILS % (AUTO) 3 % (0-10); HEMATOCRIT 34 % (35-52); HEMOGLOBIN 10.4 g/dL (11.5-16.0); LYMPHOCYTES # (AUTO) 1.6 10^3/uL (1.0-4.0); LYMPHOCYTES % (AUTO) 14 % (12-44); MEAN CORPUSCULAR HEMOGLOBIN 28 pg (25-34); MEAN CORPUSCULAR HGB CONC 31 g/dL (32-36); MEAN CORPUSCULAR VOLUME 90 fL (80-99); MEAN PLATELET VOLUME 10.7 fL (9.0-12.2); MONOCYTES # (AUTO) 0.7 10^3/uL (0.0-1.0); MONOCYTES % (AUTO) 6 % (0-12); NEUTROPHILS # (AUTO) 8.5 10^3/uL (1.8-7.8); NEUTROPHILS % (AUTO) 76 % (42-75); PLATELET COUNT 214 10^3/uL (130-400); WHITE BLOOD COUNT 11.1 10^3/uL (4.3-11.0)
[2021-03-16 06:41] LABS: POTASSIUM 4.2 MMOL/L (3.6-5.0)
[2021-03-16 06:42] LABS: CALCIUM 7.6 MG/DL (8.5-10.1)
[2021-03-16 06:47] LABS: CREATININE SERUM 0.95 MG/DL (0.60-1.30)
[2021-03-16] MEDS: NYSTATIN CREAM (MYCOSTATIN) 30 GM TUBE TP SCH ×3 (09:15→21:11)
--- NOTE | 2021-03-16 18:42 | Progress Note ---
Subjective Subjective/Events-last exam Patient states that she is feeling better. Tolerating PO diet. States her perineal rash is less painful. Still requiring almost max assist Review of Systems Pulmonary: No Dyspnea, No Cough Cardiovascular: Edema; No: Chest Pain, Palpitations Gastrointestinal: No: Nausea, Vomiting, Abdominal Pain, Diarrhea, Constipation Genitourinary: Frequency Neurological: Weakness, Incoordination Focused Exam Lactate Level 03/14/21 11:24: Lactic Acid Level 1.57 Objective Exam Last Set of Vital Signs Vital Signs Date Time Temp Pulse Resp B/P (MAP) Pulse Ox O2 Delivery O2 Flow Rate FiO2 03/16/21 16:02 37.0 81 24 155/85 (108) 99 Room Air 03/14/21 20:45 21 Capillary Refill : Less Than 3 Seconds I&O Intake and Output 03/15/21 23:59 Intake Total 4290 ml Output Total 700 ml Balance 3590 ml Intake Oral 1290 ml IV Total 3000 ml Output Urine Total 700 ml # Voids 3 # Bowel Movements 1 General: Alert, Cooperative, No Acute Distress Lungs: Clear to Auscultation, Normal Air Movement Heart: Regular Rate, No Murmurs Abdomen: Normal Bowel Sounds, Soft, No Tenderness, No Masses Extremities: No Edema, No Tenderness/Swelling Skin: Other (Gaulded skin rash in perinium) Results/Procedures Lab Laboratory Tests 03/16/21 05:34: White Blood Count 11.1H, Red Blood Count 3.73L, Hemoglobin 10.4L, Hematocrit 34L , Mean Corpuscular Volume 90, Mean Corpuscular Hemoglobin 28, Mean Corpuscular Hemoglobin Concent 31L, Red Cell Distribution Width 14.9H, Platelet Count 214, Mean Platelet Volume 10.7, Immature Granulocyte % (Auto) 1, Neutrophils (%) (Auto) 76H, Lymphocytes (%) (Auto) 14, Monocytes (%) (Auto) 6, Eosinophils (%) (Auto) 3, Basophils (%) (Auto) 1, Neutrophils # (Auto) 8.5H, Lymphocytes # (Auto) 1.6, Monocytes # (Auto) 0.7, Eosinophils # (Auto) 0.3, Basophils # (Auto) 0.1, Immature Granulocyte # (Auto) 0.1, Sodium Level 139, Potassium Level 4.2, Chloride Level 111H, Carbon Dioxide Level 19L, Anion Gap 9, Blood Urea Nitrogen 24H, Creatinine 0.95, Estimat Glomerular Filtration Rate 56, BUN/Creatinine Ratio 25, Glucose Level 102, Calcium Level 7.6L Microbiology 03/14/21 Urine Culture - Final, Complete YEAST 03/14/21 Blood Culture - Preliminary, Resulted No growth Assessment/Plan Assessment/Plan (1) COVID-19 Status: Acute Assessment & Plan: - Incidental covid +, doing well on RA (2) Failure to thrive Status: Acute Assessment & Plan: - Patient lives alone in home, recent fall with wrist fracture Qualifiers: Qualified Codes: R62.7 - Adult failure to thrive (3) Acute renal failure Status: Resolved Assessment & Plan: - Gentle hydration, continue to monitor BMP (4) HTN (hypertension) Status: Acute Assessment & Plan: - Restart home meds (5) Skin rash Status: Acute Assessment & Plan: - Kayley-care, nystatin powder 03/16: improving, will continue to keep area clean and use powder ALESHA SADLER MD Mar 16, 2021 18:42
[2021-03-16] MEDS: ACETAMINOPHEN 325 MG TABLET PO PRN (20:43)
[2021-03-17 04:50] VITALS: BP 135/80
[2021-03-17 06:33] LABS: BASOPHILS # (AUTO) 0.1 10^3/uL (0.0-0.1); BASOPHILS % (AUTO) 1 % (0-10); EOSINOPHILS # (AUTO) 0.3 10^3/uL (0.0-0.3); EOSINOPHILS % (AUTO) 3 % (0-10); HEMATOCRIT 36 % (35-52); HEMOGLOBIN 11.3 g/dL (11.5-16.0); LYMPHOCYTES # (AUTO) 1.8 10^3/uL (1.0-4.0); LYMPHOCYTES % (AUTO) 17 % (12-44); MEAN CORPUSCULAR HEMOGLOBIN 28 pg (25-34); MEAN CORPUSCULAR HGB CONC 31 g/dL (32-36); MEAN CORPUSCULAR VOLUME 89 fL (80-99); MEAN PLATELET VOLUME 9.5 fL (9.0-12.2); MONOCYTES # (AUTO) 0.7 10^3/uL (0.0-1.0); MONOCYTES % (AUTO) 7 % (0-12); NEUTROPHILS # (AUTO) 7.6 10^3/uL (1.8-7.8); NEUTROPHILS % (AUTO) 72 % (42-75); PLATELET COUNT 221 10^3/uL (130-400); WHITE BLOOD COUNT 10.5 10^3/uL (4.3-11.0)
[2021-03-17 06:43] LABS: POTASSIUM 4.3 MMOL/L (3.6-5.0)
[2021-03-17 06:44] LABS: CALCIUM 8.5 MG/DL (8.5-10.1)
[2021-03-17 06:48] LABS: CREATININE SERUM 0.86 MG/DL (0.60-1.30)
[2021-03-17 08:17] VITALS: BP 149/90
[2021-03-17] MEDS: NYSTATIN CREAM (MYCOSTATIN) 30 GM TUBE TP SCH ×3 (09:52→20:53)
[2021-03-17 11:44] VITALS: BP 149/93
--- NOTE | 2021-03-17 13:43 | Occupational Therapy Eval ---
OT Evaluation-General/PLF Medical Diagnosis Admission Date Mar 14, 2021 at 17:10 Medical Diagnosis: COVID 19, FAILURE TO THRIVE, DEBILITATION, AND DELIRIUM Onset Date: Mar 14, 2021 Therapy Diagnosis Therapy Diagnosis: reduced adl status, rom, strength, endurance, balance Height/Weight Height (Feet): 5 Height (Inches): 1.00 Weight (Pounds): 175 Weight (Ounces): 1.0 Precautions Precautions/Isolations: Contact Isolation, Droplet Isolation Referral Referral Reason: Evaluation/Treatment Medical History Pertinent Medical History: Atrial Fib, Arthritis, HTN, Hypothroidism Current History Presents to ER with weakness after being unable to get out of her chair. Pt states that she has a home restoration service cleaner that assists every day for homemaking tasks including laundry, cleaning, cooking and transportation. She denies needing assist with adls. Unsure how accurate this is. She states that the aid had not been seen for several days and she got weaker. She was unable to get out of her chair and was forced to urinate on herself. She lives at [facility]. Pt reports fracture to L wrist. Per imaging, no acute fracture present. Pt uses a 4WW at baseline. Reviewed History: Yes Social History Home: Single Level Current Living Status: Alone ADL-Prior Level of Function SCALE: Activities may be completed with or without assistive devices. 4-Fpabfrobvx-pmrhyeu completes the activity by him/herself with no assistance from a helper. 5-Set-up or Clean-up Assistance-helper sets up or cleans up; patient completes activity. [place] assists only prior to or following the activity. 4-Supervision or Touching Assistance-helper provides verbal cues and/or touching/steadying and/or contact guard assistance as patient completes activity. Assistance may be provided throughout the activity or intermittently. 3-Partial/Moderate Assistance-helper does LESS THAN HALF the effort. [place] lifts, holds or supports trunk or limbs, but provides less than half the effort. 2-Substantial/Maximal Assistance-helper does MORE THAN HALF the effort. [place] lifts or holds trunk or limbs and provides more than half the effort. 5-Wixdqgiye-geywjp does ALL the effort. Patient does none of the effort to complete the activity. Or, the assistance of 2 or more helpers is required for the patient to complete the activity. If activity was not attempted, code reason: 7-Patient Refused. 9-Not Applicable-not attempted and the patient did not perform the activity before the current illness, exacerbation or injury. 10-Not Attempted due to Environmental Limitations-(lack of equipment, weather restraints, etc.). 88-Not Attempted due to Medical Conditions or Safety Concerns. Self Care: Unknown Functional Cognition: Needed Some Help DME/Equipment: Bath Bench, Grab Bars, Tub/Shower Drive Self: No OT Current Status Subjective Pt reports chronic pain in neck. Appearance Returned to sitting in recliner, all needs within reach, SCHOOL TRAFFIC GUARD in room. Mental Status/Objective Patient Orientation: Person, Confused Attachments: Other-See Comments (brace on L wrist) Current Glasses/Contacts: Yes Hearing Aids: No Dentures/Partials: No Hand Dominance: Right ADL-Treatment Lower Body Dressing (QC): 1 On/Off Footwear (QC): 1 Toileting Hygiene (QC): 1 Pt sitting in recliner at OT arrival. Incontinent of urine. Max A to stand from low surface. Dep for prem care. Pt unable to come to full upright and often rests elbows on walker. Dep to thread BLE's into brief and manage over hips in standing. Pt fatigues quickly in standing and requires a sitting rest break before finishing prem care task. Pt has a brace on L wrist. She is able to don/doff without assist. Brace is so loose it is not providing any stabilization/support yet pt refuses to let therapist tighten. Education OT Patient Education: Correct positioning, Modified ADL techniques, Progress toward Goal/Update tx plan, Purpose of tx/functional activities, Reviewed precautions, Rehab process, Safety issues, Transfer techniques Teaching Recipient: Patient Teaching Methods: Demonstration, Discussion Response to Teaching: Verbalize Understanding, Reinforcement Needed OT Molasses Coloring Operator Goals Long-Term Goals Time Frame: Apr 01, 2021 Oral Hygiene (QC): 4 Toileting Hygiene (QC): 3 Shower/Bathe Self (QC): 3 Upper Body Dressing (QC): 4 Lower Body Dressing (QC): 3 On/Off Footwear (QC): 3 1=Demonstrate adherence to instructed precautions during ADL tasks. 2=Patient will verbalize/demonstrate understanding of assistive devices/modifications for ADL. 3=Patient will improve strength/tolerance for activity to enable patient to perform ADL's. OT Education/Plan Problem List/Assessment Assessment: Decreased Activ Tolerance, Decreased Safety Aware, Decreased UE Strength, Dependent Transfers, Edema, Impaired Cognition, Impaired Funct Balance, Impaired Self-Care Skills, Restricted Funct UE ROM Discharge Recommendations Plan/Recommendations: Continue POC Therapy Discharge Recommendati: Scheduled Assistance, Homemaker Support, Post Acute OT Treatment Plan/Plan of Care Treatment,Training & Education: Yes Patient would benefit from OT for education, treatment and training to promote independence in ADL's, mobility, safety and/or upper extremity function for ADL's. Plan of Care: ADL Retraining, Caregiver Training, Functional Mobility, Orthotic Fitting/Training, UE Funct Exercise/Act, W/C Management Training Treatment Duration: Apr 01, 2021 Frequency: 3 times per week Estimated Hrs Per Day: .25 hour per day Agreement: Yes 3-5x/week Time/GCodes Start Time: 13:05 Stop Time: 13:23 Total Time Billed (hr/min): 18 Billed Treatment Time 1 visit Yancy Bowers OT Mar 17, 2021 13:43
--- NOTE | 2021-03-17 14:53 | Physical Therapy Evaluation ---
PT Evaluation-General Medical Diagnosis Admission Date Mar 14, 2021 at 17:10 Medical Diagnosis: COVID 19, FAILURE TO THRIVE, DEBILITATION, AND DELIRIUM Onset Date: Mar 14, 2021 Therapy Diagnosis Therapy Diagnosis: debility/weakness Height/Weight Height (Feet): 5 Height (Inches): 1.00 Weight (Pounds): 175 Weight (Ounces): 1.0 Precautions Precautions/Isolations: Contact Isolation, Droplet Isolation Referral Physician: Hernandez Reason for Referral: Evaluation/Treatment Medical History Pertinent Medical History: Atrial Fib, Arthritis, HTN, Hypothroidism Current History EMS secondary to sitting in chair for several days in urine Reviewed History: Yes Social History Home: Apartment Current Living Status: Alone (caregiver) Prior Prior Level of Function SCALE: Activities may be completed with or without assistive devices. 1-Kpmvsihqkb-vbxkjdb completes the activity by him/herself with no assistance from a helper. 5-Set-up or Clean-up Assistance-helper sets up or cleans up; patient completes activity. [place] assists only prior to or following the activity. 4-Supervision or Touching Assistance-helper provides verbal cues and/or touching/steadying and/or contact guard assistance as patient completes activity. Assistance may be provided throughout the activity or intermittently. 3-Partial/Moderate Assistance-helper does LESS THAN HALF the effort. [place] lifts, holds or supports trunk or limbs, but provides less than half the effort. 2-Substantial/Maximal Assistance-helper does MORE THAN HALF the effort. [place] lifts or holds trunk or limbs and provides more than half the effort. 0-Sngxjjqia-lcfqnj does ALL the effort. Patient does none of the effort to complete the activity. Or, the assistance of 2 or more helpers is required for the patient to complete the activity. If activity was not attempted, code reason: 7-Patient Refused. 9-Not Applicable-not attempted and the patient did not perform the activity before the current illness, exacerbation or injury. 10-Not Attempted due to Environmental Limitations-(lack of equipment, weather restraints, etc.). 88-Not Attempted due to Medical Conditions or Safety Concerns. Bed Mobility: 3 Transfers (B,C,W/C): 3 Gait: 3 Indoor Mobility (Ambulation): Needed Some Help Stairs: Not Applicalbe Prior Devices Use: Walker PT Evaluation-Current Subjective Patient reluctantly agrees to PT. Very tearful and argues with this PT Objective Patient Orientation: Confused ROM/Strength ROM Lower Extremities bilateral LE WFL Strength Lower Extremities right knee flexion/extension 3-/5, hip flexion 3-/5 left knee flexion/extension 3/5, hip flexion 3/5 Integumentary/Posture Bowel Incontinence: Yes Bladder Incontinence: Yes Posture severe trunk flexed posture Neuromuscular (Tone, Coordination, Reflexes) slightly diminished coordination Sensory Vision: Functional Hand Dominance: Right Transfers Sit to Stand (QC): 2 Gait Does the Patient Walk?: No and Walking Goal IS indicated Walk 10 feet (QC): 7 Gait Assistive Device: FWW Balance Sitting Static: Fair Sitting Dynamic: Fair Standing Static: Poor Standing Dynamic: Poor Assessment/Needs 80 y.o. female, will benefit from skilled PT to address functional strength and mobility to improve current LOF. From a PT standpoint, patient would benefit from extended care due to current LOF. Rehab Potential: Guarded PT Ed Case Manager Goals Ed Case Manager Goals PT Ed Case Manager Goals Time Frame: Apr 02, 2021 Roll Left & Right (QC): 3 Sit to Lying (QC): 3 Lying-Sitting on Side/Bed(QC): 3 Sit to Stand (QC): 3 Chair/Gbs-rw-Ykikh Xfer(QC): 3 Toilet Transfer (QC): 3 Walk 10 feet (QC): 3 Walk 50ft with 2 Turns (QC): 3 PT Plan Problem List Problem List: Activity Tolerance, Functional Strength, Safety, Balance, Gait, Transfer, Bed Mobility Treatment/Plan Treatment Plan: Continue Plan of Care Treatment Plan: Bed Mobility, Education, Functional Activity Rohan, Functional Strength, Gait, Safety, Therapeutic Exercise, Transfers Treatment Duration: Apr 02, 2021 Frequency: 6 times per week Estimated Hrs Per Day: .25 hour per day Time/GCodes Time In: 1420 Time Out: 1436 Total Billed Treatment Time: 16 Total Billed Treatment 1 visit EVMod 16 min EARL GARCIA PT Mar 17, 2021 14:53
[2021-03-17 15:44] VITALS: BP 140/74
[2021-03-17 19:09] VITALS: BP 174/93
[2021-03-17 20:46] VITALS: BP 154/75
[2021-03-17] MEDS: ACETAMINOPHEN 325 MG TABLET PO PRN (20:53)
--- NOTE | 2021-03-17 21:34 | Progress Note ---
Subjective Subjective/Events-last exam Feeling much better. Up to chair with 2 assist. Tolerating PO diet. Review of Systems General: Fatigue, Malaise Pulmonary: No Dyspnea, No Cough Cardiovascular: No: Chest Pain, Palpitations, Edema Gastrointestinal: No: Nausea, Vomiting, Abdominal Pain, Diarrhea, Constipation Neurological: Weakness, Incoordination Objective Exam Last Set of Vital Signs Vital Signs Date Time Temp Pulse Resp B/P (MAP) Pulse Ox O2 Delivery O2 Flow Rate FiO2 03/17/21 20:46 154/75 (101) 03/17/21 19:09 36.9 99 20 94 Room Air 03/14/21 20:45 21 Capillary Refill : Less Than 3 Seconds I&O Intake and Output 03/16/21 23:59 Intake Total 1320 ml Output Total 900 ml Balance 420 ml Intake Oral 1320 ml Output Urine Total 900 ml # Voids 3 # Urine Diapers 1 General: Alert, Oriented X3, Cooperative Lungs: Clear to Auscultation, Normal Air Movement Heart: Regular Rate, No Murmurs Abdomen: Normal Bowel Sounds, Soft, No Tenderness, No Masses Extremities: No Edema, No Tenderness/Swelling Neuro: Normal Speech Results/Procedures Lab Laboratory Tests 03/17/21 06:20: White Blood Count 10.5, Red Blood Count 4.07, Hemoglobin 11.3L, Hematocrit 36, Mean Corpuscular Volume 89, Mean Corpuscular Hemoglobin 28, Mean Corpuscular Hemoglobin Concent 31L, Red Cell Distribution Width 14.9H, Platelet Count 221, Mean Platelet Volume 9.5, Immature Granulocyte % (Auto) 1, Neutrophils (%) (Auto) 72, Lymphocytes (%) (Auto) 17, Monocytes (%) (Auto) 7, Eosinophils (%) (Auto) 3, Basophils (%) (Auto) 1, Neutrophils # (Auto) 7.6, Lymphocytes # (Auto) 1.8, Monocytes # (Auto) 0.7, Eosinophils # (Auto) 0.3, Basophils # (Auto) 0.1, Immature Granulocyte # (Auto) 0.1, Sodium Level 140, Potassium Level 4.3, Chloride Level 111H, Carbon Dioxide Level 19L, Anion Gap 10, Blood Urea Nitrogen 22H, Creatinine 0.86, Estimat Glomerular Filtration Rate 63, BUN/Creatinine Ratio 26, Glucose Level 103, Calcium Level 8.5 Microbiology 03/14/21 Urine Culture - Final, Complete YEAST 03/14/21 Blood Culture - Preliminary, Resulted No growth Assessment/Plan Assessment/Plan (1) COVID-19 Status: Acute Assessment & Plan: - Incidental covid +, doing well on RA (2) Failure to thrive Status: Acute Assessment & Plan: - Patient lives alone in home, recent fall with wrist fracture Qualifiers: Qualified Codes: R62.7 - Adult failure to thrive (3) Acute renal failure Status: Resolved Assessment & Plan: - Gentle hydration, continue to monitor BMP (4) HTN (hypertension) Status: Acute Assessment & Plan: - Restart home meds (5) Skin rash Status: Acute Assessment & Plan: - Kayley-care, nystatin powder 03/16: improving, will continue to keep area clean and use powder (6) Debility Status: Acute Assessment & Plan: 03/17: Patient not safe to return home alone, working on placement ALESHA SADLER MD Mar 17, 2021 21:34
[2021-03-18 00:30] VITALS: BP 121/58
[2021-03-18 04:05] VITALS: BP 134/61
[2021-03-18 07:02] LABS: BASOPHILS # (AUTO) 0.1 10^3/uL (0.0-0.1); BASOPHILS % (AUTO) 1 % (0-10); EOSINOPHILS # (AUTO) 0.3 10^3/uL (0.0-0.3); EOSINOPHILS % (AUTO) 3 % (0-10); HEMATOCRIT 35 % (35-52); LYMPHOCYTES # (AUTO) 1.7 10^3/uL (1.0-4.0); LYMPHOCYTES % (AUTO) 17 % (12-44); MEAN CORPUSCULAR HEMOGLOBIN 28 pg (25-34); MEAN CORPUSCULAR HGB CONC 32 g/dL (32-36); MEAN CORPUSCULAR VOLUME 89 fL (80-99); MEAN PLATELET VOLUME 9.5 fL (9.0-12.2); MONOCYTES # (AUTO) 0.7 10^3/uL (0.0-1.0); MONOCYTES % (AUTO) 6 % (0-12); NEUTROPHILS # (AUTO) 7.6 10^3/uL (1.8-7.8); NEUTROPHILS % (AUTO) 73 % (42-75); PLATELET COUNT 183 10^3/uL (130-400); WHITE BLOOD COUNT 10.4 10^3/uL (4.3-11.0)
[2021-03-18 07:15] LABS: ALBUMIN 2.6 GM/DL (3.2-4.5); BILIRUBIN,TOTAL 0.4 MG/DL (0.1-1.0); CALCIUM 8.7 MG/DL (8.5-10.1); CREATININE SERUM 0.89 MG/DL (0.60-1.30); POTASSIUM 4.2 MMOL/L (3.6-5.0); TOTAL PROTEIN 5.5 GM/DL (6.4-8.2)
[2021-03-18 08:00] VITALS: BP 141/67
[2021-03-18] MEDS: NYSTATIN CREAM (MYCOSTATIN) 30 GM TUBE TP SCH ×3 (09:20→21:00)
--- NOTE | 2021-03-18 09:58 | Occupational Ther Daily Note ---
OT Current Status-Daily Note Subjective Pt in bed, agreeable to OT Tx, states she feels like she needs to be stronger. ADL-Treatment Therapy Code Descriptions/Definitions Functional Coke Measure: 0=Not Assessed/NA 4=Minimal Assistance 1=Total Assistance 5=Supervision or Setup 2=Maximal Assistance 6=Modified Coke 3=Moderate Assistance 7=Complete IndependenceSCALE: Activities may be completed with or without assistive devices. 1-Yhbczzpftt-dypyfob completes the activity by him/herself with no assistance from a helper. 5-Set-up or Clean-up Assistance-helper sets up or cleans up; patient completes activity. [place] assists only prior to or following the activity. 4-Supervision or Touching Assistance-helper provides verbal cues and/or touching/steadying and/or contact guard assistance as patient completes activity. Assistance may be provided throughout the activity or intermittently. 3-Partial/Moderate Assistance-helper does LESS THAN HALF the effort. [place] lifts, holds or supports trunk or limbs, but provides less than half the effort. 2-Substantial/Maximal Assistance-helper does MORE THAN HALF the effort. [place] lifts or holds trunk or limbs and provides more than half the effort. 4-Klczcyvyy-qeddug does ALL the effort. Patient does none of the effort to complete the activity. Or, the assistance of 2 or more helpers is required for the patient to complete the activity. If activity was not attempted, code reason: 7-Patient Refused. 9-Not Applicable-not attempted and the patient did not perform the activity before the current illness, exacerbation or injury. 10-Not Attempted due to Environmental Limitations-(lack of equipment, weather restraints, etc.). 88-Not Attempted due to Medical Conditions or Safety Concerns. Eating (QC): 5 (per pt report.) Other Treatment Pt in bed, agreeable to tx, pt states she ate breakfast with set up assist, assist with cutting food. Pt participated in UE exercises in order to increase BUE strength and activity tolerance, completing x12 reps shoulder flexion, x15 elbow flexion/extension and x15 front punch. Pt instructed to continue exercises throughout the day, increasing reps as tolerated. Pt able to reach for cup on tray table and take drink independently. Pt washed face after set up of washcloth. Post tx, pt in bed, call light in reach and all needs met. Education OT Patient Education: Correct positioning, Energy conservation, Modified ADL techniques, Progress toward Goal/Update tx plan, Purpose of tx/functional activities, Rehab process Teaching Recipient: Patient Teaching Methods: Discussion Response to Teaching: Verbalize Understanding OT Shelter Goals Medical Science Liaison Goals Time Frame: Apr 01, 2021 Oral Hygiene (QC): 4 Toileting Hygiene (QC): 3 Shower/Bathe Self (QC): 3 Upper Body Dressing (QC): 4 Lower Body Dressing (QC): 3 On/Off Footwear (QC): 3 1=Demonstrate adherence to instructed precautions during ADL tasks. 2=Patient will verbalize/demonstrate understanding of assistive devices/modifications for ADL. 3=Patient will improve strength/tolerance for activity to enable patient to perform ADL's. OT Education/Plan Problem List/Assessment Assessment: Decreased Activ Tolerance, Decreased UE Strength, Impaired Funct Balance, Impaired I ADL's, Impaired Self-Care Skills Discharge Recommendations Plan/Recommendations: Continue POC Treatment Plan/Plan of Care Patient would benefit from OT for education, treatment and training to promote independence in ADL's, mobility, safety and/or upper extremity function for ADL's. Plan of Care: ADL Retraining, Caregiver Training, Functional Mobility, Orthotic Fitting/Training, UE Funct Exercise/Act, W/C Management Training Treatment Duration: Apr 01, 2021 Frequency: 3 times per week Estimated Hrs Per Day: .25 hour per day Agreement: Yes Rehab Potential: Guarded Time/GCodes Start Time: 09:38 Stop Time: 09:50 Total Time Billed (hr/min): 12 Billed Treatment Time 1, EX LIT SOFIA OT Mar 18, 2021 09:58
[2021-03-18 12:00] VITALS: BP 138/65
--- NOTE | 2021-03-18 15:04 | Physical Therapy Daily Note ---
PT Daily Note-Current Subjective Patient in bed pre tx, agrees to PT, has no complaints of pain, states she has urinated in the bed, has a purewick that she removes herself but it has feces on it, nurse aide notified to help with cleaning. Appearance Patient in recliner post tx with nurse call, phone, tray, all needs met. Mental Status Patient Orientation: Person, Place, Situation Transfers SCALE: Activities may be completed with or without assistive devices. 7-Vezgsekwbv-cvthitz completes the activity by him/herself with no assistance from a helper. 5-Set-up or Clean-up Assistance-helper sets up or cleans up; patient completes activity. [place] assists only prior to or following the activity. 4-Supervision or Touching Assistance-helper provides verbal cues and/or touching/steadying and/or contact guard assistance as patient completes activity. Assistance may be provided throughout the activity or intermittently. 3-Partial/Moderate Assistance-helper does LESS THAN HALF the effort. [place] lifts, holds or supports trunk or limbs, but provides less than half the effort. 2-Substantial/Maximal Assistance-helper does MORE THAN HALF the effort. [place] lifts or holds trunk or limbs and provides more than half the effort. 3-Ogxbrncgh-nmrumk does ALL the effort. Patient does none of the effort to complete the activity. Or, the assistance of 2 or more helpers is required for the patient to complete the activity. If activity was not attempted, code reason: 7-Patient Refused. 9-Not Applicable-not attempted and the patient did not perform the activity before the current illness, exacerbation or injury. 10-Not Attempted due to Environmental Limitations-(lack of equipment, weather restraints, etc.). 88-Not Attempted due to Medical Conditions or Safety Concerns. Roll Left & Right (QC): 3 Lying to Sitting/Side of Bed(Q: 3 Sit to Stand (QC): 3 Chair/Fdg-jm-Bmwpk Xfer(QC): 3 Patient performs supine to sit with mod assist, sit to stand mod assist, after standing the nurse aide cleans patient and she ambulates a few steps to the recliner with mod assist, patient needs help guiding the walker and cues for safety. Exercises Seated Therapy Exercises: Ankle pumps, Long arc quads Seated Reps: 20 Treatments bed mobility and transfers, ambulation, LE strengthening Assessment Current Status: Fair Progress slightly improved functional mobility PT Care Home Goals Ranch Helper Goals PT Care Home Goals Time Frame: Apr 02, 2021 Roll Left & Right (QC): 3 Sit to Lying (QC): 3 Lying-Sitting on Side/Bed(QC): 3 Sit to Stand (QC): 3 Chair/Lku-nx-Cxhxz Xfer(QC): 3 Toilet Transfer (QC): 3 Walk 10 feet (QC): 3 Walk 50ft with 2 Turns (QC): 3 PT Plan Problem List Problem List: Activity Tolerance, Functional Strength, Safety, Balance, Gait, Transfer, Bed Mobility, ROM Treatment/Plan Treatment Plan: Continue Plan of Care Treatment Plan: Bed Mobility, Education, Functional Activity Rohan, Functional Strength, Gait, Safety, Therapeutic Exercise, Transfers Treatment Duration: Apr 02, 2021 Frequency: 6 times per week Estimated Hrs Per Day: .25 hour per day Safety Risks/Education Patient Education: Transfer Techniques, Correct Positioning, Safety Issues Teaching Recipient: Patient Teaching Methods: Demonstration, Discussion Response to Teaching: Reinforcement Needed Time/GCodes Time In: 1303 Time Out: 1320 Total Billed Treatment Time: 17 Total Billed Treatment 1 visit FA 17' CIRSTOBAL BRYANT PT Mar 18, 2021 15:04
[2021-03-18 15:41] VITALS: BP 142/67
--- NOTE | 2021-03-18 19:02 | Progress Note ---
Subjective Subjective/Events-last exam Patient states that she is feeling better. She was up in chair this AM. Review of Systems General: Malaise Pulmonary: No Dyspnea, No Cough Cardiovascular: No: Chest Pain, Palpitations, Edema Gastrointestinal: No: Nausea, Vomiting, Abdominal Pain, Diarrhea, Constipation Neurological: Weakness, Incoordination Objective Exam Last Set of Vital Signs Vital Signs Date Time Temp Pulse Resp B/P (MAP) Pulse Ox O2 Delivery O2 Flow Rate FiO2 03/18/21 15:41 36.4 84 20 142/67 (92) 96 Room Air 03/14/21 20:45 21 Capillary Refill : Less Than 3 Seconds I&O Intake and Output 03/18/21 00:00 Intake Total 1190 ml Output Total 600 ml Balance 590 ml Intake Oral 1190 ml Output Urine Total 600 ml # Voids 4 # Bowel Movements 3 General: Alert, Oriented X3, Cooperative, No Acute Distress Lungs: Clear to Auscultation, Normal Air Movement Heart: Regular Rate, No Murmurs Abdomen: Normal Bowel Sounds, Soft, No Tenderness, No Masses Extremities: No Edema, No Tenderness/Swelling Neuro: Normal Speech, Sensation Intact Results/Procedures Lab Laboratory Tests 03/18/21 06:15: White Blood Count 10.4, Red Blood Count 3.92, Hemoglobin 11.0L, Hematocrit 35, Mean Corpuscular Volume 89, Mean Corpuscular Hemoglobin 28, Mean Corpuscular Hemoglobin Concent 32, Red Cell Distribution Width 15.0H, Platelet Count 183, Mean Platelet Volume 9.5, Immature Granulocyte % (Auto) 1, Neutrophils (%) (Auto) 73, Lymphocytes (%) (Auto) 17, Monocytes (%) (Auto) 6, Eosinophils (%) (Auto) 3, Basophils (%) (Auto) 1, Neutrophils # (Auto) 7.6, Lymphocytes # (Auto) 1.7, Monocytes # (Auto) 0.7, Eosinophils # (Auto) 0.3, Basophils # (Auto) 0.1, Immature Granulocyte # (Auto) 0.1, Sodium Level 141, Potassium Level 4.2, Chloride Level 110H, Carbon Dioxide Level 22, Anion Gap 9, Blood Urea Nitrogen 25H, Creatinine 0.89, Estimat Glomerular Filtration Rate 65, BUN/Creatinine Ratio 28, Glucose Level 98, Calcium Level 8.7, Corrected Calcium 9.8, Total Bilirubin 0.4, Aspartate Amino Transf (AST/SGOT) 16, Alanine Aminotransferase (ALT/SGPT) 18, Alkaline Phosphatase 90, Total Protein 5.5L, Albumin 2.6L Microbiology 03/14/21 Urine Culture - Final, Complete YEAST 03/14/21 Blood Culture - Preliminary, Resulted No growth Assessment/Plan Assessment/Plan (1) COVID-19 Status: Acute Assessment & Plan: - Incidental covid +, doing well on RA (2) Failure to thrive Status: Acute Assessment & Plan: - Patient lives alone in home, recent fall with wrist fracture 03/18: Will need to follow up with Ortho Qualifiers: Qualified Codes: R62.7 - Adult failure to thrive (3) Acute renal failure Status: Resolved Assessment & Plan: - Gentle hydration, continue to monitor BMP (4) HTN (hypertension) Status: Acute Assessment & Plan: - Restart home meds (5) Skin rash Status: Acute Assessment & Plan: - Kayley-care, nystatin powder 03/16: improving, will continue to keep area clean and use powder (6) Debility Status: Acute Assessment & Plan: 03/17: Patient not safe to return home alone, working on placement ALESHA SADLER MD Mar 18, 2021 19:02
[2021-03-18 19:35] VITALS: BP 169/74
[2021-03-19] VITALS (7 sets, daily range): BP systolic 139–176; BP diastolic 70–80
[2021-03-19] MEDS: NYSTATIN CREAM (MYCOSTATIN) 30 GM TUBE TP SCH ×3 (09:54→20:31)
--- NOTE | 2021-03-19 11:13 | Progress Note - Hospitalist ---
Subjective HPI/CC On Admission Date Seen by Provider: Mar 19, 2021 Time Seen by Provider: 10:45 Subjective/Events-last exam Patient reports she still much weaker than baseline but improving a little each day. She denies chest pain or shortness of breath. Objective Exam Vital Signs Vital Signs Date Time Temp Pulse Resp B/P (MAP) Pulse Ox O2 Delivery O2 Flow Rate FiO2 03/19/21 08:42 36.6 76 20 152/70 (97) 94 Room Air 03/14/21 20:45 21 Capillary Refill : Less Than 3 Seconds General Appearance: No Apparent Distress, Obese Respiratory: No Accessory Muscle Use, No Respiratory Distress, Other (Diminished breath sounds in bases with fine rales to the mid lung mnceil no wheezing noted. Transfer text) Cardiovascular: No Gallop, No Murmur Results/Procedures Lab Patient resulted labs reviewed. Assessment/Plan Assessment and Plan Assess & Plan/Chief Complaint Status: Acute Assessment & Plan: - Incidental covid +, doing well on RA (2) Failure to thrive Status: Acute Assessment & Plan: - Patient lives alone in home, recent fall with wrist fracture 03/18: Will need to follow up with Ortho Qualifiers: Qualified Codes: R62.7 - Adult failure to thrive (3) Acute renal failure Status: Resolved Assessment & Plan: - Gentle hydration, continue to monitor BMP (4) HTN (hypertension) Status: Acute Assessment & Plan: - Restart home meds (5) Skin rash Status: Acute Assessment & Plan: - Kayley-care, nystatin powder 03/16: improving, will continue to keep area clean and use powder (6) Debility Status: Acute Assessment & Plan: 03/17: Patient not safe to return home alone, working on placement 03/19: Slow continued improvement with apparent goal of discharge to intermediate service at [facility] and rehab the beginning of the week. Continue physical therapy etc. NELLY PIZARRO MD Mar 19, 2021 11:13
--- NOTE | 2021-03-19 12:47 | Physical Therapy Daily Note ---
PT Daily Note-Current Subjective Agreeable and feels her breathing is improving. Mental Status Patient Orientation: Person, Place, Time, Situation Transfers SCALE: Activities may be completed with or without assistive devices. 1-Qubijrzaye-zwxnuzl completes the activity by him/herself with no assistance from a helper. 5-Set-up or Clean-up Assistance-helper sets up or cleans up; patient completes activity. [place] assists only prior to or following the activity. 4-Supervision or Touching Assistance-helper provides verbal cues and/or touching/steadying and/or contact guard assistance as patient completes activity. Assistance may be provided throughout the activity or intermittently. 3-Partial/Moderate Assistance-helper does LESS THAN HALF the effort. [place] lifts, holds or supports trunk or limbs, but provides less than half the effort. 2-Substantial/Maximal Assistance-helper does MORE THAN HALF the effort. [place] lifts or holds trunk or limbs and provides more than half the effort. 9-Iypvyavjn-guqayk does ALL the effort. Patient does none of the effort to complete the activity. Or, the assistance of 2 or more helpers is required for the patient to complete the activity. If activity was not attempted, code reason: 7-Patient Refused. 9-Not Applicable-not attempted and the patient did not perform the activity before the current illness, exacerbation or injury. 10-Not Attempted due to Environmental Limitations-(lack of equipment, weather restraints, etc.). 88-Not Attempted due to Medical Conditions or Safety Concerns. Roll Left & Right (QC): 3 Exercises Supine Ex: Ankle pumps, Quad Set, Rolling, Glut sets, Lower trunk rotation, Heel Slides, Short Arc Quads, Straight leg raise, Hip abd/add Supine Reps: 10 Assessment Current Status: Fair Progress Pt able to tolerate exercise and rolling activity without shortness of breath. PT Electron Beam Operator Goals Skilled Nursing Goals PT Skilled Nursing Goals Time Frame: Apr 02, 2021 Roll Left & Right (QC): 3 Sit to Lying (QC): 3 Lying-Sitting on Side/Bed(QC): 3 Sit to Stand (QC): 3 Chair/Rxi-ew-Zuejb Xfer(QC): 3 Toilet Transfer (QC): 3 Walk 10 feet (QC): 3 Walk 50ft with 2 Turns (QC): 3 PT Plan Treatment/Plan Treatment Plan: Continue Plan of Care Treatment Plan: Bed Mobility, Education, Functional Activity Rohan, Functional Strength, Gait, Safety, Therapeutic Exercise, Transfers Treatment Duration: Apr 02, 2021 Frequency: 6 times per week Estimated Hrs Per Day: .25 hour per day Time/GCodes Time In: 1130 Time Out: 1145 Total Billed Treatment Time: 15 Total Billed Treatment visit, exercise 15min MARIA ALEJANDRA BORJAS PT Mar 19, 2021 12:47
[2021-03-19] MEDS: ACETAMINOPHEN 325 MG TABLET PO PRN (20:32)
[2021-03-20 07:44] VITALS: BP 158/62
[2021-03-20] MEDS: NYSTATIN CREAM (MYCOSTATIN) 30 GM TUBE TP SCH ×3 (08:54→19:59)
--- NOTE | 2021-03-20 11:21 | Progress Note - Hospitalist ---
Subjective HPI/CC On Admission Date Seen by Provider: Mar 20, 2021 Time Seen by Provider: 10:30 Subjective/Events-last exam Other than fatigue patient reports each day she is feeling a bit better and she has been able to do a lot more with therapy each day. She reports still being far too weak to care for herself at home and is for as I can tell the game plan is possible transfer as early as tomorrow to [facility] and rehab. She has had no nights sweats chills fever cough. Objective Exam Vital Signs Vital Signs Date Time Temp Pulse Resp B/P (MAP) Pulse Ox O2 Delivery O2 Flow Rate FiO2 03/20/21 07:44 35.5 77 18 158/62 (94) 95 Room Air 03/14/21 20:45 21 Capillary Refill : Less Than 3 Seconds General Appearance: No Apparent Distress, Obese Respiratory: No Accessory Muscle Use, No Respiratory Distress, Other (Some diminishment in breath sounds in the bases unchanged from yesterday chest otherwise clear) Cardiovascular: Regular Rate, Rhythm, No Edema, No Gallop, No JVD, No Murmur, Normal Peripheral Pulses Extremity: Normal Inspection, Normal Range of Motion, No Pedal Edema Results/Procedures Lab Patient resulted labs reviewed. Assessment/Plan Assessment and Plan Assess & Plan/Chief Complaint Status: Acute Assessment & Plan: - Incidental covid +, doing well on RA (2) Failure to thrive Status: Acute Assessment & Plan: - Patient lives alone in home, recent fall with wrist fracture 03/18: Will need to follow up with Ortho Qualifiers: Qualified Codes: R62.7 - Adult failure to thrive (3) Acute renal failure Status: Resolved Assessment & Plan: - Gentle hydration, continue to monitor BMP (4) HTN (hypertension) Status: Acute Assessment & Plan: - Restart home meds (5) Skin rash Status: Acute Assessment & Plan: - Kayley-care, nystatin powder 03/16: improving, will continue to keep area clean and use powder (6) Debility Status: Acute Assessment & Plan: 03/17: Patient not safe to return home alone, working on placement 03/19: Slow continued improvement with apparent goal of discharge to residential service at [facility] and rehab the beginning of the week. Continue physical therapy etc. 03/20: Continued improvement transfer to residential facility when bed available NELLY PIZARRO MD Mar 20, 2021 11:21
[2021-03-20 11:51] VITALS: BP 173/78
[2021-03-20 15:35] VITALS: BP 144/70
[2021-03-20] MEDS: ACETAMINOPHEN 325 MG TABLET PO PRN (19:58)
[2021-03-21 00:05] VITALS: BP 129/59
[2021-03-21 07:46] VITALS: BP 145/67
[2021-03-21] MEDS: NYSTATIN CREAM (MYCOSTATIN) 30 GM TUBE TP SCH ×3 (09:04→21:38)
[2021-03-21] MEDS: ACETAMINOPHEN 325 MG TABLET PO PRN ×2 (09:11→20:35)
--- NOTE | 2021-03-21 11:40 | Physical Therapy Daily Note ---
PT Daily Note-Current Subjective Patient in recliner pre tx, agrees to PT but doesn't want to get out of the recliner because she says she just got into it and was too tired to stand. Patient has unrated neck pain, states she has it all the time. Appearance Patient in recliner post tx with nurse call, phone, tray, all needs met. Mental Status Patient Orientation: Person, Place, Situation Transfers SCALE: Activities may be completed with or without assistive devices. 2-Ewvvxhdocr-ntbnbrv completes the activity by him/herself with no assistance from a helper. 5-Set-up or Clean-up Assistance-helper sets up or cleans up; patient completes a ctivity. [place] assists only prior to or following the activity. 4-Supervision or Touching Assistance-helper provides verbal cues and/or touching/steadying and/or contact guard assistance as patient completes activity. Assistance may be provided throughout the activity or intermittently. 3-Partial/Moderate Assistance-helper does LESS THAN HALF the effort. [place] lifts, holds or supports trunk or limbs, but provides less than half the effort. 2-Substantial/Maximal Assistance-helper does MORE THAN HALF the effort. [place] lifts or holds trunk or limbs and provides more than half the effort. 5-Gqxphlioj-tvtrfa does ALL the effort. Patient does none of the effort to complete the activity. Or, the assistance of 2 or more helpers is required for the patient to complete the activity. If activity was not attempted, code reason: 7-Patient Refused. 9-Not Applicable-not attempted and the patient did not perform the activity before the current illness, exacerbation or injury. 10-Not Attempted due to Environmental Limitations-(lack of equipment, weather restraints, etc.). 88-Not Attempted due to Medical Conditions or Safety Concerns. Exercises Supine Ex: Ankle pumps, Quad Set, Glut sets, Heel Slides Supine Reps: 20 (done in recliner with legs elevated) Seated Therapy Exercises: Long arc quads, Hip flexion Seated Reps: 20 Treatments LE strengthening Assessment Current Status: Poor Progress patient refused to stand and try to ambulate, however she says the transfer earlier from the bed to chair was much better PT Associate Director Of Development Goals Senior Care Goals PT Associate Director Of Development Goals Time Frame: Apr 02, 2021 Roll Left & Right (QC): 3 Sit to Lying (QC): 3 Lying-Sitting on Side/Bed(QC): 3 Sit to Stand (QC): 3 Chair/Suc-ux-Cxdqh Xfer(QC): 3 Toilet Transfer (QC): 3 Walk 10 feet (QC): 3 Walk 50ft with 2 Turns (QC): 3 PT Plan Problem List Problem List: Activity Tolerance, Functional Strength, Safety, Balance, Gait, Transfer, Bed Mobility, ROM Treatment/Plan Treatment Plan: Continue Plan of Care Treatment Plan: Bed Mobility, Education, Functional Activity Rohan, Functional Strength, Gait, Safety, Therapeutic Exercise, Transfers Treatment Duration: Apr 02, 2021 Frequency: 6 times per week Estimated Hrs Per Day: .25 hour per day Safety Risks/Education Patient Education: Correct Positioning, Safety Issues Teaching Recipient: Patient Teaching Methods: Demonstration, Discussion Response to Teaching: Reinforcement Needed Time/GCodes Time In: 1110 Time Out: 1120 Total Billed Treatment Time: 10 Total Billed Treatment 1 visit EX 10' CRISTOBAL BRYANT PT Mar 21, 2021 11:40
--- NOTE | 2021-03-21 12:43 | Progress Note - Hospitalist ---
Subjective HPI/CC On Admission Date Seen by Provider: Mar 21, 2021 Time Seen by Provider: 11:45 Subjective/Events-last exam Patient voices no complaints very slow improvement in stamina feeling to week to handle her own activities of daily living. Denies chest pain or shortness of breath. Objective Exam Vital Signs Vital Signs Date Time Temp Pulse Resp B/P (MAP) Pulse Ox O2 Delivery O2 Flow Rate FiO2 03/21/21 08:00 Room Air 03/21/21 07:46 36.3 74 20 145/67 (93) 93 03/20/21 13:44 0.00 Capillary Refill : Less Than 3 Seconds General Appearance: No Apparent Distress, Obese Respiratory: No Accessory Muscle Use, No Respiratory Distress, Other (Chest clear anteriorly no wheezes rales or rhonchi) Cardiovascular: Regular Rate, Rhythm, No Gallop, No JVD, No Murmur, Other (Trace pedal edema stable) Results/Procedures Lab Patient resulted labs reviewed. Assessment/Plan Assessment and Plan Assess & Plan/Chief Complaint Status: Acute Assessment & Plan: - Incidental covid +, doing well on RA (2) Failure to thrive Status: Acute Assessment & Plan: - Patient lives alone in home, recent fall with wrist fracture 03/18: Will need to follow up with Ortho Qualifiers: Qualified Codes: R62.7 - Adult failure to thrive (3) Acute renal failure Status: Resolved Assessment & Plan: - Gentle hydration, continue to monitor BMP (4) HTN (hypertension) Status: Acute Assessment & Plan: - Restart home meds (5) Skin rash Status: Acute Assessment & Plan: - Kayley-care, nystatin powder 03/16: improving, will continue to keep area clean and use powder (6) Debility Status: Acute Assessment & Plan: 03/17: Patient not safe to return home alone, working on placement 03/19: Slow continued improvement with apparent goal of discharge to half-way service at [facility] and rehab the beginning of the week. Continue physical therapy etc. 03/20: Continued improvement transfer to half-way facility when bed available 03/21: Stable condition will need to have staff check on Ene Hg recommendation for how long to continue droplet precautions. Patient is medically stable for discharge when bed available in a half-way facility for which licensed master social worker has been working on. NELLY PIZARRO MD Mar 21, 2021 12:43
--- NOTE | 2021-03-21 14:22 | Occupational Ther Daily Note ---
OT Current Status-Daily Note Subjective Pt alert, sitting in recliner. Pt agrees to therapy. No c/o pain. Mental Status/Objective Patient Orientation: Person, Place, Time, Situation ADL-Treatment Pt incontinent of urine. Dependent, max A x2, for toileting and lower body dressing. Max A x2 for sit to stand then using FWW and Assist x2 pt able to shuffle feet and go from recliner to EOB. Max A x2 for EOB to supine then to scoot up in bed. After therapy, pt lying in bed with call light/phone in reach. All needs met in room. Therapy Code Descriptions/Definitions Functional [place] Measure: 0=Not Assessed/NA 4=Minimal Assistance 1=Total Assistance 5=Supervision or Setup 2=Maximal Assistance 6=Modified [place] 3=Moderate Assistance 7=Complete IndependenceSCALE: Activities may be completed with or without assistive devices. 0-Xnnjvnafht-kgvepmd completes the activity by him/herself with no assistance from a helper. 5-Set-up or Clean-up Assistance-helper sets up or cleans up; patient completes activity. [place] assists only prior to or following the activity. 4-Supervision or Touching Assistance-helper provides verbal cues and/or touching/steadying and/or contact guard assistance as patient completes activity. Assistance may be provided throughout the activity or intermittently. 3-Partial/Moderate Assistance-helper does LESS THAN HALF the effort. [place] lifts, holds or supports trunk or limbs, but provides less than half the effort. 2-Substantial/Maximal Assistance-helper does MORE THAN HALF the effort. [place] lifts or holds trunk or limbs and provides more than half the effort. 0-Jgukilddf-jdtyez does ALL the effort. Patient does none of the effort to complete the activity. Or, the assistance of 2 or more helpers is required for the patient to complete the activity. If activity was not attempted, code reason: 7-Patient Refused. 9-Not Applicable-not attempted and the patient did not perform the activity before the current illness, exacerbation or injury. 10-Not Attempted due to Environmental Limitations-(lack of equipment, weather restraints, etc.). 88-Not Attempted due to Medical Conditions or Safety Concerns. Lower Body Dressing (QC): 1 On/Off Footwear: 1 Toileting Hygiene (QC): 1 OT Perforator Goals Perforator Goals Time Frame: Apr 01, 2021 Oral Hygiene (QC): 4 Toileting Hygiene (QC): 3 Shower/Bathe Self (QC): 3 Upper Body Dressing (QC): 4 Lower Body Dressing (QC): 3 On/Off Footwear (QC): 3 1=Demonstrate adherence to instructed precautions during ADL tasks. 2=Patient will verbalize/demonstrate understanding of assistive devices/modifications for ADL. 3=Patient will improve strength/tolerance for activity to enable patient to perform ADL's. OT Education/Plan Problem List/Assessment Assessment: Decreased Activ Tolerance, Impaired Self-Care Skills Discharge Recommendations Plan/Recommendations: Continue POC Treatment Plan/Plan of Care Patient would benefit from OT for education, treatment and training to promote independence in ADL's, mobility, safety and/or upper extremity function for ADL's. Plan of Care: ADL Retraining, Caregiver Training, Functional Mobility, Orthotic Fitting/Training, UE Funct Exercise/Act, W/C Management Training Treatment Duration: Apr 01, 2021 Frequency: 3 times per week Estimated Hrs Per Day: .25 hour per day Agreement: Yes Rehab Potential: Guarded Time/GCodes Start Time: 13:55 Stop Time: 14:10 Total Time Billed (hr/min): 15 Billed Treatment Time 1 visit-ADL 1 (15 min) ANANTH RIVERA Mar 21, 2021 14:22
[2021-03-21 16:00] VITALS: BP 142/65
[2021-03-21] MEDS: MICONAZOLE 2% POWDER (DESENEX AF) 90 GM TOP SCH (20:02)
[2021-03-22 00:47] VITALS: BP 148/69
[2021-03-22 07:01] LABS: BASOPHILS # (AUTO) 0.1 10^3/uL (0.0-0.1); BASOPHILS % (AUTO) 1 % (0-10); EOSINOPHILS # (AUTO) 0.5 10^3/uL (0.0-0.3); EOSINOPHILS % (AUTO) 5 % (0-10); HEMATOCRIT 35 % (35-52); HEMOGLOBIN 10.6 g/dL (11.5-16.0); LYMPHOCYTES # (AUTO) 2.1 10^3/uL (1.0-4.0); LYMPHOCYTES % (AUTO) 22 % (12-44); MEAN CORPUSCULAR HEMOGLOBIN 27 pg (25-34); MEAN CORPUSCULAR HGB CONC 30 g/dL (32-36); MEAN CORPUSCULAR VOLUME 90 fL (80-99); MEAN PLATELET VOLUME 9.9 fL (9.0-12.2); MONOCYTES # (AUTO) 0.7 10^3/uL (0.0-1.0); MONOCYTES % (AUTO) 8 % (0-12); NEUTROPHILS % (AUTO) 63 % (42-75); PLATELET COUNT 349 10^3/uL (130-400); WHITE BLOOD COUNT 9.6 10^3/uL (4.3-11.0)
[2021-03-22 07:18] LABS: ALBUMIN 2.7 GM/DL (3.2-4.5); BILIRUBIN,TOTAL 0.2 MG/DL (0.1-1.0); CREATININE SERUM 0.94 MG/DL (0.60-1.30); POTASSIUM 4.9 MMOL/L (3.6-5.0)
[2021-03-22 08:04] VITALS: BP 162/73
[2021-03-22] MEDS: NYSTATIN CREAM (MYCOSTATIN) 30 GM TUBE TP SCH ×3 (08:37→20:23)
[2021-03-22] MEDS: MICONAZOLE 2% POWDER (DESENEX AF) 90 GM TOP SCH ×2 (08:37→20:23)
--- NOTE | 2021-03-22 09:49 | Progress Note - Hospitalist ---
Subjective HPI/CC On Admission Date Seen by Provider: Mar 22, 2021 Time Seen by Provider: 10:00 Subjective/Events-last exam Pt is doing really well On room air Awaiting correction placement She could have been colonized since she was positive last month so she could come out of isolation and go to the correction sooner rather than later Bowels are moving Review of Systems General: Fatigue, Malaise Objective Exam Vital Signs Vital Signs Date Time Temp Pulse Resp B/P (MAP) Pulse Ox O2 Delivery O2 Flow Rate FiO2 03/23/21 00:26 36.1 87 20 156/68 (97) 93 Room Air 03/22/21 23:13 21 03/20/21 13:44 0.00 Capillary Refill : Less Than 3 Seconds General Appearance: No Apparent Distress, WD/WN, Chronically ill Respiratory: Lungs Clear, Normal Breath Sounds Cardiovascular: Regular Rate, Rhythm Neurologic/Psychiatric: Alert, Oriented x3, No Motor/Sensory Deficits, Normal Mood/Affect Results/Procedures Lab Laboratory Tests 03/22/21 06:50 Patient resulted labs reviewed. Assessment/Plan Assessment and Plan Assess & Plan/Chief Complaint Assessment: FTT COVID+ HTN Obesity Plan: WYP KANDI RODRIGUEZ DO Mar 22, 2021 09:49
--- NOTE | 2021-03-22 11:36 | Physical Therapy Daily Note ---
PT Daily Note-Current Subjective Patient sitting in recliner upon PT arrival, agreeable to treatment but reports she doesn't feel like she is ready to ambulate. Mental Status Patient Orientation: Person Transfers SCALE: Activities may be completed with or without assistive devices. 1-Rvuxaibkwo-ygnsuqi completes the activity by him/herself with no assistance from a helper. 5-Set-up or Clean-up Assistance-helper sets up or cleans up; patient completes activity. [place] assists only prior to or following the activity. 4-Supervision or Touching Assistance-helper provides verbal cues and/or touching/steadying and/or contact guard assistance as patient completes activity. Assistance may be provided throughout the activity or intermittently. 3-Partial/Moderate Assistance-helper does LESS THAN HALF the effort. [place] lifts, holds or supports trunk or limbs, but provides less than half the effort. 2-Substantial/Maximal Assistance-helper does MORE THAN HALF the effort. [place] lifts or holds trunk or limbs and provides more than half the effort. 1-Lsjieqnxp-oovgyo does ALL the effort. Patient does none of the effort to complete the activity. Or, the assistance of 2 or more helpers is required for the patient to complete the activity. If activity was not attempted, code reason: 7-Patient Refused. 9-Not Applicable-not attempted and the patient did not perform the activity before the current illness, exacerbation or injury. 10-Not Attempted due to Environmental Limitations-(lack of equipment, weather restraints, etc.). 88-Not Attempted due to Medical Conditions or Safety Concerns. Sit to Stand (QC): 3 Chair/Bdc-xh-Qykdw Xfer(QC): 3 Gait Training Does the Patient Walk?: No and Walking Goal IS indicated Exercises Supine Ex: Ankle pumps, Quad Set, Glut sets, Heel Slides, Short Arc Quads, Straight leg raise, Hip abd/add Supine Reps: 20 Treatments Patient performs sit to stand x 2 and static standing balance activity Assessment Current Status: Fair Progress Patient tolerated treatment fair. Seems to fear ambulation at this time and standing in general. Patient performs LE therapeutic exercise as listed above. Patient performs sit to stand x 2 with min A and static standing balance activity. Patient able to tolerate static standing x 2 minutes each repetition. Patient in chair post treatment with all needs met, nursing notified, call light in reach. PT Aerial Lineman Goals Detention Goals PT Detention Goals Time Frame: Apr 02, 2021 Roll Left & Right (QC): 3 Sit to Lying (QC): 3 Lying-Sitting on Side/Bed(QC): 3 Sit to Stand (QC): 3 Chair/Rkh-yy-Jtccg Xfer(QC): 3 Toilet Transfer (QC): 3 Walk 10 feet (QC): 3 Walk 50ft with 2 Turns (QC): 3 PT Plan Treatment/Plan Treatment Plan: Continue Plan of Care Treatment Plan: Bed Mobility, Education, Functional Activity Rohan, Functional Strength, Gait, Safety, Therapeutic Exercise, Transfers Treatment Duration: Apr 02, 2021 Frequency: 6 times per week Estimated Hrs Per Day: .25 hour per day Safety Risks/Education Patient Education: Transfer Techniques Teaching Recipient: Patient Teaching Methods: Demonstration, Discussion Response to Teaching: Verbalize Understanding, Return Demonstration Time/GCodes Time In: 1100 Time Out: 1115 Total Billed Treatment Time: 15 Total Billed Treatment Visit, Ex RAMBO NG PT Mar 22, 2021 11:36
--- NOTE | 2021-03-22 14:10 | Occupational Ther Daily Note ---
OT Current Status-Daily Note Subjective Pt alert, sitting in recliner. Pt agrees to therapy. No c/o pain. Mental Status/Objective Patient Orientation: Person, Place, Time Attachments: IV ADL-Treatment Pt states that she was able to take sock off by bending over before illness. Pt is only able to reach top of ankles, unable to don/doff socks at this time. Pt states that she was given a sock aide but does not know where it is at home. Pt educated on sock aide. Will continue to educate and have pt attempt with items. Pt then completed B shldr flexion 1 set 15 times, stopped due to fatigue. 1 set 20 times for elbow flexion. Pt took of wrist brace and edema noted in fingers, hand and wrist. Pt stated there is pain sometimes at [facility] thumb joint along with swelling this is why she wears the splint. Self edema massage education to pt and pt demonstrated in return. Open/closing hand to work on decreasing edema throughout L hand. Pt would not attempt sit to stands stating that she cannot do this. Light resistance therapy sponge given to pt. After session, pt sitting in recliner with feet elevated. Call light/phone in reach. All needs met in room. Therapy Code Descriptions/Definitions Functional [place] Measure: 0=Not Assessed/NA 4=Minimal Assistance 1=Total Assistance 5=Supervision or Setup 2=Maximal Assistance 6=Modified [place] 3=Moderate Assistance 7=Complete IndependenceSCALE: Activities may be completed with or without assistive devices. 2-Uevfknlokz-bcsgfbh completes the activity by him/herself with no assistance from a helper. 5-Set-up or Clean-up Assistance-helper sets up or cleans up; patient completes activity. [place] assists only prior to or following the activity. 4-Supervision or Touching Assistance-helper provides verbal cues and/or touching/steadying and/or contact guard assistance as patient completes activity. Assistance may be provided throughout the activity or intermittently. 3-Partial/Moderate Assistance-helper does LESS THAN HALF the effort. [place] lifts, holds or supports trunk or limbs, but provides less than half the effort. 2-Substantial/Maximal Assistance-helper does MORE THAN HALF the effort. [place] lifts or holds trunk or limbs and provides more than half the effort. 8-Bmzdacooo-kmbfto does ALL the effort. Patient does none of the effort to complete the activity. Or, the assistance of 2 or more helpers is required for the patient to complete the activity. If activity was not attempted, code reason: 7-Patient Refused. 9-Not Applicable-not attempted and the patient did not perform the activity before the current illness, exacerbation or injury. 10-Not Attempted due to Environmental Limitations-(lack of equipment, weather restraints, etc.). 88-Not Attempted due to Medical Conditions or Safety Concerns. Lower Body Dressing (QC): 1 On/Off Footwear: 1 OT Sound Technician Supervisor Goals [facility] Goals Time Frame: Apr 01, 2021 Oral Hygiene (QC): 4 Toileting Hygiene (QC): 3 Shower/Bathe Self (QC): 3 Upper Body Dressing (QC): 4 Lower Body Dressing (QC): 3 On/Off Footwear (QC): 3 1=Demonstrate adherence to instructed precautions during ADL tasks. 2=Patient will verbalize/demonstrate understanding of assistive devices/modifications for ADL. 3=Patient will improve strength/tolerance for activity to enable patient to perform ADL's. OT Education/Plan Problem List/Assessment Assessment: Decreased Activ Tolerance, Decreased UE Strength, Impaired Self- Care Skills Discharge Recommendations Plan/Recommendations: Continue POC Treatment Plan/Plan of Care Patient would benefit from OT for education, treatment and training to promote independence in ADL's, mobility, safety and/or upper extremity function for ADL's. Plan of Care: ADL Retraining, Caregiver Training, Functional Mobility, Orthotic Fitting/Training, UE Funct Exercise/Act, W/C Management Training Treatment Duration: Apr 01, 2021 Frequency: 3 times per week Estimated Hrs Per Day: .25 hour per day Agreement: Yes Rehab Potential: Guarded Time/GCodes Start Time: 13:00 Stop Time: 13:23 Total Time Billed (hr/min): 23 Billed Treatment Time 1 visit-ADL 1 (13 min) EX 1 (10 min) ANANTH RIVERA Mar 22, 2021 14:10
[2021-03-22 16:25] VITALS: BP 169/74
[2021-03-22 23:13] VITALS: BP 169/74
[2021-03-23 00:26] VITALS: BP 156/68
[2021-03-23] MEDS: ACETAMINOPHEN 325 MG TABLET PO PRN (00:29)
--- NOTE | 2021-03-23 06:59 | Progress Note - Hospitalist ---
Subjective HPI/CC On Admission Date Seen by Provider: Mar 23, 2021 Time Seen by Provider: 11:00 Subjective/Events-last exam Pt is now out of isolation Maybe an option for in-patient rehab, will put an evaluation in No hypoxia Room air Getting strength back Review of Systems General: Fatigue Pulmonary: Dyspnea Objective Exam Vital Signs Vital Signs Date Time Temp Pulse Resp B/P (MAP) Pulse Ox O2 Delivery O2 Flow Rate FiO2 03/23/21 23:55 36.0 81 18 135/80 (98) 95 Room Air 03/22/21 23:13 21 03/20/21 13:44 0.00 Capillary Refill : Less Than 3 Seconds General Appearance: No Apparent Distress, WD/WN, Chronically ill Respiratory: Lungs Clear, Normal Breath Sounds Cardiovascular: Regular Rate, Rhythm Neurologic/Psychiatric: Alert, Oriented x3, No Motor/Sensory Deficits, Normal Mood/Affect Results/Procedures Lab Patient resulted labs reviewed. Assessment/Plan Assessment and Plan Assess & Plan/Chief Complaint Assessment: FTT COVID+ HTN Obesity Plan: [facility] 03/23/21: [facility] KANDI RODRIGUEZ DO Mar 23, 2021 06:59
[2021-03-23 07:48] VITALS: BP 141/63
[2021-03-23] MEDS: MICONAZOLE 2% POWDER (DESENEX AF) 90 GM TOP SCH ×2 (11:34→21:47)
[2021-03-23] MEDS: NYSTATIN CREAM (MYCOSTATIN) 30 GM TUBE TP SCH ×3 (11:34→21:46)
--- NOTE | 2021-03-23 12:53 | Occupational Ther Daily Note ---
OT Current Status-Daily Note Subjective Pt alert, sitting in recliner. Pt agrees to therapy. Pt is now out of isolation. No c/o pain. Pt states that she is doing very well today. Mental Status/Objective Patient Orientation: Person, Place, Time, Situation Attachments: IV ADL-Treatment Pt's L hand edema decreased. Pt stood from recliner with min A. CGA using FWW to shuffle over to BSC, min A for sit to stand. Pt able to cleanse prem area, assist to cleanse buttocks. Mod A to don/doff briefs. After session, pt sitting in recliner with call light/phone in reach. All needs met in room. Therapy Code Descriptions/Definitions Functional [place] Measure: 0=Not Assessed/NA 4=Minimal Assistance 1=Total Assistance 5=Supervision or Setup 2=Maximal Assistance 6=Modified [place] 3=Moderate Assistance 7=Complete IndependenceSCALE: Activities may be completed with or without assistive devices. 7-[place]-fef[place]xe completes the activity by him/herself with no assistance from a helper. 5-Set-up or Clean-up Assistance-helper sets up or cleans up; patient completes activity. [place] assists only prior to or following the activity. 4-Supervision or Touching Assistance-helper provides verbal cues and/or touching/steadying and/or contact guard assistance as patient completes activity. Assistance may be provided throughout the activity or intermittently. 3-Partial/Moderate Assistance-helper does LESS THAN HALF the effort. [place] lifts, holds or supports trunk or limbs, but provides less than half the effort. 2-Substantial/Maximal Assistance-helper does MORE THAN HALF the effort. [place] lifts or holds trunk or limbs and provides more than half the effort. 1-Svubsrxlj-gxwtlz does ALL the effort. Patient does none of the effort to complete the activity. Or, the assistance of 2 or more helpers is required for the patient to complete the activity. If activity was not attempted, code reason: 7-Patient Refused. 9-Not Applicable-not attempted and the patient did not perform the activity before the current illness, exacerbation or injury. 10-Not Attempted due to Environmental Limitations-(lack of equipment, weather restraints, etc.). 88-Not Attempted due to Medical Conditions or Safety Concerns. Lower Body Dressing (QC): 2 (mod A) Toileting Hygiene (QC): 2 (mod A) Toilet Transfer (QC): 3 (min A) OT [facility] Goals [facility] Goals Time Frame: Apr 01, 2021 Oral Hygiene (QC): 4 Toileting Hygiene (QC): 3 Shower/Bathe Self (QC): 3 Upper Body Dressing (QC): 4 Lower Body Dressing (QC): 3 On/Off Footwear (QC): 3 1=Demonstrate adherence to instructed precautions during ADL tasks. 2=Patient will verbalize/demonstrate understanding of assistive devices/modifications for ADL. 3=Patient will improve strength/tolerance for activity to enable patient to perform ADL's. OT Education/Plan Problem List/Assessment Assessment: Decreased Activ Tolerance, Impaired Self-Care Skills Discharge Recommendations Plan/Recommendations: Continue POC Treatment Plan/Plan of Care Patient would benefit from OT for education, treatment and training to promote independence in ADL's, mobility, safety and/or upper extremity function for ADL's. Plan of Care: ADL Retraining, Caregiver Training, Functional Mobility, Orthotic Fitting/Training, UE Funct Exercise/Act, W/C Management Training Treatment Duration: Apr 01, 2021 Frequency: 3 times per week Estimated Hrs Per Day: .25 hour per day Agreement: Yes Rehab Potential: Guarded Time/GCodes Start Time: 11:13 Stop Time: 11:29 Total Time Billed (hr/min): 16 Billed Treatment Time 1 visit-ADL 1 (16 min) ANANTH RIVERA Mar 23, 2021 12:53
--- NOTE | 2021-03-23 13:56 | Physical Therapy Daily Note ---
PT Daily Note-Current Subjective Patient reports she feels much better today and isn't having any pain at the moment. Transfers SCALE: Activities may be completed with or without assistive devices. 9-Jbdlejhdaw-lavjjzi completes the activity by him/herself with no assistance from a helper. 5-Set-up or Clean-up Assistance-helper sets up or cleans up; patient completes activity. [place] assists only prior to or following the activity. 4-Supervision or Touching Assistance-helper provides verbal cues and/or touching/steadying and/or contact guard assistance as patient completes activity. Assistance may be provided throughout the activity or intermittently. 3-Partial/Moderate Assistance-helper does LESS THAN HALF the effort. [place] lifts, holds or supports trunk or limbs, but provides less than half the effort. 2-Substantial/Maximal Assistance-helper does MORE THAN HALF the effort. [place] lifts or holds trunk or limbs and provides more than half the effort. 4-Znhcvcshg-kyajje does ALL the effort. Patient does none of the effort to complete the activity. Or, the assistance of 2 or more helpers is required for the patient to complete the activity. If activity was not attempted, code reason: 7-Patient Refused. 9-Not Applicable-not attempted and the patient did not perform the activity before the current illness, exacerbation or injury. 10-Not Attempted due to Environmental Limitations-(lack of equipment, weather restraints, etc.). 88-Not Attempted due to Medical Conditions or Safety Concerns. Sit to Stand (QC): 3 Chair/Soj-dm-Xgziv Xfer(QC): 3 Gait Training Does the Patient Walk?: No and Walking Goal IS indicated Exercises Supine Ex: Ankle pumps, Quad Set, Glut sets, Heel Slides, Short Arc Quads, Straight leg raise, Hip abd/add Supine Reps: 20 Assessment Current Status: Fair Progress Patient tolerated treatment well. Requires min A for sit to/from stand. Patient performs dynamic standing balance activity with DOUBLE NEEDLE STITCHER assisting in cleaning and changing depends. Patient returns to chair and performs LE therapeutic exercise as listed above. Patient in chair post treatment with all needs met, nursing notified, call light in hand. PT Loan Services Professional Goals Senior Care Goals PT Senior Care Goals Time Frame: Apr 02, 2021 Roll Left & Right (QC): 3 Sit to Lying (QC): 3 Lying-Sitting on Side/Bed(QC): 3 Sit to Stand (QC): 3 Chair/Gad-cz-Xixzl Xfer(QC): 3 Toilet Transfer (QC): 3 Walk 10 feet (QC): 3 Walk 50ft with 2 Turns (QC): 3 PT Plan Treatment/Plan Treatment Plan: Continue Plan of Care Treatment Plan: Bed Mobility, Education, Functional Activity Rohan, Functional Strength, Gait, Safety, Therapeutic Exercise, Transfers Treatment Duration: Apr 02, 2021 Frequency: 6 times per week Estimated Hrs Per Day: .25 hour per day Safety Risks/Education Patient Education: Transfer Techniques, Safety Issues Teaching Recipient: Patient Teaching Methods: Demonstration, Discussion Response to Teaching: Verbalize Understanding, Return Demonstration Time/GCodes Time In: 1328 Time Out: 1353 Total Billed Treatment Time: 25 Total Billed Treatment Visit, ExJANETTE JOHN A PT Mar 23, 2021 13:56
[2021-03-23 16:10] VITALS: BP 168/74
[2021-03-23 23:55] VITALS: BP 135/80
--- NOTE | 2021-03-24 05:58 | Progress Note - Hospitalist ---
Subjective HPI/CC On Admission Date Seen by Provider: Mar 24, 2021 Objective Exam Vital Signs Vital Signs Date Time Temp Pulse Resp B/P (MAP) Pulse Ox O2 Delivery O2 Flow Rate FiO2 03/24/21 12:14 Room Air 0.00 03/24/21 07:59 36.6 79 20 145/74 (97) 92 03/22/21 23:13 21 Capillary Refill : Less Than 3 Seconds Results/Procedures Lab Patient resulted labs reviewed. Assessment/Plan Assessment and Plan Assess & Plan/Chief Complaint Assessment: FTT COVID+ HTN Obesity Plan: [facility] 03/23/21: [facility] KANDI RODRIGUEZ DO Mar 24, 2021 05:58
[2021-03-24 07:59] VITALS: BP 145/74
[2021-03-24] MEDS: MICONAZOLE 2% POWDER (DESENEX AF) 90 GM TOP SCH (09:00)
[2021-03-24] MEDS ORDERED: CYCL1DRO OU (10:45)
[2021-03-24] MEDS ORDERED: LOSA50TA63 PO (10:45)
[2021-03-24] MEDS ORDERED: ASPI-999 PO (10:45)
[2021-03-24] MEDS ORDERED: DICY10CA12 PO (10:45)
[2021-03-24] MEDS ORDERED: CHOL10007 PO (10:45)
[2021-03-24] MEDS ORDERED: ASCO100024 PO (10:45)
[2021-03-24] MEDS ORDERED: LEVO150T6 PO (10:45)
[2021-03-24] MEDS ORDERED: ACET325T49 PO (10:45)
[2021-03-24] MEDS ORDERED: NYST15CR TP (10:45)
[2021-03-24] MEDS ORDERED: MICO90PO TOP (10:45)
--- NOTE | 2021-03-24 10:46 | Discharge Inst-Skilled Nursing ---
Discharge Inst-Skilled NF Reconcile Patient Problems Problems Reviewed?: Yes Patient Instructions Patient Problems: Debility Goal: [place] Consult/Follow Up/Orders Follow Up Appt.: pcp ne rounds Skilled NF Admit to: [facility] [place] (SNF) I certify that SNF services are required to be given on an inpatient basis because of the above named patient's need for retirement care on a continuing basis for the conditions(s) for which he/she was receiving inpatient hospital services prior to his/her transfer to the SNF. [facility]pc Facility Order: Nursing Services, Operations Officer Afloat-Evaluate & Treat, Physical Therapy-Evaluate & Treat Oxygen Delivery Method: Room Air Discharge Diet: No Restrictions Resuscitation Status: Full Code New & Resume Previous Orders New Medications: Acetaminophen (Acetaminophen) 325 Mg Tablet 650 MG PO Q6H PRN for PAIN-MILD (1-4) OR TEMPATURE, #30 TAB Miconazole Nitrate (Lotrimin AF) 90 Gm Powder 0 GM TOP BID, #1 EA Nystatin (Nystatin) 15 Gm Cream..g. 1 GM TP TID, #1 TUBE Continued Medications: Ascorbic Acid (Vitamin C) 1,000 Mg Tablet 1000 MG PO BID, #30 TAB (This prescription has been renewed) Aspirin (Aspirin) 81 Mg Tab.chew 81 MG PO DAILY, #30 TAB (This prescription has been renewed) Cholecalciferol (Vitamin D3) (Vitamin D3) 25 Mcg Capsule 25 MCG PO DAILY, #30 CAP (This prescription has been renewed) Cyclosporine (Restasis) 1 Each Droperette 1 DROP OU BID PRN for DRY EYES, #1 EA (This prescription has been renewed) Dicyclomine HCl (Dicyclomine HCl) 10 Mg Capsule 10 MG PO BID PRN for GI SPASMS, #60 CAP (This prescription has been renewed) Levothyroxine Sodium (Levothyroxine Sodium) 150 Mcg Tablet 150 MCG PO DAILY, #30 TAB (This prescription has been renewed) Losartan Potassium (Losartan Potassium) 50 Mg Tablet 50 MG PO DAILY, #30 TAB (This prescription has been renewed) Jessica Kee Mar 24, 2021 10:45 JESSICA KEE DO Mar 24, 2021 10:46
--- NOTE | 2021-03-24 10:46 | Discharge Summary ---
Discharge Summary Hospital Course Was the Problem List Reviewed?: Yes Problems/Dx: (1) Failure to thrive Status: Acute Qualifiers: Qualified Codes: R62.7 - Adult failure to thrive (2) COVID-19 Status: Acute (3) Debility Status: Acute Hospital Course Date of Admission: Mar 14, 2021 at 17:10 Admission Diagnosis : Family Physician/Provider: No,Local Physician Date of Discharge: 03/24/21 Discharge Diagnosis: Failure to thrive, depression, COVID-19 pneumonia Hospital Course: Patient had a lengthy hospital course in isolation due to COVID-19 swab + and failure to thrive. Patient was restarted home medicine. shelter placement was obtained patient was discharged in improved condition. Labs and Pending Lab Test: Microbiology 03/14/21 Urine Culture - Final, Complete YEAST 03/14/21 Blood Culture - Final, Complete No growth Home Meds Active Nystatin 15 Gm Cream..g. 1 Gm TP TID Lotrimin AF (Miconazole Nitrate) 90 Gm Powder 0 Gm TOP BID Acetaminophen 325 Mg Tablet 650 Mg PO Q6H PRN Dicyclomine HCl 10 Mg Capsule 10 Mg PO BID PRN Vitamin D3 (Cholecalciferol (Vitamin D3)) 25 Mcg Capsule 25 Mcg PO DAILY Restasis (Cyclosporine) 1 Each Droperette 1 Drop OU BID PRN Losartan Potassium 50 Mg Tablet 50 Mg PO DAILY Levothyroxine Sodium 150 Mcg Tablet 150 Mcg PO DAILY Aspirin 81 Mg Tab.chew 81 Mg PO DAILY Vitamin C (Ascorbic Acid) 1,000 Mg Tablet 1,000 Mg PO BID Assessment/Pt Instructions PCP for [facility] rounds Discharge Planning: <30 minutes discharge planning Discharge Instructions Discharge Diet: No Restrictions Discharge Physical Examination Vital Signs Vital Signs Date Time Temp Pulse Resp B/P (MAP) Pulse Ox O2 Delivery O2 Flow Rate FiO2 03/24/21 08:00 Room Air 03/24/21 07:59 36.6 79 20 145/74 (97) 92 03/22/21 23:13 21 03/20/21 13:44 0.00 General Appearance: No Apparent Distress, WD/WN, Chronically ill Allergies: Coded Allergies: No Known Drug Allergies (Unverified , 03/19/18) Discharge Summary Date of Admission Mar 14, 2021 at 17:10 Date of Discharge Discharge Date: Mar 24, 2021 Discharge Diagnosis Assessment: FTT COVID+ HTN Obesity Plan: [facility] 03/23/21: [facility] KANDI RODRIGUEZ DO Mar 24, 2021 10:46
--- NOTE | 2021-03-24 11:07 | Occ Therapy Progress Note ---
Therapy Progress Note Pt discharging this AM to [place]. Light resistance therapy sponge given to pt for use to strengthen automatic packer operator and decrease edema in L hand. 1 [id number] ANANTH RIVERA Mar 24, 2021 11:07
== END 2021-03-24 10:41 ==
LOC: EDUNIT# 11:19 → ER 11:20 → UNDOADMOB 17:10 → 4TH 17:10 → UNDODISOB 03-24 13:00
PROVIDERS: ADMIT Family Medicine; ATTEND Internal Medicine
DX: U07.1 COVID-19 (principal); J12.82 Pneumonia due to coronavirus disease 2019; F32.A Depression, unspecified; R62.7 Adult failure to thrive; E11.9 Type 2 diabetes mellitus without complications; E66.9 Obesity, unspecified; N39.0 Urinary tract infection, site not specified; M19.90 Unspecified osteoarthritis, unspecified site; G89.29 Other chronic pain; M54.9 Dorsalgia, unspecified; E03.9 Hypothyroidism, unspecified; R41.0 Disorientation, unspecified; N17.9 Acute kidney failure, unspecified; R21 Rash and other nonspecific skin eruption; I11.9 Hypertensive heart disease without heart failure; I25.2 Old myocardial infarction; R00.0 Tachycardia, unspecified; Z79.899 Other long term (current) drug therapy; Z79.890 Hormone replacement therapy; Z79.82 Long term (current) use of aspirin; Z90.89 Acquired absence of other organs; Z90.710 Acquired absence of both cervix and uterus; Z99.81 Dependence on supplemental oxygen; Z68.41 Body mass index [BMI] 40.0-44.9, adult
CPT/HCPCS: 51701; 71045; 73110; 80048 ×3; 80053 ×3; 81000; 83605; 84484; 85007; 85025 ×5; 85027; 85610; 85730; 87040; 87088; 87636; 93005; 94760 ×3; 96361; 96365; 96375; 97110 ×6; 97162; 97165; 97530 ×2; 97535 ×3; 99284; G0378; 36415

== ENCOUNTER → 2021-05-19 | Outpatient (CLI) | payer MEDICARE, MEDICAID ==
[~2021-05-19] MED LIST changes: +ACET325T49 PO; +BENZ100C18 PO; +CHOL10007 PO; +DICY10CA12 PO; +LEVO150T6 PO; +LOSA50TA63 PO; +MICO90PO TOP; +NYST15CR TP; +ONDA4TAB11 PO
[2021-05-19 20:53] LABS: BILIRUBIN,URINE NEGATIVE (NEGATIVE); CLARITY,URINE CLOUDY; COLOR,URINE YELLOW; GLUCOSE, URINE (UA) NEGATIVE (NEGATIVE); KETONES,URINE NEGATIVE (NEGATIVE); LEUKOCYTE ESTERASE ,URINE 3+ (NEGATIVE); NITRITE,URINE NEGATIVE (NEGATIVE); PH,URINE 5.5 (5-9); PROTEIN,URINE NEGATIVE (NEGATIVE)
[2021-05-19 21:08] LABS: BACTERIA,URINE LARGE /HPF; WBC,URINE 50-100 /HPF; YEAST,URINE FEW /HPF
== END ==
LOC: CVS 20:46
PROVIDERS: ATTEND Internal Medicine
DX: Z01.89 Encounter for other specified special examinations (principal)
CPT/HCPCS: 81000; 87077; 87088; 87186

== ENCOUNTER → 2021-07-26 | Outpatient (CLI) | payer MEDICARE, MEDICAID ==
[~2021-07-26] MED LIST changes: +CATHETER FLUSH 10 ML SYR IV PRN; +HOLD METFORMIN - RECEIVED CONTRAST 20 ML VIAL IV SCH; +IOHEXOL 350 MG/ML 100 ML (OMNIPAQUE 350) VIAL IV ONE; +NS 100 ML (IVPB) BAG IV ONE
--- NOTE | 2021-07-26 10:25 | Diagnostic Imaging Report ---
CLINICAL INDICATION: Patient unable to walk. Legs are weak and giving out. Exam: Axial CT scan of the brain without and with 60 mL of Omnipaque 350 IV contrast with coronal and sagittal reformatted images. Auto Exposure Controls were utilized during the CT exam to meet ALARA standards for radiation dose reduction. Comparison: CT scan of the head and cervical spine without contrast dated 10/23/2016. Findings: There is no evidence of acute cerebral infarct, intracranial hemorrhage, or gross mass effect. There is no abnormal IV contrast enhancement. The brain parenchymal volume appears appropriate for patient's age. There is normal weir-white matter distinction. There is no significant midline shift or herniation. There is no evidence of hydrocephalus. The basal cisterns are unremarkable. The skull, extracranial soft tissue, and orbits are unremarkable. There is idivo-ce-xfrgvrch amount of sphenoid sinus disease. Temporal bones show no significant abnormality. Impression: 1: Age-related brain parenchymal changes with no evidence of acute intracranial process. There is no abnormal IV contrast enhancement. 2: Sphenoid sinus disease. Dictated by: Dictated on workstation # [id number]
== END ==
LOC: RAD 09:00
PROVIDERS: ATTEND Internal Medicine Cardiovascular Disease
DX: G31.89 Other specified degenerative diseases of nervous system (principal); I48.0 Paroxysmal atrial fibrillation
CPT/HCPCS: 70470; 93225; 93226; 93306

== ENCOUNTER → 2021-08-01 | Outpatient (CLI) | payer MEDICARE, MEDICAID ==
[~2021-08-01] MED LIST changes: -CATHETER FLUSH 10 ML SYR IV PRN; -HOLD METFORMIN - RECEIVED CONTRAST 20 ML VIAL IV SCH; -IOHEXOL 350 MG/ML 100 ML (OMNIPAQUE 350) VIAL IV ONE; -NS 100 ML (IVPB) BAG IV ONE
[2021-08-01 16:08] LABS: BILIRUBIN,URINE NEGATIVE (NEGATIVE); CLARITY,URINE CLOUDY; COLOR,URINE YELLOW; GLUCOSE, URINE (UA) NEGATIVE (NEGATIVE); KETONES,URINE NEGATIVE (NEGATIVE); LEUKOCYTE ESTERASE ,URINE 2+ (NEGATIVE); NITRITE,URINE POSITIVE (NEGATIVE); PH,URINE 5.5 (5-9); PROTEIN,URINE NEGATIVE (NEGATIVE)
[2021-08-01 16:15] LABS: BACTERIA,URINE MODERATE /HPF; WBC,URINE 50-100 /HPF
== END ==
LOC: LABNPT 16:02
PROVIDERS: ATTEND Internal Medicine
DX: Z01.89 Encounter for other specified special examinations (principal)
CPT/HCPCS: 81000; 87077; 87088; 87186

== ENCOUNTER → 2021-09-10 | Outpatient (CLI) | payer MEDICARE, MEDICAID ==
[2021-09-10 14:11] LABS: BILIRUBIN,URINE NEGATIVE (NEGATIVE); CLARITY,URINE CLEAR; COLOR,URINE YELLOW; GLUCOSE, URINE (UA) NEGATIVE (NEGATIVE); KETONES,URINE NEGATIVE (NEGATIVE); LEUKOCYTE ESTERASE ,URINE NEGATIVE (NEGATIVE); NITRITE,URINE NEGATIVE (NEGATIVE); PH,URINE 5.5 (5-9); PROTEIN,URINE NEGATIVE (NEGATIVE)
[2021-09-10 14:18] LABS: BACTERIA,URINE TRACE /HPF; HYALINE CASTS, URINE RARE /LPF
== END ==
LOC: CVS 14:02
PROVIDERS: ATTEND Internal Medicine
DX: M54.50 Low back pain, unspecified (principal); R10.9 Unspecified abdominal pain; R32 Unspecified urinary incontinence
CPT/HCPCS: 81000

== ENCOUNTER → 2021-12-18 | Outpatient (CLI) | payer MEDICARE, MEDICAID ==
[~2021-12-18] MED LIST changes: -NYST15CR TP; +NYST15CR35 TP
[2021-12-18 15:20] LABS: BILIRUBIN,URINE NEGATIVE (NEGATIVE); CLARITY,URINE CLEAR; COLOR,URINE YELLOW; GLUCOSE, URINE (UA) NEGATIVE (NEGATIVE); KETONES,URINE NEGATIVE (NEGATIVE); LEUKOCYTE ESTERASE ,URINE 1+ (NEGATIVE); NITRITE,URINE POSITIVE (NEGATIVE); PH,URINE 5.5 (5-9); PROTEIN,URINE NEGATIVE (NEGATIVE)
[2021-12-18 15:28] LABS: BACTERIA,URINE LARGE /HPF; WBC,URINE 25-50 /HPF
== END ==
LOC: LABNPT 15:15
PROVIDERS: ATTEND Internal Medicine
DX: Z01.89 Encounter for other specified special examinations (principal)
CPT/HCPCS: 81000; 87077; 87088; 87186

== ENCOUNTER → 2022-01-19 | Outpatient (CLI) | payer MEDICARE, MEDICAID ==
[~2022-01-19] MED LIST changes: +ALBU8.5H6 IH; -RT-ALBUINH IH
[2022-01-19 22:52] LABS: BILIRUBIN,URINE NEGATIVE (NEGATIVE); CLARITY,URINE SL CLOUDY; COLOR,URINE YELLOW; GLUCOSE, URINE (UA) NEGATIVE (NEGATIVE); KETONES,URINE NEGATIVE (NEGATIVE); LEUKOCYTE ESTERASE ,URINE 3+ (NEGATIVE); NITRITE,URINE POSITIVE (NEGATIVE); PROTEIN,URINE NEGATIVE (NEGATIVE)
[2022-01-19 23:18] LABS: BACTERIA,URINE LARGE /HPF; SQUAMOUS EPITHELIAL CELL,UR RARE /HPF; WBC,URINE >100 /HPF
== END ==
LOC: LAB 22:45
PROVIDERS: ATTEND Internal Medicine
DX: Z01.89 Encounter for other specified special examinations (principal)
CPT/HCPCS: 81000; 87088

== ENCOUNTER → 2022-05-14 | Outpatient (CLI) | payer MEDICARE, MEDICAID ==
[2022-05-14 11:03] LABS: BILIRUBIN,URINE NEGATIVE (NEGATIVE); CLARITY,URINE CLOUDY; COLOR,URINE YELLOW; GLUCOSE, URINE (UA) NEGATIVE (NEGATIVE); KETONES,URINE NEGATIVE (NEGATIVE); LEUKOCYTE ESTERASE ,URINE 2+ (NEGATIVE); NITRITE,URINE NEGATIVE (NEGATIVE); PH,URINE 5.5 (5-9); PROTEIN,URINE NEGATIVE (NEGATIVE)
[2022-05-14 11:07] LABS: BACTERIA,URINE LARGE /HPF; SQUAMOUS EPITHELIAL CELL,UR 0-2 /HPF; WBC,URINE 25-50 /HPF
== END ==
LOC: LABNPT 10:47
PROVIDERS: ATTEND Internal Medicine
DX: R41.0 Disorientation, unspecified (principal); R82.90 Unspecified abnormal findings in urine
CPT/HCPCS: 81000; 87077; 87088; 87186

== ENCOUNTER 2022-05-23 16:42 | Emergency (ER) | payer MEDICARE, MEDICAID ==
--- NOTE | 2022-05-23 17:04 | ED Fall/Injury ---
General Chief Complaint: Trauma-Non Activation Stated Complaint: FALL Nursing Triage Note: PT BROUGHT IN BY [facility] FROM [facility] WITH COMPLAINT OF FALL. PT WAS FOUND ON FLOOR OF BATHROOM, DOES NOT REMEMBER GOING TO BATHROOM. DENIES PAIN. EMS STATES HER OXYGEN WAS IN THE LOW 90s. History of Present Illness Date Seen by Provider: May 23, 2022 Time Seen by Provider: 16:50 Initial Comments Patient is an 81-year-old female brought in from [facility] after being found in the bathroom on the floor. Patient had had a bowel movement either before or after the fall. She is complaining of some right leg/ankle pain. She does not believe she hit her head. She has no complaints of pain anywhere else. Patient does not have specific recollection of the fall. Denies headache. No nausea. She states she has frequent urinary tract infections, she is not sure if she is on antibiotics currently. Her complaint with UTIs is frequency not dysuria Occurred: just prior to arrival Severity: mild Injuries/Pain Location: lower extremity (Right ankle) Context: unknown Loss of Consciousness: no loss of consciousness Modifying Factors: Improves With Immobilization Associated Symptoms (Fall): Denies Symptoms Allergies and Home Medications Allergies Coded Allergies: No Known Drug Allergies (Unverified , 03/19/18) Patient Home Medication List Home Medication List Reviewed: Yes Acetaminophen (Acetaminophen) 325 Mg Tablet, 650 MG PO Q6H PRN for PAIN-MILD (1- 4) OR TEMPATURE Prescribed by: KANDI RODRIGUEZ on 03/24/21 1045 Ascorbic Acid (Vitamin C) 1,000 Mg Tablet, 1,000 MG PO BID Prescribed by: KANDI RODRIGUEZ on 03/24/21 1045 Aspirin (Aspirin) 81 Mg Tab.chew, 81 MG PO DAILY Prescribed by: KANDI RODRIGUEZ on 03/24/21 1045 Cholecalciferol (Vitamin D3) (Vitamin D3) 25 Mcg Capsule, 25 MCG PO DAILY Prescribed by: KANDI RODRIGUEZ on 03/24/21 1045 Cyclosporine (Restasis) 1 Each Droperette, 1 DROP OU BID PRN for DRY EYES Prescribed by: KANDI RODRIGUEZ on 03/24/21 1045 Dicyclomine HCl (Dicyclomine HCl) 10 Mg Capsule, 10 MG PO BID PRN for GI SPASMS Prescribed by: KANDI RODRIGUEZ on 03/24/21 1045 Levothyroxine Sodium (Levothyroxine Sodium) 150 Mcg Tablet, 150 MCG PO DAILY Prescribed by: KANDI RODRIGUEZ on 03/24/21 104 Losartan Potassium (Losartan Potassium) 50 Mg Tablet, 50 MG PO DAILY Prescribed by: KANDI RODRIGUEZ on 03/24/211044 Miconazole Nitrate (Lotrimin AF) 90 Gm Powder, 0 GM TOP BID Prescribed by: KANDI RODRIGUEZ on 03/24/21 104 Nystatin (Nystatin) 15 Gm Cream..g., 1 GM TP TID Prescribed by: KANDI RODRIGUEZ on 03/24/21 104 Review of Systems Review of Systems Constitutional: see HPI Eyes: No Symptoms Reported Respiratory: no symptoms reported Cardiovascular: no symptoms reported Genitourinary: no symptoms reported Musculoskeletal: joint pain (Right ankle) Skin: no symptoms reported All Other Systems Reviewed Negative Unless Noted: Yes Past Yqqrtam-Zprkiq-Tfzhnx Hx Patient Social History Tobacco Use?: No Use of E-Cig and/or Vaping dev: No Substance use?: No Alcohol Use?: No Pt feels they are or have been: No Immunizations Up To Date PED Vaccines UTD: No Seasonal Allergies Seasonal Allergies: No Past Medical History Surgery/Hospitalization HX: 02/26 [place] for L wrist cellulitis Surgeries: Yes (STIMULATOR R HIP, CARPAL TUNNEL, TLKR, INTERSTIM R/L HIP FOR INCONTINENCE, ) Appendectomy, Section, Gallbladder, Hysterectomy, Orthopedic, Tonsillectomy Respiratory: Yes (Home o2 @ HS) Currently Using CPAP: No Currently Using BIPAP: No Cardiac: Yes Chronic Edema/Swelling Neurological: No 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 Disorders: No 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 Sexually Transmitted Disease: No HIV/AIDS: No Genitourinary: Yes (INNER STEMS PLACED FOR INCONTINENCE) Kidney Stones, UTI-Chronic Gastrointestinal: No Musculoskeletal: Yes (OSTERPENIA) Arthritis, Chronic Back Pain, Fractures Endocrine: Yes ("THYROID PROBLEMS") Hypothyroidsim HEENT: No Loss of Vision: Denies Hearing Impairment: Denies Cancer: No Psychosocial: No Integumentary: No Blood Disorders: No Adverse Reaction/Blood Tranf: No Family Medical History Diabetes mellitus 19 FATHER G8 SISTER Diabetes Physical Exam Vital Signs Vital Signs - First Documented 05/23/22 05/23/22 16:42 19:27 Temp 36.5 Pulse 59 Resp 16 B/P (MAP) 118/104 (109) Pulse Ox 100 O2 Delivery Nasal Cannula Capillary Refill : Less Than 3 Seconds Height, Weight, BMI Height: 5'1.00" Weight: 175lbs. 1.0oz. [id number]; 44.27 BMI Method:Stated General Appearance: WD/WN, obese HEENT: PERRL/EOMI Neck: non-tender, full range of motion Cardiovascular: regular rate, rhythm Respiratory: lungs clear, normal breath sounds, no respiratory distress, no accessory muscle use Gastrointestinal: normal bowel sounds, non tender, soft Extremities: normal range of motion, other (tenderness to palpation right ankle (medial) and dorsum of foot. Mild swelling; no erythema) Neurologic/Psychiatric: alert, other (oriented to self and location) Skin: normal color, warm/dry [place] Coma Score Best Eye Response: (4) Open Spontaneously Best Verbal Response: (5) Oriented Best Motor Response: (6) Obeys Commands Procedures/Interventions Patient Education: Explained Benefits, Explained Risks, Pt. Ack. Understanding Breath Sounds per Auscultation: Clear Heart Sounds per Auscultation: Regular Airway Exam: Mouth opens >2 fingers, Neck Full Range of Motion, Visulation of Uvula Sedation Adminstration Time: 2014 Suture Size: 5-0 Progress/Results/Core Measures Results/Orders My Orders Orders - LIT ESTEBAN MD Ankle, Right, 3 Views (05/23/22 17:00) Vital Signs/I&O 05/23/22 05/23/22 16:42 19:27 Temp 36.5 Pulse 59 65 Resp 16 16 B/P (MAP) 118/104 (109) 124/63 Pulse Ox 100 95 O2 Delivery Nasal Cannula Room Air Blood Pressure Mean: 109 Diagnostic Imaging Diagonstic Imaging: Xray Comments [facility] [place], [place] NAME: ANJALI ISAACROSANNA Mccann MED REC#: [id number] PT STATUS: REG ER : 1940 PHYSICIAN: LIT ESTEBAN MD ADMIT DATE: 05/23/22/ER Signed Date of Exam:05/23/22 ANKLE, RIGHT, 3 VIEWS INDICATION: Found down. FINDINGS: Three views of the right ankle are performed. 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 No widening of the mortise. There is soft tissue swelling about the ankle and hindfoot. No fracture evident. No acute-appearing bony abnormality. IMPRESSION: Soft tissue swelling and advanced degenerative disease but no fracture or acute bony injury apparent. Dictated by: Dictated on workstation # [id number] Dict: 05/23/22 1717 Trans: 05/23/22 1748 [id number] Interpreted by: RENNY OVALLE Electronically signed by: RENNY OVALLE 05/23/228 Departure Impression Primary Impression: Fall on same level from slipping, tripping or stumbling Qualified Codes: W01.0XXA - Fall on same level from slipping, tripping and stumbling without subsequent striking against object, initial encounter Additional Impression: Right ankle sprain Qualified Codes: S93.401A - Sprain of unspecified ligament of right ankle, initial encounter Disposition: HOME, SELF-CARE Condition: Stable Departure-Patient Inst. Decision time for Depature: 18:06 Referrals: NO,LOCAL PHYSICIAN (PCP/Family) Primary Care Physician Patient Instructions: Ankle Sprain ED Add. Discharge Instructions: Tylenol and or ibuprofen for pain. Ice packs as needed for swelling. Elevate to lessen swelling. Return to the ED for any new, concerning or emergent complaints. LIT ESTEBAN MD May 23, 2022 17:03
--- NOTE | 2022-05-23 17:27 | Diagnostic Imaging Report ---
INDICATION: Found down. FINDINGS: Three views of the right ankle are performed. 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 No widening of the mortise. There is soft tissue swelling about the ankle and hindfoot. No fracture evident. No acute-appearing bony abnormality. IMPRESSION: Soft tissue swelling and advanced degenerative disease but no fracture or acute bony injury apparent. Dictated by: Dictated on workstation # [id number]
[2022-05-23 19:27] VITALS: BP 124/63
== END 2022-05-23 19:29 | disposition home or self-care (01) ==
LOC: EDUNIT# 16:42 → ER 16:43
DX: S93.401A Sprain of unspecified ligament of right ankle, initial encounter (principal); W01.0XXA Fall on same level from slipping, tripping and stumbling without subsequent striking against object, initial encounter; Y92.121 Bathroom in nursing home as the place of occurrence of the external cause
CPT/HCPCS: 73610

== ENCOUNTER → 2022-06-14 | Outpatient (CLI) | payer MEDICARE, MEDICAID ==
[2022-06-14 07:32] LABS: BILIRUBIN,URINE NEGATIVE (NEGATIVE); CLARITY,URINE CLEAR; COLOR,URINE YELLOW; GLUCOSE, URINE (UA) NEGATIVE (NEGATIVE); KETONES,URINE NEGATIVE (NEGATIVE); LEUKOCYTE ESTERASE ,URINE 3+ (NEGATIVE); NITRITE,URINE NEGATIVE (NEGATIVE); PROTEIN,URINE NEGATIVE (NEGATIVE)
[2022-06-14 07:55] LABS: RBC,URINE 0-2 /HPF; WBC,URINE 25-50 /HPF
[2022-06-14 07:56] LABS: BACTERIA,URINE LARGE /HPF; SQUAMOUS EPITHELIAL CELL,UR 0-2 /HPF
== END ==
LOC: LABNPT 07:23
PROVIDERS: ATTEND Physician Assistant
DX: Z01.89 Encounter for other specified special examinations (principal)
CPT/HCPCS: 81000; 87077; 87088

== ENCOUNTER → 2022-06-19 | Outpatient (CLI) | payer MEDICARE, MEDICAID ==
[~2022-06-19] VITALS: Ht 154 cm; Wt 90.9 kg
[2022-06-19 12:22] VITALS: BP 146/61
== END ==
LOC: SDC 11:37
PROVIDERS: ATTEND Internal Medicine
DX: Z45.2 Encounter for adjustment and management of vascular access device (principal)
CPT/HCPCS: 36410; 76937; C1751

== ENCOUNTER 2022-08-21 14:03 | Emergency (ER) | payer MEDICARE, MEDICAID ==
[~2022-08-21 14:03] MED LIST changes: +POTA-330 PO; -POTA-51 PO
[2022-08-21] MEDS ORDERED: ACETAMINOPHEN 500 MG TAB (TYLENOL) PO ONE (14:15)
--- NOTE | 2022-08-21 14:16 | ED General ---
General Chief Complaint: Altered Mental Status Stated Complaint: AMS Nursing Triage Note: PT TO ED BY EMS WITH C/O AMS. EMS REPORTS PT HAS HAD AMS FOR THE LAST 24 HOURS AND DECREASE IN O2 SAT. PT WAS 88% ON RA, STAFF PLACED PT ON 2 L NC AND O2 RETURNED TO BASELINE. PT ALERT TO PERSON AND PLACE, BASELINE FOR PT. PT STATES SHE FEELS "LOWSY." Source of Information: Patient, EMS, Long-Term Records Exam Limitations: No Limitations History of Present Illness Date Seen by Provider: Aug 21, 2022 Time Seen by Provider: 14:05 Initial Comments 81-year-old female with past medical history of A-fib on Eliquis, hypertension, dementia, frequent UTIs coming in via EMS from the [place] [facility] due to altered mental status. They state she has not been acting normal for the past 24 hours, and acting similar to when she has a UTI. She endorses her chronic back pain, no new concerns. Reportedly she had a negative COVID test today. Endorses intermittent dysuria. She denies any chest pain, shortness of breath, abdominal pain, focal weakness or numbness, headache, vision changes, or any other concerns. EMS reports she was alert and oriented to person and place on arrival which is her baseline. Her oxygen for them was 96% on room air and vitals were unremarkable for them. Allergies and Home Medications Allergies Coded Allergies: No Known Drug Allergies (Unverified , 03/19/18) Patient Home Medication List Home Medication List Reviewed: Yes Acetaminophen (Acetaminophen) 325 Mg Tablet, 650 MG PO Q6H PRN for PAIN-MILD (1- 4) OR TEMPATURE Prescribed by: KANDI RODRIGUEZ on 03/24/21 1045 Ascorbic Acid (Vitamin C) 1,000 Mg Tablet, 1,000 MG PO BID Prescribed by: KANDI RODRIGUEZ on 03/24/21 1045 Aspirin (Aspirin) 81 Mg Tab.chew, 81 MG PO DAILY Prescribed by: KANDI RODRIGUEZ on 03/24/21 1045 Cholecalciferol (Vitamin D3) (Vitamin D3) 25 Mcg Capsule, 25 MCG PO DAILY Prescribed by: KANDI RODRIGUEZ on 03/24/21 1045 Cyclosporine (Restasis) 1 Each Droperette, 1 DROP OU BID PRN for DRY EYES Prescribed by: KANDI RODRIGUEZ on 03/24/21 1045 Dicyclomine HCl (Dicyclomine HCl) 10 Mg Capsule, 10 MG PO BID PRN for GI SPASMS Prescribed by: KANDI RODRIGUEZ on 03/24/21 1045 Levothyroxine Sodium (Levothyroxine Sodium) 150 Mcg Tablet, 150 MCG PO DAILY Prescribed by: KANDI RODRIGUEZ on 03/24/21 1045 Losartan Potassium (Losartan Potassium) 50 Mg Tablet, 50 MG PO DAILY Prescribed by: KANDI RODRIGUEZ on 03/24/21 1045 Miconazole Nitrate (Lotrimin AF) 90 Gm Powder, 0 GM TOP BID Prescribed by: KANDI RODRIGUEZ on 03/24/21 1045 Nystatin (Nystatin) 15 Gm Cream..g., 1 GM TP TID Prescribed by: KANDI RODRIGUEZ on 03/24/21 1045 Review of Systems Review of Systems Constitutional: No fever EENTM: no symptoms reported Respiratory: no symptoms reported Cardiovascular: no symptoms reported Gastrointestinal: no symptoms reported Genitourinary: no symptoms reported Musculoskeletal: see HPI Skin: no symptoms reported Psychiatric/Neurological: See HPI Past Othjjtd-Wwlmdb-Zgvxza Hx Immunizations Up To Date PED Vaccines UTD: No Seasonal Allergies Seasonal Allergies: No Past Medical History Surgery/Hospitalization HX: 02/26 [place] for L wrist cellulitis Surgeries: Yes (STIMULATOR R HIP, CARPAL TUNNEL, TLKR, INTERSTIM R/L HIP FOR INCONTINENCE, ) Appendectomy, Section, Gallbladder, Hysterectomy, Orthopedic, Tonsillectomy Respiratory: Yes (Home o2 @ HS) Currently Using CPAP: No Currently Using BIPAP: No Cardiac: Yes Chronic Edema/Swelling Neurological: No 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 Disorders: No Female 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 Disorders: Denies 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 Sexually Transmitted Disease: No HIV/AIDS: No Genitourinary: Yes (INNER STEMS PLACED FOR INCONTINENCE) Kidney Stones, UTI-Chronic Gastrointestinal: No Musculoskeletal: Yes (OSTERPENIA) Arthritis, Chronic Back Pain, Fractures Endocrine: Yes ("THYROID PROBLEMS") Hypothyroidsim HEENT: No Loss of Vision: Denies Hearing Impairment: Denies Cancer: No Psychosocial: No Integumentary: No Blood Disorders: No Adverse Reaction/Blood Tranf: No Family Medical History Diabetes mellitus 19 FATHER G8 SISTER Diabetes Physical Exam Vital Signs Vital Signs - First Documented 08/21/22 14:03 Temp 37.8 Pulse 74 Resp 14 B/P (MAP) 137/73 (94) Pulse Ox 91 O2 Delivery Room Air Capillary Refill : Less Than 3 Seconds Height, Weight, BMI Height: 5'1.00" Weight: 175lbs. 1.0oz. 79.755496ns; 44.27 BMI Method:Stated General Appearance: No Apparent Distress, WD/WN Eyes: Bilateral Eye Normal Inspection, Bilateral Eye PERRL HEENT: PERRL/EOMI, Normal ENT Inspection, Pharynx Normal Neck: Full Range of Motion, Normal Inspection, Non Tender, Supple Respiratory: Chest Non Tender, Lungs Clear, Normal Breath Sounds, No Accessory Muscle Use, No Respiratory Distress Cardiovascular: Normal Peripheral Pulses Gastrointestinal: Normal Bowel Sounds, Non Tender, Soft; No Distended, No Guarding Back: Normal Inspection, No CVA Tenderness Extremity: Normal Capillary Refill, Normal Inspection, Normal Range of Motion, Non Tender, No Calf Tenderness Neurologic/Psychiatric: Alert, No Motor/Sensory Deficits, Normal Mood/Affect, Other (Alert and oriented to self and location, at her baseline) Skin: Normal Color, Warm/Dry Focused Exam Lactate Level 08/21/22 14:10: Lactic Acid Level 1.11 Lactic Acid Level Laboratory Tests Test 08/21/22 14:10 Lactic Acid Level 1.11 MMOL/L (0.50-2.00) Procedures/Interventions Patient Education: Explained Benefits, Explained Risks, Pt. Ack. Understanding Breath Sounds per Auscultation: Clear Heart Sounds per Auscultation: Regular Airway Exam: Mouth opens >2 fingers, Neck Full Range of Motion, Visulation of Uvula Sedation Adminstration Time: 2014 Suture Size: 5-0 Progress/Results/Core Measures Suspected Sepsis SIRS Temperature: Pulse: 74 Respiratory Rate: 14 Laboratory Tests 08/21/22 14:10: White Blood Count 16.3H Blood Pressure 137 /73 Mean: 94 08/21/22 14:10: Lactic Acid Level 1.11 Laboratory Tests 08/21/22 14:10: Creatinine 2.19H, Platelet Count 213, Total Bilirubin 0.6 Results/Orders Lab Results Laboratory Tests Test 08/21/22 14:10 08/21/22 14:20 Range/Units White Blood Count 16.3 H 4.3-11.0 10^3/uL Red Blood Count 4.05 3.80-5.11 10^6/uL Hemoglobin 11.5 11.5-16.0 g/dL Hematocrit 37 35-52 % Mean Corpuscular Volume 91 80-99 fL Mean Corpuscular Hemoglobin 28 25-34 pg Mean Corpuscular Hemoglobin Concent 31 L 32-36 g/dL Red Cell Distribution Width 18.5 H 10.0-14.5 % Platelet Count 213 130-400 10^3/uL Mean Platelet Volume 10.3 9.0-12.2 fL Immature Granulocyte % (Auto) 0 % Neutrophils (%) (Auto) 87 H 42-75 % Lymphocytes (%) (Auto) 6 L 12-44 % Monocytes (%) (Auto) 6 0-12 % Eosinophils (%) (Auto) 0 0-10 % Basophils (%) (Auto) 0 0-10 % Neutrophils # (Auto) 14.1 H 1.8-7.8 10^3/uL Lymphocytes # (Auto) 1.0 1.0-4.0 10^3/uL Monocytes # (Auto) 1.0 0.0-1.0 10^3/uL Eosinophils # (Auto) 0.1 0.0-0.3 10^3/uL Basophils # (Auto) 0.0 0.0-0.1 10^3/uL Immature Granulocyte # (Auto) 0.1 0.0-0.1 10^3/uL Neutrophils % (Manual) 87 % Lymphocytes % (Manual) 4 % Monocytes % (Manual) 5 % Band Neutrophils 4 % Anisocytosis SLIGHT Sodium Level 141 135-145 MMOL/L Potassium Level 4.8 3.6-5.0 MMOL/L Chloride Level 102 98-107 MMOL/L Carbon Dioxide Level 32 21-32 MMOL/L Anion Gap 7 5-14 MMOL/L Blood Urea Nitrogen 50 H 7-18 MG/DL Creatinine 2.19 H 0.60-1.30 MG/DL Estimat Glomerular Filtration Rate 22 BUN/Creatinine Ratio 23 Glucose Level 129 H 70-105 MG/DL Lactic Acid Level 1.11 0.50-2.00 MMOL/L Calcium Level 9.2 8.5-10.1 MG/DL Corrected Calcium 9.6 8.5-10.1 MG/DL Magnesium Level 2.5 H 1.6-2.4 MG/DL Total Bilirubin 0.6 0.1-1.0 MG/DL Aspartate Amino Transf (AST/SGOT) 15 5-34 U/L Alanine Aminotransferase (ALT/SGPT) 12 0-55 U/L Alkaline Phosphatase 93 40-136 U/L Total Protein 7.0 6.4-8.2 GM/DL Albumin 3.5 3.2-4.5 GM/DL Urine Color YELLOW Urine Clarity CLEAR Urine pH 6.5 5-9 Urine Specific Orient 1.010 L 1.016-1.022 Urine Protein 1+ H NEGATIVE Urine Glucose (UA) NEGATIVE NEGATIVE Urine Ketones NEGATIVE NEGATIVE Urine Nitrite NEGATIVE NEGATIVE Urine Bilirubin NEGATIVE NEGATIVE Urine Urobilinogen 0.2 < = 1.0 MG/DL Urine Leukocyte Esterase 3+ H NEGATIVE Urine RBC (Auto) 3+ H NEGATIVE Urine RBC 5-10 H /HPF Urine WBC TNTC H /HPF Urine Squamous Epithelial Cells RARE /HPF Urine Crystals NONE /LPF Urine Bacteria LARGE H /HPF Urine Casts NONE /LPF Urine Mucus NEGATIVE /LPF Urine Culture Indicated YES My Orders Orders - KRISTINA RICH MD Chest 1 View, Ap/Pa Only (08/21/22 14:08) Cbc With Automated Diff (08/21/22 14:08) Comprehensive Metabolic Panel (08/21/22 14:08) Magnesium (08/21/22 14:08) Ua Culture If Indicated (08/21/22 14:08) Acetaminophen Tablet (Tylenol Tablet) (08/21/22 14:15) Straight Cath For Spec.-Adult (08/21/22 14:08) Blood Culture (08/21/22 14:13) Ed Iv/Invasive Line Start (08/21/22 14:13) Ekg Tracing (08/21/22 14:13) Lactic Acid Analyzer (08/21/22 14:13) Manual Differential (08/21/22 14:10) Urine Culture (08/21/22 14:20) Meropenem (Merrem 500 Mg) (08/21/22 15:00) Venous Access Request Order (08/21/22 14:59) Medications Given in ED Current Medications Medications Dose Ordered Sig/Nancy Route Start Time Stop Time Status Last Admin Dose Admin Acetaminophen 1,000 mg ONCE ONCE PO 08/21/22 14:15 08/21/22 14:16 DC 08/21/22 14:19 1,000 MG Meropenem 500 mg/ Sodium Chloride 100 ml @ 200 mls/hr ONCE ONCE IV 08/21/22 15:00 6/19/23 15:29 08/21/22 15:03 200 MLS/HR Vital Signs/I&O 08/21/22 08/21/22 14:03 14:19 Temp 37.8 37.8 Pulse 74 Resp 14 B/P (MAP) 137/73 (94) Pulse Ox 91 O2 Delivery Room Air Capillary Refill : Less Than 3 Seconds Blood Pressure Mean: 94 Progress Note : Progress Note 81-year-old female with above history coming in due to altered mental status. Patient was 37.8 C on arrival, just under a fever, vitals otherwise unremarkable. She is maybe slightly slow to respond, but appears at her stated baseline. An IV was placed and basic labs were obtained and were significant for creatinine around 2 which per chart review on her [place] [facility] records, she does have CKD, white blood cell count elevated, urinalysis with concerns for infection. Lactic acid is normal. I reviewed the chart, she has grown out ESBL E. coli that sensitive to meropenem. An IV is placed and she will be given meropenem. I contacted Dr. Teran to discuss admission since she would need IV antibiotics. We were able to agree on a plan where the patient received a midline, and will go home to the [place] [facility] and receive IV antibiotics. With her GFR, she should receive 500 mg of meropenem every 12 hours. I wrote an order that we will go with the patient to the [place] [facility] for this. I believe she stable for discharge with outpatient follow-up. She was sent home with strict return precautions ECG Initial ECG Impression Date: Aug 21, 2022 Initial ECG Impression Time: 14:21 Initial ECG Rate: 75 Initial ECG Rhythm: A Fib/Flutter Comment Narrow QRS, normal axis, no significant ST changes or T wave abnormalities Departure Impression Primary Impression: Cystitis Additional Impression: AMS (altered mental status) Qualified Codes: R41.0 - Disorientation, unspecified Disposition: 01 HOME, SELF-CARE Condition: Stable Departure-Patient Inst. Decision time for Depature: 15:45 Referrals: RAMBO CRENSHAW MD (PCP/Family) Primary Care Physician Patient Instructions: Urinary Tract Infection, Adult ED Add. Discharge Instructions: You have a urinary tract infection. You have grown out resistant strain of a certain bacteria in the past that requires IV antibiotics. You will be on these IV antibiotics twice a day for the next 14 days. KRISTINA RICH MD Aug 21, 2022 14:15
[2022-08-21 14:18] LABS: BASOPHILS % (AUTO) 0 % (0-10); EOSINOPHILS # (AUTO) 0.1 10^3/uL (0.0-0.3); EOSINOPHILS % (AUTO) 0 % (0-10); HEMATOCRIT 37 % (35-52); HEMOGLOBIN 11.5 g/dL (11.5-16.0); LYMPHOCYTES % (AUTO) 6 % (12-44); MEAN CORPUSCULAR HEMOGLOBIN 28 pg (25-34); MEAN CORPUSCULAR HGB CONC 31 g/dL (32-36); MEAN CORPUSCULAR VOLUME 91 fL (80-99); MEAN PLATELET VOLUME 10.3 fL (9.0-12.2); MONOCYTES % (AUTO) 6 % (0-12); NEUTROPHILS # (AUTO) 14.1 10^3/uL (1.8-7.8); NEUTROPHILS % (AUTO) 87 % (42-75); PLATELET COUNT 213 10^3/uL (130-400); WHITE BLOOD COUNT 16.3 10^3/uL (4.3-11.0)
[2022-08-21 14:25] LABS: BILIRUBIN,URINE NEGATIVE (NEGATIVE); CLARITY,URINE CLEAR; COLOR,URINE YELLOW; GLUCOSE, URINE (UA) NEGATIVE (NEGATIVE); KETONES,URINE NEGATIVE (NEGATIVE); LEUKOCYTE ESTERASE ,URINE 3+ (NEGATIVE); NITRITE,URINE NEGATIVE (NEGATIVE); PH,URINE 6.5 (5-9); PROTEIN,URINE 1+ (NEGATIVE)
[2022-08-21 14:36] LABS: ALBUMIN 3.5 GM/DL (3.2-4.5); BILIRUBIN,TOTAL 0.6 MG/DL (0.1-1.0); CALCIUM 9.2 MG/DL (8.5-10.1); CREATININE SERUM 2.19 MG/DL (0.60-1.30); MAGNESIUM 2.5 MG/DL (1.6-2.4); POTASSIUM 4.8 MMOL/L (3.6-5.0)
[2022-08-21 14:36] LABS: BACTERIA,URINE LARGE /HPF; WBC,URINE TNTC /HPF
[2022-08-21 14:37] LABS: SQUAMOUS EPITHELIAL CELL,UR RARE /HPF
--- NOTE | 2022-08-21 14:44 | Diagnostic Imaging Report ---
INDICATION: Fever and altered mental status. TECHNIQUE: Frontal chest obtained at 02:38 p.m. and compared to 03/14/2021. FINDINGS: There is cardiomegaly. There is fairly poor inspiration. There is no definite infiltrate or pneumothorax or pleural fluid. IMPRESSION: Limited study with poor inspiration. No focal infiltrate or pneumothorax or pleural fluid. Dictated by: Dictated on workstation # [id number]
[2022-08-21 14:58] LABS: BAND NEUTROPHILS 4 %; LYMPHOCYTES % (MANUAL) 4 %; MONOCYTES % (MANUAL) 5 %; NEUTROPHILS % (MANUAL) 87 %
[2022-08-21 14:59] LABS: ANISOCYTOSIS SLIGHT
[2022-08-21] MEDS ORDERED: MEROPENEM 500 MG in NS (IVPB) 100 ML IV ONE (15:00)
[2022-08-21 16:08] VITALS: BP 111/57
== END 2022-08-21 16:08 | disposition home or self-care (01) ==
LOC: EDUNIT# 14:03 → ER 14:04
DX: N30.90 Cystitis, unspecified without hematuria (principal); R41.82 Altered mental status, unspecified; I48.91 Unspecified atrial fibrillation; Z79.01 Long term (current) use of anticoagulants
CPT/HCPCS: 36410; 51701; 71045; 76937; 80053; 81000; 83605; 83735; 85007; 85027; 87040; 87088; C1751; 36415; 87077; 93005

== ENCOUNTER → 2022-11-10 | Outpatient (CLI) | payer MEDICARE, MEDICAID ==
[~2022-11-10] MED LIST changes: +DICY-11 PO; -DICY10CA12 PO
== END ==
LOC: LABNPT 13:03
PROVIDERS: ATTEND Internal Medicine
DX: I12.9 Hypertensive chronic kidney disease with stage 1 through stage 4 chronic kidney disease, or unspecified chronic kidney disease (principal); N18.32 Chronic kidney disease, stage 3b; E79.0 Hyperuricemia without signs of inflammatory arthritis and tophaceous disease
CPT/HCPCS: 87804

== ENCOUNTER 2022-12-09 21:23 | Emergency (ER) | payer MEDICARE, MEDICAID ==
--- NOTE | 2022-12-09 21:40 | ED Fall/Injury ---
General Chief Complaint: Trauma-Non Activation Stated Complaint: FALL/HIP PAIN Source: patient Exam Limitations: no limitations History of Present Illness Date Seen by Provider: Dec 09, 2022 Time Seen by Provider: 21:23 Initial Comments Report of right hip and thigh pain after falling from a chair. Unsure if she hit her head. Patient is on Eliquis. She is a resident of the al[facility]. She apparently was trying to get up by herself when she was not supposed to and fell to the floor. EMS was summoned. They arrived and were able to get her to cot. She was complaining of fairly significant pain and IV was initiated and fentanyl 50 mcg IV given for pain 10 out of 10 then declined 5 out of 10. Denies loss of consciousness or other injury. Occurred: just prior to arrival (Only 1 hour ago) Severity: moderate Injuries/Pain Location: pelvis, lower extremity Context: lost balance Loss of Consciousness: no loss of consciousness Modifying Factors: Improves With Immobilization; Worse With Movement Associated Symptoms (Fall): No Abdominal Pain, No Chest Pain, No Headache, No Lightheadedness; Muscle Spasms (Right leg in the thigh area); No Nausea/Vomiting, No Neck Pain, No Shortness of Air Allergies and Home Medications Allergies Coded Allergies: No Known Drug Allergies (Unverified , 03/19/18) Patient Home Medication List Home Medication List Reviewed: Yes Acetaminophen (Acetaminophen) 325 Mg Tablet, 650 MG PO Q6H PRN for PAIN-MILD (1- 4) OR TEMPATURE Prescribed by: KANDI RODRIGUEZ on 03/24/21 1045 Ascorbic Acid (Vitamin C) 1,000 Mg Tablet, 1,000 MG PO BID Prescribed by: KANDI RODRIGUEZ on 03/24/21 1045 Aspirin (Aspirin) 81 Mg Tab.chew, 81 MG PO DAILY Prescribed by: KANDI RODRIGUEZ on 03/24/21 1045 Cholecalciferol (Vitamin D3) (Vitamin D3) 25 Mcg Capsule, 25 MCG PO DAILY Prescribed by: KANDI RODRIGUEZ on 03/24/21 1045 Cyclosporine (Restasis) 1 Each Droperette, 1 DROP OU BID PRN for DRY EYES Prescribed by: KANDI RODRIGUEZ on 03/24/21 1045 Dicyclomine HCl (Dicyclomine HCl) 10 Mg Capsule, 10 MG PO BID PRN for GI SPASMS Prescribed by: KANDI RODRIGUEZ on 03/24/21 104 Levothyroxine Sodium (Levothyroxine Sodium) 150 Mcg Tablet, 150 MCG PO DAILY Prescribed by: KANDI RODRIGUEZ on 03/24/21 104 Losartan Potassium (Losartan Potassium) 50 Mg Tablet, 50 MG PO DAILY Prescribed by: KANDI RODRIGUEZ on 03/24/21 104 Miconazole Nitrate (Lotrimin AF) 90 Gm Powder, 0 GM TOP BID Prescribed by: KANDI RODRIGUEZ on 03/24/21 104 Nystatin (Nystatin) 15 Gm Cream..g., 1 GM TP TID Prescribed by: KANDI RODRIGUEZ on 03/24/21 104 Review of Systems Review of Systems Constitutional: see HPI; No chills, No fever Eyes: No Symptoms Reported Ears, Nose, Mouth, Throat: no symptoms reported Respiratory: No cough, No short of breath Cardiovascular: No chest pain Gastrointestinal: No nausea, No vomiting Genitourinary: no symptoms reported Musculoskeletal: joint pain, muscle pain, muscle cramps Skin: No change in color, No lesions Psychiatric/Neurological: Denies Headache Past Ayrndck-Prksyh-Vyahxd Hx Patient Social History Tobacco Use?: No Use of E-Cig and/or Vaping dev: No Substance use?: No Alcohol Use?: No Immunizations Up To Date PED Vaccines UTD: No Seasonal Allergies Seasonal Allergies: No Past Medical History Surgery/Hospitalization HX: IDDM, DEMENTIA, CKD, BIPOLAR, HYPOTHYROID, AFIB Surgeries: Yes (STIMULATOR R HIP, CARPAL TUNNEL, TLKR, INTERSTIM R/L HIP FOR INCONTINENCE, ) Appendectomy, Section, Gallbladder, Hysterectomy, Orthopedic, Tonsillectomy Respiratory: Yes (Home o2 @ HS) Currently Using CPAP: No Currently Using BIPAP: No Cardiac: Yes Chronic Edema/Swelling Neurological: No 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 Disorders: No Female 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 Disorders: Denies 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 Sexually Transmitted Disease: No HIV/AIDS: No Genitourinary: Yes (INNER STEMS PLACED FOR INCONTINENCE) Kidney Stones, UTI-Chronic Gastrointestinal: No Musculoskeletal: Yes (OSTERPENIA) Arthritis, Chronic Back Pain, Fractures Endocrine: Yes ("THYROID PROBLEMS") Hypothyroidsim HEENT: No Loss of Vision: Denies Hearing Impairment: Denies Cancer: No Psychosocial: No Integumentary: No Blood Disorders: No Adverse Reaction/Blood Tranf: No Family Medical History Reviewed Nursing Family Hx Diabetes mellitus 18 FATHER G8 SISTER Diabetes Physical Exam Vital Signs Vital Signs - First Documented Capillary Refill : Height, Weight, BMI Height: 5'1.00" Weight: 175lbs. 1.0oz. 79.518552ke; 44.27 BMI Method:Stated General Appearance: WD/WN, no apparent distress, obese HEENT: PERRL/EOMI, pharynx normal Neck: full range of motion, supple Cardiovascular: regular rate, rhythm, no murmur Respiratory: no respiratory distress, no accessory muscle use, wheezing (Few scattered wheezes) Gastrointestinal: non tender, soft Back: no CVA tenderness Extremities: pelvis stable, other (Tender to the right upper thigh with muscle spasm noted and tenderness to the right lateral hip area) Neurologic/Psychiatric: alert, oriented x 3 Skin: normal color, warm/dry; No ecchymosis [place] Coma Score Best Eye Response: (4) Open Spontaneously Best Verbal Response: (5) Oriented Best Motor Response: (6) Obeys Commands Procedures/Interventions Patient Education: Explained Benefits, Explained Risks, Pt. Ack. Understanding Breath Sounds per Auscultation: Clear Heart Sounds per Auscultation: Regular Airway Exam: Mouth opens >2 fingers, Neck Full Range of Motion, Visulation of Uvula Sedation Adminstration Time: 2014 Suture Size: 5-0 Progress/Results/Core Measures Results/Orders Lab Results Laboratory Tests Test 12/09/22 21:33 Range/Units White Blood Count 9.5 4.3-11.0 10^3/uL Red Blood Count 4.20 3.80-5.11 10^6/uL Hemoglobin 12.3 11.5-16.0 g/dL Hematocrit 41 35-52 % Mean Corpuscular Volume 97 80-99 fL Mean Corpuscular Hemoglobin 29 25-34 pg Mean Corpuscular Hemoglobin Concent 30 L 32-36 g/dL Red Cell Distribution Width 15.1 H 10.0-14.5 % Platelet Count 268 130-400 10^3/uL Mean Platelet Volume 10.5 9.0-12.2 fL Immature Granulocyte % (Auto) 1 % Neutrophils (%) (Auto) 69 42-75 % Lymphocytes (%) (Auto) 18 12-44 % Monocytes (%) (Auto) 8 0-12 % Eosinophils (%) (Auto) 4 0-10 % Basophils (%) (Auto) 0 0-10 % Neutrophils # (Auto) 6.6 1.8-7.8 10^3/uL Lymphocytes # (Auto) 1.7 1.0-4.0 10^3/uL Monocytes # (Auto) 0.8 0.0-1.0 10^3/uL Eosinophils # (Auto) 0.4 H 0.0-0.3 10^3/uL Basophils # (Auto) 0.0 0.0-0.1 10^3/uL Immature Granulocyte # (Auto) 0.1 0.0-0.1 10^3/uL Sodium Level 143 135-145 MMOL/L Potassium Level 4.6 3.6-5.0 MMOL/L Chloride Level 100 98-107 MMOL/L Carbon Dioxide Level 29 21-32 MMOL/L Anion Gap 14 5-14 MMOL/L Blood Urea Nitrogen 47 H 7-18 MG/DL Creatinine 2.22 H 0.60-1.30 MG/DL Estimat Glomerular Filtration Rate 22 BUN/Creatinine Ratio 21 Glucose Level 134 H 70-105 MG/DL Calcium Level 9.2 8.5-10.1 MG/DL Corrected Calcium 9.4 8.5-10.1 MG/DL Total Bilirubin 0.2 0.1-1.0 MG/DL Aspartate Amino Transf (AST/SGOT) 15 5-34 U/L Alanine Aminotransferase (ALT/SGPT) 10 0-55 U/L Alkaline Phosphatase 135 40-136 U/L Total Protein 7.1 6.4-8.2 GM/DL Albumin 3.7 3.2-4.5 GM/DL My Orders Orders - LUCY BARR MD Ct Head Wo (12/09/22 21:30) Pelvis With Right Hip 2-3views (12/09/22 21:30) Femur, Right, 2 Views (12/09/22 21:34) Chest 1 View, Ap/Pa Only (12/09/22 ) Fentanyl Injection (Fentanyl Injection (12/09/22 22:15) Cbc And Automated Diff (12/09/22 22:20) Comprehensive Metabolic Panel (12/09/22 22:20) Vital Signs/I&O 12/09/22 12/09/22 21:25 21:25 Temp 36.4 36.4 Pulse 66 66 Resp 16 16 B/P (MAP) 183/68 (106) 183/68 (106) Pulse Ox 94 94 O2 Delivery Room Air Room Air Progress Progress Note : Progress Note Seen and evaluated on arrival by EMS. IV established by EMS and they did give fentanyl 50 mcg IV. Medication list reviewed from alf and does show that she is on Eliquis. Patient is unsure if she hit her head so we will go ahead and get CT of the head as well as x-ray of the pelvis and right hip and right femur given her pain syndrome. Monitor patient. Differential diagnosis includes intracranial hemorrhage right hip fracture, right femur fracture, contusion 2139: Patient to CT. 2302: Right hip shows obvious intertrochanteric fracture. CT of the head shows no obvious intracranial hemorrhage on my interpretation. I have reviewed the reports which agree. Chest x-ray done and shows no obvious acute findings. Labs ordered. I did attempt transfer to [facility] in [facility] per patient request and they are at capacity and I can go on wait list. I also checked with Shanthi Almendarez and Shanthi Salter and both are also on diversion so we will go on wait list for [facility] in [facility]. 2306: I have reached back out to [facility]. I will speak with the ER doctor as this was due to a fall and they will consider it for trauma transfer. CBC reviewed and shows no significant abnormality. CMP reviewed and does show elevated serum creatinine at 2.22 which is chronic. I did speak with Dr. Call, ED doc and he accepts patient for transfer to their ED. I did speak with patient's son, Juan J who had requested transfer to [place] as well as the patient and they are in agreement with transfer. Diagnostic Imaging Diagonstic Imaging: CT Plain Films/CT/US/NM/MRI: head Comments [facility] [place], [place] NAME: BECKA ISAAC [facility] REC#: [id number] PT STATUS: REG ER : 1940 PHYSICIAN: LUCY BARR MD ADMIT DATE: 12/09/22/ER Signed Date of Exam:12/09/22 CT HEAD WO CLINICAL INDICATION: Patient is status post fall on Eliquis. EXAM: Axial CT scan of the brain without IV contrast with coronal and sagittal reformatted images. Auto Exposure Controls were utilized during the CT exam to meet ALARA standards for radiation dose reduction. COMPARISON: Head CT without contrast dated 07/26/2021. FINDINGS: There is no evidence of acute cerebral infarct, intracranial hemorrhage, or gross mass effect. Stable diffuse brain parenchymal volume loss. Stable mild chronic small vessel ischemic disease. There is normal weir-white matter distinction. There is no significant midline shift or herniation. There is no evidence of hydrocephalus. The basal cisterns are unremarkable. The skull, extracranial soft tissue, and orbits are unremarkable. There is a small mucus retention cyst involving the right maxillary sinus. The temporal bones show no significant abnormality. IMPRESSION: There is no CT evidence of an acute intracranial process. There is no skull fracture. There is no intracranial hemorrhage. Dictated by: Dictated on workstation # [id number] Dict: 12/09/222147 Trans: 12/09/222241 [id number] Interpreted by: LALITO MCCOY MD Electronically signed by: LALITO MCCOY MD 12/09/222241 Diagonstic Imaging: Xray Plain Films/CT/US/NM/MRI: chest Comments [facility] [place] [place] NAME: BECKA ISAAC [facility] REC#: [id number] PT STATUS: REG ER : 1940 PHYSICIAN: LUCY BARR MD ADMIT DATE: 12/09/22/ER Signed Date of Exam:12/09/22 CHEST 1 VIEW, AP/PA ONLY CLINICAL INDICATION: Patient is status post trauma. EXAM: Portable chest x-ray, upright view. COMPARISON: Chest x-ray dated 08/21/2022. FINDINGS: Lungs/pleura: Lungs are clear. There is no pneumothorax. There is no pleural effusion. Mediastinum: Unremarkable. Pulmonary vasculature: Unremarkable. Heart: Unremarkable. Bones/extrathoracic soft tissue: There are hypertrophic spurs involving the thoracic spine. There is right curvature of the thoracic spine. There is no fracture seen on this exam. IMPRESSION: Stable chest x-ray exam with no radiographic evidence of acute cardiopulmonary process. Dictated by: Dictated on workstation # [id number] Dict: 12/09/222221 Trans: 12/09/222242 ESTUARDO [id number] Interpreted by: LALITO MCCOY MD Electronically signed by: LALITO MCCOY MD 12/09/222242 Diagonstic Imaging: Xray Plain Films/CT/US/NM/MRI: pelvis, hip Comments [facility] [place] [place] NAME: BECKA ISAAC [facility] REC#: [id number] PT STATUS: REG ER : 1940 PHYSICIAN: LUCY BARR MD ADMIT DATE: 12/09/22/ER Signed Date of Exam:12/09/22 PELVIS WITH RIGHT HIP 2-3VIEWS CLINICAL INDICATION: Patient is status post fall with right hip pain. EXAM: X-ray of the pelvis, AP view. X-ray of the right hip, AP and crosstable lateral views. COMPARISON: X-ray right femur dated 12/09/2022. X-ray pelvis dated 05/20/2016. FINDINGS: There is interval development of a displaced intertrochanteric fracture of the proximal right femur with foreshortening. The femoroacetabular joint space is intact. Old healed chronic fractures of the bilateral superior and inferior pubic rami. There is no other fracture seen on this exam. A spinal neurostimulator device is again seen overlying the sacrum regions. IMPRESSION: There is interval development of a displaced right femoral intertrochanteric fracture with foreshortening. Dictated by: Dictated on workstation # [id number] Dict: 12/09/222223 Trans: 12/09/222240 ESTUARDO [id number] Interpreted by: LALITO MCCOY MD Electronically signed by: LALITO MCCOY MD 12/09/222240 Plain Films/CT/US/NM/MRI: other Comments [facility] [place] [place] NAME: BECKA ISAAC [facility] REC#: [id number] PT STATUS: REG ER : 1940 PHYSICIAN: LUCY BARR MD ADMIT DATE: 12/09/22/ER Signed Date of Exam:12/09/22 FEMUR, RIGHT, 2 VIEWS CLINICAL INDICATION: Patient is status post fall on Eliquis with right hip pain. EXAM: X-ray of the right femur, 4 views. COMPARISON: X-ray of the pelvis and right hip dated 12/09/2022. FINDINGS: There is a displaced intertrochanteric fracture of the proximal right femur with foreshortening noted. The femoroacetabular joint space is intact. There is no other fracture seen involving the right femur. There is severe medial compartment narrowing and mild to moderate lateral compartment narrowing. There are severely hypertrophic tricompartmental spurs. There is bony thickening involving the inferior superior right pubic ramus which may be related to old healed fractures. IMPRESSION: There is a displaced intertrochanteric fracture of the proximal right femur with foreshortening. Dictated by: Dictated on workstation # [id number] Dict: 12/09/222221 Trans: 12/09/222240 [id number] Interpreted by: LALITO MCCOY MD Electronically signed by: LALITO MCCOY MD 12/09/222240 Departure Impression Primary Impression: Closed right hip fracture Qualified Codes: S72.001A - Fracture of unspecified part of neck of right femur, initial encounter for closed fracture Disposition: XFER SHT-TRM HOSP Condition: Stable Transfer Transfer Reason: Exceeds level of care Time Spoke to Accepting Phy: 23:08 Transfer Progress Notes Spoke with Dr. Call at [facility] in [place], [place] who accepts patient ED to ED transfer Departure-Patient Inst. Referrals: RAMBO CRENSHAW MD (PCP/Family) Primary Care Physician LUCY BARR MD Dec 09, 2022 21:40
--- NOTE | 2022-12-09 22:03 | Diagnostic Imaging Report ---
CLINICAL INDICATION: Patient is status post fall on Eliquis. EXAM: Axial CT scan of the brain without IV contrast with coronal and sagittal reformatted images. Auto Exposure Controls were utilized during the CT exam to meet ALARA standards for radiation dose reduction. COMPARISON: Head CT without contrast dated 07/26/2021. FINDINGS: There is no evidence of acute cerebral infarct, intracranial hemorrhage, or gross mass effect. Stable diffuse brain parenchymal volume loss. Stable mild chronic small vessel ischemic disease. There is normal weir-white matter distinction. There is no significant midline shift or herniation. There is no evidence of hydrocephalus. The basal cisterns are unremarkable. The skull, extracranial soft tissue, and orbits are unremarkable. There is a small mucus retention cyst involving the right maxillary sinus. The temporal bones show no significant abnormality. IMPRESSION: There is no CT evidence of an acute intracranial process. There is no skull fracture. There is no intracranial hemorrhage. Dictated by: Dictated on workstation # [id number]
[2022-12-09] MEDS ORDERED: fentaNYL INJECTION 100 MCG/2 ML VIAL IVP STA (22:15)
[2022-12-09 22:29] LABS: BASOPHILS % (AUTO) 0 % (0-10); EOSINOPHILS # (AUTO) 0.4 10^3/uL (0.0-0.3); EOSINOPHILS % (AUTO) 4 % (0-10); HEMATOCRIT 41 % (35-52); HEMOGLOBIN 12.3 g/dL (11.5-16.0); LYMPHOCYTES # (AUTO) 1.7 10^3/uL (1.0-4.0); LYMPHOCYTES % (AUTO) 18 % (12-44); MEAN CORPUSCULAR HEMOGLOBIN 29 pg (25-34); MEAN CORPUSCULAR HGB CONC 30 g/dL (32-36); MEAN CORPUSCULAR VOLUME 97 fL (80-99); MEAN PLATELET VOLUME 10.5 fL (9.0-12.2); MONOCYTES # (AUTO) 0.8 10^3/uL (0.0-1.0); MONOCYTES % (AUTO) 8 % (0-12); NEUTROPHILS # (AUTO) 6.6 10^3/uL (1.8-7.8); NEUTROPHILS % (AUTO) 69 % (42-75); PLATELET COUNT 268 10^3/uL (130-400); WHITE BLOOD COUNT 9.5 10^3/uL (4.3-11.0)
[2022-12-09 22:30] LABS: ALBUMIN 3.7 GM/DL (3.2-4.5)
[2022-12-09 22:31] LABS: POTASSIUM 4.6 MMOL/L (3.6-5.0)
[2022-12-09 22:32] LABS: CALCIUM 9.2 MG/DL (8.5-10.1)
--- NOTE | 2022-12-09 22:32 | Diagnostic Imaging Report ---
CLINICAL INDICATION: Patient is status post trauma. EXAM: Portable chest x-ray, upright view. COMPARISON: Chest x-ray dated 08/21/2022. FINDINGS: Lungs/pleura: Lungs are clear. There is no pneumothorax. There is no pleural effusion. Mediastinum: Unremarkable. Pulmonary vasculature: Unremarkable. Heart: Unremarkable. Bones/extrathoracic soft tissue: There are hypertrophic spurs involving the thoracic spine. There is right curvature of the thoracic spine. There is no fracture seen on this exam. IMPRESSION: Stable chest x-ray exam with no radiographic evidence of acute cardiopulmonary process. Dictated by: Dictated on workstation # [id number]
[2022-12-09 22:33] LABS: TOTAL PROTEIN 7.1 GM/DL (6.4-8.2)
--- NOTE | 2022-12-09 22:33 | Diagnostic Imaging Report ---
CLINICAL INDICATION: Patient is status post fall on Eliquis with right hip pain. EXAM: X-ray of the right femur, 4 views. COMPARISON: X-ray of the pelvis and right hip dated 12/09/2022. FINDINGS: There is a displaced intertrochanteric fracture of the proximal right femur with foreshortening noted. The femoroacetabular joint space is intact. There is no other fracture seen involving the right femur. There is severe medial compartment narrowing and mild to moderate lateral compartment narrowing. There are severely hypertrophic tricompartmental spurs. There is bony thickening involving the inferior superior right pubic ramus which may be related to old healed fractures. IMPRESSION: There is a displaced intertrochanteric fracture of the proximal right femur with foreshortening. Dictated by: Dictated on workstation # [id number]
[2022-12-09 22:35] LABS: BILIRUBIN,TOTAL 0.2 MG/DL (0.1-1.0)
--- NOTE | 2022-12-09 22:35 | Diagnostic Imaging Report ---
CLINICAL INDICATION: Patient is status post fall with right hip pain. EXAM: X-ray of the pelvis, AP view. X-ray of the right hip, AP and crosstable lateral views. COMPARISON: X-ray right femur dated 12/09/2022. X-ray pelvis dated 05/20/2016. FINDINGS: There is interval development of a displaced intertrochanteric fracture of the proximal right femur with foreshortening. The femoroacetabular joint space is intact. Old healed chronic fractures of the bilateral superior and inferior pubic rami. There is no other fracture seen on this exam. A spinal neurostimulator device is again seen overlying the sacrum regions. IMPRESSION: There is interval development of a displaced right femoral intertrochanteric fracture with foreshortening. Dictated by: Dictated on workstation # [id number]
[2022-12-09 22:37] LABS: CREATININE SERUM 2.22 MG/DL (0.60-1.30)
[2022-12-09] MEDS ORDERED: HYDROmorphone INJECTION 2 MG/ML VIAL IV ONE (23:30)
[2022-12-10] MEDS ORDERED: fentaNYL INJECTION 100 MCG/2 ML VIAL ONE (00:58)
[2022-12-10] MEDS ORDERED: fentaNYL INJECTION 100 MCG/2 ML VIAL IVP ONE (01:00)
[2022-12-10 01:02] VITALS: BP 146/63
== END 2022-12-10 01:02 | disposition short-term general hospital (02) ==
LOC: EDUNIT# 21:23 → ER 21:25
DX: S72.141A Displaced intertrochanteric fracture of right femur, initial encounter for closed fracture (principal); E66.9 Obesity, unspecified; Z68.41 Body mass index [BMI] 40.0-44.9, adult; Z79.01 Long term (current) use of anticoagulants; W07.XXXA Fall from chair, initial encounter; Y92.129 Unspecified place in nursing home as the place of occurrence of the external cause
CPT/HCPCS: 36415; 70450; 71045; 73552; 80053; 85025